=== PATIENT | female | born 1970 | race Caucasian/White ===

== ENCOUNTER 2016-09-07 17:16 | Inpatient (IN) | payer OTHER ==
[2016-09-07] VITALS (9 sets, daily range): BP systolic 85–106; BP diastolic 58–70; PULSE 76–108; RESP 16–28; TEMP 98.5–99.2; O2SAT 87–100
[~2016-09-07] VITALS: Ht 165.1 cm; Wt 62.6 kg
[~2016-09-07 17:16] MED LIST: ADVAI100I PO; ALBU8I INH; FLUO20 PO; OXYC5 PO; PHEN12.5 PO; PROT40TA PO; SYMB80AE INH
[2016-09-07] MEDS ORDERED: SODIUM CHLOR 0.9% 1000 ML INJ 800 ML IV ONE (17:38)
[2016-09-07] MEDS ORDERED: SODIUM CHLOR 0.9% 1000 ML INJ 1,000 ML IV ONE (17:38)
--- NOTE | 2016-09-07 17:44 | PD ---
HPI Chief Complaint: Respiratory Symptoms Time Seen by Provider: 17:38 Travel History International Travel<30 days: No Contact w/Intl Traveler<30days: No Traveled to known affect area: No History of Present Illness HPI 46-year-old female with history of emphysema, bipolar disorder, here for evaluation of shortness of breath, generalized weakness, bilateral lower back pain, and jaundice. Symptoms have been worsening over the last 2 days. Cough is productive of greenish sputum. She is not sure if she has been having fevers or chills. She is having some abdominal discomfort and chest tightness. She reports that she has been jaundiced in the past and this was attributed to the medications that she has been taking for her bipolar disorder. She has felt nauseous. No vomiting or diarrhea. No urinary symptoms. She denies IVDU. States that she used to use cocaine intranasally. No alcohol abuse. PFSH Past Medical History Arthritis: Yes (in back and hips) Asthma: Yes Autoimmune Disease: No Blood Disorders: No Bipolar Disorder: Yes Anxiety: Yes Depression: Yes Heart Rhythm Problems: No Cancer: No Cardiovascular Problems: No High Cholesterol: Yes Chest Pain: No Congestive Heart Failure: No COPD: No Cerebrovascular Accident: No Diminished Hearing: No Endocrine: No Gastrointestinal Disorders: Yes GERD: Yes Genitourinary: Yes (HYSTERECTOMY) Headaches: Yes Hepatitis: No Hiatal Hernia: No Immune Disorder: No Kidney Stones: No Musculoskeletal: Yes Neurologic: Yes Psychiatric: Yes Reproductive: Yes (ENDOMETRIOSIS) Respiratory: Yes (COPD) Immunizations Current: Yes Migraines: Yes Renal Failure: No Schizophrenia: Yes Seizures: Yes Sleep Apnea: No Ulcer: No PNEUMOCCOCAL Vaccine (Year): 1 Past Surgical History Abdominal Surgery: No AICD: No Appendectomy: Yes Arteriovenous Shunt: No Cardiac Surgery: No Ear Surgery: No Endocrine Surgery: No Eye Surgery: No Genitourinary Surgery: No Gynecologic Surgery: Yes (hysterectomy) Hysterectomy: Yes Insulin Pump: No Joint Replacement: No Oral Surgery: No Pacemaker: No Thoracic Surgery: No Other Surgery: Yes Social History Alcohol Use: No Tobacco Use: No Substance Use: No Allergies-Medications (Allergen,Severity, Reaction): Coded Allergies: No Known Allergies (Unverified , 09/07/16) Reported Meds & Prescriptions Reported Meds & Active Scripts Active Reported Advair Diskus Inh (Fluticasone-Salmeterol Inh) 100-50 Mcg/Blist Aer 1 Puff INH BID Rinse mouth after use. Symbicort Inh (Budesonide/Formoterol Fumarate) 80-4.5 Mcg/Act Aero 1 Puff INH BID Ventolin Hfa 18 GM Inh (Albuterol Sulfate) 90 Mcg/Act Aer 2 Puff INH Q4-6H PRN Klonopin (Clonazepam) 1 Mg Tab 1 Mg PO HS Trazodone (Trazodone HCl) 100 Mg Tab 200 Mg PO HS Abilify (Aripiprazole) 10 Mg Tab 10 Mg PO DAILY Prozac (Fluoxetine HCl) 40 Mg Cap 40 Mg PO DAILY Review of Systems Except as stated in HPI: all other systems reviewed are Neg Physical Exam Narrative GENERAL: Well-developed, well-nourished, awake, alert, no acute distress. SKIN: Warm and dry. Diffuse jaundice. HEAD: Atraumatic. Normocephalic. EYES: Pupils equal and round. Scleral icterus. No injection or drainage. ENT: Mucous membranes pink and dry. NECK: Trachea midline. No JVD. CARDIOVASCULAR: Regular rate and rhythm. RESPIRATORY: No accessory muscle use. Inspiratory and expiratory wheezes bilaterally. No rales or rhonchi. Breath sounds equal bilaterally. Speaking full sentences. GASTROINTESTINAL: Abdomen soft, nondistended. Mild diffuse tenderness without peritoneal signs. MUSCULOSKELETAL: No obvious deformities. No clubbing. No cyanosis. No edema. NEUROLOGICAL: Awake and alert. No obvious cranial nerve deficits. Motor grossly within normal limits. Normal speech. PSYCHIATRIC: Appropriate mood and affect; insight and judgment normal. Data Data Last Documented VS Vital Signs Date Time Temp Pulse Resp B/P Pulse Ox O2 Delivery O2 Flow Rate FiO2 09/07/16 19:00 93 22 98/61 100 Nasal Cannula 2 09/07/16 18:42 98.9 Orders Lactic Acid Sepsis Protocol (09/07/16 17:34) Complete Blood Count With Diff (09/07/16 17:35) Comprehensive Metabolic Panel (09/07/16 17:35) Electrocardiogram (09/07/16 17:38) Prothrombin Time / Inr (Pt) (09/07/16 17:38) Act Partial Throm Time (Ptt) (09/07/16 17:38) Urinalysis - C+S If Indicated (09/07/16 17:38) Influenzae A/B Antigen (09/07/16 17:38) Blood Culture (09/07/16 17:38) Chest, Single Ap (09/07/16 17:38) Blood Glucose (09/07/16 17:38) Ecg Monitoring (09/07/16 17:38) Iv Access Insert/Monitor (09/07/16 17:38) Oximetry (09/07/16 17:38) Oxygen Administration (09/07/16 17:38) Sodium Chlor 0.9% 1000 Ml Inj (Ns 1000 M (09/07/16 17:38) Sodium Chlor 0.9% 1000 Ml Inj (Ns 1000 M (09/07/16 17:38) Ct Abd/Pel W Iv Contrast(Rout) (09/07/16 17:38) Ct Pulmonary Angiogram (09/07/16 17:38) Tylenol (Acetaminophen) (09/07/16 17:38) Albuterol-Ipratropium Neb (Duoneb Neb) (09/07/16 17:45) Bhcg Screen Qualitative (09/07/16 17:30) Ckmb (Isoenzyme) Profile (09/07/16 17:30) Direct Bilirubin (09/07/16 17:30) Troponin I (09/07/16 17:30) Diphenhydramine Inj (Benadryl Inj) (09/07/16 18:30) Lipase (09/07/16 18:16) B-Type Natriuretic Peptide (09/07/16 18:50) Iohexol 350 Inj (Omnipaque 350 Inj) (09/07/16 18:50) Ceftriaxone Inj (Rocephin Inj) (09/07/16 19:15) Azithromycin Inj (Zithromax Inj) (09/07/16 19:15) Labs Laboratory Tests Test 09/07/16 17:30 White Blood Count 7.5 TH/MM3 Red Blood Count 5.05 MIL/MM3 Hemoglobin 15.0 GM/DL Hematocrit 44.8 % Mean Corpuscular Volume 88.8 FL Mean Corpuscular Hemoglobin 29.8 PG Mean Corpuscular Hemoglobin 33.6 % Concent Red Cell Distribution Width 17.5 % Platelet Count 220 TH/MM3 Mean Platelet Volume 9.8 FL Neutrophils (%) (Auto) 72.2 % Lymphocytes (%) (Auto) 18.7 % Monocytes (%) (Auto) 8.1 % Eosinophils (%) (Auto) 0.2 % Basophils (%) (Auto) 0.8 % Neutrophils # (Auto) 5.4 TH/MM3 Lymphocytes # (Auto) 1.4 TH/MM3 Monocytes # (Auto) 0.6 TH/MM3 Eosinophils # (Auto) 0.0 TH/MM3 Basophils # (Auto) 0.1 TH/MM3 CBC Comment AUTO DIFF Differential Comment AUTO DIFF CONFIRMED Platelet Morphology Comment ENLARGED Prothrombin Time 12.2 SEC Prothromb Time International 1.1 RATIO Ratio Activated Partial 31.0 SEC Thromboplast Time Sodium Level 135 MEQ/L Potassium Level 3.9 MEQ/L Chloride Level 102 MEQ/L Carbon Dioxide Level 22.2 MEQ/L Anion Gap 11 MEQ/L Blood Urea Nitrogen 15 MG/DL Creatinine 0.88 MG/DL Estimat Glomerular Filtration 70 ML/MIN Rate Random Glucose 112 MG/DL Lactic Acid Level 1.0 mmol/L Calcium Level 9.0 MG/DL Total Bilirubin 9.1 MG/DL Direct Bilirubin 7.3 MG/DL Aspartate Amino Transf 1677 U/L (AST/SGOT) Alanine Aminotransferase 2361 U/L (ALT/SGPT) Alkaline Phosphatase 303 U/L Total Creatine Kinase 37 U/L Troponin I 0.04 NG/ML B-Type Natriuretic Peptide 14 PG/ML Total Protein 8.7 GM/DL Albumin 3.1 GM/DL Lipase 299 U/L Beta HCG, Qualitative 3 MIU/ML Acetaminophen Level LESS THAN 2.0 MCG/ML MDM Medical Decision Making Medical Screen Exam Complete: Yes Emergency Medical Condition: Yes Medical Record Reviewed: Yes Interpretation(s) EKG: Sinus, rate 88, short CA interval, possible left atrial abnormality, nonspecific septal T wave changes, no acute ischemic abnormality. Differential Diagnosis Sepsis, pneumonia, PE, cholangitis, biliary obstruction, liver failure, hyperbilirubinemia, Narrative Course Initial vital signs show heart rate 108, blood pressure 85/58, pulse ox 87% on room air. Blood pressure improved to 106/68 after 2 L of normal saline IV. CBC is unremarkable. CMP is remarkable for total bilirubin 9.1, direct bilirubin 7.3, AST 1677, ALT 2361, alkaline phosphatase 303. Lipase is 299. BNP is 14. Troponin is 0.04. Lactic acid is 1.0. Chest x-ray: Cardiomegaly with diffuse interstitial opacities, similar to previous study. CT pulmonary angiogram: CONCLUSION: 1. There is pulmonary fibrosis and scattered groundglass densities throughout the lungs greatest in the upper lobes. Acute on chronic condition is suspected. 2. Minimal coronary artery calcification. 3. Right hilar and mediastinal adenopathy is likely reactive. 4. Left adrenal nodule likely adenoma. 5. No PE CT abdomen pelvis: CONCLUSION: 1. Left adrenal nodule probable adenoma. 2. No acute inflammatory process. 3. Interstitial and alveolar opacities with pulmonary fibrosis. The patient was started on azithromycin and Rocephin for pneumonia. She reports history of medication-induced liver injury/hyperbilirubinemia. She was given 2 L of IV fluids with improvement in heart rate and blood pressure. Her abdominal exam shows mild tenderness, no peritoneal signs. She will be admitted for further treatment and evaluation of acute hepatitis, hyperbilirubinemia, pneumonia, hypoxia. Case discussed with hospitalist Dr. Olsen who will admit the patient to her service. Diagnosis Primary Impression: Pneumonia Qualified Code: J18.9 - Pneumonia of both lungs due to infectious organism, unspecified part of lung Additional Impressions: Hypoxia Hyperbilirubinemia Transaminitis Admitting Information Admitting Physician Requests: Admit Duane Santos MD Sep 07, 2016 17:44
[2016-09-07] MEDS: RESP: ALBUTEROL 2.5 MG/IPRATROPIUM 0.5 MG NEB (SCH) INH ×2 (17:55→17:56)
[2016-09-07 17:56] LABS: CHLORIDE 102 MEQ/L (98-107); POTASSIUM 3.9 MEQ/L (3.5-5.1); SODIUM (NA) 135 MEQ/L (136-145)
[2016-09-07 17:58] LABS: AUTOMATED NEUTROPHIL # 5.4 TH/MM3 (1.8-7.7); BASOPHIL # 0.1 TH/MM3 (0-0.2); BASOPHIL % 0.8 % (0.0-2.0); EOSINOPHIL % 0.2 % (0.0-4.0); HEMATOCRIT 44.8 % (35.0-46.0); LYMPH % 18.7 % (9.0-44.0); LYMPHOCYTE # 1.4 TH/MM3 (1.0-4.8); MEAN CELL VOLUME 88.8 FL (80.0-100.0); MEAN CORPUSCULAR HEMOGLOBIN 29.8 PG (27.0-34.0); MEAN CORPUSCULAR HGB CONC 33.6 % (32.0-36.0); MONO % 8.1 % (0.0-8.0); NEUT % 72.2 % (16.0-70.0); PLATELET COUNT 220 TH/MM3 (150-450); RED BLOOD COUNT 5.05 MIL/MM3 (4.00-5.30); RED CELL DISTRIBUTION WIDTH 17.5 % (11.6-17.2); WHITE BLOOD COUNT 7.5 TH/MM3 (4.0-11.0)
[2016-09-07 18:00] LABS: ANION GAP 11 MEQ/L (5-15); BICARBONATE 22.2 MEQ/L (21.0-32.0); BLOOD UREA NITROGEN 15 MG/DL (7-18)
[2016-09-07 18:02] LABS: INTERNATIONAL NORMALIZED RATIO 1.1 RATIO; PROTHROMBIN TIME - PATIENT 12.2 SEC (9.8-11.6)
[2016-09-07 18:03] LABS: GLOMERULAR FILTRATION RATE 70 ML/MIN (>89)
[2016-09-07 18:04] LABS: TOTAL BILIRUBIN ADULT 9.1 MG/DL (0.2-1.0)
[2016-09-07 18:05] LABS: ALKALINE PHOSPHATASE 303 U/L (45-117)
[2016-09-07 18:09] LABS: HEMO FLAGS AUTO DIFF
[2016-09-07 18:10] LABS: ALT (GPT) 2361 U/L (10-53); AST (GOT) 1677 U/L (15-37)
[2016-09-07 18:11] LABS: BHCG SCREEN QUALITATIVE 3 MIU/ML (0-5); CREATINE KINASE 37 U/L (26-192)
--- NOTE | 2016-09-07 18:15 | RADHPO ---
EXAM DATE/TIME: 09/07/2016 18:04 [facility] COMPARISON: CHEST PA & LAT, November 27, 2015, 9:53. CHEST SINGLE AP, November 16, 2015, 9:32. INDICATIONS : Worsening shortness of breath for 10 days MEDICAL HISTORY : None. SURGICAL HISTORY : None. ENCOUNTER: Initial ACUITY: 1 week PAIN SCORE: 0/10 LOCATION: Bilateral chest FINDINGS: A single view of the chest demonstrates cardiomegaly with interstitial opacities. The cardiomediasti nal contours are unremarkable. Osseous structures are intact. CONCLUSION: Cardiomegaly with diffuse interstitial opacities, similar to previous study. Torey Burden MD on September 07, 2016 at 18:13 Board Certified Radiologist. This report was verified electronically.
[2016-09-07] MEDS ORDERED: TRAZ100T4 PO (18:18)
[2016-09-07] MEDS ORDERED: ARIP1TAB5 PO (18:18)
[2016-09-07] MEDS ORDERED: SYMB80AE INH (18:18)
[2016-09-07] MEDS ORDERED: PROZ40CA PO (18:18)
[2016-09-07] MEDS ORDERED: VENTAER INH (18:18)
[2016-09-07] MEDS ORDERED: CLON1 PO (18:18)
[2016-09-07] MEDS ORDERED: ADVA100A INH (18:18)
[2016-09-07] MEDS ORDERED: diphenhydrAMINE HCL 50 MG/ML VIAL IV PUSH ONE (18:30)
[2016-09-07 18:35] LABS: PLATELET MORPHOLOGY ENLARGED (NORMAL)
[2016-09-07 18:36] LABS: SCAN/DIFF AUTO DIFF CONFIRMED
[2016-09-07] MEDS ORDERED: IOHEXOL 350 MG/ML 10 ML VIAL (for RAD DIAG) IV ONE (18:50)
--- NOTE | 2016-09-07 19:02 | RADHPO ---
EXAM DATE/TIME: 09/07/2016 18:24 [facility] COMPARISON: CT ABDOMEN & PELVIS W/O CONTRAST, November 19, 2013, 13:54. INDICATIONS : Shortness of breath and hypoxia. IV CONTRAST: 75 cc Omnipaque 350 (iohexol) IV RADIATION DOSE: 16.15 CTDIvol (mGy) MEDICAL HISTORY : Chronic obstructive pulmonary disease. Gastroesophageal reflux disease. Jaundice. SURGICAL HISTORY : Hysterectomy. ENCOUNTER: Initial ACUITY: 1 day PAIN SCALE: 4/10 LOCATION: Bilateral chest TECHNIQUE: Volumetric scanning of the chest was performed using a pulmonary embolism protocol MIP images were re constructed. Using automated exposure control and adjustment of the mA and/or kV according to patien t size, radiation dose was kept as low as reasonably achievable to obtain optimal diagnostic quality images. FINDINGS: PULMONARY ARTERIES: No filling defects are seen in the pulmonary arteries through the segmental level. LUNGS: There is pulmonary fibrosis and diffuse interstitial densities in the upper lobes and superior segmen ts of the lower lobes. Scattered ground glass densities are also seen. PLEURAE: There is no pleural thickening or pleural effusion. MEDIASTINUM: There is good visualization of the great vessels of the middle mediastinum. Right hilar and scattered mediastinal adenopathy. MUSCULOSKELETAL: Within normal limits for patient age. MISCELLANEOUS: The visualized upper abdominal organs demonstrate no acute abnormality. 1.6 cm left adrenal nodule. CONCLUSION: 1. There is pulmonary fibrosis and scattered groundglass densities throughout the lungs greatest in t he upper lobes. Acute on chronic condition is suspected. 2. Minimal coronary artery calcification. 3. Right hilar and mediastinal adenopathy is likely reactive. 4. Left adrenal nodule likely adenoma. Torey Burden MD on September 07, 2016 at 18:55 Board Certified Radiologist. This report was verified electronically.
--- NOTE | 2016-09-07 19:08 | RADHPO ---
EXAM DATE/TIME: 09/07/2016 18:24 [facility] COMPARISON: CT ABDOMEN & PELVIS W/O CONTRAST, November 19, 2013, 13:54. CT ABDOMEN & PELVIS W CONTRAST, September 29, 18:08. INDICATIONS : Abdominal pain and jaundice. IV CONTRAST: 75 cc Omnipaque 350 (iohexol) IV ; Cumulative dose for multiple exams. ORAL CONTRAST: No oral contrast ingested. RADIATION DOSE: 14.62 CTDIvol (mGy) MEDICAL HISTORY : Gastroesophageal reflux disease. Jaundice. SURGICAL HISTORY : Hysterectomy. ENCOUNTER: Initial ACUITY: 1 day PAIN SCALE: 4/10 LOCATION: Bilateral upper quadrant TECHNIQUE: Volumetric scanning of the abdomen and pelvis was performed. Using automated exposure control and ad justment of the mA and/or kV according to patient size, radiation dose was kept as low as reasonably achievable to obtain optimal diagnostic quality images. FINDINGS: LOWER LUNGS: Bibasilar fibrosis and scattered interstitial and alveolar opacities.. LIVER: Homogeneous density without lesion. There is no dilation of the biliary tree. No calcified gallston es. SPLEEN: Normal size without lesion. PANCREAS: Within normal limits. KIDNEYS: Normal in size and shape. There is no mass, stone or hydronephrosis. ADRENAL GLANDS: 1.6 cm left adrenal nodule.. VASCULAR: There is no aortic aneurysm. BOWEL/MESENTERY: The stomach, small bowel, and colon demonstrate no acute abnormality. There is no free intraperitone al air or fluid. ABDOMINAL WALL: Within normal limits. RETROPERITONEUM: There is no lymphadenopathy. BLADDER: No wall thickening or mass. REPRODUCTIVE: Within normal limits. INGUINAL: There is no lymphadenopathy or hernia. MUSCULOSKELETAL: Within normal limits for patient age. CONCLUSION: 1. Left adrenal nodule probable adenoma. 2. No acute inflammatory process. 3. Interstitial and alveolar opacities with pulmonary fibrosis. Torey Burden MD on September 07, 2016 at 19:04 Board Certified Radiologist. This report was verified electronically.
[2016-09-07] MEDS ORDERED: AZITHROMYCIN INJ 500 MG in SODIUM CHLOR 0.9% 250 ML INJ 250 ML IV ONE (19:15)
[2016-09-07] MEDS ORDERED: cefTRIAXone INJ 1,000 MG in SODIUM CHLORIDE 0.9% INJ 100 ML IV ONE (19:15)
[2016-09-07] MEDS ORDERED: ACETYLCYSTEINE IV ONE ×6 (21:15→23:00)
[2016-09-07] MEDS ORDERED: DEXTROSE 5% IV ONE ×6 (21:15→23:00)
[2016-09-07] MEDS ORDERED: WATER IV ONE ×4 (21:15→22:00)
[2016-09-07] MEDS ORDERED: SODIUM CHLORIDE 0.9% FLUSH 5 ML FLUSH FLUSH PRN (21:15)
[2016-09-07] MEDS ORDERED: NALOXONE HCL 0.4 MG/ML AMP IV PRN (21:15)
[2016-09-07] MEDS: SODIUM CHLOR 0.9% 1000 ML INJ 1,000 ML IV SCH (22:15)
[2016-09-07] MEDS ORDERED: WATE IV ONE ×2 (23:00)
[2016-09-08] VITALS (12 sets, daily range): BP systolic 84–112; BP diastolic 56–81; PULSE 71–100; RESP 16–24; TEMP 97.5–98.8; O2SAT 91–100
[2016-09-08 02:57] LABS: BLOOD, URINE TRACE (NEG); GLUCOSE,URINE 100 mg/dL (NEG); KETONE, URINE NEG (NEG); NITRITE,URINE NEG (NEG)
[2016-09-08] MEDS ORDERED: ACETYLCYSTEINE IV ONE ×2 (03:00)
[2016-09-08] MEDS ORDERED: DEXTROSE 5% IV ONE ×2 (03:00)
[2016-09-08] MEDS ORDERED: WATE IV ONE ×2 (03:00)
[2016-09-08 03:03] LABS: URINE COLOR AMBER (YELLW/STRAW)
[2016-09-08 03:04] LABS: BACTERIA, URINE OCC /hpf; MUCUS URINE FEW /lpf (OCC); RBC, URINE 0-3 /hpf (0-3); SQUAMOUS EPITHELIAL CELL URINE 0-5 /hpf (0-5)
[2016-09-08 03:05] LABS: COMMENT (UR) CULTURE INDICATED; CULTURE IF INDICATED CULTURE INDICATED
[2016-09-08] MEDS ORDERED: KETOROLAC TROMETHAMINE 30 MG/ML (IVP) VIAL IV PUSH ONE (05:30)
[2016-09-08 06:36] LABS: CREATINE KINASE 39 U/L (26-192)
[2016-09-08 07:07] LABS: AUTOMATED NEUTROPHIL # 2.3 TH/MM3 (1.8-7.7); BASOPHIL % 0.3 % (0.0-2.0); EOSINOPHIL % 0.3 % (0.0-4.0); HEMATOCRIT 36.2 % (35.0-46.0); LYMPH % 30.3 % (9.0-44.0); LYMPHOCYTE # 1.1 TH/MM3 (1.0-4.8); MEAN CELL VOLUME 88.5 FL (80.0-100.0); MEAN CORPUSCULAR HEMOGLOBIN 29.5 PG (27.0-34.0); MEAN CORPUSCULAR HGB CONC 33.3 % (32.0-36.0); MONO % 11.7 % (0.0-8.0); NEUT % 57.4 % (16.0-70.0); PLATELET COUNT 126 TH/MM3 (150-450); RED BLOOD COUNT 4.09 MIL/MM3 (4.00-5.30); WHITE BLOOD COUNT 3.8 TH/MM3 (4.0-11.0)
[2016-09-08 07:17] LABS: HEMO FLAGS AUTO DIFF
[2016-09-08 07:26] LABS: GAMMA GT 143 U/L (5-55)
[2016-09-08 07:50] LABS: SCAN/DIFF AUTO DIFF CONFIRMED
[2016-09-08 08:34] LABS: BLOOD UREA NITROGEN 10 MG/DL (7-18)
[2016-09-08 08:35] LABS: GLOMERULAR FILTRATION RATE 99 ML/MIN (>89)
[2016-09-08 08:36] LABS: ALKALINE PHOSPHATASE 223 U/L (45-117); ALT (GPT) 1867 U/L (10-53); AST (GOT) 1379 U/L (15-37)
[2016-09-08 08:37] LABS: ANION GAP 10 MEQ/L (5-15); BICARBONATE 22.8 MEQ/L (21.0-32.0); CHLORIDE 108 MEQ/L (98-107); POTASSIUM 3.4 MEQ/L (3.5-5.1); SODIUM (NA) 141 MEQ/L (136-145); TOTAL BILIRUBIN ADULT 7.8 MG/DL (0.2-1.0)
[2016-09-08] MEDS: URSODIOL 300 MG CAP PO SCH ×2 (09:00→21:15)
[2016-09-08] MEDS: ACETYLCYSTEINE 20% 6,000 MG/30 ML ORAL SOLN VIAL PO SCH ×2 (09:00→21:16)
[2016-09-08] MEDS: SODIUM CHLORIDE 0.9% FLUSH 5 ML FLUSH FLUSH SCH ×2 (09:00→21:14)
[2016-09-08 09:33] LABS: FERRITIN 278 NG/ML (8-252); TRANSFERRIN IRON PROFILE 242 MG/DL (200-360)
[2016-09-08 09:38] LABS: ACETAMINOPHEN LESS THAN 2.0 MCG/ML (10.0-30.0)
[2016-09-08] MEDS: SODIUM CHLOR 0.9% 1000 ML INJ 1,000 ML IV SCH ×3 (10:58→21:16)
--- NOTE | 2016-09-08 12:17 | EC ---
Study Study Date:09/08/2016 STUDY CONCLUSIONS SUMMARY - Left ventricle: The cavity size was normal. Wall thickness was normal. Systolic function was normal. The estimated ejection fraction was in the range of 55% to 60%. Wall motion was normal; there were no regional wall motion abnormalities. - Pulmonary arteries: Systolic pressure was mildly increased. PA peak pressure: 43mm Hg (S). If LV function is below 40, please consider prescribing an ACEI or ARB or document rationale for non-use. PROCEDURE DATA STUDY STATUS: Elective. Procedure: Transthoracic echocardiography. Image quality was good. Scanning was performed from the parasternal, apical, and subcostal acoustic windows. Study completion: The patient tolerated the procedure well. Transthoracic echocardiography. M-mode, complete 2D, complete spectral Doppler, and color Doppler. Patient status: Inpatient. CARDIAC ANATOMY LEFT VENTRICLE: The cavity size was normal. Wall thickness was normal. Systolic function was normal. The estimated ejection fraction was in the range of 55% to 60%. Wall motion was normal; there were no regional wall motion abnormalities. AORTIC VALVE: Trileaflet; normal thickness leaflets. Doppler: Transvalvular velocity was within the normal range. There was no stenosis. No regurgitation. AORTA: Aortic root: The aortic root was normal in size. MITRAL VALVE: Structurally normal valve. Doppler: Transvalvular velocity was within the normal range. There was no evidence for stenosis. Trace to mild regurgitation. LEFT ATRIUM: The atrium was normal in size. RIGHT VENTRICLE: The cavity size was normal. Wall thickness was normal. PULMONIC VALVE: Doppler: Transvalvular velocity was within the normal range. There was no evidence for stenosis. No regurgitation. TRICUSPID VALVE: Structurally normal valve. Doppler: Transvalvular velocity was within the normal range. Trace to mild regurgitation. PULMONARY ARTERY: The main pulmonary artery was normal-sized. Systolic pressure was mildly increased. RIGHT ATRIUM: The atrium was normal in size. PERICARDIUM: There was no pericardial effusion. SYSTEMIC VEINS: Inferior vena cava: The vessel was normal in size. BASIC MEASUREMENTS ADULT Normal Left ventricle LV internal dimension, ED, chordal level, *30.9 mm 43-52 PLAX LV internal dimension, ES, chordal level, 23.3 mm 23-38 PLAX Fractional shortening, chordal level, PLAX *25 % >29 LV posterior wall thickness, ED 9.19 mm IVS/LVPW ratio, ED *1.32 <1.3 Ventricular septum Septal thickness, ED 12.1 mm Aortic valve Leaflet separation 19 mm 15-26 Right ventricle RV internal dimension, ED, PLAX 21 mm 19-38 BASIC MEASUREMENTS ADULT Normal Aortic valve Leaflet separation 19 mm 15-26 Aorta Root diameter, ED 27 mm 20-37 Left atrium Anterior-posterior dimension, ES 31 mm 19-40 LA/aortic root ratio 1.15 DOPPLER MEASUREMENTS ADULT Normal Main pulmonary artery Pressure, S *43 mm Hg =30 Tricuspid valve Regurgitant peak velocity 287 cm/s Peak RV-RA gradient, S 33 mm Hg Maximal regurgitant velocity 287 cm/s Systemic veins Estimated CVP 10 mm Hg Right ventricle RV pressure, S *43 mm Hg <30 LEGEND: Mean values are shown as u=mean value. Asterisk (*) john values outside specified normal range. Prepared and signed by Frank Monroy [id number]
--- NOTE | 2016-09-08 13:34 | EKG ---
Date Performed: 09/07/2016 Time Performed: 17:45:18 PTAGE: 46 years EKG: Sinus rhythm Short FL interval Possible left atrial abnormality Septal T wave changes are nonspecific Borderline ECG Compared to PREVIOUS TRACING , right axis deviation is no longer present. PREVIOUS TRACIN03.10 DOCTOR: Agus Demarco Interpretating Date/Time 09/08/2016 13:33:11
--- NOTE | 2016-09-08 15:37 | MB ---
cc: OLI ZHU M.D. DATE OF CONSULTATION: 09/08/[address] Gamino. REASON FOR CONSULTATION Elevation of the liver enzymes, generalized weakness, nausea. 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 The patient comes in today with increased weakness, worsening jaundice, bilateral lower back pain, shortness of breath, diagnosed with pneumonia. The patient denies any recent travel, use of new medications or supplements. She denies any use of alcohol or snorting cocaine recently. She had a history of that but she stated that the last time she had to use that was a few months ago. After discharge from the hospital last admission she stated she followed up with her primary care doctor and her liver enzymes actually normalized. PAST MEDICAL HISTORY 1. Osteoarthritis. 2. Asthma. 3. Bipolar disorder. 4. Anxiety. 5. Depression. 6. High cholesterol. 7. Reflux. 8. Endometriosis. 9. History of schizophrenia. 10. Seizure disorder. PAST SURGICAL HISTORY Hysterectomy and appendectomy. SOCIAL HISTORY Denies smoking, drinking or drug use. ALLERGIES No known allergies. MEDICATIONS 1. Advair. 2. Symbicort. 3. Ventolin. 4. Klonipin. 5. Trazodone. 6. Abilify. 7. Prozac. REVIEW OF SYSTEMS On review of systems she did have fever and chills. ENT: No alteration in baseline hearing or visual acuity. PULMONARY: Denies any chest pain, shortness of breath. GASTROINTESTINAL: As above. GENITOURINARY: Denies dysuria, hematuria. HEMATOLOGIC: Denies any history of anemia or bleeding disorder. SKIN: No alteration in baseline skin lesion. NEUROLOGIC: No history of TIA or CVA kind of symptoms. PHYSICAL EXAMINATION GENERAL: On clinical exam, the patient is sitting comfortably in bed, in no acute distress, jaundiced. VITAL SIGNS: Temperature 97.5, pulse 79, respirations 16, blood pressure is 101/75, pulse oximetry 93. HEENT: PERRLA. NECK: No JVD. No lymphadenopathy. CHEST: Clear to auscultation and palpation. CARDIOVASCULAR: S1, S2. No murmur. ABDOMEN: Abdomen is soft, nontender. Bowel sounds are present. STITCH RUBBER: Awake, alert, oriented x3. No flapping tremor. LABORATORY DATA Her white count is 3.8 with a hemoglobin of 12.1, platelets 126. AST 1379, ALT 1867, alkaline phosphatase 223. Total bilirubin is 7.8, was 16 on previous admission. As I mentioned, she did have extensive workup last time and her hepatitis profile was negative. 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 She did have a liver biopsy at that time which was consistent with drug-induced hepatitis, that was in 2016 and that was suggestive of severe acute and chronic hepatitis exhibiting features most suggestive of drug induced hepatitis. Previous liver biopsy was done back in 2012 for similar reasons and the same diagnosis was entertained. IMPRESSION Elevation of the liver enzymes most likely drug induced but acute hepatitis needs to be ruled out, less likely obstructive pattern. RECOMMENDATION We are going to send hepatitis profile, anti-smooth muscle antibody, antimitochondrial antibody, celiac panel, ceruloplasmin, alpha-1 antitrypsin, iron, ferritin, Tylenol, salicylate level, MRCP, echocardiogram. We are going to start her on Ursodiol and Mucomyst. Also recommend consultation with psychiatry for adjustment of her medication as I feel that most of her elevation is related to her medication. I would like to thank Dr. Gamino for referring her to our office for consultation. Further recommendation will depend on the patient's clinical status and the above results. MD DANY ReedB/TLL /1:17 PM /2:56 PM
--- NOTE | 2016-09-08 15:55 | HHI.HP ---
[facility] Service [facility] Primary Care Physician Sebastián Herman Admission Diagnosis pneumonia, hypoxia, transaminitis, hyperbilirubinemia Diagnoses: Travel History International Travel<30 Days: No Contact w/Intl Traveler <30 Da: No Traveled to Known Affected Are: No History of Present Illness This is a pleasant 46-year-old female with past medical history of drug-induced liver disease and hepatitis, hepatitis C virus status post liver biopsy in 2012 2015, bipolar disorder on Abilify trazodone and Prozac who presented to the ER today complaining of a two-week history of shortness of cough and several day history of generalized jaundice and pruritus as well as right sided abdominal and thoracic pain. The patient states that her shortness of breath and cough started 2 weeks ago and progressively got worse. She is coughing up scant amounts of sputum. 3 days ago she started to develop yellowing of the eyes and noticed that her right side was hurting under her right breast which was a sharp pain and worse with inspiration and coughing. She also had generalized pruritus and nausea with several episodes of vomiting. She's had low-grade fevers and 99-100 range. She denies any diarrhea. No blood in the stool. The patient does have pulmonary fibrosis based on CT scans however she was unaware of this diagnosis. She does continue to smoke about 1 pack of cigarettes every several weeks. The patient denies taking any Tylenol. She is not taking any supplements or [id number] medications. She does take ibuprofen as needed for pain. She denies any recent use of cocaine or illicit drugs. Review of Systems Constitutional: COMPLAINS OF: Fever, Chills Ears, nose, mouth, throat: DENIES: Throat pain, Odynophagia Respiratory: COMPLAINS OF: Cough, Sputum production, Shortness of breath Cardiovascular: DENIES: Chest pain, Palpitations Gastrointestinal: COMPLAINS OF: Abdominal pain, Nausea, Vomiting Genitourinary: DENIES: Urgency, Dysuria Musculoskeletal: DENIES: Muscle aches, Stiffness Integumentary: COMPLAINS OF: Pruritus, DENIES: Rash Hematologic/lymphatic: DENIES: Lymphadenopathy Neurologic: DENIES: Abnormal gait, Headache Psychiatric: COMPLAINS OF: Depression, DENIES: Anxiety, Confusion Past Family Social History Past Medical History Hepatitis C virus History of drug-induced liver damage status post liver biopsy 2012 and 2015 with pathology consistent with this Bipolar disorder COPD and asthma Pulmonary fibrosis History of seizure disorder Hyperlipidemia History of cocaine use and polysubstance use Endometriosis Past Surgical History Liver biopsy 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 Symbicort Inh (Budesonide/Formoterol Fumarate) 80-4.5 Mcg/Act Aero 1 Puff INH BID 09/07/16 Reported Ventolin Hfa 18 GM Inh (Albuterol Sulfate) 90 Mcg/Act Aer 2 Puff INH Q4-6H PRN 09/07/16 Reported Klonopin (Clonazepam) 1 Mg Tab 1 Mg PO HS 09/07/16 Reported Trazodone (Trazodone HCl) 100 Mg Tab 200 Mg PO HS 09/07/16 Reported Abilify (Aripiprazole) 10 Mg Tab 10 Mg PO DAILY 09/07/16 Reported Prozac (Fluoxetine HCl) 40 Mg Cap 40 Mg PO DAILY 09/07/16 Reported Allergies: Coded Allergies: No Known Allergies (Unverified , 09/07/16) Family History Reviewed and noncontributory Social History As per history of present illness Physical Exam Vital Signs Vital Signs Date Time Temp Pulse Resp B/P Pulse Ox O2 Delivery O2 Flow Rate FiO2 09/08/16 14:41 96 3.00 09/08/16 12:00 97.5 79 16 101/75 96 09/08/16 09:56 98.0 71 16 97/68 98 09/08/16 09:51 Nasal Cannula 3 09/08/16 09:51 88 16 92/58 100 Nasal Cannula 3 09/08/16 07:42 80 16 91/56 100 Nasal Cannula 3 09/08/16 07:42 80 16 100 Nasal Cannula 3 09/08/16 06:17 77 22 103/70 93 Nasal Cannula 3 09/08/16 05:58 20 09/08/16 03:53 98.4 76 18 84/62 96 Nasal Cannula 3 09/08/16 02:52 Nasal Cannula 2 09/08/16 02:41 94 24 90/61 95 Nasal Cannula 2 09/08/16 00:07 100 18 87/61 96 Nasal Cannula 2 09/08/16 00:00 75 18 96 Nasal Cannula 2 09/07/16 22:16 98.5 76 16 86/60 99 Nasal Cannula 2 09/07/16 22:15 95 Nasal Cannula 2.00 09/07/16 21:30 86 16 96 Nasal Cannula 2 09/07/16 21:12 78 16 87/61 99 Nasal Cannula 2 09/07/16 20:12 86 16 100/70 99 Nasal Cannula 2 09/07/16 19:00 22 100 Nasal Cannula 2 09/07/16 19:00 93 22 98/61 100 Nasal Cannula 2 09/07/16 18:42 98.9 98 24 106/68 97 Room Air 09/07/16 18:10 92 24 95/67 96 Nasal Cannula 2 09/07/16 17:30 98 28 97 Nasal Cannula 2 09/07/16 17:21 96 Nasal Cannula 2 09/07/16 17:21 28 96 2 09/07/16 17:20 99.2 108 28 85/58 87 Physical Exam GENERAL: Well-nourished, well-developed pleasant female patient. SKIN: Warm and dry. Generalized jaundice. No rashes. HEAD: Normocephalic. EYES: Noted scleral icterus. No injection or drainage. NECK: Supple, trachea midline. No JVD or lymphadenopathy. CARDIOVASCULAR: Regular rate and rhythm without murmurs, gallops, or rubs. RESPIRATORY: Diffuse crackles bilaterally. Nonlabored breathing. Breath sounds equal bilaterally. GASTROINTESTINAL: Bowel sounds are normal. Patient is tender in the lower quadrant bilaterally right upper quadrant but negative Najera sign, she is more tender to palpation in the left upper quadrant. Abdomen is soft and nondistended. EXTREMITIES: No pedal edema. NEUROLOGICAL: Awake, alert, and oriented x 3. Non-focal. Laboratory Laboratory Tests Test 09/07/16 09/08/16 09/08/16 09/08/16 17:30 02:45 06:00 06:25 White Blood Count 7.5 3.8 Red Blood Count 5.05 4.09 Hemoglobin 15.0 12.1 Hematocrit 44.8 36.2 Mean Corpuscular Volume 88.8 88.5 Mean Corpuscular Hemoglobin 29.8 29.5 Mean Corpuscular Hemoglobin 33.6 33.3 Concent Red Cell Distribution Width 17.5 17.0 Platelet Count 220 126 Mean Platelet Volume 9.8 10.6 Neutrophils (%) (Auto) 72.2 57.4 Lymphocytes (%) (Auto) 18.7 30.3 Monocytes (%) (Auto) 8.1 11.7 Eosinophils (%) (Auto) 0.2 0.3 Basophils (%) (Auto) 0.8 0.3 Neutrophils # (Auto) 5.4 2.3 Lymphocytes # (Auto) 1.4 1.1 Monocytes # (Auto) 0.6 0.4 Eosinophils # (Auto) 0.0 0.0 Basophils # (Auto) 0.1 0.0 CBC Comment AUTO DIFF AUTO DIFF Differential Comment AUTO DIFF AUTO DIFF CONFIRMED CONFIRMED Platelet Morphology Comment ENLARGED Prothrombin Time 12.2 Prothromb Time International 1.1 Ratio Activated Partial 31.0 Thromboplast Time Sodium Level 135 Potassium Level 3.9 Chloride Level 102 Carbon Dioxide Level 22.2 Anion Gap 11 Blood Urea Nitrogen 15 Creatinine 0.88 Estimat Glomerular Filtration 70 Rate Random Glucose 112 Lactic Acid Level 1.0 Calcium Level 9.0 Total Bilirubin 9.1 Direct Bilirubin 7.3 Aspartate Amino Transf 1677 (AST/SGOT) Alanine Aminotransferase 2361 (ALT/SGPT) Alkaline Phosphatase 303 Total Creatine Kinase 37 39 Troponin I 0.04 B-Type Natriuretic Peptide 14 Total Protein 8.7 Albumin 3.1 Lipase 299 Beta HCG, Qualitative 3 Acetaminophen Level LESS THAN 2.0 Urine Color SEVERINO Urine Turbidity SLIGHT Urine pH 6.0 Urine Specific [place] GREATER THAN 1.035 Urine Protein TRACE Urine Glucose (UA) 100 Urine Ketones NEG Urine Occult Blood TRACE Urine Nitrite NEG Urine Bilirubin MOD Urine Leukocyte Esterase MOD Urine RBC 0-3 Urine WBC 25-49 Urine WBC Clumps OCC Urine Squamous Epithelial 0-5 Cells Urine Amorphous Sediment SMALL Urine Bacteria OCC Urine Mucus FEW Microscopic Urinalysis Comment CULTURE INDICATED Gamma Glutamyl Transpeptidase 143 Test 09/08/16 07:00 Sodium Level 141 Potassium Level 3.4 Chloride Level 108 Carbon Dioxide Level 22.8 Anion Gap 10 Blood Urea Nitrogen 10 Creatinine 0.65 Estimat Glomerular Filtration 99 Rate Random Glucose 100 Calcium Level 7.9 Iron Level 171 Total Iron Binding Capacity 339 Percent Iron Saturation 50.5 Ferritin 278 Total Bilirubin 7.8 Aspartate Amino Transf 1379 (AST/SGOT) Alanine Aminotransferase 1867 (ALT/SGPT) Alkaline Phosphatase 223 Total Protein 6.8 Albumin 2.3 Lipase 450 Salicylates Level LESS THAN 1.7 Acetaminophen Level LESS THAN 2.0 Hepatitis A IgM Antibody NEGATIVE Hepatitis B Surface Antigen NEGATIVE Hepatitis B Core IgM Antibody NEGATIVE Hepatitis C Antibody REACTIVE Date/Time Procedure Status Source Growth 09/08/16 02:45 Urine Culture Received Urine Clean Catch Pending 09/07/16 18:40 Influenza Types A,B Antigen (JEN) - Final Complete Nasal Washing NEGATIVE FOR FLU A AND B ANTIGEN.... 09/07/16 17:40 Aerobic Blood Culture - Preliminary Resulted Blood Peripheral NO GROWTH IN 1 DAY 09/07/16 17:40 Anaerobic Blood Culture - Preliminary Resulted Blood Peripheral NO GROWTH IN 1 DAY Result Diagram: 09/08/16 0625 09/08/16 0700 Imaging Last Impressions Chest X-Ray [id number] Signed Impressions: Service Date/Time: Wednesday, September 07, 2016 18:04 - CONCLUSION: Cardiomegaly with diffuse interstitial opacities, similar to previous study. Torey Burden MD CT Angiography [id number] Signed Impressions: Service Date/Time: Wednesday, September 07, 2016 18:24 - CONCLUSION: 1. There is pulmonary fibrosis and scattered groundglass densities throughout the lungs greatest in the upper lobes. Acute on chronic condition is suspected. 2. Minimal coronary artery calcification. 3. Right hilar and mediastinal adenopathy is likely reactive. 4. Left adrenal nodule likely adenoma. Torey Burden MD Abdomen/Pelvis CT [id number] Signed Impressions: Service Date/Time: Wednesday, September 07, 2016 18:24 - CONCLUSION: 1. Left adrenal nodule probable adenoma. 2. No acute inflammatory process. 3. Interstitial and alveolar opacities with pulmonary fibrosis. Torey Burden MD Assessment and Plan Problem List: (1) Hepatitis, acute ICD Code: B17.9 Status: Acute (2) Pneumonia ICD Code: J18.9 Status: Acute (3) Bipolar disease, chronic ICD Code: F31.9 Status: Chronic (4) Hx of substance abuse ICD Code: Z87.898 Status: Chronic (5) Hepatitis C ICD Code: B19.20 Status: Chronic (6) Pulmonary fibrosis determined by high resolution computed tomography ICD Code: J84.10 Status: Chronic Assessment and Plan -Community-acquired pneumonia - will treat with Rocephin and Zithromax, DuoNeb' s oxygen via nasal cannula. Check sputum culture. -Acute hepatitis, suspected drug-induced liver damage - patient is status post liver biopsies 2 in 2012 and 2015 with pathology with pathology consistent for cholestatic drug-induced liver injury. We'll obtain urine drug screen. Patient denies taking any over the counters other than ibuprofen. She is on Prozac, trazodone and Abilify and I will hold those and consult psychiatry for their opinion. Follow-up MRCP. GI is following the patient. She also has a history of hepatitis C virus. Her liver functions tests are trending down today. Tylenol level was not elevated on admission. She's been treated with ursodiol and acetylcysteine by gastroenterology. -Pulmonary fibrosis - patient states that she was unaware of this diagnosis. I urged her to stop smoking and that she will need her primary care physician to refer her to a embroiderer hand. -Bipolar disorder - the patient states this has been controlled on Prozac and Abilify however now with the elevated liver enzymes will consult psychiatry for recommendations. -COPD and asthma - use DuoNeb nebs as needed. Continue Pulmicort. --History of seizure disorder - not on medications for this Hyperlipidemia - she is not on a statin -History of cocaine use and polysubstance use - will check urine drug screen -DVT prophylaxis with SCDs Problem Qualifiers (1) Pneumonia: Qualified Code: J18.9 - Pneumonia of both lungs due to infectious organism, unspecified part of lung Selena Gamino MD Sep 08, 2016 15:55
--- NOTE | 2016-09-08 17:20 | RADHPO ---
EXAM DATE/TIME: 09/08/2016 12:37 [facility] COMPARISON: CT ABDOMEN & PELVIS W/O CONTRAST, November 19, 2013, 13:54. CT ABDOMEN & PELVIS W CONTRAST, September 07 7, 18:24. MRCP W/O CONTRAST, November 18, 2015, 8:37. INDICATIONS : Jaundice. Elevated liver function tests. MEDICAL HISTORY : Chronic obstructive pulmonary disease. SURGICAL HISTORY : Hysterectomy. ENCOUNTER: Initial ACUITY: 1 day PAIN SCORE: 0/10 LOCATION: Abdomen. TECHNIQUE: Multiplanar, multisequence magnetic resonance imaging of the abdomen was performed. High-resolution 3D dataset was utilized to reconstruct maximum-intensity projection (MIP) images. FINDINGS: INTRAHEPATIC BILE DUCTS: Within normal limits. No significant anatomical variant is present. EXTRAHEPATIC BILE DUCTS: The common duct measures between 2 and 3 mm throughout. No stone or filling defect is identified. GALLBLADDER: No stones or pericholecystic fluid. Gallbladder is decompressed but there is gallbladder wall edema a ppears relatively diffuse. LIVER: The liver measures 17.5 cm in length. No fat or iron deposition is appreciated. No concerning liver l esion is identified on this non-contrast exam. PANCREAS: The main pancreatic duct is normal in size. There is no significant anatomical variant. Signal inte nsity is within normal limits. No mass is visualized on this non-contrast exam. OTHER: The spleen is mildly enlarged measuring 13.1 cm in length. A stable 12 mm left adrenal gland nodule i s present. It is too small to accurately characterize on this examination but this lesion was present on the 11/19/2013 examination and measured 11 mm on that study and had density measurements character istic of an adenoma. Otherwise, the remaining visualized structures demonstrate no acute abnormality on this non-contrast exam. CONCLUSION: 1. Gallbladder wall edema. No intrahepatic or extrahepatic bile duct dilatation is present. There are no gallstones visualized. 2. Mild splenomegaly. 3. Stable 12 mm left adrenal gland nodule likely representing a benign adenoma given the stability in size since October 2013. You Bae MD on September 08, 2016 at 17:11 Board Certified Radiologist. This report was verified electronically.
[2016-09-08] MEDS: MORPHINE SULFATE 4 MG/ML INJ IV PRN (18:43)
[2016-09-08] MEDS: RESP: ALBUTEROL 2.5 MG/IPRATROPIUM 0.5 MG NEB (SCH) NEB (19:37)
[2016-09-08 20:04] LABS: AMPHETAMINE, URINE NEG (NEG); BARBITURATES, URINE NEG (NEG)
[2016-09-08 20:09] LABS: COCAINE, URINE NEG (NEG)
[2016-09-08] MEDS: BUDESONIDE-FORMOTEROL 80/4.5 MCG INHALER INH SCH (21:14)
[2016-09-08] MEDS: cefTRIAXone INJ 1,000 MG in SODIUM CHLORIDE 0.9% INJ 100 ML IV SCH (21:15)
[2016-09-09] VITALS (8 sets, daily range): BP systolic 98–114; BP diastolic 70–81; PULSE 80–96; RESP 16–20; TEMP 98.2–99.8; O2SAT 91–95
[2016-09-09] MEDS: SODIUM CHLOR 0.9% 1000 ML INJ 1,000 ML IV SCH ×3 (06:33→20:21)
[2016-09-09] MEDS: MORPHINE SULFATE 4 MG/ML INJ IV PRN ×2 (06:37→20:28)
--- NOTE | 2016-09-09 07:19 | HHI.GIFU ---
GI Follow-up Note Consult Follow-up Subjective: Patient laying in bed comfortably,feeling better.No nausea, vomiting, abdominal pain,diarrhea.Awaiting psych consult for medication adjustment.lfts today pending, no signs of liver failure, hepatic encephalopathy Objective: PHYSICAL EXAMINATION: Vitals signs stable No fever Vital Signs Date Time Temp Pulse Resp B/P Pulse Ox O2 Delivery O2 Flow Rate FiO2 09/09/16 04:00 98.5 80 20 108/77 95 09/09/16 00:00 98.3 84 20 98/72 92 HEENT: Pupils round and reactive to light; normocephalic; atraumatic; jaundice. Throat is clear. NECK: Neck is supple, no JVD, no lymphadenopathy. CHEST: Chest is clear to auscultation and percussion. CARDIAC: Regular rate and rhythm with no murmur gallop or rubs. ABDOMEN: Soft, nondistended, nontender; no hepatosplenomegaly; bowel sounds are present in all four quadrants. EXTREMITIES: No clubbing, cyanosis, or edema. SKIN: Normal; no rash; jaundice. 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 Available Data (labs, X- Rays, Procedues) : Laboratory Tests Test 09/07/16 09/08/16 09/08/16 09/08/16 17:30 02:45 06:00 06:25 White Blood Count 7.5 TH/MM3 3.8 TH/MM3 Red Blood Count 5.05 MIL/MM3 4.09 MIL/MM3 Hemoglobin 15.0 GM/DL 12.1 GM/DL Hematocrit 44.8 % 36.2 % Mean Corpuscular Volume 88.8 FL 88.5 FL Mean Corpuscular Hemoglobin 29.8 PG 29.5 PG Mean Corpuscular Hemoglobin 33.6 % 33.3 % Concent Red Cell Distribution Width 17.5 % 17.0 % Platelet Count 220 TH/MM3 126 TH/MM3 Mean Platelet Volume 9.8 FL 10.6 FL Neutrophils (%) (Auto) 72.2 % 57.4 % Lymphocytes (%) (Auto) 18.7 % 30.3 % Monocytes (%) (Auto) 8.1 % 11.7 % Eosinophils (%) (Auto) 0.2 % 0.3 % Basophils (%) (Auto) 0.8 % 0.3 % Neutrophils # (Auto) 5.4 TH/MM3 2.3 TH/MM3 Lymphocytes # (Auto) 1.4 TH/MM3 1.1 TH/MM3 Monocytes # (Auto) 0.6 TH/MM3 0.4 TH/MM3 Eosinophils # (Auto) 0.0 TH/MM3 0.0 TH/MM3 Basophils # (Auto) 0.1 TH/MM3 0.0 TH/MM3 CBC Comment AUTO DIFF AUTO DIFF Differential Comment AUTO DIFF AUTO DIFF CONFIRMED CONFIRMED Platelet Morphology Comment ENLARGED Prothrombin Time 12.2 SEC Prothromb Time International 1.1 RATIO Ratio Activated Partial 31.0 SEC Thromboplast Time Sodium Level 135 MEQ/L Potassium Level 3.9 MEQ/L Chloride Level 102 MEQ/L Carbon Dioxide Level 22.2 MEQ/L Anion Gap 11 MEQ/L Blood Urea Nitrogen 15 MG/DL Creatinine 0.88 MG/DL Estimat Glomerular Filtration 70 ML/MIN Rate Random Glucose 112 MG/DL Lactic Acid Level 1.0 mmol/L Calcium Level 9.0 MG/DL Total Bilirubin 9.1 MG/DL Direct Bilirubin 7.3 MG/DL Aspartate Amino Transf 1677 U/L (AST/SGOT) Alanine Aminotransferase 2361 U/L (ALT/SGPT) Alkaline Phosphatase 303 U/L Total Creatine Kinase 37 U/L 39 U/L Troponin I 0.04 NG/ML B-Type Natriuretic Peptide 14 PG/ML Total Protein 8.7 GM/DL Albumin 3.1 GM/DL Lipase 299 U/L Beta HCG, Qualitative 3 MIU/ML Acetaminophen Level LESS THAN 2.0 MCG/ML Urine Color SEVERINO Urine Turbidity SLIGHT Urine pH 6.0 Urine Specific [place] GREATER THAN 1.035 Urine Protein TRACE mg/dL Urine Glucose (UA) 100 mg/dL Urine Ketones NEG mg/dL Urine Occult Blood TRACE Urine Nitrite NEG Urine Bilirubin MOD Urine Leukocyte Esterase MOD Urine RBC 0-3 /hpf Urine WBC 25-49 /hpf Urine WBC Clumps OCC Urine Squamous Epithelial 0-5 /hpf Cells Urine Amorphous Sediment SMALL Urine Bacteria OCC /hpf Urine Mucus FEW /lpf Microscopic Urinalysis Comment CULTURE INDICATED Gamma Glutamyl Transpeptidase 143 U/L Test 09/08/16 09/08/16 07:00 19:38 Sodium Level 141 MEQ/L Potassium Level 3.4 MEQ/L Chloride Level 108 MEQ/L Carbon Dioxide Level 22.8 MEQ/L Anion Gap 10 MEQ/L Blood Urea Nitrogen 10 MG/DL Creatinine 0.65 MG/DL Estimat Glomerular Filtration 99 ML/MIN Rate Random Glucose 100 MG/DL Calcium Level 7.9 MG/DL Iron Level 171 MCG/DL Total Iron Binding Capacity 339 MCG/DL Percent Iron Saturation 50.5 % Ferritin 278 NG/ML Total Bilirubin 7.8 MG/DL Aspartate Amino Transf 1379 U/L (AST/SGOT) Alanine Aminotransferase 1867 U/L (ALT/SGPT) Alkaline Phosphatase 223 U/L Total Protein 6.8 GM/DL Albumin 2.3 GM/DL Lipase 450 U/L Salicylates Level LESS THAN 1.7 MG/DL Acetaminophen Level LESS THAN 2.0 MCG/ML Hepatitis A IgM Antibody NEGATIVE Hepatitis B Surface Antigen NEGATIVE Hepatitis B Core IgM Antibody NEGATIVE Hepatitis C Antibody REACTIVE Urine Opiates Screen NEG Urine Barbiturates Screen NEG Urine Amphetamines Screen NEG Urine Benzodiazepines Screen NEG Urine Cocaine Screen NEG Urine Cannabinoids Screen NEG ASSESSMENT/PLAN: acute hepatitis-most likely drug induced- has a history of drug induced hepatitis in the past s/p 2 liver biopsies hep c ab positive-new -needs further testing pneumonia Recommendations psychiatry consult for medication adjustment-due to acute hepatitis hepatitis c pcr, genotype lfts, pt/inr daily continue ursodiol/Mucomyst fu echocardiogram and rect of labs It was a pleasure seeing Lisa Roy. Thank you for this consult. Entered by: Mahsa Vences MD Sep 09, 2016 07:19
[2016-09-09] MEDS: RESP: ALBUTEROL 2.5 MG/IPRATROPIUM 0.5 MG NEB (SCH) NEB ×4 (07:40→20:16)
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
[2016-09-09] MEDS: ARIPiprazole 10 MG TAB PO SCH (09:29)
[2016-09-09] MEDS: FLUoxetine HCL 20 MG CAP PO SCH (09:29)
[2016-09-09] MEDS: BUDESONIDE-FORMOTEROL 80/4.5 MCG INHALER INH SCH ×2 (09:30→20:20)
[2016-09-09] MEDS: URSODIOL 300 MG CAP PO SCH ×2 (09:30→20:21)
[2016-09-09] MEDS: ACETYLCYSTEINE 20% 6,000 MG/30 ML ORAL SOLN VIAL PO SCH ×2 (09:33→21:56)
[2016-09-09] MEDS: SODIUM CHLORIDE 0.9% FLUSH 5 ML FLUSH FLUSH SCH ×2 (09:33→20:20)
[2016-09-09 09:55] LABS: INTERNATIONAL NORMALIZED RATIO 1.2 RATIO; PROTHROMBIN TIME - PATIENT 13.2 SEC (9.8-11.6)
[2016-09-09 14:25] LABS: ANA SCREEN NEG (NEG)
--- NOTE | 2016-09-09 16:06 | HHI.PR ---
Subjective Remarks Patient seen and evaluated today in follow-up for elevated LFTs likely related to medications. Complaining of some nausea preventing her from eating today. She is also complaining of fatigue. Care plan discussed with patient who is in agreement Objective Vitals Vital Signs Date Time Temp Pulse Resp B/P Pulse Ox O2 Delivery O2 Flow Rate FiO2 09/09/16 12:00 98.5 89 20 100/70 91 09/09/16 08:00 98.2 84 20 114/81 91 09/09/16 07:40 94 Nasal Cannula 2.00 09/09/16 04:00 98.5 80 20 108/77 95 09/09/16 00:00 98.3 84 20 98/72 92 09/08/16 20:35 20 09/08/16 20:00 98.8 90 20 112/77 91 09/08/16 19:38 92 Nasal Cannula 2.00 I/O 09/08/16 09/08/16 09/08/16 09/09/16 09/09/16 09/09/16 07:00 15:00 23:00 07:00 15:00 23:00 Intake Total 1050 ml 0 ml 240 ml 710 ml Balance 1050 ml 0 ml 240 ml 710 ml Intake Oral 0 ml 240 ml 60 ml IV Total 1050 ml 650 ml # Voids 1 3 1 1 # Bowel Movements 0 0 0 Result Diagram: 09/08/16 0625 09/08/16 0700 Imaging Last Impressions Cholangiopancreatography MRI 09/08/16 0000 Signed Impressions: Service Date/Time: August 12:37 - CONCLUSION: 1. Gallbladder wall edema. No intrahepatic or extrahepatic bile duct dilatation is present. There are no gallstones visualized. 2. Mild splenomegaly. 3. Stable 12 mm left adrenal gland nodule likely representing a benign adenoma given the stability in size since October 2013. You Bae MD Chest X-Ray 09/07/[id number] Signed Impressions: Service Date/Time: Wednesday, September 07, 2016 18:04 - CONCLUSION: Cardiomegaly with diffuse interstitial opacities, similar to previous study. Torey Burden MD CT Angiography [id number]/07/[id number] Signed Impressions: Service Date/Time: Wednesday, September 07, 2016 18:24 - CONCLUSION: 1. There is pulmonary fibrosis and scattered groundglass densities throughout the lungs greatest in the upper lobes. Acute on chronic condition is suspected. 2. Minimal coronary artery calcification. 3. Right hilar and mediastinal adenopathy is likely reactive. 4. Left adrenal nodule likely adenoma. Torey Burden MD Abdomen/Pelvis CT 09/07/16 [id number] Signed Impressions: Service Date/Time: Wednesday, September 07, 2016 18:24 - CONCLUSION: 1. Left adrenal nodule probable adenoma. 2. No acute inflammatory process. 3. Interstitial and alveolar opacities with pulmonary fibrosis. Torey Burden MD Objective Remarks GENERAL: This is a jaundiced but well-nourished, well-developed patient, in no apparent distress. CARDIOVASCULAR: Regular rate and rhythm without murmurs, gallops, or rubs. RESPIRATORY: Clear to auscultation. Breath sounds equal bilaterally. No wheezes , rales, or rhonchi. GASTROINTESTINAL: Abdomen soft, non-tender, nondistended. Normal active bowel sounds MUSCULOSKELETAL: Extremities without clubbing, cyanosis, or edema. NEURO: Alert & Oriented x4 to person, place, time, situation. Moves all ext x4 A/P Problem List: (1) Hepatitis, acute ICD Code: B17.9 Status: Acute Plan: Continue with medication adjustment. GI and psychiatry consultations are appreciated. We'll follow trends. Continue hydration and symptomatic relief Patient also with hepatitis C further workup pending We'll add Phenergan for nausea (2) Pneumonia ICD Code: J18.9 Status: Acute Plan: Continue empiric antibiotics (3) Bipolar disease, chronic ICD Code: F31.9 Status: Chronic Plan: Continue home medicines as adjusted by psychiatry Problem Qualifiers (1) Pneumonia: Qualified Code: J18.9 - Pneumonia of both lungs due to infectious organism, unspecified part of lung Regina Abraham MD Sep 09, 2016 16:06
[2016-09-09] MEDS: cefTRIAXone INJ 1,000 MG in SODIUM CHLORIDE 0.9% INJ 100 ML IV SCH (20:19)
[2016-09-09] MEDS: clonazePAM 0.5 MG TAB PO SCH (20:21)
[2016-09-09] MEDS: traZODone HCL 100 MG TAB PO SCH (20:21)
[2016-09-10] VITALS (7 sets, daily range): BP systolic 97–121; BP diastolic 63–81; PULSE 83–99; RESP 14–20; TEMP 97.5–99; O2SAT 90–97
[2016-09-10] MEDS: SODIUM CHLOR 0.9% 1000 ML INJ 1,000 ML IV SCH ×2 (05:15→12:37)
[2016-09-10 07:31] LABS: CHLORIDE 108 MEQ/L (98-107); POTASSIUM 3.3 MEQ/L (3.5-5.1); SODIUM (NA) 141 MEQ/L (136-145)
[2016-09-10 07:45] LABS: ALKALINE PHOSPHATASE 213 U/L (45-117); ANION GAP 8 MEQ/L (5-15); BICARBONATE 24.6 MEQ/L (21.0-32.0); BLOOD UREA NITROGEN 7 MG/DL (7-18); GLOMERULAR FILTRATION RATE 84 ML/MIN (>89); TOTAL BILIRUBIN ADULT 14.3 MG/DL (0.2-1.0)
[2016-09-10] MEDS: RESP: ALBUTEROL 2.5 MG/IPRATROPIUM 0.5 MG NEB (SCH) NEB ×4 (07:52→19:37)
[2016-09-10 08:47] LABS: ALT (GPT) 1881 U/L (10-53); AST (GOT) 1275 U/L (15-37)
[2016-09-10] MEDS: SODIUM CHLORIDE 0.9% FLUSH 5 ML FLUSH FLUSH SCH ×2 (09:00→20:28)
[2016-09-10] MEDS: FLUoxetine HCL 20 MG CAP PO SCH (09:13)
[2016-09-10] MEDS: BUDESONIDE-FORMOTEROL 80/4.5 MCG INHALER INH SCH ×2 (09:13→20:28)
[2016-09-10] MEDS: ARIPiprazole 10 MG TAB PO SCH (09:13)
[2016-09-10] MEDS: URSODIOL 300 MG CAP PO SCH ×2 (09:13→20:29)
[2016-09-10] MEDS: ACETYLCYSTEINE 20% 6,000 MG/30 ML ORAL SOLN VIAL PO SCH ×2 (09:14→20:29)
[2016-09-10] MEDS: MORPHINE SULFATE 4 MG/ML INJ IV PRN ×2 (09:26→20:31)
--- NOTE | 2016-09-10 10:30 | HHI.PR ---
Subjective Remarks Patient seen and evaluated and treatment for acute hepatitis. Likely multifactorial due to new diagnosis of hepatitis C and medications. Bilirubin continues to rise. Patient more jaundiced but appetite is better on Phenergan. Results discussed with patient this morning Objective Vitals Vital Signs Date Time Temp Pulse Resp B/P Pulse Ox O2 Delivery O2 Flow Rate FiO2 09/10/16 08:00 97.7 91 20 113/79 95 09/10/16 07:54 91 Nasal Cannula 2.00 09/10/16 00:52 98.7 83 14 97/63 97 09/09/16 20:15 93 Nasal Cannula 2.00 09/09/16 20:08 99.1 95 16 114/79 95 09/09/16 16:00 99.8 96 20 109/78 91 09/09/16 12:00 98.5 89 20 100/70 91 I/O 09/09/16 09/09/16 09/09/16 09/10/16 09/10/16 09/10/16 07:00 15:00 23:00 07:00 15:00 23:00 Intake Total 710 ml 480 ml Balance 710 ml 480 ml Intake Oral 60 ml 480 ml IV Total 650 ml # Voids 1 6 3 # Bowel Movements 0 Result Diagram: 09/08/16 0625 09/10/16 0635 Imaging Last Impressions Cholangiopancreatography MRI 09/08/16 0000 Signed Impressions: Service Date/Time: August 12:37 - CONCLUSION: 1. Gallbladder wall edema. No intrahepatic or extrahepatic bile duct dilatation is present. There are no gallstones visualized. 2. Mild splenomegaly. 3. Stable 12 mm left adrenal gland nodule likely representing a benign adenoma given the stability in size since October 2013. You Bae MD Chest X-Ray 09/07/161737 Signed Impressions: Service Date/Time: Wednesday, September 07, 2016 18:04 - CONCLUSION: Cardiomegaly with diffuse interstitial opacities, similar to previous study. Torey Burden MD CT Angiography 09/07/161737 Signed Impressions: Service Date/Time: Wednesday, September 07, 2016 18:24 - CONCLUSION: 1. There is pulmonary fibrosis and scattered groundglass densities throughout the lungs greatest in the upper lobes. Acute on chronic condition is suspected. 2. Minimal coronary artery calcification. 3. Right hilar and mediastinal adenopathy is likely reactive. 4. Left adrenal nodule likely adenoma. Torey Burden MD Abdomen/Pelvis CT 09/07/16 [id number] Signed Impressions: Service Date/Time: Wednesday, September 07, 2016 18:24 - CONCLUSION: 1. Left adrenal nodule probable adenoma. 2. No acute inflammatory process. 3. Interstitial and alveolar opacities with pulmonary fibrosis. Torey Burden MD Objective Remarks GENERAL: This is a jaundiced but well-nourished, well-developed patient, in no apparent distress. CARDIOVASCULAR: Regular rate and rhythm without murmurs, gallops, or rubs. RESPIRATORY: Clear to auscultation. Breath sounds equal bilaterally. No wheezes , rales, or rhonchi. GASTROINTESTINAL: Abdomen soft, non-tender, nondistended. Normal active bowel sounds MUSCULOSKELETAL: Extremities without clubbing, cyanosis, or edema. NEURO: Alert & Oriented x4 to person, place, time, situation. Moves all ext x4 A/P Problem List: (1) Hepatitis, acute ICD Code: B17.9 Status: Acute Plan: Continue with medication adjustment. GI and psychiatry consultations are appreciated. We'll follow trends. Continue hydration and Actigall, acetylcysteine Patient also with hepatitis C further workup pending nausea better with Phenergan (2) Pneumonia ICD Code: J18.9 Status: Acute Plan: Likely chronic fibrotic fibrotic lung changes without acute pneumonia Continue to monitor off of antibiotics (3) Bipolar disease, chronic ICD Code: F31.9 Status: Chronic Plan: Continue home medicines (trazodone, Prozac and Abilify) as adjusted by psychiatry (4) Hypokalemia ICD Code: E87.6 Status: Acute Plan: We'll replace and check magnesium Problem Qualifiers (1) Pneumonia: Regina Abraham MD Sep 10, 2016 10:30
[2016-09-10] MEDS: POTASSIUM CHLORIDE 20 MEQ PWD PACKET TUBE SCH ×2 (12:34→20:32)
[2016-09-10 17:54] LABS: IGA SERUM 58 mg/dL (81-463)
[2016-09-10] MEDS: clonazePAM 0.5 MG TAB PO SCH (20:29)
[2016-09-10] MEDS: traZODone HCL 100 MG TAB PO SCH (20:29)
[2016-09-11] VITALS (10 sets, daily range): BP systolic 92–116; BP diastolic 61–81; PULSE 88–97; RESP 18–20; TEMP 97.1–99.4; O2SAT 75–96
[2016-09-11] MEDS: SODIUM CHLOR 0.9% 1000 ML INJ 1,000 ML IV SCH (03:26)
[2016-09-11 07:53] LABS: AUTOMATED NEUTROPHIL # 4.3 TH/MM3 (1.8-7.7); BASOPHIL % 0.4 % (0.0-2.0); EOSINOPHIL % 0.4 % (0.0-4.0); HEMATOCRIT 34.3 % (35.0-46.0); HEMO FLAGS DIFF FINAL; LYMPH % 20.3 % (9.0-44.0); LYMPHOCYTE # 1.3 TH/MM3 (1.0-4.8); MEAN CELL VOLUME 88.2 FL (80.0-100.0); MEAN CORPUSCULAR HEMOGLOBIN 30.4 PG (27.0-34.0); MEAN CORPUSCULAR HGB CONC 34.4 % (32.0-36.0); MONO % 10.3 % (0.0-8.0); NEUT % 68.6 % (16.0-70.0); PLATELET COUNT 189 TH/MM3 (150-450); RED BLOOD COUNT 3.89 MIL/MM3 (4.00-5.30); RED CELL DISTRIBUTION WIDTH 18.1 % (11.6-17.2); WHITE BLOOD COUNT 6.2 TH/MM3 (4.0-11.0)
[2016-09-11 08:01] LABS: CHLORIDE 107 MEQ/L (98-107); POTASSIUM 3.4 MEQ/L (3.5-5.1); SODIUM (NA) 141 MEQ/L (136-145)
[2016-09-11 08:07] LABS: ANION GAP 9 MEQ/L (5-15); BICARBONATE 25.5 MEQ/L (21.0-32.0); BLOOD UREA NITROGEN 6 MG/DL (7-18)
[2016-09-11 08:11] LABS: GLOMERULAR FILTRATION RATE 103 ML/MIN (>89)
[2016-09-11 08:13] LABS: ALKALINE PHOSPHATASE 182 U/L (45-117)
[2016-09-11 08:18] LABS: ALT (GPT) 1535 U/L (10-53); AST (GOT) 1024 U/L (15-37)
[2016-09-11] MEDS: RESP: ALBUTEROL 2.5 MG/IPRATROPIUM 0.5 MG NEB (SCH) NEB ×4 (08:25→20:20)
[2016-09-11] MEDS: SODIUM CHLORIDE 0.9% FLUSH 5 ML FLUSH FLUSH SCH ×2 (09:00→20:37)
[2016-09-11] MEDS: ARIPiprazole 10 MG TAB PO SCH (09:37)
[2016-09-11] MEDS: FLUoxetine HCL 20 MG CAP PO SCH (09:37)
[2016-09-11] MEDS: POTASSIUM CHLORIDE 20 MEQ PWD PACKET TUBE SCH (09:37)
[2016-09-11] MEDS: MORPHINE SULFATE 4 MG/ML INJ IV PRN ×2 (09:37→17:17)
[2016-09-11] MEDS: URSODIOL 300 MG CAP PO SCH ×2 (09:37→20:56)
[2016-09-11] MEDS: BUDESONIDE-FORMOTEROL 80/4.5 MCG INHALER INH SCH ×2 (09:38→21:05)
[2016-09-11] MEDS: ACETYLCYSTEINE 20% 6,000 MG/30 ML ORAL SOLN VIAL PO SCH ×2 (09:38→20:56)
--- NOTE | 2016-09-11 12:34 | HHI.PR ---
Subjective Remarks Follow-up for hepatitis. Patient admits to having subjective fevers overnight, but she has been afebrile. She denies any wheezing or shortness of breath. Denies any abdominal pain, vomiting, or diarrhea. Objective Vitals Vital Signs Date Time Temp Pulse Resp B/P Pulse Ox O2 Delivery O2 Flow Rate FiO2 09/11/16 08:26 92 Nasal Cannula 3.00 09/11/16 08:00 97.1 88 20 113/77 92 09/11/16 00:00 99.3 90 18 112/71 96 09/10/16 20:37 22 09/10/16 20:00 98.6 99 19 121/81 96 09/10/16 19:37 93 Nasal Cannula 2.00 09/10/16 16:00 99.0 92 20 119/78 90 I/O 09/10/16 09/10/16 09/10/16 09/11/16 09/11/16 09/11/16 07:00 15:00 23:00 07:00 15:00 23:00 Intake Total 1140 ml 800 ml 120 ml Balance 1140 ml 800 ml 120 ml Intake Oral 1140 ml 120 ml IV Total 800 ml # Voids 3 5 2 2 # Bowel Movements 0 0 0 Result Diagram: 09/11/1670409/11/16704 Imaging Last Impressions Cholangiopancreatography MRI 09/08/16 0000 Signed Impressions: Service Date/Time: August 12:37 - CONCLUSION: 1. Gallbladder wall edema. No intrahepatic or extrahepatic bile duct dilatation is present. There are no gallstones visualized. 2. Mild splenomegaly. 3. Stable 12 mm left adrenal gland nodule likely representing a benign adenoma given the stability in size since October 2013. You Bae MD Chest X-Ray 09/07/161737 Signed Impressions: Service Date/Time: Wednesday, September 07, 2016 18:04 - CONCLUSION: Cardiomegaly with diffuse interstitial opacities, similar to previous study. Torey Burden MD CT Angiography 09/07/161737 Signed Impressions: Service Date/Time: Wednesday, September 07, 2016 18:24 - CONCLUSION: 1. There is pulmonary fibrosis and scattered groundglass densities throughout the lungs greatest in the upper lobes. Acute on chronic condition is suspected. 2. Minimal coronary artery calcification. 3. Right hilar and mediastinal adenopathy is likely reactive. 4. Left adrenal nodule likely adenoma. Torey Burden MD Abdomen/Pelvis CT 09/07/16 [id number] Signed Impressions: Service Date/Time: Wednesday, September 07, 2016 18:24 - CONCLUSION: 1. Left adrenal nodule probable adenoma. 2. No acute inflammatory process. 3. Interstitial and alveolar opacities with pulmonary fibrosis. Torey Burden MD Objective Remarks GENERAL: Well-developed patient in no apparent distress. SKIN: Warm and dry. HEAD: Atraumatic. Normocephalic. EYES: Scleral icterus bilaterally. CARDIOVASCULAR: Regular rate and rhythm. Loud murmur over the pulmonic region. RESPIRATORY: No accessory muscle use. Minimal scattered wheeze. No crackles. GASTROINTESTINAL: Abdomen soft, non-tender, nondistended. MUSCULOSKELETAL: No lower extremity edema bilaterally. NEUROLOGICAL: Awake and alert. Motor grossly within normal limits. Normal speech. PSYCHIATRIC: Appropriate mood and affect; insight and judgment normal. Urinary Catheter: No Vascular Central Line Catheter: No A/P Problem List: (1) Hepatitis, acute ICD Code: B17.9 Status: Acute (2) Pneumonia ICD Code: J18.9 Status: Acute (3) Bipolar disease, chronic ICD Code: F31.9 Status: Chronic (4) Hypokalemia ICD Code: E87.6 Status: Acute Assessment and Plan Hepatitis, acute -Continue with medication adjustment. GI and psychiatry consultations are appreciated. Bilirubin 14-->16. Remaining LFTs trending downward. Continue Actigall, acetylcysteine. -Patient also with hepatitis C; further workup pending -Phenergan prn nausea -Repeat am CMP. -GI following Pneumonia: -Scattered ground-glass densities throughout the lungs -Likely chronic fibrotic lung changes without acute pneumonia -Antibiotics were discontinued -I spoke with RT later in the day who indicates the patient's oxygen saturation dropped down to 75% without oxygen and has increased respiratory rate and crackles, feels she is getting worse. IS and EZPAP ordered. D/c IV fluids. Give 40 mg IV Lasix. New chest x-ray personally reviewed similar to prior. Radiologist states there are bilateral perihilar infiltrates left slightly worse than right indicating pneumonia. Restart Ceftriaxone and azithromycin IV ( patient received 3 doses of ceftriaxone and 1 dose of azithromycin prior). Bipolar disease, chronic -Continue home medicines (trazodone, Prozac and Abilify) as adjusted by psychiatry Hypokalemia -Continue potassium repletion 20 mEq po bid last dose tonight -Recheck K+ in the am. Replete as needed. -Mg 1.7 yesterday but was not repleted. Mg rechecked today and 1.8. Order 2 g IV Magnesium sulfate. Recheck Mg in the am. Echo with EF of 55-60%. Systolic pressure mildly increased. Problem Qualifiers (1) Pneumonia: Gena Edwards Sep 11, 2016 12:34
[2016-09-11] MEDS ORDERED: FUROSEMIDE 40 MG/4 ML VIAL IV PUSH ONE (16:30)
--- NOTE | 2016-09-11 17:04 | HHI.GIFU ---
GI Follow-up Note Consult Follow-up Subjective: Patient laying in bed comfortably, no new complaints except icterus , no pain Objective: PHYSICAL EXAMINATION: Vitals signs stable No fever HEENT: Pupils round and reactive to light; normocephalic; atraumatic; no jaundice. Throat is clear. NECK: Neck is supple, no JVD, no lymphadenopathy. CHEST: Chest is clear to auscultation and percussion. CARDIAC: Regular rate and rhythm with no murmur gallop or rubs. ABDOMEN: Soft, nondistended, nontender; no hepatosplenomegaly; bowel sounds are present in all four quadrants. EXTREMITIES: No clubbing, cyanosis, or edema. SKIN: Normal; no rash; no jaundice. 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 Available Data (labs, X- Rays, Procedues) : Last Impressions Cholangiopancreatography MRI 09/08/16 0000 Signed Impressions: Service Date/Time: August 12:37 - CONCLUSION: 1. Gallbladder wall edema. No intrahepatic or extrahepatic bile duct dilatation is present. There are no gallstones visualized. 2. Mild splenomegaly. 3. Stable 12 mm left adrenal gland nodule likely representing a benign adenoma given the stability in size since October 2013. You Bae MD Chest X-Ray [id number]/07/[id number] Signed Impressions: Service Date/Time: Wednesday, September 07, 2016 18:04 - CONCLUSION: Cardiomegaly with diffuse interstitial opacities, similar to previous study. Torey Burden MD CT Angiography [id number]/07/[id number] Signed Impressions: Service Date/Time: Wednesday, September 07, 2016 18:24 - CONCLUSION: 1. There is pulmonary fibrosis and scattered groundglass densities throughout the lungs greatest in the upper lobes. Acute on chronic condition is suspected. 2. Minimal coronary artery calcification. 3. Right hilar and mediastinal adenopathy is likely reactive. 4. Left adrenal nodule likely adenoma. Torey Burden MD Abdomen/Pelvis CT [id number]/07/[id number] Signed Impressions: Service Date/Time: Wednesday, September 07, 2016 18:24 - CONCLUSION: 1. Left adrenal nodule probable adenoma. 2. No acute inflammatory process. 3. Interstitial and alveolar opacities with pulmonary fibrosis. Torey Burden MD Laboratory Tests Test 09/10/16 09/11/16 06:35 07:05 Sodium Level 141 MEQ/L 141 MEQ/L Potassium Level 3.3 MEQ/L 3.4 MEQ/L Chloride Level 108 MEQ/L 107 MEQ/L Carbon Dioxide Level 24.6 MEQ/L 25.5 MEQ/L Anion Gap 8 MEQ/L 9 MEQ/L Blood Urea Nitrogen 7 MG/DL 6 MG/DL Creatinine 0.75 MG/DL 0.63 MG/DL Estimat Glomerular Filtration 84 ML/MIN 103 ML/MIN Rate Random Glucose 92 MG/DL 86 MG/DL Calcium Level 8.3 MG/DL 8.2 MG/DL Magnesium Level 1.7 MG/DL 1.8 MG/DL Total Bilirubin 14.3 MG/DL 16.0 MG/DL Aspartate Amino Transf 1275 U/L 1024 U/L (AST/SGOT) Alanine Aminotransferase 1881 U/L 1535 U/L (ALT/SGPT) Alkaline Phosphatase 213 U/L 182 U/L Total Protein 7.2 GM/DL 6.6 GM/DL Albumin 2.4 GM/DL 2.2 GM/DL White Blood Count 6.2 TH/MM3 Red Blood Count 3.89 MIL/MM3 Hemoglobin 11.8 GM/DL Hematocrit 34.3 % Mean Corpuscular Volume 88.2 FL Mean Corpuscular Hemoglobin 30.4 PG Mean Corpuscular Hemoglobin 34.4 % Concent Red Cell Distribution Width 18.1 % Platelet Count 189 TH/MM3 Mean Platelet Volume 10.6 FL Neutrophils (%) (Auto) 68.6 % Lymphocytes (%) (Auto) 20.3 % Monocytes (%) (Auto) 10.3 % Eosinophils (%) (Auto) 0.4 % Basophils (%) (Auto) 0.4 % Neutrophils # (Auto) 4.3 TH/MM3 Lymphocytes # (Auto) 1.3 TH/MM3 Monocytes # (Auto) 0.6 TH/MM3 Eosinophils # (Auto) 0.0 TH/MM3 Basophils # (Auto) 0.0 TH/MM3 CBC Comment DIFF FINAL Differential Comment Allergies Coded Allergies Type Severity Reaction Last Updated Verified No Known Allergies 09/07/16 No Active Scripts Medications Dose Route/Sig Days Date Category Dose Instructions Advair Diskus Inh (Fluticasone-Salmeterol Inh) 100-50 Mcg/Blist Aer 1 Puff INH BID 09/07/16 Reported Rinse mouth after use. Symbicort Inh (Budesonide/Formoterol Fumarate) 80-4.5 Mcg/Act Aero 1 Puff INH BID 09/07/16 Reported Ventolin Hfa 18 GM Inh (Albuterol Sulfate) 90 Mcg/Act Aer 2 Puff INH Q4-6H PRN 09/07/16 Reported Klonopin (Clonazepam) 1 Mg Tab 1 Mg PO HS 09/07/16 Reported Trazodone (Trazodone HCl) 100 Mg Tab 200 Mg PO HS 09/07/16 Reported Abilify (Aripiprazole) 10 Mg Tab 10 Mg PO DAILY 09/07/16 Reported Prozac (Fluoxetine HCl) 40 Mg Cap 40 Mg PO DAILY 09/07/16 Reported ASSESSMENT/PLAN: Seen and examined, doing better. LFTs still markedly elevated, ? etiology. HEP C +ve, hayes ordered. LFT elevation not due to hepc. May need liver biopsy if no improvement over the next 48 hours. It was a pleasure seeing Lisa Roy. Thank you for this consult. Entered by: Dunia Burks MD Sep 11, 2016 17:03
--- NOTE | 2016-09-11 17:15 | RADHPO ---
EXAM DATE/TIME: 09/11/2016 16:58 [facility] COMPARISON: CHEST SINGLE AP, September 07, 2016, 18:04. INDICATIONS : Short of breath, fever, chest pains MEDICAL HISTORY : Chronic obstructive pulmonary disease. SURGICAL HISTORY : None. ENCOUNTER: Subsequent ACUITY: 2 weeks PAIN SCORE: 7/10 LOCATION: Bilateral chest FINDINGS: Bilateral perihilar infiltrates have developed, left slightly worse than right. No large effusion see n. No pneumothorax. Heart size stable, within normal limits. CONCLUSION: Bilateral perihilar pneumonia. You Augustine MD on September 11, 2016 at 17:13 Board Certified Radiologist. This report was verified electronically.
[2016-09-11] MEDS: MAGNESIUM SULFATE 1 GM PREMIX 100 ML IV SCH ×2 (18:02→20:05)
[2016-09-11] MEDS ORDERED: AZITHROMYCIN INJ 500 MG in SODIUM CHLOR 0.9% 250 ML INJ 250 ML IV SCH (20:00)
[2016-09-11] MEDS: clonazePAM 0.5 MG TAB PO SCH (20:56)
[2016-09-11] MEDS: traZODone HCL 100 MG TAB PO SCH (20:56)
[2016-09-11] MEDS ORDERED: POTASSIUM CHLORIDE 20 MEQ PWD PACKET PO SCH (21:00)
[2016-09-11] MEDS: cefTRIAXone INJ 1,000 MG in SODIUM CHLORIDE 0.9% INJ 100 ML IV SCH (22:30)
[2016-09-11 22:31] LABS: BLOOD GAS BASE EXCESS 2.8 mmol/L (-2-2); BLOOD GAS CARBOXYHEMOGLOBIN 2.1 % (0-4); BLOOD GAS HCO3 27 mmol/L (22-26); BLOOD GAS METHEMOGLOBIN 0.4 % (0-2); BLOOD GAS O2 HGB SATURATION 92 % (90-100); BLOOD GAS OXYGEN CONTENT 15.8 Vol % (12.0-20.0); BLOOD GAS PCO2 41 mmHg (38-42); BLOOD GAS PO2 73 mmHg (61-120); BLOOD GAS TOTAL HGB 12.2 G/DL (12.0-16.0); CRITICAL VALUE NO; LITER FLOW 6 L/M; OXYGEN DEVICE Venti Mask
[2016-09-11 22:32] LABS: DRAW SITE RT RADIAL; FIO2 50 %; NUMBER OF ARTERIAL PUNCTURES 1; STAT YES
[2016-09-12] VITALS (10 sets, daily range): BP systolic 87–111; BP diastolic 54–77; PULSE 80–92; RESP 18–30; TEMP 96–101.8; O2SAT 90–97
[2016-09-12 06:46] LABS: INTERNATIONAL NORMALIZED RATIO 1.2 RATIO; PROTHROMBIN TIME - PATIENT 13.4 SEC (9.8-11.6)
[2016-09-12 06:54] LABS: AUTOMATED NEUTROPHIL # 5.4 TH/MM3 (1.8-7.7); BASOPHIL # 0.1 TH/MM3 (0-0.2); BASOPHIL % 1.4 % (0.0-2.0); EOSINOPHIL % 0.6 % (0.0-4.0); HEMATOCRIT 37.1 % (35.0-46.0); LYMPH % 17.3 % (9.0-44.0); LYMPHOCYTE # 1.3 TH/MM3 (1.0-4.8); MEAN CORPUSCULAR HEMOGLOBIN 29.8 PG (27.0-34.0); MEAN CORPUSCULAR HGB CONC 34.2 % (32.0-36.0); MONO % 9.3 % (0.0-8.0); NEUT % 71.4 % (16.0-70.0); PLATELET COUNT 225 TH/MM3 (150-450); RED BLOOD COUNT 4.26 MIL/MM3 (4.00-5.30); RED CELL DISTRIBUTION WIDTH 18.8 % (11.6-17.2); WHITE BLOOD COUNT 7.5 TH/MM3 (4.0-11.0)
[2016-09-12 07:02] LABS: HEMO FLAGS AUTO DIFF
[2016-09-12 07:08] LABS: ALKALINE PHOSPHATASE 186 U/L (45-117); ALT (GPT) 1463 U/L (10-53); ANION GAP 8 MEQ/L (5-15); AST (GOT) 901 U/L (15-37); BICARBONATE 29.7 MEQ/L (21.0-32.0); BLOOD UREA NITROGEN 8 MG/DL (7-18); CHLORIDE 102 MEQ/L (98-107); GLOMERULAR FILTRATION RATE 77 ML/MIN (>89); MAGNESIUM 2.5 MG/DL (1.5-2.5); SODIUM (NA) 140 MEQ/L (136-145); TOTAL BILIRUBIN ADULT 19.5 MG/DL (0.2-1.0)
[2016-09-12 07:12] LABS: POTASSIUM 2.9 MEQ/L (3.5-5.1)
[2016-09-12] MEDS ORDERED: POTASSIUM CHLORIDE 20 MEQ CONTROLLED RELEASE TAB PO ONE ×2 (07:30→11:00)
--- NOTE | 2016-09-12 07:48 | HHI.GIFU ---
GI Follow-up Note Consult Follow-up Subjective: Patient laying in bed on Ventimask, states she is feeling better.No nausea, vomiting, diarrhea, some abdominal pain.He ASMA positive, hep c ab positive, lfts better except bilirubin-going up- Objective: PHYSICAL EXAMINATION: Vitals signs stable Vital Signs Date Time Temp Pulse Resp B/P Pulse Ox O2 Delivery O2 Flow Rate FiO2 09/12/16 00:00 96.0 80 18 96/54 96 HEENT: Pupils round and reactive to light; normocephalic; atraumatic; jaundice. Throat is clear. NECK: Neck is supple, no JVD, no lymphadenopathy. CHEST: Chest . bilateral crepitation CARDIAC: Regular rate and rhythm with no murmur gallop or rubs. ABDOMEN: Soft, nondistended, nontender; no hepatosplenomegaly; bowel sounds are present in all four quadrants. EXTREMITIES: No clubbing, cyanosis, or edema. SKIN: Normal; no rash; jaundice. 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 Available Data (labs, X- Rays, Procedues) : Laboratory Tests Test 09/11/16 09/11/16 09/12/16 09/12/16 07:05 22:20 05:19 06:27 White Blood Count 6.2 TH/MM3 7.5 TH/MM3 Red Blood Count 3.89 MIL/MM3 4.26 MIL/MM3 Hemoglobin 11.8 GM/DL 12.7 GM/DL Hematocrit 34.3 % 37.1 % Mean Corpuscular Volume 88.2 FL 87.0 FL Mean Corpuscular Hemoglobin 30.4 PG 29.8 PG Mean Corpuscular Hemoglobin 34.4 % 34.2 % Concent Red Cell Distribution Width 18.1 % 18.8 % Platelet Count 189 TH/MM3 225 TH/MM3 Mean Platelet Volume 10.6 FL 10.3 FL Neutrophils (%) (Auto) 68.6 % 71.4 % Lymphocytes (%) (Auto) 20.3 % 17.3 % Monocytes (%) (Auto) 10.3 % 9.3 % Eosinophils (%) (Auto) 0.4 % 0.6 % Basophils (%) (Auto) 0.4 % 1.4 % Neutrophils # (Auto) 4.3 TH/MM3 5.4 TH/MM3 Lymphocytes # (Auto) 1.3 TH/MM3 1.3 TH/MM3 Monocytes # (Auto) 0.6 TH/MM3 0.7 TH/MM3 Eosinophils # (Auto) 0.0 TH/MM3 0.0 TH/MM3 Basophils # (Auto) 0.0 TH/MM3 0.1 TH/MM3 CBC Comment DIFF FINAL AUTO DIFF Differential Comment Sodium Level 141 MEQ/L 140 MEQ/L Potassium Level 3.4 MEQ/L 2.9 MEQ/L Chloride Level 107 MEQ/L 102 MEQ/L Carbon Dioxide Level 25.5 MEQ/L 29.7 MEQ/L Anion Gap 9 MEQ/L 8 MEQ/L Blood Urea Nitrogen 6 MG/DL 8 MG/DL Creatinine 0.63 MG/DL 0.81 MG/DL Estimat Glomerular Filtration 103 ML/MIN 77 ML/MIN Rate Random Glucose 86 MG/DL 92 MG/DL Calcium Level 8.2 MG/DL 8.4 MG/DL Magnesium Level 1.8 MG/DL 2.5 MG/DL Total Bilirubin 16.0 MG/DL 19.5 MG/DL Aspartate Amino Transf 1024 U/L 901 U/L (AST/SGOT) Alanine Aminotransferase 1535 U/L 1463 U/L (ALT/SGPT) Alkaline Phosphatase 182 U/L 186 U/L Total Protein 6.6 GM/DL 6.9 GM/DL Albumin 2.2 GM/DL 2.4 GM/DL Blood Gas Puncture Site RT RADIAL Blood Gas Patient Temperature 37.0 Blood Gas HCO3 27 mmol/L Blood Gas Base Excess 2.8 mmol/L Blood Gas Oxygen Saturation 92 % Arterial Blood pH 7.43 Arterial Blood Partial 41 mmHg Pressure CO2 Arterial Blood Partial 73 mmHg Pressure O2 Arterial Blood Oxygen Content 15.8 Vol % Arterial Blood 2.1 % Carboxyhemoglobin Arterial Blood Methemoglobin 0.4 % Blood Gas Hemoglobin 12.2 G/DL Oxygen Delivery Device Venti Mask Blood Gas Liter Flow 6 L/M Blood Gas Inspired Oxygen 50 % Prothrombin Time 13.4 SEC Prothromb Time International 1.2 RATIO Ratio ASSESSMENT/PLAN: elevated lfts-improving, except bilirubin going up-multifactorial drug induced, positive hep c ab and Asma, rest pending pneumonia on antibiotics Recommendations monitor lfts, pt/inr closely ideally she should come off her antipsychotics and antidepressives-management as per psychiatrist ct guided liver biopsy fu labs monitor lfts, pt /inr, ammonia daily It was a pleasure seeing Lisa Roy. Thank you for this consult. Entered by: Mahsa Vences MD Sep 12, 2016 07:48
[2016-09-12 07:58] LABS: PLATELET ESTIMATE SMEAR NORMAL (NORMAL); PLATELET MORPHOLOGY NORMAL (NORMAL); ROULEAUX PRESENT (NORMAL); SCAN/DIFF AUTO DIFF CONFIRMED; TARGET CELLS 1+ (NORMAL)
[2016-09-12] MEDS: RESP: ALBUTEROL 2.5 MG/IPRATROPIUM 0.5 MG NEB (SCH) NEB ×4 (08:09→19:43)
[2016-09-12] MEDS: POTASSIUM CHLOR 20 MEQ PREMIX 100 ML IV SCH ×2 (08:50→13:48)
[2016-09-12] MEDS: BUDESONIDE-FORMOTEROL 80/4.5 MCG INHALER INH SCH ×2 (08:53→22:02)
[2016-09-12] MEDS: ARIPiprazole 10 MG TAB PO SCH (08:53)
[2016-09-12] MEDS: FLUoxetine HCL 20 MG CAP PO SCH (08:53)
[2016-09-12] MEDS: ACETYLCYSTEINE 20% 6,000 MG/30 ML ORAL SOLN VIAL PO SCH ×2 (08:54→22:03)
[2016-09-12] MEDS: SODIUM CHLORIDE 0.9% FLUSH 5 ML FLUSH FLUSH SCH ×2 (08:56→22:04)
[2016-09-12] MEDS: URSODIOL 300 MG CAP PO SCH ×2 (09:00→22:03)
[2016-09-12] MEDS: MORPHINE SULFATE 4 MG/ML INJ IV PRN ×4 (09:04→23:16)
[2016-09-12 09:53] LABS: HCV RNA PCR IU/ML LESS THAN 15 IU/mL (()); HCV RNA PCR LOGIU/ML LESS THAN 1.18 (())
--- NOTE | 2016-09-12 11:11 | HHI.PR ---
Subjective Remarks Follow-up hepatitis/pneumonia/UTI and now respiratory failure 09/12/16-patient seen and examined, currently on Ventimask and reports some shortness of breath. Afebrile. Objective Vitals Vital Signs Date Time Temp Pulse Resp B/P Pulse Ox O2 Delivery O2 Flow Rate FiO2 09/12/16 08:28 91 Nasal Cannula 6.00 09/12/16 08:14 93 Venturi Mask 6.00 50 09/12/16 08:00 99.5 91 30 95/67 93 09/12/16 00:00 96.0 80 18 96/54 96 09/11/16 21:43 93 Venturi Mask 50 09/11/16 20:20 89 Nasal Cannula 4.00 09/11/16 20:00 98.1 97 18 92/61 95 09/11/16 16:35 92 Nasal Cannula 4.00 09/11/16 16:00 98.7 89 20 116/76 92 09/11/16 15:45 75 21 09/11/16 12:00 99.4 97 20 116/81 93 I/O 09/11/16 09/11/16 09/11/16 09/12/16 09/12/16 09/12/16 07:00 15:00 23:00 07:00 15:00 23:00 Intake Total 120 ml 900 ml 240 ml Balance 120 ml 900 ml 240 ml Intake Oral 120 ml 900 ml 240 ml # Voids 2 5 2 # Bowel Movements 0 0 0 Result Diagram: 09/12/16 0627 09/12/16 0519 Imaging Last Impressions Cholangiopancreatography MRI 09/08/16 0000 Signed Impressions: Service Date/Time: August 12:37 - CONCLUSION: 1. Gallbladder wall edema. No intrahepatic or extrahepatic bile duct dilatation is present. There are no gallstones visualized. 2. Mild splenomegaly. 3. Stable 12 mm left adrenal gland nodule likely representing a benign adenoma given the stability in size since October 2013. You Bae MD Chest X-Ray 09/07/161737 Signed Impressions: Service Date/Time: Wednesday, September 07, 2016 18:04 - CONCLUSION: Cardiomegaly with diffuse interstitial opacities, similar to previous study. Torey Burden MD CT Angiography 3/8/17 1738 Signed Impressions: Service Date/Time: Wednesday, September 07, 2016 18:24 - CONCLUSION: 1. There is pulmonary fibrosis and scattered groundglass densities throughout the lungs greatest in the upper lobes. Acute on chronic condition is suspected. 2. Minimal coronary artery calcification. 3. Right hilar and mediastinal adenopathy is likely reactive. 4. Left adrenal nodule likely adenoma. Torey Burden MD Abdomen/Pelvis CT 09/07/16 [id number] Signed Impressions: Service Date/Time: Wednesday, September 07, 2016 18:24 - CONCLUSION: 1. Left adrenal nodule probable adenoma. 2. No acute inflammatory process. 3. Interstitial and alveolar opacities with pulmonary fibrosis. Torey Burden MD Objective Remarks GENERAL: NAD with Ventimask in place SKIN: Warm and dry. HEAD: Normocephalic. EYES: No scleral icterus. No injection or drainage. NECK: Supple, trachea midline. No JVD or lymphadenopathy. CARDIOVASCULAR: Regular rate and rhythm without murmurs, gallops, or rubs. RESPIRATORY: Breath sounds decrease bilaterally. No accessory muscle use. GASTROINTESTINAL: Abdomen soft, non-tender, nondistended. MUSCULOSKELETAL: No cyanosis, or edema. BACK: Nontender without obvious deformity. No CVA tenderness. A/P Problem List: (1) Hepatitis, acute ICD Code: B17.9 Status: Acute (2) Pneumonia ICD Code: J18.9 Status: Acute (3) Bipolar disease, chronic ICD Code: F31.9 Status: Chronic (4) Hypokalemia ICD Code: E87.6 Status: Acute (5) Urinary tract infection ICD Code: N39.0 Status: Acute (6) Hyperammonemia ICD Code: E72.20 Status: Acute (7) Acute respiratory failure with hypoxemia ICD Code: J96.01 Status: Acute Assessment and Plan 46-year-old female with 1-Jekvbfjyk-eypqjgzgi C antibody positive as well as ASNA pending HCV RNA genotype. Appreciate input from GI. Consider CT-guided liver biopsy secondary to elevated LFTs 2-Hyperammonemia: Likely secondary to above processes, starts lactulose 30 mg daily today 09/12/16 and monitor NH 3 3-Transaminitis: Likely secondary to above infectious process, will hold Klonopin me continue to monitor LFTs total and direct bili. Consider CT-guided liver biopsy. Continue with treatment with Actigal 4-Acute Respiratory failure with hypoxemia: Secondary to patient with pneumonia , currently on vent Tmax. Low threshold for ICU admission and intubation with consultation to critical care medicine. Duo Neb scheduled and when necessary and maintain oxygen saturation above 92%. Treatment treatment for pneumonia. 5-Rvhguzfyg-lvzocfor bacterial pneumonia: Currently on azithromycin and Rocephin 6-UTI: Continue Rocephin IV 7-Hypokalemia: Give potassium 60 mEq 1 now 8-Bipolar disorder: Will hold Klonopin secondary to elevated LFTs and continue her other anti psychotropic medications. Appreciate input from psychiatry. DVT prophylaxis: Bilateral SCDs Problem Qualifiers (1) Pneumonia: Torey Jurado MD Sep 12, 2016 11:11
[2016-09-12] MEDS: LACTULOSE SYRUP 20 GM/30 ML CUP PO SCH (13:48)
[2016-09-12 17:54] LABS: HEPATITIS C RNA GENOTYPE NOT DETECTED (())
[2016-09-12 19:54] LABS: ENDOMYSIAL AB TITER ND (<1:5); TISSUE TRANSGLUTAMINASE AB LESS THAN 1 U/mL (()); TISSUE TRANSGLUTAMINASE AB IGG 3 U/mL (())
[2016-09-12] MEDS: AZITHROMYCIN 250 MG TAB PO SCH (20:07)
[2016-09-12] MEDS: PROMETHAZINE HCL 25 MG TAB PO PRN (20:10)
[2016-09-12] MEDS: cefTRIAXone INJ 1,000 MG in SODIUM CHLORIDE 0.9% INJ 100 ML IV SCH (20:12)
[2016-09-12] MEDS: traZODone HCL 100 MG TAB PO SCH (22:03)
[2016-09-12] MEDS ORDERED: IBUPROFEN 400 MG TAB PO ONE (22:45)
[2016-09-13] VITALS (17 sets, daily range): BP systolic 74–111; BP diastolic 53–77; PULSE 67–96; RESP 14–22; TEMP 95.9–101.8; O2SAT 92–97
[2016-09-13 03:49] LABS: MITOCHONDRIAL ABS LESS THAN 20.0 U (())
[2016-09-13 03:49] LABS: HERPES 6 IGM <1:20 (()); HERPES INTERPRETATION PAST INFECTION (())
[2016-09-13 06:38] LABS: ALKALINE PHOSPHATASE 168 U/L (45-117); ALT (GPT) 1273 U/L (10-53); ANION GAP 7 MEQ/L (5-15); AST (GOT) 876 U/L (15-37); BICARBONATE 25.7 MEQ/L (21.0-32.0); BLOOD UREA NITROGEN 9 MG/DL (7-18); CHLORIDE 109 MEQ/L (98-107); GLOMERULAR FILTRATION RATE 76 ML/MIN (>89); POTASSIUM 4.3 MEQ/L (3.5-5.1); SODIUM (NA) 142 MEQ/L (136-145); TOTAL BILIRUBIN ADULT 20.6 MG/DL (0.2-1.0)
[2016-09-13] MEDS: RESP: ALBUTEROL 2.5 MG/IPRATROPIUM 0.5 MG NEB (SCH) NEB ×4 (07:31→19:28)
--- NOTE | 2016-09-13 09:20 | HHI.PR ---
Subjective Remarks Follow-up hepatitis/pneumonia/UTI and now respiratory failure 09/12/16-patient seen and examined, currently on Ventimask and reports some shortness of breath. Afebrile. 09/13/16-patient seen and examined, currently on nasal cannula 6 L and denies any significant shortness of breath. Nothing by mouth and plan for CT-guided liver biopsy today. MAXIMUM TEMPERATURE 101.8 at midnight Objective Vitals Vital Signs Date Time Temp Pulse Resp B/P Pulse Ox O2 Delivery O2 Flow Rate FiO2 09/13/16 08:00 95.9 71 16 88/54 97 09/13/16 07:37 95 Nasal Cannula 6.00 09/13/16 06:06 95 Venturi Mask 6.00 50 09/13/16 04:00 97.8 83 22 86/58 95 09/13/16 00:15 Venturi Mask 6.00 50 09/13/16 00:01 101.8 09/13/16 00:00 101.8 92 20 111/77 93 09/12/16 22:01 18 09/12/16 20:30 Venturi Mask 6.00 50 09/12/16 20:00 101.8 92 20 111/77 93 09/12/16 19:43 90 Nasal Cannula 6.00 09/12/16 16:00 98.2 87 28 87/59 94 09/12/16 12:51 96 Nasal Cannula 6.00 09/12/16 12:00 98.9 81 30 91/72 95 09/12/16 11:32 97 Venturi Mask 6.00 50 I/O 09/12/16 09/12/16 09/12/16 09/13/16 09/13/16 09/13/16 07:00 15:00 23:00 07:00 15:00 23:00 Intake Total 240 ml 1505 ml 28 ml 300 ml Output Total 500 ml Balance 240 ml 1505 ml 28 ml -200 ml Intake Oral 240 ml 580 ml 28 ml IV Total 925 ml 300 ml Output Urine Total 500 ml # Voids 2 5 0 # Bowel Movements 0 0 Result Diagram: 09/12/16 0627 09/13/16 0550 Imaging Last Impressions Chest X-Ray 09/11/16 0000 Signed Impressions: Service Date/Time: Sunday, September 11, 2016 16:58 - CONCLUSION: Bilateral perihilar pneumonia. You Augustine MD [id number] Cholangiopancreatography MRI 09/08/16 0000 Signed Impressions: Service Date/Time: August 12:37 - CONCLUSION: 1. Gallbladder wall edema. No intrahepatic or extrahepatic bile duct dilatation is present. There are no gallstones visualized. 2. Mild splenomegaly. 3. Stable 12 mm left adrenal gland nodule likely representing a benign adenoma given the stability in size since October 2013. You Bae MD CT Angiography 09/07/16 1738 Signed Impressions: Service Date/Time: Wednesday, September 07, 2016 18:24 - CONCLUSION: 1. There is pulmonary fibrosis and scattered groundglass densities throughout the lungs greatest in the upper lobes. Acute on chronic condition is suspected. 2. Minimal coronary artery calcification. 3. Right hilar and mediastinal adenopathy is likely reactive. 4. Left adrenal nodule likely adenoma. Torey Burden MD Abdomen/Pelvis CT 09/07/168 Signed Impressions: Service Date/Time: Wednesday, September 07, 2016 18:24 - CONCLUSION: 1. Left adrenal nodule probable adenoma. 2. No acute inflammatory process. 3. Interstitial and alveolar opacities with pulmonary fibrosis. Torey Burden MD Objective Remarks GENERAL: NAD with Ventimask in place SKIN: Warm and dry. HEAD: Normocephalic. EYES: No scleral icterus. No injection or drainage. NECK: Supple, trachea midline. No JVD or lymphadenopathy. CARDIOVASCULAR: Regular rate and rhythm without murmurs, gallops, or rubs. RESPIRATORY: Breath sounds decrease bilaterally. No accessory muscle use. GASTROINTESTINAL: Abdomen soft, non-tender, nondistended. MUSCULOSKELETAL: No cyanosis, or edema. BACK: Nontender without obvious deformity. No CVA tenderness. A/P Problem List: (1) Hepatitis, acute ICD Code: B17.9 Status: Acute (2) Pneumonia ICD Code: J18.9 Status: Acute (3) Bipolar disease, chronic ICD Code: F31.9 Status: Chronic (4) Hypokalemia ICD Code: E87.6 Status: Acute (5) Urinary tract infection ICD Code: N39.0 Status: Acute (6) Hyperammonemia ICD Code: E72.20 Status: Acute (7) Acute respiratory failure with hypoxemia ICD Code: J96.01 Status: Acute Assessment and Plan 46-year-old female with 0-Vfkwvyzue-uulpvktvh C antibody positive as well as ASNA pending HCV RNA genotype. Appreciate input from GI. Plan for CT-guided liver biopsy 09/13/16 2-Hyperammonemia: Likely secondary to above processes, continue lactulose 30 mg daily and monitor NH 3 3-Transaminitis: Likely secondary to above infectious process, continue to hold Klonopin and monitor LFTs total and direct bili. Plan for CT-guided liver biopsy today. Continue with treatment with Actigal 4-Acute Respiratory failure with hypoxemia: Improving and currently on nasal cannula 6L. continue Duo Neb scheduled and when necessary and maintain oxygen saturation above 92%. Treatment treatment for pneumonia. 9-Ryifnviya-gfadrlwd bacterial pneumonia: Currently on azithromycin and Rocephin 6-UTI: Continue Rocephin IV 7-Hypokalemia: Resolved status post treatment 8-Bipolar disorder: She needed to hold Klonopin secondary to elevated LFTs and continue her other anti psychotropic medications. Appreciate input from psychiatry. DVT prophylaxis: Bilateral SCDs Problem Qualifiers (1) Pneumonia: Torey Jurado MD Sep 13, 2016 09:20
[2016-09-13] MEDS ORDERED: fentaNYL CITRATE 250 MCG/5 ML AMP IV ONE (09:30)
[2016-09-13] MEDS ORDERED: MIDAZOLAM HCL 5 MG/5 ML VIAL IV ONE (09:30)
--- NOTE | 2016-09-13 09:57 | PD.RAD ---
Post CT Procedure Prog Note Pre Procedure Diagnosis: (1) Jaundice (2) Hx of hepatitis C (3) Hyperbilirubinemia Post Procedure Diagnosis: (1) Jaundice (2) Hx of hepatitis C (3) Hyperbilirubinemia Procedure Date: Sep 13, 2016 Supervising Radiologist: Param Miramontes Proceduralist/Assist: Sylvie Jackson RT(R)(CT) Anesthesia: Local, Conscious Sedation Plan of Activity Patient to Unit: Nursing Unit Patient Condition: Fair See PACS Report for procedural detail/treatment Biopsy Imaging Guidance: CT Side: Right Biopsy Procedure: Liver Site: Right hepatic lobe Specimen: Core Biopsy Param Mirmaontes MD Sep 13, 2016 09:57
[2016-09-13] MEDS ORDERED: LIDOCAINE 1%/EPINEPHrine 1:100,000 SOLN 30 ML VIAL OTHER ONE (10:04)
--- NOTE | 2016-09-13 10:34 | RADHPO ---
EXAM DATE/TIME: 09/13/2016 09:28 [facility] COMPARISON: CT NEEDLE BIOPSY LIVER, November 19, 2015, 15:41. INDICATIONS : Liver biopsy for function. SEDATION TIME: 30 minutes BIOPSY SITE: Right Liver MEDICATION(S): 1.) 1.5 mg midazolam (Versed) IV 2.) 75 mcg fentanyl (Sublimaze) IV DEVICE(S): 1.) 18 gauge BioPince needle MEDICAL HISTORY : Gastroesophageal reflux disease. Chronic obstructive pulmonary disease. Renal calculi. SURGICAL HISTORY : Hysterectomy. ENCOUNTER: Initial ACUITY: 1 day PAIN SCORE: 0/10 LOCATION: Right abdomen A total of two core specimen(s) were obtained and sent to the laboratory for pathologic evaluation. PROCEDURE: 1. CT guided liver biopsy. 2. Conscious sedation with continuous EKG and oximetry monitoring. 3. EKG and oximetry remained stable throughout the procedure. Prior to the procedure informed consent was obtained. Any appropriate prior imaging studies were rev iewed. Using automated exposure control and adjustment of the mA and/or kV according to patient size, radiat ion dose was kept as low as reasonably achievable to obtain optimal diagnostic quality images. The site was prepped in a sterile fashion. Full sterile technique was used, including cap, mask, jourdan rile gloves and gown and a large sterile sheet. Hand hygiene and 2% chlorhexidine and/or betadine/al cohol prep was utilized per protocol for cutaneous antisepsis. The skin and subcutaneous tissues wer e infiltrated with local anesthetic solution. With CT guidance the previously identified target was localized. Biopsy was performed using the presc ribed needle as above. Adequate hemostasis was obtained with compression at the puncture site. Follow-up CT scan reveals no hemorrhage. The patient tolerated the procedure well and there were no complications. The patient was returned to the Radiology Outpatient Unit in stable condition. CONCLUSION: Uncomplicated CT guided biopsy. Param Miramontes MD on September 13, 2016 at 10:30 Board Certified Radiologist. This report was verified electronically.
[2016-09-13] MEDS: ARIPiprazole 10 MG TAB PO SCH (12:09)
[2016-09-13] MEDS: FLUoxetine HCL 20 MG CAP PO SCH (12:09)
[2016-09-13] MEDS: LACTULOSE SYRUP 20 GM/30 ML CUP PO SCH (12:09)
[2016-09-13] MEDS: URSODIOL 300 MG CAP PO SCH ×2 (12:09→20:45)
[2016-09-13] MEDS: BUDESONIDE-FORMOTEROL 80/4.5 MCG INHALER INH SCH ×2 (12:10→20:46)
[2016-09-13] MEDS: ACETYLCYSTEINE 20% 6,000 MG/30 ML ORAL SOLN VIAL PO SCH ×2 (12:10→20:46)
[2016-09-13] MEDS: SODIUM CHLORIDE 0.9% FLUSH 5 ML FLUSH FLUSH SCH ×2 (12:16→20:46)
[2016-09-13] MEDS: MORPHINE SULFATE 4 MG/ML INJ IV PRN ×2 (12:24→20:47)
[2016-09-13] MEDS ORDERED: SODIUM CHLOR 0.9% 1000 ML INJ 1,000 ML IV ONE (15:30)
--- NOTE | 2016-09-13 18:04 | HHI.GIFU ---
Subjective Remarks Patient comfortable in bed no new complaints Objective Vitals I&O Vital Signs Date Time Temp Pulse Resp B/P Pulse Ox O2 Delivery O2 Flow Rate FiO2 09/13/16 16:34 96.7 78 18 103/67 97 09/13/16 15:28 93 Nasal Cannula 3.50 09/13/16 13:30 96.9 67 18 74/53 96 09/13/16 12:30 96.0 76 18 79/61 96 09/13/16 12:00 96.7 78 18 86/70 94 09/13/16 12:00 96.7 78 18 86/70 94 09/13/16 11:30 69 22 81/58 96 09/13/16 11:00 70 18 83/61 96 09/13/16 10:30 70 16 79/56 96 09/13/16 10:30 70 16 79/56 96 09/13/16 10:15 97.9 76 14 81/55 96 09/13/16 10:15 97.9 76 14 81/55 96 09/13/16 08:00 95.9 71 16 88/54 97 09/13/16 08:00 Nasal Cannula 4.00 09/13/16 07:37 95 Nasal Cannula 6.00 09/13/16 07:00 Nasal Cannula 4.00 09/13/16 06:06 95 Venturi Mask 6.00 50 09/13/16 04:00 97.8 83 22 86/58 95 09/13/16 00:15 Venturi Mask 6.00 50 09/13/16 00:01 101.8 09/13/16 00:00 101.8 92 20 111/77 93 09/12/16 22:01 18 09/12/16 20:30 Venturi Mask 6.00 50 09/12/16 20:00 101.8 92 20 111/77 93 09/12/16 19:43 90 Nasal Cannula 6.00 I/O 09/12/16 09/12/16 09/12/16 09/13/16 09/13/16 09/13/16 07:00 15:00 23:00 07:00 15:00 23:00 Intake Total 240 ml 1505 ml 28 ml 300 ml Output Total 500 ml Balance 240 ml 1505 ml 28 ml -200 ml Intake Oral 240 ml 580 ml 28 ml IV Total 925 ml 300 ml Output Urine Total 500 ml # Voids 2 5 0 # Bowel Movements 0 0 Laboratory Laboratory Tests Test 09/13/16 05:50 Sodium Level 142 Potassium Level 4.3 Chloride Level 109 Carbon Dioxide Level 25.7 Anion Gap 7 Blood Urea Nitrogen 9 Creatinine 0.82 Estimat Glomerular Filtration 76 Rate Random Glucose 101 Calcium Level 8.5 Total Bilirubin 20.6 Direct Bilirubin 17.5 Aspartate Amino Transf 876 (AST/SGOT) Alanine Aminotransferase 1273 (ALT/SGPT) Alkaline Phosphatase 168 Ammonia 37 Total Protein 6.7 Albumin 2.2 Date/Time Procedure Status Source Growth 09/12/16 20:20 Legionella Antigen - Final Complete Urine Random Urine PRESUMPTIVE NEGATIVE FOR LEGIONELLA P... 09/10/16 08:05 Gram Stain - Final Resulted Sputum Expectorated Sputum 09/10/16 08:05 Sputum Culture - Preliminary Resulted Sputum Expectorated Sputum HEAVY GROWTH NORMAL RESPIRATORY [facility] Imaging Last Impressions Liver Biopsy CT 09/13/16 0708 Signed Impressions: Service Date/Time: Tuesday, September 13, 2016 09:28 - CONCLUSION: Uncomplicated CT guided biopsy. Param Miramontes MD Chest X-Ray 09/11/16 0000 Signed Impressions: Service Date/Time: Sunday, September 11, 2016 16:58 - CONCLUSION: Bilateral perihilar pneumonia. You Augustine MD [id number] Cholangiopancreatography MRI 09/08/16 0000 Signed Impressions: Service Date/Time: August 12:37 - CONCLUSION: 1. Gallbladder wall edema. No intrahepatic or extrahepatic bile duct dilatation is present. There are no gallstones visualized. 2. Mild splenomegaly. 3. Stable 12 mm left adrenal gland nodule likely representing a benign adenoma given the stability in size since October 2013. You Bae MD CT Angiography 09/07/16 173 Signed Impressions: Service Date/Time: Wednesday, September 07, 2016 18:24 - CONCLUSION: 1. There is pulmonary fibrosis and scattered groundglass densities throughout the lungs greatest in the upper lobes. Acute on chronic condition is suspected. 2. Minimal coronary artery calcification. 3. Right hilar and mediastinal adenopathy is likely reactive. 4. Left adrenal nodule likely adenoma. Torey Burden MD Abdomen/Pelvis CT [id number]/07/[id number] Signed Impressions: Service Date/Time: Wednesday, September 07, 2016 18:24 - CONCLUSION: 1. Left adrenal nodule probable adenoma. 2. No acute inflammatory process. 3. Interstitial and alveolar opacities with pulmonary fibrosis. Torey Burden MD Physical Exam HEENT: normocephalic; jaundiced NECK: Neck is supple CHEST: Chest is clear to auscultation and percussion. CARDIAC: Regular rate and rhythm with no murmur gallop or rubs. ABDOMEN: Soft, nondistended, nontender; no hepatosplenomegaly; bowel sounds are present in all four quadrants. EXTREMITIES: No clubbing, cyanosis, or edema. SKIN: Normal; no skin rash jaundice. HEAVY LINE TECHNICIAN: No focal deficits; alert and oriented times three. Assessment and Plan Plan Elevated liver function tests and acute hepatitis etiology unclear Jaundice Hepatitis C ASMA positive Workup so far unremarkable except for the ASMA and hep C Continue with current supportive care Liver biopsy done today will await pathology Monitor labs Lloyd Hernadez MD Sep 13, 2016 18:04
[2016-09-13 20:35] LABS: INTERNATIONAL NORMALIZED RATIO 1.3 RATIO
[2016-09-13] MEDS: traZODone HCL 100 MG TAB PO SCH (20:45)
[2016-09-13] MEDS: AZITHROMYCIN 250 MG TAB PO SCH (20:46)
[2016-09-13] MEDS: cefTRIAXone INJ 1,000 MG in SODIUM CHLORIDE 0.9% INJ 100 ML IV SCH (20:46)
[2016-09-14] VITALS (9 sets, daily range): BP systolic 88–107; BP diastolic 61–73; PULSE 80–89; RESP 15–18; TEMP 98.1–99.4; O2SAT 91–97
[2016-09-14 06:38] LABS: HEMATOCRIT 33.9 % (35.0-46.0); MEAN CELL VOLUME 89.3 FL (80.0-100.0); MEAN CORPUSCULAR HEMOGLOBIN 29.9 PG (27.0-34.0); MEAN CORPUSCULAR HGB CONC 33.5 % (32.0-36.0); PLATELET COUNT 224 TH/MM3 (150-450); RED BLOOD COUNT 3.79 MIL/MM3 (4.00-5.30); RED CELL DISTRIBUTION WIDTH 19.5 % (11.6-17.2); WHITE BLOOD COUNT 5.8 TH/MM3 (4.0-11.0)
[2016-09-14 06:39] LABS: CHLORIDE 110 MEQ/L (98-107); POTASSIUM 3.9 MEQ/L (3.5-5.1); SODIUM (NA) 144 MEQ/L (136-145)
[2016-09-14 06:45] LABS: ANION GAP 8 MEQ/L (5-15); BICARBONATE 25.7 MEQ/L (21.0-32.0); BLOOD UREA NITROGEN 7 MG/DL (7-18)
[2016-09-14 06:47] LABS: AST (GOT) 786 U/L (15-37)
[2016-09-14 06:48] LABS: REVIEW FLAG FINAL
[2016-09-14 06:49] LABS: GLOMERULAR FILTRATION RATE 88 ML/MIN (>89); TOTAL BILIRUBIN ADULT 19.3 MG/DL (0.2-1.0)
[2016-09-14 06:50] LABS: ALKALINE PHOSPHATASE 140 U/L (45-117)
[2016-09-14 06:56] LABS: ALT (GPT) 1107 U/L (10-53)
[2016-09-14] MEDS: RESP: ALBUTEROL 2.5 MG/IPRATROPIUM 0.5 MG NEB (SCH) NEB ×4 (07:33→19:19)
[2016-09-14] MEDS: ARIPiprazole 10 MG TAB PO SCH (10:22)
[2016-09-14] MEDS: FLUoxetine HCL 20 MG CAP PO SCH (10:22)
[2016-09-14] MEDS: URSODIOL 300 MG CAP PO SCH ×2 (10:22→21:16)
[2016-09-14] MEDS: BUDESONIDE-FORMOTEROL 80/4.5 MCG INHALER INH SCH ×2 (10:22→21:19)
[2016-09-14] MEDS: LACTULOSE SYRUP 20 GM/30 ML CUP PO SCH (10:23)
[2016-09-14] MEDS: ACETYLCYSTEINE 20% 6,000 MG/30 ML ORAL SOLN VIAL PO SCH ×2 (10:23→21:16)
[2016-09-14] MEDS: SODIUM CHLORIDE 0.9% FLUSH 5 ML FLUSH FLUSH SCH ×2 (10:29→21:20)
[2016-09-14] MEDS: MORPHINE SULFATE 4 MG/ML INJ IV PRN ×3 (10:29→22:38)
--- NOTE | 2016-09-14 10:59 | HHI.PR ---
Subjective Remarks Follow-up hepatitis/pneumonia/UTI and now respiratory failure 09/12/16-patient seen and examined, currently on Ventimask and reports some shortness of breath. Afebrile. 09/13/16-patient seen and examined, currently on nasal cannula 6 L and denies any significant shortness of breath. Nothing by mouth and plan for CT-guided liver biopsy today. MAXIMUM TEMPERATURE 101.8 at midnight 09/14/16-patient seen and examined, liver biopsy done yesterday. Currently on 4 L nasal cannula. Afebrile and no acute event overnight. Objective Vitals Vital Signs Date Time Temp Pulse Resp B/P Pulse Ox O2 Delivery O2 Flow Rate FiO2 09/14/16 09:18 98.9 85 15 88/66 94 09/14/16 07:39 93 Nasal Cannula 4.00 09/14/16 00:00 98.1 80 18 88/61 97 09/13/16 20:10 96 Nasal Cannula 6.00 Humidified 09/13/16 20:00 99.0 96 18 101/67 96 09/13/16 19:30 92 Nasal Cannula 5.00 09/13/16 16:34 96.7 78 18 103/67 97 09/13/16 15:28 93 Nasal Cannula 3.50 09/13/16 13:30 96.9 67 18 74/53 96 09/13/16 12:30 96.0 76 18 79/61 96 09/13/16 12:00 96.7 78 18 86/70 94 09/13/16 12:00 96.7 78 18 86/70 94 09/13/16 11:30 69 22 81/58 96 09/13/16 11:00 70 18 83/61 96 I/O 09/13/16 09/13/16 09/13/16 09/14/16 09/14/16 09/14/16 07:00 15:00 23:00 07:00 15:00 23:00 Intake Total 300 ml 240 ml Output Total 500 ml Balance -200 ml 240 ml Intake Oral 120 ml IV Total 300 ml 120 ml Output Urine Total 500 ml # Voids 2 3 # Bowel Movements 0 0 Result Diagram: 09/14/16 0614 09/14/1614 Imaging Last Impressions Liver Biopsy CT 09/13/16 0708 Signed Impressions: Service Date/Time: Tuesday, September 13, 2016 09:28 - CONCLUSION: Uncomplicated CT guided biopsy. Param Miramontes MD Chest X-Ray 09/11/16 0000 Signed Impressions: Service Date/Time: Sunday, September 11, 2016 16:58 - CONCLUSION: Bilateral perihilar pneumonia. You Augustine MD [id number] Cholangiopancreatography MRI 09/08/16 0000 Signed Impressions: Service Date/Time: August 12:37 - CONCLUSION: 1. Gallbladder wall edema. No intrahepatic or extrahepatic bile duct dilatation is present. There are no gallstones visualized. 2. Mild splenomegaly. 3. Stable 12 mm left adrenal gland nodule likely representing a benign adenoma given the stability in size since October 2013. You Bae MD CT Angiography 09/07/16 1738 Signed Impressions: Service Date/Time: Wednesday, September 07, 2016 18:24 - CONCLUSION: 1. There is pulmonary fibrosis and scattered groundglass densities throughout the lungs greatest in the upper lobes. Acute on chronic condition is suspected. 2. Minimal coronary artery calcification. 3. Right hilar and mediastinal adenopathy is likely reactive. 4. Left adrenal nodule likely adenoma. Torey Burden MD Abdomen/Pelvis CT [id number]/07/[id number] Signed Impressions: Service Date/Time: Wednesday, September 07, 2016 18:24 - CONCLUSION: 1. Left adrenal nodule probable adenoma. 2. No acute inflammatory process. 3. Interstitial and alveolar opacities with pulmonary fibrosis. Torey Burden MD Objective Remarks GENERAL: NAD with Ventimask in place SKIN: Warm and dry. HEAD: Normocephalic. EYES: No scleral icterus. No injection or drainage. NECK: Supple, trachea midline. No JVD or lymphadenopathy. CARDIOVASCULAR: Regular rate and rhythm without murmurs, gallops, or rubs. RESPIRATORY: Breath sounds decrease bilaterally. No accessory muscle use. GASTROINTESTINAL: Abdomen soft, non-tender, nondistended. MUSCULOSKELETAL: No cyanosis, or edema. BACK: Nontender without obvious deformity. No CVA tenderness. A/P Problem List: (1) Hepatitis, acute ICD Code: B17.9 Status: Acute (2) Pneumonia ICD Code: J18.9 Status: Acute (3) Bipolar disease, chronic ICD Code: F31.9 Status: Chronic (4) Hypokalemia ICD Code: E87.6 Status: Acute (5) Urinary tract infection ICD Code: N39.0 Status: Acute (6) Hyperammonemia ICD Code: E72.20 Status: Acute (7) Acute respiratory failure with hypoxemia ICD Code: J96.01 Status: Acute Assessment and Plan 46-year-old female with 2-Oclfhpjlq-jbebpfyxq C antibody positive as well as ASMA pending HCV RNA genotype. Appreciate input from GI. s/p CT-guided liver biopsy 09/13/16 pending report 2-Hyperammonemia: Likely secondary to above processes, continue lactulose 30 mg daily and monitor NH 3 3-Transaminitis: Likely secondary to above infectious process, continue to hold Klonopin and monitor LFTs total and direct bili. s/p CT-guided liver biopsy pending report. Continue with treatment with Actigal 4-Acute Respiratory failure with hypoxemia: Improving and currently on nasal cannula 4L. continue Duo Neb scheduled and when necessary and maintain oxygen saturation above 92%. Treatment treatment for pneumonia. 5-Qpylyootv-odtqavun bacterial pneumonia: Currently on azithromycin and Rocephin 6-UTI: Continue Rocephin IV 7-Hypokalemia: Resolved status post treatment 8-Bipolar disorder: Continue to hold Klonopin secondary to elevated LFTs and continue her other anti psychotropic medications. Appreciate input from psychiatry. DVT prophylaxis: Bilateral SCDs Problem Qualifiers (1) Pneumonia: Torey Jurado MD Sep 14, 2016 10:59
--- NOTE | 2016-09-14 20:58 | HHI.GIFU ---
Subjective Remarks Patient comfortable in bed no complaints feeling much better Objective Vitals I&O Vital Signs Date Time Temp Pulse Resp B/P Pulse Ox O2 Delivery O2 Flow Rate FiO2 09/14/16 20:00 99.1 82 18 99/71 92 09/14/16 19:20 92 Nasal Cannula 3.00 09/14/16 18:12 99.4 88 15 102/67 91 09/14/16 15:06 92 Nasal Cannula 3.00 09/14/16 13:20 99.4 89 15 107/73 91 09/14/16 11:39 93 Nasal Cannula 4.00 09/14/16 09:18 98.9 85 15 88/66 94 09/14/16 08:00 Nasal Cannula 6.00 09/14/16 07:39 93 Nasal Cannula 4.00 09/14/16 00:00 98.1 80 18 88/61 97 I/O 09/13/16 09/13/16 09/13/16 09/14/16 09/14/16 09/14/16 07:00 15:00 23:00 07:00 15:00 23:00 Intake Total 300 ml 240 ml 1000 ml Output Total 500 ml Balance -200 ml 240 ml 1000 ml Intake Oral 120 ml 1000 ml IV Total 300 ml 120 ml Output Urine Total 500 ml # Voids 2 3 5 # Bowel Movements 0 0 1 Laboratory Laboratory Tests Test 09/14/16 06:14 White Blood Count 5.8 Red Blood Count 3.79 Hemoglobin 11.3 Hematocrit 33.9 Mean Corpuscular Volume 89.3 Mean Corpuscular Hemoglobin 29.9 Mean Corpuscular Hemoglobin 33.5 Concent Red Cell Distribution Width 19.5 Platelet Count 224 Mean Platelet Volume 10.2 Sodium Level 144 Potassium Level 3.9 Chloride Level 110 Carbon Dioxide Level 25.7 Anion Gap 8 Blood Urea Nitrogen 7 Creatinine 0.72 Estimat Glomerular Filtration 88 Rate Random Glucose 82 Calcium Level 8.4 Total Bilirubin 19.3 Aspartate Amino Transf 786 (AST/SGOT) Alanine Aminotransferase 1107 (ALT/SGPT) Alkaline Phosphatase 140 Ammonia 55 Total Protein 6.1 Albumin 1.9 Date/Time Procedure Status Source Growth 09/12/16 20:20 Legionella Antigen - Final Complete Urine Random Urine PRESUMPTIVE NEGATIVE FOR LEGIONELLA P... 09/10/16 08:05 Gram Stain - Final Resulted Sputum Expectorated Sputum 09/10/16 08:05 Sputum Culture - Preliminary Resulted Sputum Expectorated Sputum HEAVY GROWTH NORMAL RESPIRATORY [facility] Imaging Last Impressions Liver Biopsy CT 09/13/16 0708 Signed Impressions: Service Date/Time: Tuesday, September 13, 2016 09:28 - CONCLUSION: Uncomplicated CT guided biopsy. Param Miramontes MD Chest X-Ray 09/11/16 0000 Signed Impressions: Service Date/Time: Sunday, September 11, 2016 16:58 - CONCLUSION: Bilateral perihilar pneumonia. You Augustine MD [id number] Cholangiopancreatography MRI 09/08/16 0000 Signed Impressions: Service Date/Time: August 12:37 - CONCLUSION: 1. Gallbladder wall edema. No intrahepatic or extrahepatic bile duct dilatation is present. There are no gallstones visualized. 2. Mild splenomegaly. 3. Stable 12 mm left adrenal gland nodule likely representing a benign adenoma given the stability in size since October 2013. You Bae MD CT Angiography 09/07/16 1738 Signed Impressions: Service Date/Time: Wednesday, September 07, 2016 18:24 - CONCLUSION: 1. There is pulmonary fibrosis and scattered groundglass densities throughout the lungs greatest in the upper lobes. Acute on chronic condition is suspected. 2. Minimal coronary artery calcification. 3. Right hilar and mediastinal adenopathy is likely reactive. 4. Left adrenal nodule likely adenoma. Torey Burden MD Abdomen/Pelvis CT 09/07/16 1738 Signed Impressions: Service Date/Time: Wednesday, September 07, 2016 18:24 - CONCLUSION: 1. Left adrenal nodule probable adenoma. 2. No acute inflammatory process. 3. Interstitial and alveolar opacities with pulmonary fibrosis. Torey Burden MD Physical Exam HEENT: normocephalic; jaundiced NECK: Neck is supple CHEST: Chest is clear to auscultation and percussion. CARDIAC: Regular rate and rhythm with no murmur gallop or rubs. ABDOMEN: Soft, nondistended, nontender; no hepatosplenomegaly; bowel sounds are present in all four quadrants. EXTREMITIES: No clubbing, cyanosis, or edema. SKIN: Normal; no skin rash jaundice. GLASS MOULD CLEANER: No focal deficits; alert and oriented times three. Assessment and Plan Plan Elevated liver function tests and acute hepatitis etiology unclear Jaundice Hepatitis C antibody positive but RNA negative and this translates to no hepatitis C infection at this point in time and from reviewing her chart it is apparent that she's had hepatitis C antibody positive in the past but it's also been negative and as such this may be a false-positive or a prior exposure ASMA positive this is of unclear significance and this should be evaluated possibly by rheumatology I will defer to attending physician but it is unlikely that this relates to her liver Liver biopsy is similar to 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 the patient admits to taking supplements but she doesn't know what they are Continue with current supportive care Continue with hydration and advance diet as tolerated Monitor labs Patient may be discharged from a GI standpoint tomorrow if her labs continue to show improvement she will need follow-up with GI in 2 weeks with blood work to include CBC CMP and a PT/INR prior office visit Patient advised to stay away from anything that potentially can cause insult to the liver and must refrain from taking any supplements prior to having them evaluated by her physician Lloyd Hernadez MD Sep 14, 2016 20:58
[2016-09-14] MEDS: traZODone HCL 100 MG TAB PO SCH (21:16)
[2016-09-14] MEDS: AZITHROMYCIN 250 MG TAB PO SCH (21:16)
[2016-09-14] MEDS: cefTRIAXone INJ 1,000 MG in SODIUM CHLORIDE 0.9% INJ 100 ML IV SCH (21:19)
[2016-09-15] VITALS (8 sets, daily range): BP systolic 95–114; BP diastolic 60–72; PULSE 80–84; RESP 16–23; TEMP 97.8–99.9; O2SAT 90–95
[2016-09-15 06:16] LABS: CHLORIDE 107 MEQ/L (98-107); POTASSIUM 3.8 MEQ/L (3.5-5.1); SODIUM (NA) 142 MEQ/L (136-145)
[2016-09-15 06:21] LABS: ANION GAP 7 MEQ/L (5-15); BICARBONATE 27.7 MEQ/L (21.0-32.0); BLOOD UREA NITROGEN 7 MG/DL (7-18)
[2016-09-15 06:24] LABS: AST (GOT) 807 U/L (15-37); GLOMERULAR FILTRATION RATE 78 ML/MIN (>89)
[2016-09-15 06:26] LABS: TOTAL BILIRUBIN ADULT 20.1 MG/DL (0.2-1.0)
[2016-09-15 06:27] LABS: ALKALINE PHOSPHATASE 143 U/L (45-117)
[2016-09-15 06:32] LABS: ALT (GPT) 1042 U/L (10-53)
[2016-09-15] MEDS: RESP: ALBUTEROL 2.5 MG/IPRATROPIUM 0.5 MG NEB (SCH) NEB ×4 (07:21→19:52)
[2016-09-15] MEDS: ACETYLCYSTEINE 20% 6,000 MG/30 ML ORAL SOLN VIAL PO SCH ×2 (09:00→22:21)
[2016-09-15] MEDS: BUDESONIDE-FORMOTEROL 80/4.5 MCG INHALER INH SCH ×2 (09:02→22:20)
[2016-09-15] MEDS: URSODIOL 300 MG CAP PO SCH ×2 (09:02→22:19)
[2016-09-15] MEDS: FLUoxetine HCL 20 MG CAP PO SCH (09:02)
[2016-09-15] MEDS: LACTULOSE SYRUP 20 GM/30 ML CUP PO SCH (09:02)
[2016-09-15] MEDS: SODIUM CHLORIDE 0.9% FLUSH 5 ML FLUSH FLUSH SCH ×2 (09:02→22:20)
[2016-09-15] MEDS: ARIPiprazole 10 MG TAB PO SCH (09:02)
--- NOTE | 2016-09-15 20:04 | HHI.PR ---
Subjective Remarks Patient laying comfortably in bed denied nausea or vomiting today she still showing jaundice, I discussed with GI Connie FORREST FT still about the same like yesterday continue monitoring till tomorrow patient is afebrile Objective Vitals Vital Signs Date Time Temp Pulse Resp B/P Pulse Ox O2 Delivery O2 Flow Rate FiO2 09/15/16 16:00 98.1 80 17 102/67 95 09/15/16 12:00 98.5 80 16 97/64 94 09/15/16 09:42 Nasal Cannula 5.00 09/15/16 08:00 97.8 82 17 95/60 95 09/15/16 07:25 94 Nasal Cannula 4.00 09/15/16 01:17 92 Nasal Cannula 5.00 09/15/16 01:13 Nasal Cannula 5.00 Humidified 09/15/16 00:00 98.3 80 23 96/63 91 09/14/16 23:00 18 09/14/16 20:00 99.1 82 18 99/71 92 09/14/16 20:00 Nasal Cannula 3.00 Humidified I/O 09/14/16 09/14/16 09/14/16 09/15/16 09/15/16 09/15/16 07:00 15:00 23:00 07:00 15:00 23:00 Intake Total 1240 ml 240 ml 640 ml Balance 1240 ml 240 ml 640 ml Intake Oral 1240 ml 240 ml 640 ml # Voids 3 6 2 5 # Bowel Movements 0 1 0 Result Diagram: 09/14/16 0614 09/15/16 0552 Objective Remarks GENERAL: This is a well-nourished, well-developed patient, in no apparent distress. SKIN: No rashes, warm and dry HEAD: Atraumatic. Normocephalic. EYES: Pupils equal round and reactive. Extraocular motions intact. Positive scleral icterus. ENT: Nose without bleeding, or drainage, Airway patent. NECK: Trachea midline. Supple CARDIOVASCULAR: Regular rate and rhythm without murmurs, gallops, or rubs. RESPIRATORY: Fair air entry bilaterally. No wheezes, rales, or rhonchi. GASTROINTESTINAL: Abdomen soft, non-tender, nondistended. Positive bowel sounds MUSCULOSKELETAL: Extremities without clubbing, cyanosis, or edema. Pedal pulses appreciated NEUROLOGICAL: Awake and alert. Moves all extremity. Normal speech.no focal neurological deficit A/P Problem List: (1) Hepatitis, acute ICD Code: B17.9 Status: Acute (2) Pneumonia ICD Code: J18.9 Status: Acute (3) Bipolar disease, chronic ICD Code: F31.9 Status: Chronic (4) Hypokalemia ICD Code: E87.6 Status: Acute (5) Urinary tract infection ICD Code: N39.0 Status: Acute (6) Hyperammonemia ICD Code: E72.20 Status: Acute (7) Acute respiratory failure with hypoxemia ICD Code: J96.01 Status: Acute Assessment and Plan 09/15/16: AST ALT alkaline phosphatase is about the same like yesterday I discussed with GI MANAGER IMMUNOLOGY the recommended continuing monitoring for another day most like the be able to discharge tomorrow 46-year-old female with 4-Szvshmnli-tnjbyssnc C antibody positive as well as ASMA pending HCV RNA genotype. Appreciate input from GI. s/p CT-guided liver biopsy 09/13/16 pending report 2-Hyperammonemia: Likely secondary to above processes, continue lactulose 30 mg daily and monitor NH 3 3-Transaminitis: Likely secondary to above infectious process, continue to hold Klonopin and monitor LFTs total and direct bili. s/p CT-guided liver biopsy pending report. Continue with treatment with Actigal 4-Acute Respiratory failure with hypoxemia: Improving and currently on nasal cannula 4L. continue Duo Neb scheduled and when necessary and maintain oxygen saturation above 92%. Treatment treatment for pneumonia. 8-Vrozopwyw-lthlulto bacterial pneumonia: Currently on azithromycin and Rocephin 6-UTI: Continue Rocephin IV 7-Hypokalemia: Resolved status post treatment 8-Bipolar disorder: Continue to hold Klonopin secondary to elevated LFTs and continue her other anti psychotropic medications. Appreciate input from psychiatry. DVT prophylaxis: Bilateral SCDs Problem Qualifiers (1) Pneumonia: Elvira Patino MD Sep 15, 2016 20:04
--- NOTE | 2016-09-15 20:42 | HHI.GIFU ---
Subjective Remarks Patient comfortable in bed No complaints Objective Vitals I&O Vital Signs Date Time Temp Pulse Resp B/P Pulse Ox O2 Delivery O2 Flow Rate FiO2 09/15/16 19:54 90 Nasal Cannula 4.00 09/15/16 16:00 98.1 80 17 102/67 95 09/15/16 12:00 98.5 80 16 97/64 94 09/15/16 09:42 Nasal Cannula 5.00 09/15/16 08:00 97.8 82 17 95/60 95 09/15/16 07:25 94 Nasal Cannula 4.00 09/15/16 01:17 92 Nasal Cannula 5.00 09/15/16 01:13 Nasal Cannula 5.00 Humidified 09/15/16 00:00 98.3 80 23 96/63 91 09/14/16 23:00 18 I/O 09/14/16 09/14/16 09/14/16 09/15/16 09/15/16 09/15/16 07:00 15:00 23:00 07:00 15:00 23:00 Intake Total 1240 ml 240 ml 640 ml Balance 1240 ml 240 ml 640 ml Intake Oral 1240 ml 240 ml 640 ml # Voids 3 6 2 5 # Bowel Movements 0 1 0 Laboratory Laboratory Tests Test 09/15/16 05:52 Sodium Level 142 Potassium Level 3.8 Chloride Level 107 Carbon Dioxide Level 27.7 Anion Gap 7 Blood Urea Nitrogen 7 Creatinine 0.80 Estimat Glomerular Filtration 78 Rate Random Glucose 87 Calcium Level 8.5 Total Bilirubin 20.1 Aspartate Amino Transf 807 (AST/SGOT) Alanine Aminotransferase 1042 (ALT/SGPT) Alkaline Phosphatase 143 Ammonia 55 Total Protein 6.4 Albumin 2.0 Date/Time Procedure Status Source Growth 09/12/16 20:20 Legionella Antigen - Final Complete Urine Random Urine PRESUMPTIVE NEGATIVE FOR LEGIONELLA P... Physical Exam HEENT: normocephalic; jaundiced NECK: Neck is supple CHEST: Chest is clear to auscultation and percussion. CARDIAC: Regular rate and rhythm with no murmur gallop or rubs. ABDOMEN: Soft, nondistended, nontender; no hepatosplenomegaly; bowel sounds are present in all four quadrants. EXTREMITIES: No clubbing, cyanosis, or edema. SKIN: Normal; no skin rash jaundice. RADON INSPECTOR: No focal deficits; alert and oriented times three. Assessment and Plan Plan Elevated liver function tests and acute hepatitis etiology unclear but as per the liver biopsy its most compatible with drug-induced hepatitis Jaundice secondary to above Hepatitis C antibody positive but RNA negative and this translates to no hepatitis C infection at this point in time and from reviewing her chart it is apparent that she's had hepatitis C antibody positive in the past but it's also been negative and as such this may be a false-positive or a prior exposure ASMA positive this is of unclear significance and this should be evaluated possibly by rheumatology I will defer to attending physician but it is unlikely that this relates to her liver Liver biopsy is similar to 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 the patient admits to taking supplements but she doesn't know what they are Continue with current supportive care Continue with hydration and advance diet as tolerated Monitor labs her labs and thus far have been stable with a slight trend to improvement Patient may be discharged from a GI standpoint tomorrow if she is comfortable with this and if her labs continue to show stability or improvement she will need follow-up with GI in 2 weeks with blood work to include CBC CMP and a PT/ INR prior office visit Patient advised to stay away from anything that potentially can cause insult to the liver and must refrain from taking any supplements prior to having them evaluated by her physician Lloyd Hernadez MD Sep 15, 2016 20:42
[2016-09-15] MEDS: AZITHROMYCIN 250 MG TAB PO SCH (22:19)
[2016-09-15] MEDS: traZODone HCL 100 MG TAB PO SCH (22:20)
[2016-09-15] MEDS: cefTRIAXone INJ 1,000 MG in SODIUM CHLORIDE 0.9% INJ 100 ML IV SCH (22:20)
[2016-09-15] MEDS: MORPHINE SULFATE 4 MG/ML INJ IV PRN (22:21)
[2016-09-16] VITALS (7 sets, daily range): BP systolic 89–100; BP diastolic 51–66; PULSE 76–90; RESP 16–20; TEMP 96.2–99.3; O2SAT 93–96
[2016-09-16] MEDS: RESP: ALBUTEROL 2.5 MG/IPRATROPIUM 0.5 MG NEB (SCH) NEB ×2 (07:38→10:52)
[2016-09-16] MEDS: ACETYLCYSTEINE 20% 6,000 MG/30 ML ORAL SOLN VIAL PO SCH ×2 (09:00→21:47)
[2016-09-16] MEDS: FLUoxetine HCL 20 MG CAP PO SCH (09:23)
[2016-09-16] MEDS: URSODIOL 300 MG CAP PO SCH ×2 (09:23→21:47)
[2016-09-16] MEDS: ARIPiprazole 10 MG TAB PO SCH (09:23)
[2016-09-16] MEDS: LACTULOSE SYRUP 20 GM/30 ML CUP PO SCH (09:23)
[2016-09-16] MEDS: BUDESONIDE-FORMOTEROL 80/4.5 MCG INHALER INH SCH ×2 (09:24→21:19)
[2016-09-16] MEDS: SODIUM CHLORIDE 0.9% FLUSH 5 ML FLUSH FLUSH SCH ×2 (09:24→21:19)
--- NOTE | 2016-09-16 11:51 | RADHPO ---
EXAM DATE/TIME: 09/16/2016 11:15 [facility] COMPARISON: CHEST SINGLE AP, September 11, 2016, 16:58. CHEST PA & LAT, November 27, 2015, 9:53. INDICATIONS : Pneumonia. Cough and congestion. MEDICAL HISTORY : None. SURGICAL HISTORY : None. ENCOUNTER: Subsequent ACUITY: 2 weeks PAIN SCORE: 0/10 LOCATION: Bilateral chest FINDINGS: PA and lateral views of the chest demonstrate continues to demonstrate diffuse interstitial lung dise ase with hyperaeration lungs. A low improvement is noted compared to the prior study. Heart and mediastinal structures are stable. Osseous structures are intact. CONCLUSION: Diffuse interstitial pneumonitis without significant improvement. Param Miramontes MD on September 16, 2016 at 11:48 Board Certified Radiologist. This report was verified electronically.
[2016-09-16] MEDS ORDERED: LACT10SO PO (11:55)
[2016-09-16] MEDS ORDERED: Ursodiol PO (11:55)
[2016-09-16] MEDS ORDERED: CEFT500T3 PO (11:56)
--- NOTE | 2016-09-16 12:04 | HHI.DS ---
Discharge Summary Admission Date Sep 07, 2016 at 19:42 Discharge Date: Sep 16, 2016 Admitting Diagnosis pneumonia, hypoxia, transaminitis, hyperbilirubinemia (1) Hepatitis, acute ICD Code: B17.9 (2) Pneumonia ICD Code: J18.9 (3) Bipolar disease, chronic ICD Code: F31.9 (4) Hypokalemia ICD Code: E87.6 (5) Urinary tract infection ICD Code: N39.0 (6) Hyperammonemia ICD Code: E72.20 (7) Acute respiratory failure with hypoxemia ICD Code: J96.01 Procedures See below Brief History - From Admission This is a pleasant 46-year-old female with past medical history of drug-induced liver disease and hepatitis, hepatitis C virus status post liver biopsy in 2012 2015, bipolar disorder on Abilify trazodone and Prozac who presented to the ER today complaining of a two-week history of shortness of cough and several day history of generalized jaundice and pruritus as well as right sided abdominal and thoracic pain. The patient states that her shortness of breath and cough started 2 weeks ago and progressively got worse. She is coughing up scant amounts of sputum. 3 days ago she started to develop yellowing of the eyes and noticed that her right side was hurting under her right breast which was a sharp pain and worse with inspiration and coughing. She also had generalized pruritus and nausea with several episodes of vomiting. She's had low-grade fevers and 99-100 range. She denies any diarrhea. No blood in the stool. The patient does have pulmonary fibrosis based on CT scans however she was unaware of this diagnosis. She does continue to smoke about 1 pack of cigarettes every several weeks. The patient denies taking any Tylenol. She is not taking any supplements or tknf-pji-vgguons medications. She does take ibuprofen as needed for pain. She denies any recent use of cocaine or illicit drugs. CBC/BMP: 09/14/16 0614 09/15/16 0552 Significant Findings Laboratory Tests Test 09/13/16 09/14/16 09/15/16 20:10 06:14 05:52 Prothrombin Time 14.0 SEC (9.8-11.6) Red Blood Count 3.79 MIL/MM3 (4.00-5.30) Hemoglobin 11.3 GM/DL (11.6-15.3) Hematocrit 33.9 % (35.0-46.0) Red Cell Distribution Width 19.5 % (11.6-17.2) Chloride Level 110 MEQ/L (98-107) Estimat Glomerular Filtration 88 ML/MIN (>89) 78 ML/MIN (>89) Rate Calcium Level 8.4 MG/DL (8.5-10.1) Total Bilirubin 19.3 MG/DL 20.1 MG/DL (0.2-1.0) (0.2-1.0) Aspartate Amino Transf 786 U/L (15-37) 807 U/L (15-37) (AST/SGOT) Alanine Aminotransferase 1107 U/L 1042 U/L (ALT/SGPT) (10-53) (10-53) Alkaline Phosphatase 140 U/L 143 U/L (45-117) (45-117) Ammonia 55 MCMOL/L 55 MCMOL/L (11-32) (11-32) Total Protein 6.1 GM/DL (6.4-8.2) Albumin 1.9 GM/DL 2.0 GM/DL (3.4-5.0) (3.4-5.0) PE at Discharge GENERAL: This is a well-nourished, well-developed patient, in no apparent distress. SKIN: No rashes, warm and dry HEAD: Atraumatic. Normocephalic. EYES: Pupils equal round and reactive. Extraocular motions intact. Positive scleral icterus. ENT: Nose without bleeding, or drainage, Airway patent. NECK: Trachea midline. Supple CARDIOVASCULAR: Regular rate and rhythm without murmurs, gallops, or rubs. RESPIRATORY: Fair air entry bilaterally. No wheezes, rales, or rhonchi. GASTROINTESTINAL: Abdomen soft, non-tender, nondistended. Positive bowel sounds MUSCULOSKELETAL: Extremities without clubbing, cyanosis, or edema. Pedal pulses appreciated NEUROLOGICAL: Awake and alert. Moves all extremity. Normal speech.no focal neurological deficit Hospital Course 46yearold female with Hepatitis hepatitis C antibody positive as well as ASMA, HCV POSITIVE BUT RNA negative. GI consult. s/p CTguided liver biopsy 09/13/16 showed acute on chronic liver hepatitis mostly consistent with medication- induced hepatitis, GI monitor LFT, then patient cleared by them to be discharged to follow up as an outpatient, ASMA was positive but with no significant related to her hepatitis at this point as per GI, they recommend rheumatology consultation which I scheduled the patient to see Dr. Joy on an outpatient basis Hyperammonemia continue lactulose 30 mg daily and monitor NH 3 Transaminitis: Likely secondary to above infectious process, Klonopin held monitor LFTs total and direct bili. Continue with reatment with Actigal Acute Respiratory failure with hypoxemia: Improving and currently on nasal cannula 4L. continue Duo Neb scheduled and when necessary and maintain oxygen saturation above 92%. Treatment treatment for pneumonia. Community acquired bacterial pneumonia patient was on azithromycin and Rocephin , switch to use Ceftin at discharge 4 UTI patient was on Rocephin Hypokalemia: Resolved status post treatment Bipolar disorder: Continue to hold Klonopin secondary to elevated LFTs and continue her other anti psychotropic medications. Psychiatry consulted On 09/16/16 Patient cleared by GI for discharge and following up as an outpatient however patient continue to be hypoxic, walking test today failed she was in the 80% SaO2, she still on antibiotic and DuoNeb, her CT chest previously showed diffuse fibrotic changes mostly on the upper lobes, we consulted a doctor mabry for recommended PFT at the bedside,and home O2. I discussed with Dr. Akhtar he recommended open lung biopsy to be arranged as an outpatient, he recommended discharging in a.m. with home O2 On 09/18/16: Stable, home O2 ordered, patient advised and I explained to her in details she needs to follow up with a pie maker machine to finish up the workup for her liver fibrosis, and lung Patient advised to see Dr. Joy the semiconductor wafers marker and her psychiatrist, and follow up with the GI in 2 weeks, Poft-dd-lhuy encounter performed with the patient on discharge day, as well as physical exam, summary of hospitalization course and postdischarge plan has been D/W the patient. D/W nurse D/W piano case maker. Discharge medications reviewed and printed and signed, post discharge follow up visit with PCP and other specialist as well as Brief hospital course and discharge summary has been placed. Pt Condition on Discharge: Stable Discharge Disposition: Discharge Home Discharge Time: > 30 minutes Discharge Instructions DIET: Follow Instructions for: Heart Healthy Diet Additional Diet Instructions: Avoid any herbal or ryeh-blu-imnykfp medication or any supplements that may affect the liver, avoid Tylenol Activities you can perform: Weight Bearing as Adele Follow up Referrals: Gastroenterology - 2 Weeks with Lloyd Hernadez MD Pulmonology - 2 Weeks with Robinson Akhtar MD Rheumatology - 1 Week with Tim Joy MD New Medications: Cefuroxime (Ceftin) 500 Mg Tab 500 MG PO BID Infection #10 Ref 0 TAB Lactulose Liq (Lactulose Liq) 10 Gm/15 Ml Soln 30 ML PO DAILY hyperammonemia #15 ML ([Ursodiol]) 300 MG CAP 300 MG PO Q12HR cholestasis #40 CAP Continued Medications: Albuterol 18 GM Inh (Ventolin Hfa 18 GM Inh) 90 Mcg/Act Aer 2 PUFF INH Q4-6H PRN SHORTNESS OF BREATH #1 Ref 0 INHALER Budesonide-Formoterol Inh (Symbicort Inh) 80-4.5 Mcg/Act Aero 1 PUFF INH BID Asthma Management #1 Ref 0 INHALER Fluoxetine (Prozac) 40 Mg Cap 40 MG PO DAILY #30 Ref 0 CAP Trazodone (Trazodone) 100 Mg Tab 200 MG PO HS Control Depression #30 Ref 0 TAB Elvira Patino MD Sep 16, 2016 12:04
[2016-09-16] MEDS ORDERED: LEVA750T PO (12:12)
--- NOTE | 2016-09-16 12:58 | HHI.PR ---
Subjective Remarks pATIENT laying in bed stated she is doing fairly well however she still on oxygen, I discussed with the nurse and ordered walk-in O2 test which patient failed badly with SaO2 in the 80% Patient now on 4 L O2, I will consult pulmonology Objective Vitals Vital Signs Date Time Temp Pulse Resp B/P Pulse Ox O2 Delivery O2 Flow Rate FiO2 09/16/16 10:31 Nasal Cannula 5.00 09/16/16 08:00 77 19 95/65 95 09/16/16 04:00 97.7 76 20 89/51 93 09/16/16 00:00 99.3 88 20 99/66 95 09/15/16 23:30 94 Nasal Cannula 5.00 09/15/16 20:00 99.9 84 20 114/72 92 09/15/16 19:54 90 Nasal Cannula 4.00 09/15/16 16:00 98.1 80 17 102/67 95 I/O 09/15/16 09/15/16 09/15/16 09/16/16 09/16/16 09/16/16 07:00 15:00 23:00 07:00 15:00 23:00 Intake Total 240 ml 880 ml 0 ml Output Total 0 ml Balance 240 ml 880 ml 0 ml Intake Oral 240 ml 880 ml 0 ml Output Urine Total 0 ml # Voids 2 6 0 # Bowel Movements 0 0 0 Result Diagram: 09/14/16 0614 09/15/16 0552 Objective Remarks --GENERAL: This is a well-nourished, well-developed patient, in no apparent distress. SKIN: No rashes, warm and dry HEAD: Atraumatic. Normocephalic. EYES: Pupils equal round and reactive. Extraocular motions intact. Positive scleral icterus. ENT: Nose without bleeding, or drainage, Airway patent. NECK: Trachea midline. Supple CARDIOVASCULAR: Regular rate and rhythm without murmurs, gallops, or rubs. RESPIRATORY: Diminished breath sounds on the left base GASTROINTESTINAL: Abdomen soft, non-tender, nondistended. Positive bowel sounds MUSCULOSKELETAL: Extremities without clubbing, cyanosis, or edema. Pedal pulses appreciated NEUROLOGICAL: Awake and alert. Moves all extremity. Normal speech.no focal neurological deficit Procedures See below A/P Problem List: (1) Hepatitis, acute ICD Code: B17.9 Status: Acute (2) Pneumonia ICD Code: J18.9 Status: Acute (3) Bipolar disease, chronic ICD Code: F31.9 Status: Chronic (4) Hypokalemia ICD Code: E87.6 Status: Acute (5) Urinary tract infection ICD Code: N39.0 Status: Acute (6) Hyperammonemia ICD Code: E72.20 Status: Acute (7) Acute respiratory failure with hypoxemia ICD Code: J96.01 Status: Acute Assessment and Plan 09/15/16: AST ALT alkaline phosphatase is about the same like yesterday I discussed with GI AUTO SALVAGE WORKER the recommended continuing monitoring for another day most like the be able to discharge tomorrow 09/16/16: Patient cleared by GI for discharge and following up as an outpatient however she still hypoxic walking test today failed she was in the 80% SaO2, she still on antibiotic and DuoNeb, her CT chest previously showed diffuse fibrotic changes mostly on the upper lobes, will consult leather toggler 46-year-old female with 0-Rtzozhsmi-qhdgewuhl C antibody positive as well as ASMA pending HCV RNA genotype. Appreciate input from GI. s/p CT-guided liver biopsy 09/13/16 pending report 2-Hyperammonemia: Likely secondary to above processes, continue lactulose 30 mg daily and monitor NH 3 3-Transaminitis: Likely secondary to above infectious process, continue to hold Klonopin and monitor LFTs total and direct bili. s/p CT-guided liver biopsy pending report. Continue with treatment with Actigal 4-Acute Respiratory failure with hypoxemia: on nasal cannula 4L. Rocephin and Zithromax, DuoNeb and O2 still not improving, pulmonology consulted 5-suspect Community-acquired bacterial pneumonia: Currently on azithromycin and Rocephin 6-UTI: Continue Rocephin IV 7-Hypokalemia: Resolved status post treatment 8-Bipolar disorder: Continue to hold Klonopin secondary to elevated LFTs and continue her other anti psychotropic medications. Appreciate input from psychiatry. DVT prophylaxis: Bilateral SCDs Problem Qualifiers (1) Pneumonia: Elvira Patino MD Sep 16, 2016 12:58
--- NOTE | 2016-09-16 19:21 | MB ---
cc: KAYLIESORIN DATE OF CONSULTATION 09/16/[address] Duane Santos REASON FOR CONSULTATION Lung infiltrate history of present Mr. Roy is a 46-year-old female with history of lung infiltrate, bipolar disorder, hepatitis and jaundice. The patient was admitted into the hospital before. Now he comes with two week history of cough and congestion. She had fever at one time. No nausea or vomiting. The patient was evaluated in the hospital. She had a CT scan of the chest done which shows she has pulmonary fibrosis, scattered ground-glass density throughout the lung, greatest in the upper lobe, right hilar and mediastinal adenopathy and left adrenal nodule. She underwent CT-guided liver biopsy which is consistent with severe acute and chronic hepatitis exhibiting more suggestive features of drug-induced liver disease. Her CBC showed WBC count 5.8, hemoglobin 11,3, hematocrit 33.9 MCV 89, platelet count 224. Sodium 142, potassium 3.8, chloride 107, CO2 27, BUN seven, creatinine 0.80. PAST MEDICAL HISTORY 1. History of hepatitis drug use 2. Jaundice. 3. COPD and asthma 4. Endometriosis 5. Hepatitis C 6. Seizure disorder, 7. Hysterectomy 8. Appendectomy. MEDICATIONS Currently taking 1. Morphine for pain. 2. Zithromax 500 mg a day. 3. Rocephin 1 gram a day, 4. Lactulose 30 mL daily. 5. Trazodone 100 mg at nighttime. 6. Phenergan 25 mg p.r.n. 7. Abilify 10 mg a day. 8. Prozac 40 mg a day. 9. Symbicort 80/4.5 two puffs twice a day 10. Albuterol/Atrovent nebulizer treatment 11. Mucomyst nebulizer treatment. ALLERGIES NO KNOWN DRUG ALLERGIES. SOCIAL HISTORY She has history of drug abuse in the past. She claims that she did not use any drugs for the last one year or so she. She has history of smoking. No alcohol use. She lives with her parents. 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 REVIEW OF SYSTEMS She denies any weight loss. No nausea or vomiting. Has jaundice. She has history of seizure, last one was last year. PHYSICAL EXAMINATION GENERAL: Well built, well-nourished female not in acute distress. VITAL SIGNS: Blood pressure 92/65, heart rate 86, respirations 16, temperature 96.2 HEENT: Pupils are equal and reactive to light. She has icterus. NECK: Supple. JVP not raised. CHEST: Equal bilaterally. She has inspiratory rales. CARDIOVASCULAR: S1, S2 normal. ABDOMEN: Benign. EXTREMITIES: No edema. IMPRESSION 1. Bilateral interstitial infiltrate, likely patient has fibrosis. Etiology of fibrosis is not clear, could be related to the hepatitis or drug use or idiopathic pulmonary fibrosis. 2. Drug induced hepatitis. 3. Jaundice. 4. History of drug use 5. COPD. 6. History of seizure disorder. PLAN Check her pulmonary function study. Continue antibiotic and aerosol treatment. Supplement her oxygen. Probably she will need home oxygen therapy. I will also discuss with her for possibility of lung biopsy. Further treatment will depend on the course in the hospital. Thank you, Dr. Santos, for this consultation. MD NALLELY Chan/ /6:49 PM /7:07 PM
[2016-09-16] MEDS: RESP: ALBUTEROL 2.5 MG/IPRATROPIUM 0.5 MG NEB (PRN) NEB (19:31)
[2016-09-16] MEDS: AZITHROMYCIN 250 MG TAB PO SCH (21:20)
[2016-09-16] MEDS: MORPHINE SULFATE 4 MG/ML INJ IV PRN (21:20)
[2016-09-16] MEDS: cefTRIAXone INJ 1,000 MG in SODIUM CHLORIDE 0.9% INJ 100 ML IV SCH (21:20)
[2016-09-16] MEDS: traZODone HCL 100 MG TAB PO SCH (21:20)
[2016-09-16] MEDS: PROMETHAZINE HCL 25 MG TAB PO PRN (21:47)
--- NOTE | 2016-09-16 22:08 | HHI.GIFU ---
Subjective Remarks Comfortable in bed had shortness of breath and was needing oxygen and as such has remained in the hospital Objective Vitals I&O Vital Signs Date Time Temp Pulse Resp B/P Pulse Ox O2 Delivery O2 Flow Rate FiO2 09/16/16 20:00 98.3 90 18 100/66 96 09/16/16 16:00 96.2 86 16 92/65 96 09/16/16 15:27 96 Nasal Cannula 4.00 09/16/16 10:31 Nasal Cannula 5.00 09/16/16 08:00 77 19 95/65 95 09/16/16 04:00 97.7 76 20 89/51 93 09/16/16 00:00 99.3 88 20 99/66 95 09/15/16 23:30 94 Nasal Cannula 5.00 I/O 09/15/16 09/15/16 09/15/16 09/16/16 09/16/16 09/16/16 07:00 15:00 23:00 07:00 15:00 23:00 Intake Total 240 ml 880 ml 0 ml 840 ml Output Total 0 ml Balance 240 ml 880 ml 0 ml 840 ml Intake Oral 240 ml 880 ml 0 ml 840 ml Output Urine Total 0 ml # Voids 2 6 0 5 # Bowel Movements 0 0 0 Laboratory Date/Time Procedure Status Source Growth 09/12/16 20:20 Legionella Antigen - Final Complete Urine Random Urine PRESUMPTIVE NEGATIVE FOR LEGIONELLA P... Physical Exam HEENT: normocephalic; jaundiced NECK: Neck is supple CHEST: Chest is clear to auscultation and percussion. CARDIAC: Regular rate and rhythm with no murmur gallop or rubs. ABDOMEN: Soft, nondistended, nontender; no hepatosplenomegaly; bowel sounds are present in all four quadrants. EXTREMITIES: No clubbing, cyanosis, or edema. SKIN: Normal; no skin rash jaundice. DISPENSING OPTICIAN: No focal deficits; alert and oriented times three. Assessment and Plan Plan Elevated liver function tests and acute hepatitis etiology unclear but as per the liver biopsy its most compatible with drug-induced hepatitis Jaundice secondary to above Hepatitis C antibody positive but RNA negative and this translates to no hepatitis C infection at this point in time and from reviewing her chart it is apparent that she's had hepatitis C antibody positive in the past but it's also been negative and as such this may be a false-positive or a prior exposure ASMA positive this is of unclear significance and this should be evaluated possibly by rheumatology I will defer to attending physician but it is unlikely that this relates to her liver Liver biopsy is similar to 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 the patient admits to taking supplements but she doesn't know what they are Continue with current supportive care Continue with hydration and advance diet as tolerated Monitor labs her labs and thus far have been stable with a slight trend to improvement Patient may be discharged from a GI standpoint tomorrow if she is comfortable with this and if her labs continue to show stability or improvement she will need follow-up with GI in 2 weeks with blood work to include CBC CMP and a PT/ INR prior office visit Patient advised to stay away from anything that potentially can cause insult to the liver and must refrain from taking any supplements prior to having them evaluated by her physician Not much to add from a GI standpoint we will sign off patient to follow-up as an outpatient Lloyd Hernadez MD Sep 16, 2016 22:08
[2016-09-17] VITALS (7 sets, daily range): BP systolic 93–107; BP diastolic 63–69; PULSE 71–83; RESP 16–21; TEMP 96.5–98.7; O2SAT 93–96
[2016-09-17] MEDS: BUDESONIDE-FORMOTEROL 80/4.5 MCG INHALER INH SCH ×2 (09:31→21:28)
[2016-09-17] MEDS: FLUoxetine HCL 20 MG CAP PO SCH (09:31)
[2016-09-17] MEDS: LACTULOSE SYRUP 20 GM/30 ML CUP PO SCH (09:31)
[2016-09-17] MEDS: ARIPiprazole 10 MG TAB PO SCH (09:32)
[2016-09-17] MEDS: URSODIOL 300 MG CAP PO SCH ×2 (09:32→21:27)
[2016-09-17] MEDS: SODIUM CHLORIDE 0.9% FLUSH 5 ML FLUSH FLUSH SCH ×2 (09:36→21:27)
[2016-09-17] MEDS: MORPHINE SULFATE 4 MG/ML INJ IV PRN ×2 (09:42→20:38)
--- NOTE | 2016-09-17 12:10 | HHI.PR ---
Subjective Remarks Laying in bed still on O2 4 L, seen by inspector plug seam, will need EXT and possible lung biopsy to assess the reason underlying fibrosis and hypoxia Objective Vitals Vital Signs Date Time Temp Pulse Resp B/P Pulse Ox O2 Delivery O2 Flow Rate FiO2 09/17/16 08:00 98.7 75 16 107/69 93 09/17/16 07:53 93 Nasal Cannula 3.00 09/17/16 00:00 97.9 83 18 93/66 96 09/17/16 00:00 18 09/16/16 20:00 98.3 90 18 100/66 96 09/16/16 20:00 96 Nasal Cannula 4.00 09/16/16 19:31 94 Nasal Cannula 3.00 09/16/16 16:00 96.2 86 16 92/65 96 09/16/16 15:27 96 Nasal Cannula 4.00 I/O 09/16/16 09/16/16 09/16/16 09/17/16 09/17/16 09/17/16 07:00 15:00 23:00 07:00 15:00 23:00 Intake Total 0 ml 1080 ml Output Total 0 ml Balance 0 ml 1080 ml Intake Oral 0 ml 1080 ml Output Urine Total 0 ml # Voids 0 7 3 # Bowel Movements 0 0 1 Result Diagram: 09/14/16 0614 09/15/16 0552 Objective Remarks --GENERAL: This is a well-nourished, well-developed patient, in no apparent distress. SKIN: No rashes, warm and dry HEAD: Atraumatic. Normocephalic. EYES: Pupils equal round and reactive. Extraocular motions intact. Positive scleral icterus. ENT: Nose without bleeding, or drainage, Airway patent. NECK: Trachea midline. Supple CARDIOVASCULAR: Regular rate and rhythm without murmurs, gallops, or rubs. RESPIRATORY: Diminished breath sounds on the left base GASTROINTESTINAL: Abdomen soft, non-tender, nondistended. Positive bowel sounds MUSCULOSKELETAL: Extremities without clubbing, cyanosis, or edema. Pedal pulses appreciated NEUROLOGICAL: Awake and alert. Moves all extremity. Normal speech.no focal neurological deficit Procedures See below A/P Problem List: (1) Hepatitis, acute ICD Code: B17.9 Status: Acute (2) Pneumonia ICD Code: J18.9 Status: Acute (3) Bipolar disease, chronic ICD Code: F31.9 Status: Chronic (4) Hypokalemia ICD Code: E87.6 Status: Acute (5) Urinary tract infection ICD Code: N39.0 Status: Acute (6) Hyperammonemia ICD Code: E72.20 Status: Acute (7) Acute respiratory failure with hypoxemia ICD Code: J96.01 Status: Acute Assessment and Plan 09/15/16: AST ALT alkaline phosphatase is about the same like yesterday I discussed with REVA DRAINLAYER the recommended continuing monitoring for another day most like the be able to discharge tomorrow 09/16/16: Patient cleared by GI for discharge and following up as an outpatient however she still hypoxic walking test today failed she was in the 80% SaO2, she still on antibiotic and DuoNeb, her CT chest previously showed diffuse fibrotic changes mostly on the upper lobes, will consult inspector plug seam 09/17/16: Appreciate pulmonology consultation, pulmonary fibrosis, PFT at the bedside, May need lung biopsy, further recommendation regarding lung biopsy per pulmonology, patient may need home O2 Addendum: Discussed with Dr. Akhtar he recommended open lung biopsy to be arranged as an outpatient, he recommended discharging in a.m. with home O2 46-year-old female with 9-Nbkxbgnoe-zshktjquh C antibody positive as well as ASMA pending HCV RNA genotype. Appreciate input from GI. s/p CT-guided liver biopsy 09/13/16 pending report 2-Hyperammonemia: Likely secondary to above processes, continue lactulose 30 mg daily and monitor NH 3 3-Transaminitis: Likely secondary to above infectious process, continue to hold Klonopin and monitor LFTs total and direct bili. s/p CT-guided liver biopsy pending report. Continue with treatment with Actigal 4-Acute Respiratory failure with hypoxemia pulmonary fibrosis: on nasal cannula 4L. Rocephin and Zithromax, DuoNeb and O2 still not improving, pulmonology consulted, PFT of the bedside, May need lung biopsy 5-suspect Community-acquired bacterial pneumonia: Currently on azithromycin and Rocephin 6-UTI: Continue Rocephin IV 7-Hypokalemia: Resolved status post treatment 8-Bipolar disorder: Continue to hold Klonopin secondary to elevated LFTs and continue her other anti psychotropic medications. Appreciate input from psychiatry. DVT prophylaxis: Bilateral SCDs Discharge Planning When cleared by inspector plug seam patient may need home O2 Problem Qualifiers (1) Pneumonia: Elvira Patino MD Sep 17, 2016 12:10
[2016-09-17] MEDS: ACETYLCYSTEINE 20% 6,000 MG/30 ML ORAL SOLN VIAL PO SCH ×2 (16:26→21:28)
--- NOTE | 2016-09-17 18:54 | HHI.PR ---
Subjective Remarks 46 YOWF with Drug induced hepatitis,ILD,Jaundice Feels better Anxious to go home Objective Vital Signs Vital Signs Date Time Temp Pulse Resp B/P Pulse Ox O2 Delivery O2 Flow Rate FiO2 09/17/16 16:00 98.3 75 16 100/63 95 09/17/16 12:00 96.9 71 16 101/65 93 09/17/16 08:00 98.7 75 16 107/69 93 09/17/16 07:53 93 Nasal Cannula 3.00 09/17/16 00:00 97.9 83 18 93/66 96 09/17/16 00:00 18 09/16/16 20:00 98.3 90 18 100/66 96 09/16/16 20:00 96 Nasal Cannula 4.00 09/16/16 19:31 94 Nasal Cannula 3.00 I/O 09/16/16 09/16/16 09/16/16 09/17/16 09/17/16 09/17/16 07:00 15:00 23:00 07:00 15:00 23:00 Intake Total 0 ml 1080 ml 725 ml Output Total 0 ml Balance 0 ml 1080 ml 725 ml Intake Oral 0 ml 1080 ml 725 ml Output Urine Total 0 ml # Voids 0 7 3 4 # Bowel Movements 0 0 1 2 Result Diagram: 09/14/16 0614 09/15/16 0552 Objective Remarks GENERAL: MBMN WF NAD SKIN: Warm and dry. HEAD: Normocephalic. EYES Scleral icterus. No injection or drainage. NECK: Supple, trachea midline. No JVD or lymphadenopathy. CARDIOVASCULAR: Regular rate and rhythm without murmurs, gallops, or rubs. RESPIRATORY: Breath sounds equal bilaterally. No accessory muscle use. Insp rales GASTROINTESTINAL: Abdomen soft, non-tender, nondistended. MUSCULOSKELETAL: No cyanosis, or edema. BACK: Nontender without obvious deformity. No CVA tenderness. A/P Assessment and Plan Bilat Interstitial lung disease, ? IPF, ?Drug induced Drug induced Hepatitis COPD Jaundice PLAN: Aerosol nebs Cont Abx PFT Check for home 02 need Will need Lung bx when stable Robinson Akhtar MD Sep 17, 2016 18:54
[2016-09-17] MEDS: AZITHROMYCIN 250 MG TAB PO SCH (20:37)
[2016-09-17] MEDS: traZODone HCL 100 MG TAB PO SCH (21:27)
[2016-09-17] MEDS: cefTRIAXone INJ 1,000 MG in SODIUM CHLORIDE 0.9% INJ 100 ML IV SCH (21:28)
[2016-09-18 00:35] VITALS: BP 92/55; PULSE 85; RESP 20; TEMP 98.6; O2SAT 93
[2016-09-18 04:00] VITALS: BP 95/70; PULSE 77; RESP 24; TEMP 98.3; O2SAT 95
[2016-09-18] MEDS ORDERED: OXYGENTANK NAS.CANULA (07:33)
[2016-09-18 07:45] VITALS: O2SAT 92
[2016-09-18 08:00] VITALS: BP 97/60; PULSE 76; RESP 18; TEMP 98.6; O2SAT 94
[2016-09-18] MEDS: SODIUM CHLORIDE 0.9% FLUSH 5 ML FLUSH FLUSH SCH (08:53)
[2016-09-18] MEDS: LACTULOSE SYRUP 20 GM/30 ML CUP PO SCH (08:54)
[2016-09-18] MEDS: URSODIOL 300 MG CAP PO SCH (08:55)
[2016-09-18] MEDS: ARIPiprazole 10 MG TAB PO SCH (08:55)
[2016-09-18] MEDS: FLUoxetine HCL 20 MG CAP PO SCH (08:56)
[2016-09-18] MEDS: MORPHINE SULFATE 4 MG/ML INJ IV PRN (08:59)
[2016-09-18] MEDS: BUDESONIDE-FORMOTEROL 80/4.5 MCG INHALER INH SCH (09:02)
[2016-09-18] MEDS: ACETYLCYSTEINE 20% 6,000 MG/30 ML ORAL SOLN VIAL PO SCH (09:03)
[2016-09-18 12:00] VITALS: BP 99/62; PULSE 68; RESP 16; TEMP 97.8; O2SAT 98
--- NOTE | 2016-09-18 12:58 | HHI.PR ---
Subjective Remarks Patient stable in bed on O2 nasal cannula 3 L explained to her that she will have to follow up as an outpatient with the banquet captain to finish the workup for the lung fibrosis O2 at home ordered patient will be able to be discharged once this is arranged Objective Vitals Vital Signs Date Time Temp Pulse Resp B/P Pulse Ox O2 Delivery O2 Flow Rate FiO2 09/18/16 12:00 97.8 68 16 99/62 98 09/18/16 08:45 94 Nasal Cannula 3.00 09/18/16 08:00 98.6 76 18 97/60 94 09/18/16 07:45 92 Nasal Cannula 3.00 09/18/16 04:00 98.3 77 24 95/70 95 09/18/16 00:35 98.6 85 20 92/55 93 09/18/16 00:30 93 Nasal Cannula 3.00 09/17/16 21:06 96.5 80 21 99/64 96 09/17/16 21:00 93 Simple Mask 3.00 09/17/16 20:24 93 Nasal Cannula 3.00 09/17/16 16:00 98.3 75 16 100/63 95 I/O 09/17/16 09/17/16 09/17/16 09/18/16 09/18/16 09/18/16 07:00 15:00 23:00 07:00 15:00 23:00 Intake Total 725 ml Balance 725 ml Intake Oral 725 ml # Voids 3 4 5 # Bowel Movements 1 2 2 Result Diagram: 09/14/16 0614 09/15/16 0552 Objective Remarks --GENERAL: This is a well-nourished, well-developed patient, in no apparent distress. SKIN: No rashes, warm and dry HEAD: Atraumatic. Normocephalic. EYES: Pupils equal round and reactive. Extraocular motions intact. Positive scleral icterus. ENT: Nose without bleeding, or drainage, Airway patent. NECK: Trachea midline. Supple CARDIOVASCULAR: Regular rate and rhythm without murmurs, gallops, or rubs. RESPIRATORY: Diminished breath sounds on the left base GASTROINTESTINAL: Abdomen soft, non-tender, nondistended. Positive bowel sounds MUSCULOSKELETAL: Extremities without clubbing, cyanosis, or edema. Pedal pulses appreciated NEUROLOGICAL: Awake and alert. Moves all extremity. Normal speech.no focal neurological deficit Procedures See below A/P Problem List: (1) Hepatitis, acute ICD Code: B17.9 Status: Acute (2) Pneumonia ICD Code: J18.9 Status: Acute (3) Bipolar disease, chronic ICD Code: F31.9 Status: Chronic (4) Hypokalemia ICD Code: E87.6 Status: Acute (5) Urinary tract infection ICD Code: N39.0 Status: Acute (6) Hyperammonemia ICD Code: E72.20 Status: Acute (7) Acute respiratory failure with hypoxemia ICD Code: J96.01 Status: Acute Assessment and Plan 09/15/16: AST ALT alkaline phosphatase is about the same like yesterday I discussed with GI LEARNING STRATEGIST the recommended continuing monitoring for another day most like the be able to discharge tomorrow 09/16/16: Patient cleared by GI for discharge and following up as an outpatient however she still hypoxic walking test today failed she was in the 80% SaO2, she still on antibiotic and DuoNeb, her CT chest previously showed diffuse fibrotic changes mostly on the upper lobes, will consult banquet captain 09/17/16: Appreciate pulmonology consultation, pulmonary fibrosis, PFT at the bedside, May need lung biopsy, further recommendation regarding lung biopsy per pulmonology, patient may need home O2 Addendum: Discussed with Dr. Akhtar he recommended open lung biopsy to be arranged as an outpatient, he recommended discharging in a.m. with home O2 09/18/16: Stable, home O2 ordered, patient advised and I explained to her in details she needs to follow up with a banquet captain to finish up the workup for her liver fibrosis, and lung biopsy 46-year-old female with 2-[id number] C antibody positive as well as ASMA pending HCV RNA genotype. Appreciate input from GI. s/p CT-guided liver biopsy 09/13/16 pending report 2-Hyperammonemia: Likely secondary to above processes, continue lactulose 30 mg daily and monitor NH 3 3-Transaminitis: Likely secondary to above infectious process, continue to hold Klonopin and monitor LFTs total and direct bili. s/p CT-guided liver biopsy pending report. Continue with treatment with Actigal 4-Acute Respiratory failure with hypoxemia pulmonary fibrosis: on nasal cannula 4L. Rocephin and Zithromax, DuoNeb and O2 still not improving, pulmonology consulted, PFT of the bedside, May need lung biopsy 5-suspect Community-acquired bacterial pneumonia: Currently on azithromycin and Rocephin 6-UTI: Continue Rocephin IV 7-Hypokalemia: Resolved status post treatment 8-Bipolar disorder: Continue to hold Klonopin secondary to elevated LFTs and continue her other anti psychotropic medications. Appreciate input from psychiatry. DVT prophylaxis: Bilateral SCDs Discharge Planning When cleared by banquet captain patient may need home O2 Problem Qualifiers (1) Pneumonia: Elvira Patino MD Sep 18, 2016 12:58
[2016-09-18] MEDS: RESP: ALBUTEROL 2.5 MG/IPRATROPIUM 0.5 MG NEB (PRN) NEB (13:30)
--- NOTE | 2016-09-18 16:48 | HHI.PR ---
Subjective Remarks 46 YOWF with Drug induced hepatitis,ILD,Jaundice Feels better Anxious to go home Desaturates on Ambulation Objective Vital Signs Vital Signs Date Time Temp Pulse Resp B/P Pulse Ox O2 Delivery O2 Flow Rate FiO2 09/18/16 12:00 97.8 68 16 99/62 98 09/18/16 08:45 94 Nasal Cannula 3.00 09/18/16 08:00 98.6 76 18 97/60 94 09/18/16 07:45 92 Nasal Cannula 3.00 09/18/16 04:00 98.3 77 24 95/70 95 09/18/16 00:35 98.6 85 20 92/55 93 09/18/16 00:30 93 Nasal Cannula 3.00 09/17/16 21:06 96.5 80 21 99/64 96 09/17/16 21:00 93 Simple Mask 3.00 09/17/16 20:24 93 Nasal Cannula 3.00 I/O 09/17/16 09/17/16 09/17/16 09/18/16 09/18/16 09/18/16 07:00 15:00 23:00 07:00 15:00 23:00 Intake Total 725 ml 750 ml Balance 725 ml 750 ml Intake Oral 725 ml 750 ml # Voids 3 4 5 3 # Bowel Movements 1 2 2 1 Result Diagram: 09/14/16 0614 09/15/16 0552 Objective Remarks GENERAL: MBMN WF NAD SKIN: Warm and dry. HEAD: Normocephalic. EYES Scleral icterus. No injection or drainage. NECK: Supple, trachea midline. No JVD or lymphadenopathy. CARDIOVASCULAR: Regular rate and rhythm without murmurs, gallops, or rubs. RESPIRATORY: Breath sounds equal bilaterally. No accessory muscle use. Insp rales GASTROINTESTINAL: Abdomen soft, non-tender, nondistended. MUSCULOSKELETAL: No cyanosis, or edema. BACK: Nontender without obvious deformity. No CVA tenderness. A/P Assessment and Plan Bilat Interstitial lung disease, ? IPF, ?Drug induced Drug induced Hepatitis COPD Jaundice PLAN: Aerosol nebs Cont Abx PFT Will need Open Lung bx when stable Home 02 2 LNC DW Pt her diagnosis and need to see CTS for Bx. Robinson Akhtar MD Sep 18, 2016 16:48
--- NOTE | 2016-09-23 12:09 | RSPPFT ---
DATE OF PROCEDURE: 09/18/16 COMMENTS: Spirometry with FVC of 0.7 at 21% of predicted, FEV1 of 0.7 at 25%, FEv1/FVC ratio is normal. Flow is decreased at FEF 25, FEF 50, FEF 75 and FEF 25-75. There is a good response after bronchodilator treatment. Flow volume loop indicates a restrictive pattern. IMPRESSION: 1. Study is suggestive of severe restrictive lung disease. 2. Good response after bronchodilator treatment. 3. Patient will need a full pulmonary function study with diffusion and lung volumes for further evaluation.
== END 2016-09-18 14:39 | disposition home or self-care (01) | DRG 193 ==
LOC: PHED 17:16 → PHEDA 19:42 → PHEDH 23:42 → PH3B 09-08 09:50
PROVIDERS: ADMIT Hospitalist; ATTEND Hospitalist
PROC: 0FB13ZX Excision of Right Lobe Liver, Percutaneous Approach, Diagnostic (ICD-10-PCS; principal; 2016-09-13)
DX: J18.9 Pneumonia, unspecified organism (principal); J96.01 Acute respiratory failure with hypoxia; K71.10 Toxic liver disease with hepatic necrosis, without coma; J84.10 Pulmonary fibrosis, unspecified; K71.6 Toxic liver disease with hepatitis, not elsewhere classified; J44.0 Chronic obstructive pulmonary disease with (acute) lower respiratory infection; N39.0 Urinary tract infection, site not specified; E87.6 Hypokalemia; J45.909 Unspecified asthma, uncomplicated; F31.9 Bipolar disorder, unspecified; T50.905A Adverse effect of unspecified drugs, medicaments and biological substances, initial encounter; G40.909 Epilepsy, unspecified, not intractable, without status epilepticus; E78.5 Hyperlipidemia, unspecified
CPT/HCPCS: 36600; 47000; 71010; 71020; 71275; 74177; 74181; 76377; 77012; 80053; 80074; 80307; 81001; 82103; 82140; 82248; 82390; 82550; 82728; 82784; 82805; 82977; 83516; 83520; 83540; 83550; 83605; 83690; 83735; 83880; 84484; 84703; 85025; 85027; 85610; 85730; 86038; 86256; 86308; 86790; 87040; 87070; 87086; 87205; 87449; 87497; 87522; 87804; 87902; 88307; 88313; 93005; 93306; 94060; 94150; 94640; 94664; 96361; 96365; 96375; J0132; J0456; J0696; J1200; J1885; J1940; J2250; J2270; J3010; J3475; J3480; J7030; J7050; J7060; J7070; Q0169; Q9967

== ENCOUNTER 2017-07-12 16:13 | Inpatient (IN) | payer OTHER ==
[~2017-07-12] VITALS: Ht 165.1 cm; Wt 59.0 kg
[2017-07-12] VITALS (8 sets, daily range): BP systolic 86–99; BP diastolic 51–59; PULSE 82–110; RESP 16–20; TEMP 96.9–100.1; O2SAT 88–98
[~2017-07-12 16:13] MED LIST changes: +ABIL10TA8 PO; +ADVA100A INH; -ADVAI100I PO; -ALBU8I INH; +CLON1 PO; -FLUO20 PO; +LACT10SO PO; +LEVA750T PO; -OXYC5 PO; +OXYGENTANK NAS.CANULA; -PHEN12.5 PO; -PROT40TA PO; +PROZ40CA PO; +TRAZ100T4 PO; +Ursodiol PO; +VENTAER INH
[2017-07-12] MEDS ORDERED: methylPREDNISolone SOD SUCC 125 MG/2 ML VIAL IV PUSH ONE (16:45)
[2017-07-12] MEDS ORDERED: SODIUM CHLORIDE 0.9% FLUSH 10 ML FLUSH IVF PRN (16:45)
[2017-07-12] MEDS: RESP: ALBUTEROL 2.5 MG/IPRATROPIUM 0.5 MG NEB (SCH) INH ×2 (16:59→17:00)
[2017-07-12 17:08] LABS: AUTOMATED NEUTROPHIL # 5.2 TH/MM3 (1.8-7.7); BASOPHIL % 0.4 % (0.0-2.0); EOSINOPHIL # 0.1 TH/MM3 (0-0.4); EOSINOPHIL % 1.3 % (0.0-4.0); HEMATOCRIT 38.7 % (35.0-46.0); HEMOGLOBIN 12.7 GM/DL (11.6-15.3); LYMPH % 11.6 % (9.0-44.0); LYMPHOCYTE # 0.8 TH/MM3 (1.0-4.8); MEAN CELL VOLUME 87.6 FL (80.0-100.0); MEAN CORPUSCULAR HEMOGLOBIN 28.7 PG (27.0-34.0); MEAN CORPUSCULAR HGB CONC 32.8 % (32.0-36.0); MEAN PLATELET VOLUME 9.2 FL (7.0-11.0); MONO % 6.6 % (0.0-8.0); MONOCYTE # 0.4 TH/MM3 (0-0.9); NEUT % 80.1 % (16.0-70.0); PLATELET COUNT 134 TH/MM3 (150-450); RED BLOOD COUNT 4.42 MIL/MM3 (4.00-5.30); RED CELL DISTRIBUTION WIDTH 14.4 % (11.6-17.2); WHITE BLOOD COUNT 6.5 TH/MM3 (4.0-11.0)
[2017-07-12 17:11] LABS: CHLORIDE 102 MEQ/L (98-107); SODIUM (NA) 136 MEQ/L (136-145)
[2017-07-12] MEDS ORDERED: TRAZ100T10 PO (17:13)
[2017-07-12 17:14] LABS: ALBUMIN 2.4 GM/DL (3.4-5.0); BICARBONATE 27.8 MEQ/L (21.0-32.0); BLOOD UREA NITROGEN 10 MG/DL (7-18); CALCIUM 8.4 MG/DL (8.5-10.1); GLUCOSE,RANDOM 156 MG/DL (74-106)
[2017-07-12 17:17] LABS: AST (GOT) 814 U/L (15-37); CREATININE 0.84 MG/DL (0.50-1.00); GLOMERULAR FILTRATION RATE 73 ML/MIN (>89)
[2017-07-12 17:19] LABS: TOTAL BILIRUBIN ADULT 2.2 MG/DL (0.2-1.0); TOTAL PROTEIN 7.3 GM/DL (6.4-8.2)
[2017-07-12 17:20] LABS: ALKALINE PHOSPHATASE 219 U/L (45-117)
[2017-07-12 17:25] LABS: ALT (GPT) 1452 U/L (10-53)
--- NOTE | 2017-07-12 17:31 | PD ---
HPI Chief Complaint: Respiratory Symptoms Time Seen by Provider: 16:36 Travel History International Travel<30 days: No Contact w/Intl Traveler<30days: No Traveled to known affect area: No History of Present Illness HPI So 47 year-old woman presents to the emergency department complaining of cough cold symptoms. She is a history of pulmonary fibrosis. She's on 3 L oxygen normally. She had a recent flare respiratory difficulties when she was the hospital the end of June 03 she was doing her. She was in her usual state health about 34 days ago started having worsening of her chronic cough, increased production, fevers up to 103, and increased shortness of breath. Symptoms worse and so she came to the emergency department. History Past Medical History Narrative Medical Pulmonary fibrosis Bipolar disorder Drug-induced liver disease/hepatitis/hepatitis C, liver biopsy 2013 in 2016 History of seizure disorder Hyperlipidemia History of cocaine/polysubstance abuse PNEUMOCCOCAL Vaccine (Year): 1 Social History Alcohol Use: No Tobacco Use: Yes (1/2 PACK WEEK) Allergies-Medications (Allergen,Severity, Reaction): Coded Allergies: No Known Allergies (Unverified Adverse Reaction, Unknown, 07/12/17) Reported Meds & Prescriptions Reported Meds & Active Scripts Active Oxygen tank (Oxygen) 1 Ea Tank 2 Liter [email or web address] CONTINUOUS Oxygen Concentrator Portable Gaseous 3 L/min via Nasal Cannula Continuous For 99 months Reported Trazodone (Trazodone HCl) 100 Mg Tablet 200 Mg PO HS Advair Diskus Inh (Fluticasone-Salmeterol Inh) 100-50 Mcg/Blist Aer 1 Puff INH BID Rinse mouth after use. Symbicort Inh (Budesonide/Formoterol Fumarate) 80-4.5 Mcg/Act Aero 1 Puff INH BID Ventolin Hfa 18 GM Inh (Albuterol Sulfate) 90 Mcg/Act Aer 2 Puff INH Q4-6H PRN Abilify (Aripiprazole) 10 Mg Tab 10 Mg PO DAILY Prozac (Fluoxetine HCl) 40 Mg Cap 40 Mg PO DAILY Review of Systems Except as stated in HPI: all other systems reviewed are Neg Physical Exam Narrative GENERAL: 47 year-old woman, mild respiratory distress. Looks a little bit unwell. SKIN: Focused skin assessment warm/dry. HEAD: Atraumatic. Normocephalic. EYES: Pupils equal and round. No scleral icterus. No injection or drainage. ENT: No nasal bleeding or discharge. Mucous membranes pink and moist. NECK: Trachea midline. No JVD. CARDIOVASCULAR: Regular rate and rhythm. No murmur appreciated. RESPIRATORY: Coarse breath sounds bilaterally. Rales throughout the posterior lung keller. Squeaky wheezing wheezing throughout the posterior lung keller. GASTROINTESTINAL: Abdomen soft, non-tender, nondistended. Hepatic and splenic margins not palpable. MUSCULOSKELETAL: No obvious deformities. No edema. NEUROLOGICAL: Awake and alert. No obvious cranial nerve deficits. Motor grossly within normal limits. Normal speech. PSYCHIATRIC: Appropriate mood and affect; insight and judgment normal. Data Data Last Documented VS Vital Signs Date Time Temp Pulse Resp B/P (MAP) Pulse Ox O2 Delivery O2 Flow Rate FiO2 07/12/17 18:46 110 88/54 (65) 96 Nasal Cannula 4.00 07/12/17 16:35 100.1 18 Orders Orders Complete Blood Count With Diff (07/12/17 16:44) Comprehensive Metabolic Panel (07/12/17 16:44) Influenzae A/B Antigen (07/12/17 16:44) Iv Access Insert/Monitor (07/12/17 16:44) Oximetry (07/12/17 16:44) Oxygen Administration (07/12/17 16:44) Chest, Single Ap (07/12/17 16:44) Sodium Chloride 0.9% Flush (Ns Flush) (07/12/17 16:45) Methylprednisolone So Succ Inj (Solumedr (07/12/17 16:45) Albuterol-Ipratropium Neb (Duoneb Neb) (07/12/17 16:45) Ceftriaxone Inj (Rocephin Inj) (07/12/17 18:30) Azithromycin Inj (Zithromax Inj) (07/12/17 18:30) Admit Order (Ed Use Only) (07/12/17 ) Labs Laboratory Tests Test 07/12/17 16:55 White Blood Count 6.5 TH/MM3 Red Blood Count 4.42 MIL/MM3 Hemoglobin 12.7 GM/DL Hematocrit 38.7 % Mean Corpuscular Volume 87.6 FL Mean Corpuscular Hemoglobin 28.7 PG Mean Corpuscular Hemoglobin Concent 32.8 % Red Cell Distribution Width 14.4 % Platelet Count 134 TH/MM3 Mean Platelet Volume 9.2 FL Neutrophils (%) (Auto) 80.1 % Lymphocytes (%) (Auto) 11.6 % Monocytes (%) (Auto) 6.6 % Eosinophils (%) (Auto) 1.3 % Basophils (%) (Auto) 0.4 % Neutrophils # (Auto) 5.2 TH/MM3 Lymphocytes # (Auto) 0.8 TH/MM3 Monocytes # (Auto) 0.4 TH/MM3 Eosinophils # (Auto) 0.1 TH/MM3 Basophils # (Auto) 0.0 TH/MM3 CBC Comment DIFF FINAL Differential Comment Blood Urea Nitrogen 10 MG/DL Creatinine 0.84 MG/DL Random Glucose 156 MG/DL Total Protein 7.3 GM/DL Albumin 2.4 GM/DL Calcium Level 8.4 MG/DL Alkaline Phosphatase 219 U/L Aspartate Amino Transf (AST/SGOT) 814 U/L Alanine Aminotransferase (ALT/SGPT) 1452 U/L Total Bilirubin 2.2 MG/DL Sodium Level 136 MEQ/L Potassium Level 3.6 MEQ/L Chloride Level 102 MEQ/L Carbon Dioxide Level 27.8 MEQ/L Anion Gap 6 MEQ/L Estimat Glomerular Filtration Rate 73 ML/MIN [facility] Medical Decision Making Medical Screen Exam Complete: Yes Emergency Medical Condition: Yes Interpretation(s) LABS: CBC generally unremarkable. Platelets 134. CMP remarkable for elevated AST ALT, total bili 2.2 Chest x-ray: Stable comminution of airspace disease and definite lobular thickening on the left. Similar to August 2016. No new infiltrate. Influenza negative: Differential Diagnosis Pneumonia, pulmonary fibrosis, reactive airway disease, PE, other Narrative Course Medical decision making INITIAL cause a 47-year-old presents to the emergency department complaining of worsening shortness breath in setting of fever, cough cold symptoms, concern for flu. Oxygen slow, but normal in the high 80s at baseline. Patient looks somewhat unwell. We'll check labs EKG x-ray, reassess. FINAL: Patient with cough cold fever worsening shortness of breath. EKG is abnormal but unchanged. Concern for likely pneumonia. Flu was negative. We' ll give IV antibiotics. Plan on admission. Continue bronchodilators and steroids. Spoke with Dr. Ramirez, will admit patient. Diagnosis Primary Impression: Pneumonia Additional Impression: Pulmonary fibrosis determined by high resolution computed tomography Admitting Information Admitting Physician Requests: Admit Frank Saldana MD Jul 12, 2017 17:31
--- NOTE | 2017-07-12 18:14 | RADRPT ---
EXAM DATE/TIME: 07/12/2017 17:15 [place] COMPARISON: CHEST SINGLE AP, September 11, 2016, 16:58. INDICATIONS : Short of breath and cough. MEDICAL HISTORY : Pulmonary fibrosis. SURGICAL HISTORY : None. ENCOUNTER: Initial ACUITY: 2 days PAIN SCORE: 3/10 LOCATION: Bilateral chest FINDINGS: A single view of the chest demonstrates patchy airspace disease bilaterally. There some underlying in terstitial lung disease. There are some thickened intralobular septa on the left suspicious for eithe r fluid overload or chronic interstitial lung disease. The pattern is actually similar to August 2016. . The cardiomediastinal contours are unremarkable. Osseous structures are intact. CONCLUSION: Stable combination of airspace disease and definite intralobular thickening on the left. Similar to arch 2016. No new infiltrate is seen.. Frank Malone MD on July 12, 2017 at 18:11 Board Certified Radiologist. This report was verified electronically.
[2017-07-12] MEDS ORDERED: AZITHROMYCIN INJ 500 MG in SODIUM CHLOR 0.9% 250 ML INJ 250 ML IV ONE (18:30)
[2017-07-12] MEDS ORDERED: cefTRIAXone INJ 1,000 MG in SODIUM CHLORIDE 0.9% INJ 100 ML IV ONE (18:30)
[2017-07-12] MEDS ORDERED: SODIUM CHLOR 0.9% 1000 ML INJ 1,000 ML IV ONE ×2 (19:00)
[2017-07-12] MEDS: SODIUM CHLOR 0.9% 1000 ML INJ 1,000 ML IV SCH (21:12)
[2017-07-13] VITALS (9 sets, daily range): BP systolic 98–104; BP diastolic 65–70; PULSE 91–112; RESP 18–20; TEMP 97.7–98.2; O2SAT 79–97
[2017-07-13] MEDS: RESP: ALBUTEROL 2.5 MG/IPRATROPIUM 0.5 MG NEB (SCH) NEB ×4 (00:18→19:57)
[2017-07-13] MEDS: methylPREDNISolone SOD SUCC 125 MG/2 ML VIAL IV PUSH SCH ×3 (02:10→22:23)
--- NOTE | 2017-07-13 08:45 | HHI.HP ---
HPI Service [facility] Primary Care Physician Sebastián Herman D.O. Admission Diagnosis Pneumonia, Hypoxia Diagnoses: Chief Complaint: Shortness of breath Travel History International Travel<30 Days: No Contact w/Intl Traveler <30 Da: No Traveled to Known Affected Are: No History of Present Illness 47-year-old white female being a minute for acute on chronic respiratory failure. Patient was in her usual state of health until about a few days ago when she began experiencing a gradual onset of worsening shortness of breath and pleuritic chest pain. This is associated with a fever of 102.3 and mild productive nonbloody cough. She states that she took some aspirin and cough suppressant to no avail. She decided come to the emergency department. She claims she has been wearing her 3 L of oxygen at home. She states she has some sort of autoimmune lung disease but does not have a specific name and cannot remember the name of her most recent lung doctor in [place]. She says now she lives in this area and is seeking a lung doctor. Patient states that she was supposed to be taking 30 mg of prednisone on a daily basis for some time but she herself discontinued it about 2 months ago at her own discretion because she felt that they were disrupting her sleep significantly. She also says she takes an inhaler 4 times of the day but denies apparently taking any controller medications. Patient does have a history of bipolar disorder and says she is compliant with those medications. In the emergency department she was placed on 4 L, given steroids, Rocephin and azithromycin and DuoNeb treatments and then sent to the floor. Chart review shows the patient actually did have normal saturations on 2 L overnight but then eventually did dip down to 77%. Discussed case with respiratory therapist today titrated her up to 6 L. Review of Systems Except as stated in HPI: all other systems reviewed are Neg Past Family Social History Past Medical History Unspecified autoimmune chronic lung disease Bipolar disorder Drug-induced liver disease/hepatitis/hepatitis C, liver biopsy 2013 in 2016 History of seizure disorder Hyperlipidemia History of cocaine/polysubstance abuse Allergies: Coded Allergies: No Known Allergies (Unverified Allergy, Unknown, 07/12/17) Family History Patient denies any significant family history Social History Patient says she stopped smoking one year ago, had been smoking for decades prior to that Physical Exam Vital Signs Vital Signs Date Time Temp Pulse Resp B/P (MAP) Pulse Ox O2 Delivery O2 Flow Rate FiO2 07/13/17 08:29 93 Nasal Cannula 4.00 07/13/17 08:15 97 Nasal Cannula 6.00 07/13/17 08:07 79 Nasal Cannula 2.00 07/13/17 00:19 97 Nasal Cannula 3.00 07/12/17 23:30 96.9 82 20 89/54 (66) 97 07/12/17 23:26 97 Nasal Cannula 3.00 07/12/17 22:50 96 20 97 4.00 07/12/17 21:20 98.5 96 16 86/52 (63) 98 Nasal Cannula 4.00 07/12/17 21:03 98.5 07/12/17 20:27 102 20 90/51 (64) 97 Nasal Cannula 4.00 07/12/17 19:18 109 18 87/58 (68) 97 Nasal Cannula 3.00 07/12/17 18:46 110 88/54 (65) 96 Nasal Cannula 4.00 07/12/17 17:16 94 Nasal Cannula 4.00 07/12/17 17:15 94 Nasal Cannula 4.00 07/12/17 17:15 94 Nasal Cannula 4.00 07/12/17 16:35 100.1 103 18 99/59 (72) 88 Physical Exam VS: afebrile GENERAL: Well-nourished middle-aged white female, in mild distress. Weight distress SKIN: Warm and dry. EYES: No scleral icterus. No injection or drainage. ENT: No nasal bleeding or discharge. Mucous membranes pink and moist. CARDIOVASCULAR: Regular rate and rhythm. no murmurs RESPIRATORY: No accessory muscle use. Mild to moderately labored breathing, no cyanosis, nasal cannula and nose GASTROINTESTINAL: Abdomen soft, non-tender, nondistended. Extremities: No clubbing, cyanosis, or edema. No obvious deformities. MUSCULOSKELETAL: adequate muscle bulk and tone for age and habitus. Patient has diffuse chest wall tenderness to palpation and she affirms that this is indeed her chest pain. NEUROLOGICAL: Awake and alert. No obvious cranial nerve deficits. No facial droop nor slurred speech noted. PSYCHIATRIC: Appropriate mood and affect; insight and judgment normal. Laboratory Laboratory Tests Test 07/12/17 16:55 White Blood Count 6.5 Red Blood Count 4.42 Hemoglobin 12.7 Hematocrit 38.7 Mean Corpuscular Volume 87.6 Mean Corpuscular Hemoglobin 28.7 Mean Corpuscular Hemoglobin Concent 32.8 Red Cell Distribution Width 14.4 Platelet Count 134 Mean Platelet Volume 9.2 Neutrophils (%) (Auto) 80.1 Lymphocytes (%) (Auto) 11.6 Monocytes (%) (Auto) 6.6 Eosinophils (%) (Auto) 1.3 Basophils (%) (Auto) 0.4 Neutrophils # (Auto) 5.2 Lymphocytes # (Auto) 0.8 Monocytes # (Auto) 0.4 Eosinophils # (Auto) 0.1 Basophils # (Auto) 0.0 CBC Comment DIFF FINAL Differential Comment Blood Urea Nitrogen 10 Creatinine 0.84 Random Glucose 156 Total Protein 7.3 Albumin 2.4 Calcium Level 8.4 Alkaline Phosphatase 219 Aspartate Amino Transf (AST/SGOT) 814 Alanine Aminotransferase (ALT/SGPT) 1452 Total Bilirubin 2.2 Sodium Level 136 Potassium Level 3.6 Chloride Level 102 Carbon Dioxide Level 27.8 Anion Gap 6 Estimat Glomerular Filtration Rate 73 Date/Time Source Procedure Growth Status 07/12/17 16:58 Nasal Washing Influenza Types A,B Antigen (JEN) - Final NEGATIVE FOR FLU A AND B ANTIGEN.... Complete Result Diagram: 07/12/17165407/12/171654 Caprini VTE Risk Assessment Caprini VTE Risk Assessment: Mod/High Risk (score >= 2) Caprini Risk Assessment Model Point Value = 1 Point Value = 2 Point Value = 3 Point Value = 5 Age 41-60 Minor surgery BMI > 25 kg/m2 Swollen legs Varicose veins or History of unexplained or recurrent spontaneous Oral contraceptives or hormone replacement Sepsis (< 1 month) Serious lung disease, including pneumonia (< 1 month) Abnormal pulmonary function Acute myocardial infarction Congestive heart failure (< 1 month) History of inflammatory bowel disease Medical patient at bed rest Age 61-74 Arthroscopic surgery Major open surgery (> 45 min) Laparoscopic surgery (> 45 min) Malignancy Confined to bed (> 72 hours) Immobilizing plaster cast Central venous access Age >= 75 History of VTE Family history of VTE Factor V Leiden Prothrombin [id number] Lupus anticoagulant Anticardiolipin antibodies Elevated serum homocysteine Heparin-induced thrombocytopenia Other congenital or acquired thrombophilia Stroke (< 1 month) Elective arthroplasty Hip, pelvis, or leg fracture Acute spinal cord injury (< 1 month) Prophylaxis Regimen Total Risk Factor Score Risk Level Prophylaxis Regimen 0-1 Low Early ambulation 2 Moderate Order ONE of the following: *Sequential Compression Device (SCD) *Heparin 5000 units SQ BID 3-4 Higher Order ONE of the following medications: *Heparin 5000 units SQ TID *Enoxaparin/Lovenox 40 mg SQ daily (WT < 150 kg, CrCl > 30 mL/min) *Enoxaparin/Lovenox 30 mg SQ daily (WT < 150 kg, CrCl > 10-29 mL/min) *Enoxaparin/Lovenox 30 mg SQ BID (WT < 150 kg, CrCl > 30 mL/min) AND/OR *Sequential Compression Device (SCD) 5 or more Highest Order ONE of the following medications: *Heparin 5000 units SQ TID (Preferred with Epidurals) *Enoxaparin/Lovenox 40 mg SQ daily (WT < 150 kg, CrCl > 30 mL/min) *Enoxaparin/Lovenox 30 mg SQ daily (WT < 150 kg, CrCl > 10-29 mL/min) *Enoxaparin/Lovenox 30 mg SQ BID (WT < 150 kg, CrCl > 30 mL/min) AND *Sequential Compression Device (SCD) Assessment and Plan Assessment and Plan Acute on chronic hypoxic respiratory failure - Possible pneumonia. - Continue high-dose Solu-Medrol, Rocephin, azithromycin - Obtaining outside records - Duo nebs with Mucomyst CP - is MSK in nature - We will start NSAIDs And a lidocaine patch chronic hepatitis, has Hep C - no further workup - will obtain INR bipolar - continue home psych meds Addendum: Outside records reviewed, last oxygen tank filler for [facility] wanted the patient to be on a prolonged prednisone taper (downgrading via 10 mg dose 1 month at a time) but this was dated back in October 2016. I'm not sure when the last time the patient went back to see him since then. I will cover her with high-dose Solu-Medrol while she is here inpatient and consult pulmonology. [facility]ification 2 Midnight Certification Type: Admission for Inpatient Services Order for Inpatient Services The services are ordered in accordance with Medicare regulations or non- Medicare payer requirements, as applicable. In the case of services not specified as inpatient-only, they are appropriately provided as inpatient services in accordance with the 2-midnight benchmark. Estimated LOS (days): 3 3 days is the estimated time the patient will need to remain in the hospital, assuming treatment plan goals are met and no additional complications. Post-Hospital Plan: Home Health Reinier Ramirez MD Jul 13, 2017 08:45
[2017-07-13] MEDS: ARIPiprazole 10 MG TAB PO SCH (09:00)
[2017-07-13] MEDS ORDERED: NON-FORMULARY DRUG (Fluticasone-Salmeterol Inh (Advair Diskus Inh) 1 PUFF) INH SCH (09:00)
[2017-07-13 09:54] LABS: CREATININE 0.5 MG/DL (0.50-1.00)
[2017-07-13] MEDS ORDERED: PNEUMOCOCCAL POLYVALENT INJ 25 MCG/0.5 ML SYR IM ONE (10:00)
[2017-07-13 12:11] LABS: BICARBONATE 22.4 MEQ/L (21.0-32.0); CALCIUM 8.3 MG/DL (8.5-10.1)
[2017-07-13] MEDS: NAPROXEN 500 MG TAB PO SCH ×2 (13:59→22:22)
[2017-07-13] MEDS: BUDESONIDE-FORMOTEROL 80/4.5 MCG INHALER INH SCH ×2 (13:59→22:21)
[2017-07-13] MEDS ORDERED: cefTRIAXone INJ 1,000 MG in SODIUM CHLORIDE 0.9% INJ 100 ML IV SCH ×2 (16:00→22:00)
[2017-07-13] MEDS ORDERED: AZITHROMYCIN INJ 500 MG in SODIUM CHLOR 0.9% 250 ML INJ 250 ML IV SCH ×2 (18:00→23:00)
[2017-07-13] MEDS ORDERED: traZODone HCL 100 MG TAB PO SCH (21:00)
[2017-07-13] MEDS: RESP: ALBUTEROL 1.25 MG/3 ML NEB (PRN) NEB (21:38)
[2017-07-13] MEDS: RESP: ACETYLCYSTEINE 10% 30 ML NEB NEB SCH (21:38)
[2017-07-13] MEDS ORDERED: DIATRIZOATE MEGLUM/DIATRIZOATE SOD 9 ML CUP PO ONE (21:45)
[2017-07-13] MEDS: SODIUM CHLOR 0.9% 1000 ML INJ 1,000 ML IV SCH (22:21)
[2017-07-14] VITALS (11 sets, daily range): BP systolic 94–122; BP diastolic 54–86; PULSE 101–122; RESP 16–31; TEMP 97.5–98.8; O2SAT 88–100
[2017-07-14] MEDS: methylPREDNISolone SOD SUCC 125 MG/2 ML VIAL IV PUSH SCH ×3 (06:14→21:28)
[2017-07-14] MEDS: SODIUM CHLOR 0.9% 1000 ML INJ 1,000 ML IV SCH ×2 (06:55→19:43)
[2017-07-14] MEDS: RESP: ACETYLCYSTEINE 10% 30 ML NEB NEB SCH ×3 (08:19→20:00)
[2017-07-14] MEDS: RESP: ALBUTEROL 2.5 MG/IPRATROPIUM 0.5 MG NEB (SCH) NEB ×3 (08:19→20:16)
[2017-07-14] MEDS: ARIPiprazole 10 MG TAB PO SCH (09:00)
[2017-07-14] MEDS: BUDESONIDE-FORMOTEROL 80/4.5 MCG INHALER INH SCH ×2 (09:05→21:28)
[2017-07-14] MEDS: NAPROXEN 500 MG TAB PO SCH ×2 (09:07→21:29)
[2017-07-14] MEDS: FLUoxetine HCL 20 MG CAP PO SCH (09:07)
[2017-07-14] MEDS ORDERED: IOHEXOL 350 MG/ML 10 ML VIAL (for RAD DIAG) IVCONTRAST ONE (10:15)
--- NOTE | 2017-07-14 10:22 | RADRPT ---
EXAM DATE/TIME: 07/14/2017 10:01 [facility] COMPARISON: CT PULMONARY ANGIOGRAM, September 07, 2016, 18:24. INDICATIONS : Short of breath. Pleuritic chest pain. Cough. Fever. IV CONTRAST: 75 cc Omnipaque 350 (iohexol) IV RADIATION DOSE: 9.70 CTDIvol (mGy) MEDICAL HISTORY : Gastroesophageal reflux disease. Chronic obstructive pulmonary disease. Renal calculi.Seizures. Asth ma. SURGICAL HISTORY : Appendectomy. Hysterectomy. ENCOUNTER: Initial ACUITY: 4 - 6 days PAIN SCALE: 7/10 LOCATION: chest TECHNIQUE: Volumetric scanning of the chest was performed using a pulmonary embolism protocol MIP images were re constructed. Using automated exposure control and adjustment of the mA and/or kV according to patien t size, radiation dose was kept as low as reasonably achievable to obtain optimal diagnostic quality images. DICOM format image data is available electronically for review and comparison. Follow-up recommendations for detected pulmonary nodules are based at a minimum on nodule size and pa tient risk factors according to Fleischner Society Guidelines. FINDINGS: PULMONARY ARTERIES: No filling defects are seen in the pulmonary arteries through the segmental level. LUNGS: There is extensive bilateral honeycomb interstitial disease. There is minimal fissural fluid and depe ndent pleural fluid. Patchy ground glass alveolar opacities are identified. PLEURAE: See above MEDIASTINUM: Moderate marcella enlargement in multiple mediastinal compartments and in the yen bilaterally, nonspeci fic in light of the advanced lung disease. MUSCULOSKELETAL: Within normal limits for patient age. MISCELLANEOUS: The visualized upper abdominal organs demonstrate no acute abnormality. CONCLUSION: Extensive parenchymal lung disease which appears largely chronic with superimposed acute exacerbation . No evidence of pulmonary embolism.. You Mccallum MD on July 14, 2017 at 10:13 Board Certified Radiologist. This report was verified electronically.
[2017-07-14] MEDS ORDERED: Vancomycin Consult Pharmacy 1 EA OTHER SCH (12:30)
--- NOTE | 2017-07-14 13:12 | HHI.PR ---
Subjective Remarks Nursing reports that the patient did desaturate down to 77% on 5 L which is much worse than yesterday where the patient was apparently saturating on 3-4 L around 90%. Patient herself says she feels that her shortness of breath is worse today. She does affirm that she wants to be a full code. Objective Vital Signs Date Time Temp Pulse Resp B/P (MAP) Pulse Ox O2 Delivery O2 Flow Rate FiO2 07/14/17 10:25 Nasal Cannula 07/14/17 08:23 88 Nasal Cannula 5.00 07/14/17 08:00 98.0 113 16 102/69 (80) 97 07/14/17 04:00 97.5 101 24 104/66 (79) 91 07/14/17 00:00 98.1 112 24 99/54 (69) 91 07/13/17 22:50 Nasal Cannula 5.00 07/13/17 20:00 97.7 112 20 104/67 (79) 95 07/13/17 19:58 92 Nasal Cannula 5.00 07/13/17 16:00 97.7 91 18 100/70 (80) 93 I/O 07/13/17 07/13/17 07/13/17 07/14/17 07/14/17 07/14/17 07:00 15:00 23:00 07:00 15:00 23:00 Intake Total 240 ml 1080 ml 818 ml Balance 240 ml 1080 ml 818 ml Intake Oral 240 ml 1080 ml 240 ml IV Total 578 ml # Voids 1 4 2 # Bowel Movements 0 0 0 Result Diagram: 07/12/17 8985 07/13/17 0930 Objective Remarks Coarse breath sounds bilaterally, I do not hear obvious crackles today. Appears to be very mildly labored respiratory effort. On Ventimask 100% while undergoing blood gas. A/P Assessment and Plan Acute on chronic hypoxic respiratory failure - Continues to worsen, obtain CT angiogram which shows diffuse acute infiltrates over chronic lung disease findings. - Switching on antibiotics from Rocephin and azithromycin to cefepime and vancomycin - Continue with Solu-Medrol IV high-dose, obtaining pneumococcal and Legionella urinary antigens as well as chlamydia pneumonia serum antibodies - Oxygen supplementation as needed now on Ventimask. PA/FiO2 ratio is now 132 classic finding as possible moderate ARDS. Case discussed with vegetable scullion who will accept. Transfer order placed to ICU. Chronic lung disease - possibly seen by subspecialist from [facility]. consulting pulmonology. CP - is MSK in nature - NSAIDs And a lidocaine patch chronic hepatitis from past;drug injury has Hep C - no further workup bipolar - continue home psych meds LoveReinier Cavanaugh MD Jul 14, 2017 13:12
[2017-07-14] MEDS: CEFEPIME INJ 2,000 MG in SODIUM CHLORIDE 0.9% INJ 100 ML IV SCH ×2 (14:38→21:35)
[2017-07-14 17:52] LABS: ALBUMIN 2.3 GM/DL (3.4-5.0)
[2017-07-14 17:55] LABS: AST (GOT) 439 U/L (15-37)
[2017-07-14 17:57] LABS: TOTAL BILIRUBIN ADULT 1.3 MG/DL (0.2-1.0); TOTAL PROTEIN 6.4 GM/DL (6.4-8.2)
[2017-07-14 17:58] LABS: ALKALINE PHOSPHATASE 204 U/L (45-117)
--- NOTE | 2017-07-14 18:09 | HHI.CCPN ---
Subjective Remarks/Hospital Course This is a 47-year-old white female that was admitted 2 days ago on 07/12/2017 to [facility].Patient was in her usual state of health until about a few days ago when she began experiencing a gradual onset of worsening shortness of breath and pleuritic chest pain. This is associated with a fever of 102.3 and mild productive nonbloody cough. Patient has 3 L/m home O2 dependency . Per report , the patient had been wearing her 3 L of oxygen at home. 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 Patient states that she was supposed to be taking 30 mg of prednisone on a daily basis for some time but she herself discontinued it about 2 months ago at her own discretion because she felt that they were disrupting her sleep significantly. She also says she takes an inhaler 4 times of the day but denies apparently taking any controller medications. Patient does have a history of bipolar disorder and says she is compliant with those medications. In the emergency department she was placed on 4 L, given steroids, Rocephin and azithromycin and DuoNeb treatments and [facility]. Today 07/14/17, patient was noted to have significant decompensation and respiratory status requiring a nonrebreather mask, and at risk for possible intubation. Pulmonology was consulted .Critical care medicine was consulted, patient was transferred to the ICU. Records obtained from [facility] revealed the patient has autoimmune hepatitis, and pulmonary fibrosis. Upon my evaluation the patient was noted to be 99% on nonrebreather the patient was then placed on partial nonrebreather O2 saturation 94%, respiratory rate 28. ROS - General Review of Systems Except as stated in HPI: all other systems reviewed are Neg PFSH Past Family Social History Past Medical History Unspecified autoimmune chronic lung disease Bipolar disorder Drug-induced liver disease/hepatitis/hepatitis C, liver biopsy 2013 in 2016 History of seizure disorder Hyperlipidemia History of cocaine/polysubstance abuse Allergies: Coded Allergies: No Known Allergies (Unverified Allergy, Unknown, 07/12/17) Family History Patient denies any significant family history Social History Patient says she stopped smoking one year ago, had been smoking for decades prior to that Objective Vital Signs Date Time Temp Pulse Resp B/P (MAP) Pulse Ox O2 Delivery O2 Flow Rate FiO2 07/14/17 12:00 97.6 122 18 122/86 (98) 100 07/14/17 10:25 Nasal Cannula 07/14/17 08:23 5.00 Intake and Output 07/14/17 07/14/17 07/14/17 07:59 15:59 23:59 Intake Total 718 ml 340 ml Balance 718 ml 340 ml Result Diagram: 07/12/17 1655 07/13/17 0930 Other Results Microbiology Date/Time Source Procedure Growth Status 07/12/17 16:58 Nasal Washing Influenza Types A,B Antigen (JEN) - Final NEGATIVE FOR FLU A AND B ANTIGEN.... Complete Laboratory Tests Test 07/14/17 12:38 Blood Gas Puncture Site RT RADIAL Blood Gas Patient Temperature 37.0 Blood Gas HCO3 27 mmol/L (22-26) Blood Gas Base Excess 2.4 mmol/L (-2-2) Blood Gas Oxygen Saturation 96 % (90-100) Arterial Blood pH 7.42 (7.380-7.420) Arterial Blood Partial Pressure CO2 42 mmHg (38-42) Arterial Blood Partial Pressure O2 132 mmHg (61-120) Arterial Blood Oxygen Content 15.6 Vol % (12.0-20.0) Arterial Blood Carboxyhemoglobin 1.6 % (0-4) Arterial Blood Methemoglobin 1.2 % (0-2) Blood Gas Hemoglobin 11.3 G/DL (12.0-16.0) Oxygen Delivery Device NRB Blood Gas Inspired Oxygen 100 % Imaging Last Impressions CT Angiography 07/14/17 0000 Signed Impressions: Service Date/Time: Friday, July 14, 2017 10:01 - CONCLUSION: Extensive parenchymal lung disease which appears largely chronic with superimposed acute exacerbation. No evidence of pulmonary embolism.. You Mccallum MD Chest X-Ray 07/12/17 1644 Signed Impressions: Service Date/Time: Wednesday, July 12, 2017 17:15 - CONCLUSION: Stable combination of airspace disease and definite intralobular thickening on the left. Similar to August 2016. No new infiltrate is seen.. Frank Malone MD Objective Remarks GENERAL: This is a well-developed well-nourished female, currently on nonrebreather in no respiratory distress SKIN: Warm and dry. HEAD: Atraumatic. Normocephalic. EYES: Pupils equal and round. No scleral icterus. No injection or drainage. ENT: No nasal bleeding or discharge. Mucous membranes pink and moist. NECK: Trachea midline. No JVD. CARDIOVASCULAR: Normal rate, regular rhythm. RESPIRATORY: No accessory muscle use. Clear to auscultation. Breath sounds equal bilaterally. GASTROINTESTINAL: Abdomen soft, non-tender, nondistended. No guarding. MUSCULOSKELETAL: Extremities without clubbing, cyanosis, or edema. No obvious deformities. NEUROLOGICAL: GCS 15 .Awake and alert. RASS 0. No gross focal/sensory deficits. Follows commands in all 4 extremities. A/P Assessment and Plan This is a 47-year-old female with acute on chronic hypoxemic respiratory failure and increasing O2 requirements. The patient's imaging studies and report of significant concern for interstitial lung disease. The patient is at risk for possible intubation. Admit to ICU. Plan by systems: Neurologic: Bipolar disorder Depression History of (smoking) cocaine abuse 10/2016 Neurochecks per ICU protocol Continue home meds- Pro Jamiezac Hold trazodone @ Respiratory: Acute on chronic hypoxemic respiratory failure Possible community-acquired pneumonia History of Tobacco use disorder Chronic interstitial lung disease-steroid dependent Pulmonary fibrosis Home O2 dependency COPD History of asthma Maintain O2 sat greater than 90% Duo nebs every 6 hours scheduled and every 2 hours when necessary Continue home med Symbicort Methylprednisolone 125 mg every 8 hours Pulmonology consulted PFTs 09/18 2016([facility]) FEV1 700 25% of predicted FVC 21% no lung volumes are diffusions were performed 09/07/16 CT thorax ([facility]) pulmonary fibrosis with left adrenal adenoma , however 1 antitrypsin level was within normal limits, positive anti-smooth muscle antibodies 1:640, ceruloplasmin normal Cardiovascular: Maintain MAP greater than 65 mmHg Telemetry sinus rhythm Normotensive 09/08/16 echo ([facility]) EF 5560 percent , Mildly elevated pulmonary pressure no major valvular abnormalities Renal: No Xavier required -- Strict I/Os FEN/GI: Autoimmune hepatitis? (reported) Hepatitis C Transaminitis Hyperlipidemia GERD Mild protein calorie malnutrition Monitor LFTs Obtain complete ultrasound of abdomen Obtain lipid panel Famotidine GI prophylaxis Zofran for nausea 09/13/16 Liver biopsy ([facility]) Heme/ID: Monitor CBC Obtain blood cultures Obtain Legionella and pneumococcal urine antigens Endocrine: Glucose monitoring per ICU protocol. Low dose regimen -- SSI Prophylaxis: GI Prophylaxis Famotidine DVT Prophylaxis -- SCDs Heparin subcutaneous Lines: Peripheral IVs 2. Central line if indicated Dispo: my billing statement This patient remains critically ill with one or more organ systems which are or may become a threat to life. I have spent in excess of 60 minutes discontinuously in the care and management of this patient. This time is exclusive of procedures, and includes, but is not limited to, evaluation of the patient, review of the medical record, discussions with family, consultants, nursing staff, or respiratory therapy, and documentation in the medical record. Physician Edith Nuno MD Jul 14, 2017 18:09
[2017-07-14] MEDS ORDERED: DEXTROSE 50% IN WATER 50 ML VIAL(D50) IV PUSH PRN (18:15)
[2017-07-14] MEDS ORDERED: GLUCAGON 1 MG/ML VIAL OTHER PRN (18:15)
[2017-07-14 18:16] LABS: DIRECT BILIRUBIN ADULT 0.5 MG/DL (0.0-0.2); INDIRECT BILIRUBIN 0.8 MG/DL (0.0-0.8)
[2017-07-14 18:21] LABS: ALT (GPT) GREATER THAN 1000 U/L (10-53)
--- NOTE | 2017-07-14 18:42 | RADRPT ---
EXAM DATE/TIME: 07/14/2017 17:58 [facility] COMPARISON: CHEST SINGLE AP, July 12, 2017, 17:15. INDICATIONS : Shortness of breath. MEDICAL HISTORY : Gastroesophageal reflux disease. Chronic obstructive pulmonary disease. Renal calculi. Seizures. Asthma SURGICAL HISTORY : Appendectomy. Hysterectomy ENCOUNTER: Subsequent ACUITY: 4 - 6 days PAIN SCORE: 0/10 LOCATION: Bilateral chest FINDINGS: Single AP view of the chest. Diffuse interstitial lung opacity is again identified. No significant in terval change. Cardio mediastinal silhouette unchanged. No evidence of pleural effusion or pneumothor ax. CONCLUSION: No significant interval change in diffuse interstitial pulmonary opacity bilaterally. Raffi Briggs MD on July 14, 2017 at 18:38 Board Certified Radiologist. This report was verified electronically.
[2017-07-14] MEDS: VANCOMYCIN INJ 1,250 MG in SODIUM CHLOR 0.9% 250 ML INJ 250 ML IV SCH (19:43)
[2017-07-14] MEDS: INSULIN ASPART SUPPLEMENTAL SCALE SQ SCH (21:00)
--- NOTE | 2017-07-14 21:08 | RADRPT ---
EXAM DATE/TIME: 07/14/2017 19:45 [facility] COMPARISON: No previous studies available for comparison. INDICATIONS : Transaminitis. MEDICAL HISTORY : Seizures. Hypotension. COPD. Liver failulre. GERD. Kidney stones. Hepatitis C. Pulmonary fibros is. Bipolar. SURGICAL HISTORY : Appendectomy. Hysterectomy. ENCOUNTER: Subsequent ACUITY: 1 day PAIN SCORE: 1/10 LOCATION: Bilateral upper quadrant MEASUREMENTS: LIVER: 14.0 cm length COMMON DUCT: 4 mm RIGHT KIDNEY: 10.3 x 4.6 x 4.3 cm LEFT KIDNEY: 10.7 x 4.3 x 4.4 cm SPLEEN: 12.9 cm length AORTA: 2.5cm maximal FINDINGS: LIVER: Normal echotexture without focal lesion or ductal dilatation. COMMON DUCT: No intraluminal mass or stone visualized. GALLBLADDER: 5 millimeter calculus in the dependent portion of the gallbladder. Mild diffuse gallbladder wall thic kening measuring 3 mm in diameter. PANCREAS: The visualized portions are within normal limits. RIGHT KIDNEY: No hydronephrosis, stone or mass. LEFT KIDNEY: No hydronephrosis, stone or mass. SPLEEN: Spleen is mildly prominent but homogeneous. AORTA: Non aneurysmal. IVC: Within normal limits. CONCLUSION: Liver within normal limits. Small gallstone in the gallbladder. Nonspecific mild diffuse gallbladder wall thickening. Borderline splenomegaly. Trace right pleural effusion. Raffi Briggs MD on July 14, 2017 at 21:04 Board Certified Radiologist. This report was verified electronically.
[2017-07-14 22:10] LABS: CHOLESTEROL/ HDL RATIO 2.92 RATIO; HDL CHOLESTEROL 56.5 MG/DL (40.0-60.0)
[2017-07-15] VITALS (27 sets, daily range): BP systolic 88–117; BP diastolic 61–82; PULSE 66–112; RESP 11–45; TEMP 97–98.6; O2SAT 88–100
[2017-07-15] MEDS: AZITHROMYCIN INJ 500 MG in SODIUM CHLOR 0.9% 250 ML INJ 250 ML IV SCH (01:00)
[2017-07-15] MEDS: CEFEPIME INJ 2,000 MG in SODIUM CHLORIDE 0.9% INJ 100 ML IV SCH ×3 (05:11→23:25)
[2017-07-15] MEDS: SODIUM CHLOR 0.9% 1000 ML INJ 1,000 ML IV SCH ×2 (06:35→12:35)
[2017-07-15] MEDS: methylPREDNISolone SOD SUCC 125 MG/2 ML VIAL IV PUSH SCH ×3 (06:37→20:45)
[2017-07-15] MEDS: VANCOMYCIN INJ 1,250 MG in SODIUM CHLOR 0.9% 250 ML INJ 250 ML IV SCH ×2 (06:37→16:55)
[2017-07-15] MEDS: RESP: ACETYLCYSTEINE 10% 30 ML NEB NEB SCH ×3 (08:00→20:47)
[2017-07-15] MEDS: INSULIN ASPART SUPPLEMENTAL SCALE SQ SCH ×4 (08:00→20:43)
[2017-07-15] MEDS: RESP: ALBUTEROL 2.5 MG/IPRATROPIUM 0.5 MG NEB (SCH) NEB ×3 (08:02→20:47)
--- NOTE | 2017-07-15 08:13 | HHI.CCPN ---
Subjective Remarks/Hospital Course This is a 47-year-old white female that was admitted 2 days ago on 07/12/2017 to [facility].Patient was in her usual state of health until about a few days ago when she began experiencing a gradual onset of worsening shortness of breath and pleuritic chest pain. This is associated with a fever of 102.3 and mild productive nonbloody cough. Patient has 3 L/m home O2 dependency . Per report , the patient had been wearing her 3 L of oxygen at home. 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 Patient states that she was supposed to be taking 30 mg of prednisone on a daily basis for some time but she herself discontinued it about 2 months ago at her own discretion because she felt that they were disrupting her sleep significantly. She also says she takes an inhaler 4 times of the day but denies apparently taking any controller medications. Patient does have a history of bipolar disorder and says she is compliant with those medications. In the emergency department she was placed on 4 L, given steroids, Rocephin and azithromycin and DuoNeb treatments and then sent to the [facility] floor. Today 07/14/17, patient was noted to have significant decompensation and respiratory status requiring a nonrebreather mask, and at risk for possible intubation. Pulmonology was consulted .Critical care medicine was consulted, patient was transferred to the ICU. Records obtained from [facility] revealed the patient has autoimmune hepatitis, and pulmonary fibrosis. Upon my evaluation the patient was noted to be 99% on nonrebreather the patient was then placed on partial nonrebreather O2 saturation 94%, respiratory rate 28. Subjective: 07/15: FiO2 continues to be 60% on a partial non-rebreather mask. Plan to transition to high flow nasal cannula this a.m.. Pulmonology consult pending. Patient continues on steroids and antibiotics, noted acute desaturation with minimal activity. Strict bed rest implemented. Attempts being made to obtain records from [facility] her last admission for pulmonary compromise. Objective Vital Signs Date Time Temp Pulse Resp B/P (MAP) Pulse Ox O2 Delivery O2 Flow Rate FiO2 07/15/17 06:00 82 23 98/68 (78) 98 07/15/17 04:00 98.6 07/15/17 04:00 Partial Non-Rebreather 12.00 60 Intake and Output 07/15/17 07/15/17 07/16/17 08:00 16:00 00:00 Output Total 650 ml Balance -650 ml Result Diagram: 07/12/17 3512 07/13/17 0930 Other Results Microbiology Date/Time Source Procedure Growth Status 07/12/17 16:58 Nasal Washing Influenza Types A,B Antigen (JEN) - Final NEGATIVE FOR FLU A AND B ANTIGEN.... Complete Laboratory Tests Test 07/14/17 12:38 07/15/17 06:36 Blood Gas Puncture Site RT RADIAL LT RADIAL Blood Gas Patient Temperature 37.0 37.0 Blood Gas HCO3 27 mmol/L (22-26) 28 mmol/L (22-26) Blood Gas Base Excess 2.4 mmol/L (-2-2) 3.1 mmol/L (-2-2) Blood Gas Oxygen Saturation 96 % (90-100) 97 % (90-100) Arterial Blood pH 7.42 (7.380-7.420) 7.38 (7.380-7.420) Arterial Blood Partial Pressure CO2 42 mmHg (38-42) 48 mmHg (38-42) Arterial Blood Partial Pressure O2 132 mmHg (61-120) 134 mmHg (61-120) Arterial Blood Oxygen Content 15.6 Vol % (12.0-20.0) 14.1 Vol % (12.0-20.0) Arterial Blood Carboxyhemoglobin 1.6 % (0-4) 1.3 % (0-4) Arterial Blood Methemoglobin 1.2 % (0-2) 0.9 % (0-2) Blood Gas Hemoglobin 11.3 G/DL (12.0-16.0) 10.2 G/DL (12.0-16.0) Oxygen Delivery Device NRB Partial Rebreather Blood Gas Inspired Oxygen 100 % Blood Gas Liter Flow 15 L/M Imaging Last Impressions CT Angiography 07/14/17 0000 Signed Impressions: Service Date/Time: Friday, July 14, 2017 10:01 - CONCLUSION: Extensive parenchymal lung disease which appears largely chronic with superimposed acute exacerbation. No evidence of pulmonary embolism.. You Mccallum MD Chest X-Ray 07/12/17 1382 Signed Impressions: Service Date/Time: Wednesday, July 12, 2017 17:15 - CONCLUSION: Stable combination of airspace disease and definite intralobular thickening on the left. Similar to August 2016. No new infiltrate is seen.. Frank Malone MD Objective Remarks GENERAL: This is a well-developed well-nourished female, currently on partial nonrebreather in no respiratory distress, RR 24 SKIN: Warm and dry. HEAD: Atraumatic. Normocephalic. EYES: Pupils equal and round. No scleral icterus. No injection or drainage. ENT: No nasal bleeding or discharge. Mucous membranes pink and moist. NECK: Trachea midline. No JVD. CARDIOVASCULAR: Normal rate, regular rhythm. RESPIRATORY: No accessory muscle use. Coarse breath sounds throughout lung keller. Breath sounds equal bilaterally. GASTROINTESTINAL: Abdomen soft, non-tender, nondistended. No guarding. MUSCULOSKELETAL: Extremities without clubbing, cyanosis, or edema. No obvious deformities. NEUROLOGICAL: GCS 15 .Awake and alert. RASS 0. No gross focal/sensory deficits. Follows commands in all 4 extremities. Urinary Catheter: No Vascular Central Line Catheter: No A/P Assessment and Plan This is a 47-year-old female with acute on chronic hypoxemic respiratory failure and increasing O2 requirements. The patient's imaging studies and report of significant concern for chronic interstitial lung disease. Medical records from outside hospital reveal patient has a diagnosis of pulmonary fibrosis for approximately 1 year, manageed in [place], [place]. The patient is at risk for possible intubation with continued respiratory compromise. Admit to ICU. Plan by systems: Neurologic: Bipolar disorder Depression History of (smoking) cocaine abuse 10/2016 Neurochecks per ICU protocol Continue home meds- Juan Pablo Ayala Will resume trazodone @ Obtain UDS Respiratory: Acute on chronic hypoxemic respiratory failure Possible community-acquired pneumonia History of Tobacco use disorder Chronic interstitial lung disease-steroid dependent Pulmonary fibrosis Home O2 dependency COPD History of asthma Maintain O2 sat greater than 90% Duo nebs every 6 hours scheduled and every 2 hours when necessary Continue home med Symbicort Methylprednisolone 125 mg every 8 hours Pulmonology consulted PFTs 09/18 2016([facility]) FEV1 700 -25% of predicted, FVC 21% no lung volumes are diffusions were performed 09/07/16 CT thorax ([facility]) pulmonary fibrosis with left adrenal adenoma , however alpha 1 antitrypsin level was WNL , but positive (ASMA)anti-smooth muscle antibodies 1:640, ceruloplasmin normal 07/15- Begin High flow O2 NC Cardiovascular: Maintain MAP greater than 65 mmHg Telemetry sinus rhythm Normotensive 09/08/16 echo ([facility]) EF 55-60 %, Mildly elevated pulmonary pressure no major valvular abnormalities Renal: No Xavier required -- Strict I/Os FEN/GI: Autoimmune hepatitis? (reported) Hepatitis C Transaminitis Hyperlipidemia GERD Mild protein calorie malnutrition Monitor LFTs 07/15 ultrasound of abdomen- bladder wall thickening, borderline splenomegaly, trace right pleural effusion lipid panel Famotidine GI prophylaxis Zofran for nausea 09/13/16 Liver biopsy ([facility]) see medical chart for review- Patient referred to [facility] for eval for liver transplant Heme/ID: Monitor CBC blood cultures- NGTD Legionella and pneumococcal urine antigens- Pending Influenza- negative Endocrine: Glucose monitoring per ICU protocol. Low dose regimen -- SSI Prophylaxis: GI Prophylaxis Famotidine DVT Prophylaxis -- SCDs Heparin SQ every 12 hrs Lines: Peripheral IVs 2. Central line if indicated Dispo: my billing statement This patient remains critically ill with one or more organ systems which are or may become a threat to life. I have spent in excess of 30 minutes discontinuously in the care and management of this patient. This time is exclusive of procedures, and includes, but is not limited to, evaluation of the patient, review of the medical record, discussions with family, consultants, nursing staff, or respiratory therapy, and documentation in the medical record. Physician Edith Nuno MD Jul 15, 2017 08:12
[2017-07-15] MEDS: BUDESONIDE-FORMOTEROL 80/4.5 MCG INHALER INH SCH ×2 (09:24→20:37)
[2017-07-15] MEDS: NAPROXEN 500 MG TAB PO SCH ×2 (09:25→20:40)
[2017-07-15] MEDS: FLUoxetine HCL 20 MG CAP PO SCH (09:26)
[2017-07-15 10:22] LABS: BILIRUBIN, URINE NEG (NEG); BLOOD, URINE NEG (NEG); GLUCOSE,URINE NEG (NEG); KETONE, URINE NEG (NEG); NITRITE,URINE NEG (NEG); PH, URINE 6.5 (5.0-8.5); URINE LEUKOCYTE ESTERASE MOD (NEG)
[2017-07-15 10:29] LABS: AUTOMATED NEUTROPHIL # 11.7 TH/MM3 (1.8-7.7); BASOPHIL # 0.1 TH/MM3 (0-0.2); BASOPHIL % 1.1 % (0.0-2.0); EOSINOPHIL % 0.1 % (0.0-4.0); HEMATOCRIT 32.6 % (35.0-46.0); HEMOGLOBIN 10.8 GM/DL (11.6-15.3); LYMPH % 5.7 % (9.0-44.0); LYMPHOCYTE # 0.7 TH/MM3 (1.0-4.8); MEAN CORPUSCULAR HEMOGLOBIN 29.4 PG (27.0-34.0); MONO % 2.5 % (0.0-8.0); MONOCYTE # 0.3 TH/MM3 (0-0.9); NEUT % 90.6 % (16.0-70.0); PLATELET COUNT 160 TH/MM3 (150-450); RED BLOOD COUNT 3.66 MIL/MM3 (4.00-5.30); RED CELL DISTRIBUTION WIDTH 15.9 % (11.6-17.2); WHITE BLOOD COUNT 12.8 TH/MM3 (4.0-11.0)
[2017-07-15 10:36] LABS: URINE COLOR YELLOW (YELLW/STRAW)
[2017-07-15 10:44] LABS: BACTERIA, URINE FEW /hpf; SQUAMOUS EPITHELIAL CELL URINE 0-5 /hpf (0-5)
[2017-07-15] MEDS: ARIPiprazole 10 MG TAB PO SCH (12:29)
[2017-07-15] MEDS ORDERED: CHLORHEXIDINE GLUCONATE 2 % 1 PACK (2 CLOTHS)(extra cloths) TOPICAL PRN (13:45)
--- NOTE | 2017-07-15 20:29 | MB ---
cc: LINCOLN,LINCOLN DATE OF CONSULTATION 07/15/17 REASON FOR CONSULTATION Respiratory failure, chronic interstitial lung disease with pulmonary fibrosis and honeycombing, question cystic fibrosis. HISTORY OF PRESENT ILLNESS The patient is a 47-year-old old female who has history of chronic lung disease. 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 She as well has underlying chronic liver disease for which she had a liver biopsy in the past. She is not sure what the diagnosis was, but that consideration of a liver transplant was discussed with her. The patient does have history of IV drug use as well as use of cocaine. The patient has been complaining of increasing shortness of breath, cough, fever up to 102 degrees Fahrenheit prior to hospitalization. PAST MEDICAL HISTORY 1. Chronic lung and liver disease as mentioned above 2. History of IV drug use 3. History of cocaine abuse 4. History of hepatitis 5. Hyperlipidemia. 6. Bipolar disorder. ALLERGIES None known to medication FAMILY HISTORY Noncontributory. REVIEW OF SYSTEMS 12-point review of systems as per HPI and past history otherwise negative. PHYSICAL EXAMINATION VITAL SIGNS: Temperature 98.4, pulse 90, respirations 22, blood pressure 100/70, oxygen saturation 97% high-flow oxygen nasal cannula. HEENT: Exam unremarkable. Eyes without icterus. NECK: Without adenopathy or thyroid enlargement. Central trachea. CHEST: Scattered rhonchi bilaterally. CARDIAC: PMI distant. S1, S2 audible. No murmur or rub. ABDOMEN: Lax, bowel sounds audible. EXTREMITIES: No clubbing, cyanosis or edema. LABORATORY DATA White count 12,000, hemoglobin 10, hematocrit 32, platelets 160,000. ABG - pH 7.38, pCO2 48, pO2 134. Sodium 143, potassium 3.3, BUN seven, creatinine 0.5, bilirubin 1.3, AST at 439, ALT over 1000, serum albumin 2.3 IMPRESSION 1. Pulmonary fibrosis and honeycombing, etiology not clear. Question cystic fibrosis, question autoimmune disease. Old records pending. 2. Advanced liver disease, had biopsy in the past. Records are pending as well. 3. Respiratory failure due to the above, on oxygen therapy. 4. Acute infectious process suspect with underlying significant lung disease and worsening hypoxia. The patient is on home oxygen therapy. PLAN We will continue the patient's oxygen therapy, pulmonary toilet antibiotic therapy will be instituted. Old records obtained. Depending on findings and the patient's progress, proceed accordingly. Her prognosis is obviously poor. I do thank you for asking to partake in Ms. Roy's care. Lincoln Stark MD WWW/ /7:07 PM /7:55 PM
[2017-07-15] MEDS ORDERED: PERMETHRIN 1% LOTION 60 ML BTL TOPICAL ONE (22:00)
[2017-07-16] VITALS (27 sets, daily range): BP systolic 81–111; BP diastolic 57–77; PULSE 66–108; RESP 22–38; TEMP 97.1–98.5; O2SAT 89–100
[2017-07-16] MEDS: CHLORHEXIDINE GLUCONATE 2 % 1 PACK (2 CLOTHS)(taper/protocol) TOPICAL SCH (00:57)
[2017-07-16] MEDS: AZITHROMYCIN INJ 500 MG in SODIUM CHLOR 0.9% 250 ML INJ 250 ML IV SCH (00:57)
[2017-07-16] MEDS ORDERED: PHARMACY ORDERED LAB ONE (05:45)
[2017-07-16] MEDS: CEFEPIME INJ 2,000 MG in SODIUM CHLORIDE 0.9% INJ 100 ML IV SCH ×3 (05:51→21:30)
[2017-07-16] MEDS: methylPREDNISolone SOD SUCC 125 MG/2 ML VIAL IV PUSH SCH ×3 (05:55→21:30)
[2017-07-16 06:39] LABS: AUTOMATED NEUTROPHIL # 9.7 TH/MM3 (1.8-7.7); BASOPHIL % 0.1 % (0.0-2.0); EOSINOPHIL % 0.1 % (0.0-4.0); HEMATOCRIT 31.2 % (35.0-46.0); HEMOGLOBIN 10.4 GM/DL (11.6-15.3); LYMPH % 5.7 % (9.0-44.0); LYMPHOCYTE # 0.6 TH/MM3 (1.0-4.8); MEAN CELL VOLUME 90.5 FL (80.0-100.0); MEAN CORPUSCULAR HEMOGLOBIN 30.1 PG (27.0-34.0); MEAN CORPUSCULAR HGB CONC 33.3 % (32.0-36.0); MEAN PLATELET VOLUME 9.7 FL (7.0-11.0); MONO % 2.4 % (0.0-8.0); MONOCYTE # 0.3 TH/MM3 (0-0.9); NEUT % 91.7 % (16.0-70.0); PLATELET COUNT 152 TH/MM3 (150-450); RED BLOOD COUNT 3.45 MIL/MM3 (4.00-5.30); RED CELL DISTRIBUTION WIDTH 15.9 % (11.6-17.2); WHITE BLOOD COUNT 10.6 TH/MM3 (4.0-11.0)
[2017-07-16] MEDS: VANCOMYCIN INJ 1,250 MG in SODIUM CHLOR 0.9% 250 ML INJ 250 ML IV SCH (06:48)
--- NOTE | 2017-07-16 07:00 | HHI.CCPN ---
Subjective Remarks/Hospital Course This is a 47-year-old white female that was admitted 2 days ago on 07/12/2017 to [facility].Patient was in her usual state of health until about a few days ago when she began experiencing a gradual onset of worsening shortness of breath and pleuritic chest pain. This is associated with a fever of 102.3 and mild productive nonbloody cough. Patient has 3 L/m home O2 dependency . Per report , the patient had been wearing her 3 L of oxygen at home. 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 Patient states that she was supposed to be taking 30 mg of prednisone on a daily basis for some time but she herself discontinued it about 2 months ago at her own discretion because she felt that they were disrupting her sleep significantly. She also says she takes an inhaler 4 times of the day but denies apparently taking any controller medications. Patient does have a history of bipolar disorder and says she is compliant with those medications. In the emergency department she was placed on 4 L, given steroids, Rocephin and azithromycin and DuoNeb treatments and then sent to the [facility] floor. Today 07/14/17, patient was noted to have significant decompensation and respiratory status requiring a nonrebreather mask, and at risk for possible intubation. Pulmonology was consulted .Critical care medicine was consulted, patient was transferred to the ICU. Records obtained from [facility] revealed the patient has autoimmune hepatitis, and pulmonary fibrosis. Upon my evaluation the patient was noted to be 99% on nonrebreather the patient was then placed on partial nonrebreather O2 saturation 94%, respiratory rate 28. Subjective: 07/15: FiO2 continues to be 60% on a partial non-rebreather mask. Plan to transition to high flow nasal cannula this a.m.. Pulmonology consult pending. Patient continues on steroids and antibiotics, noted acute desaturation with minimal activity. Strict bed rest implemented. Attempts being made to obtain records from [facility] her last admission for pulmonary compromise. 07/16: fio2 improves. abg slightly improving 7.39/51/138. LFTs coming down slightly. patient wants to get OOB. denies other complaints. ROS negative. Objective Vital Signs Date Time Temp Pulse Resp B/P (MAP) Pulse Ox O2 Delivery O2 Flow Rate FiO2 07/16/17 06:01 68 27 103/68 (80) 97 07/16/17 04:03 Partial Non-Rebreather 12.00 60 07/16/17 04:01 98.5 Intake and Output 07/16/17 07/16/17 07/17/17 08:00 16:00 00:00 Intake Total 300 ml Output Total 800 ml Balance -500 ml Result Diagram: 07/16/17 0550 07/13/17 0930 Other Results Microbiology Date/Time Source Procedure Growth Status 07/14/17 10:15 Urine Random Urine Legionella Antigen - Final PRESUMPTIVE NEGATIVE FOR LEGIONELLA P... Complete 07/14/17 10:15 Urine Random Urine Streptococcus pneumoniae Antigen (M - Final PRESUMPTIVE NEGATIVE FOR STREPTOCOCCU... Complete Laboratory Tests Test 07/16/17 05:45 Blood Gas Puncture Site RT RADIAL Blood Gas Patient Temperature 37.0 Blood Gas HCO3 30 mmol/L (22-26) Blood Gas Base Excess 5.6 mmol/L (-2-2) Blood Gas Oxygen Saturation 96 % (90-100) Arterial Blood pH 7.39 (7.380-7.420) Arterial Blood Partial Pressure CO2 51 mmHg (38-42) Arterial Blood Partial Pressure O2 138 mmHg (61-120) Arterial Blood Oxygen Content 14.1 Vol % (12.0-20.0) Arterial Blood Carboxyhemoglobin 1.2 % (0-4) Arterial Blood Methemoglobin 1.1 % (0-2) Blood Gas Hemoglobin 10.2 G/DL (12.0-16.0) Oxygen Delivery Device PARTIAL REBREATHER Blood Gas Liter Flow 11 L/M Imaging Last Impressions CT Angiography 07/14/17 0000 Signed Impressions: Service Date/Time: Friday, July 14, 2017 10:01 - CONCLUSION: Extensive parenchymal lung disease which appears largely chronic with superimposed acute exacerbation. No evidence of pulmonary embolism.. You Mccallum MD Chest X-Ray 07/12/17 1644 Signed Impressions: Service Date/Time: Wednesday, July 12, 2017 17:15 - CONCLUSION: Stable combination of airspace disease and definite intralobular thickening on the left. Similar to August 2016. No new infiltrate is seen.. Frank Malone MD Objective Remarks GENERAL: This is a middle-aged female, currently on partial nonrebreather. SKIN: Warm and dry. HEAD: Atraumatic. Normocephalic. EYES: Pupils equal and round. No scleral icterus. No injection or drainage. ENT: No nasal bleeding or discharge. Mucous membranes pink and moist. NECK: Trachea midline. No JVD. CARDIOVASCULAR: Normal rate, regular rhythm. RESPIRATORY: No accessory muscle use. equal chest rise. partial NRB. spo2 99%. GASTROINTESTINAL: Abdomen soft, non-tender, nondistended. No guarding. MUSCULOSKELETAL: Extremities without clubbing, cyanosis, or edema. No obvious deformities. NEUROLOGICAL: GCS 15 .Awake and alert. RASS 0. No gross focal/sensory deficits. Follows commands in all 4 extremities. A/P Assessment and Plan This is a 47-year-old female with acute on chronic hypoxemic respiratory failure and increasing O2 requirements. The patient's imaging studies and report of significant concern for chronic interstitial lung disease. Medical records from outside hospital reveal patient has a diagnosis of pulmonary fibrosis for approximately 1 year, manageed in [place], [place]. The patient is at risk for possible intubation with continued respiratory compromise. remain in ICU. Plan by systems: Neurologic: Bipolar disorder Depression History of (smoking) cocaine abuse 10/2016 Neurochecks per ICU protocol Continue home meds- Gabby Ayalac Will resume trazodone @ hs, half-dose, 100mg. UDS negative. Respiratory: Acute on chronic hypoxemic respiratory failure - persistent. Possible community-acquired pneumonia History of Tobacco use disorder Chronic interstitial lung disease-steroid dependent Pulmonary fibrosis Home O2 dependency COPD History of asthma Maintain O2 sat greater than 90% Duo nebs every 6 hours scheduled and every 2 hours when necessary Continue home med Symbicort Methylprednisolone 125 mg every 8 hours Pulmonology consulted PFTs 09/18 2016([facility]) FEV1 700 -25% of predicted, FVC 21% no lung volumes are diffusions were performed 09/07/16 CT thorax ([facility]) pulmonary fibrosis with left adrenal adenoma , however alpha 1 antitrypsin level was WNL , but positive (ASMA)anti-smooth muscle antibodies 1:640, ceruloplasmin normal did not tolerated HFNC 07/15, patient too uncomfortable. still remains on pNRB. continue and wean o2 as tolerated. Cardiovascular: Maintain MAP greater than 65 mmHg Telemetry sinus rhythm Normotensive 09/08/16 echo ([facility]) EF 55-60 %, Mildly elevated pulmonary pressure no major valvular abnormalities Renal: No Xavier required -- Strict I/Os FEN/GI: Autoimmune hepatitis? (reported) Hepatitis C Transaminitis Hyperlipidemia GERD Mild protein calorie malnutrition Monitor LFTs: currently downtrending. 07/15 ultrasound of abdomen- galbladder wall thickening, borderline splenomegaly , trace right pleural effusion lipid panel Famotidine GI prophylaxis Zofran for nausea 09/13/16 Liver biopsy ([facility]) see medical chart for review- Patient referred to [facility] for eval for liver transplant Heme/ID: Monitor CBC blood cultures- NGTD Legionella and pneumococcal urine antigens- Pending Influenza- negative Endocrine: Glucose monitoring per ICU protocol. Low dose regimen -- SSI Prophylaxis: GI Prophylaxis Famotidine DVT Prophylaxis -- SCDs Heparin SQ every 12 hrs Lines: Peripheral IVs 2. Dispo: remain in ICU. Kee Worrell MD Jul 16, 2017 07:00
[2017-07-16 07:12] LABS: CALCIUM 7.9 MG/DL (8.5-10.1)
[2017-07-16 07:13] LABS: BICARBONATE 31.3 MEQ/L (21.0-32.0)
[2017-07-16 07:16] LABS: CREATININE 0.52 MG/DL (0.50-1.00)
[2017-07-16] MEDS: RESP: ALBUTEROL 2.5 MG/IPRATROPIUM 0.5 MG NEB (SCH) NEB ×3 (07:56→21:52)
[2017-07-16] MEDS: RESP: ACETYLCYSTEINE 10% 30 ML NEB NEB SCH ×3 (07:57→21:52)
[2017-07-16] MEDS: INSULIN ASPART SUPPLEMENTAL SCALE SQ SCH ×4 (08:00→21:00)
[2017-07-16] MEDS: ARIPiprazole 10 MG TAB PO SCH (09:00)
[2017-07-16] MEDS: NAPROXEN 500 MG TAB PO SCH ×2 (09:16→21:16)
[2017-07-16] MEDS: FLUoxetine HCL 20 MG CAP PO SCH (09:18)
[2017-07-16] MEDS: BUDESONIDE-FORMOTEROL 80/4.5 MCG INHALER INH SCH ×2 (09:26→21:15)
[2017-07-16] MEDS: VANCOMYCIN 1,000 MG/NS 250 ML IV SCH ×2 (16:45)
--- NOTE | 2017-07-16 17:34 | HHI.PR ---
Subjective Remarks alert less sob on o2 via mask Objective Vital Signs Date Time Temp Pulse Resp B/P (MAP) Pulse Ox O2 Delivery O2 Flow Rate FiO2 07/16/17 11:00 98 31 99/69 (79) 98 07/16/17 10:59 96 31 96/64 (75) 99 07/16/17 10:00 108 38 89 07/16/17 09:00 68 22 99 07/16/17 08:01 100 Partial Rebreather 07/16/17 08:00 96 Partial Non-Rebreather 12.00 60 07/16/17 08:00 68 25 99 07/16/17 08:00 97.2 67 24 87/58 (68) 100 07/16/17 06:01 68 27 103/68 (80) 97 07/16/17 05:01 76 22 103/66 (78) 98 07/16/17 04:03 96 Partial Non-Rebreather 12.00 60 07/16/17 04:01 98.5 70 25 97/66 (76) 98 07/16/17 03:01 72 23 99/68 (78) 97 07/16/17 02:01 88 25 106/77 (87) 97 07/16/17 01:01 90 24 111/72 (85) 97 07/16/17 00:01 82 28 101/72 (82) 98 07/16/17 00:00 96 Partial Non-Rebreather 12.00 60 07/15/17 23:10 98.2 102 32 117/82 (94) 93 07/15/17 22:01 104 30 114/79 (91) 95 07/15/17 21:01 106 27 112/78 (89) 96 07/15/17 20:47 96 Partial Rebreather 14.00 07/15/17 20:23 96 Partial Non-Rebreather 13.00 60 07/15/17 20:01 97.0 102 31 102/63 (76) 96 07/15/17 19:30 96 Partial Non-Rebreather 14.00 60 07/15/17 19:15 90 Nasal Cannula 30.00 60 07/15/17 19:01 112 37 109/69 (82) 88 07/15/17 18:00 98 23 104/75 (85) 92 07/15/17 17:35 97 High Flow Nasal Cannula 30.00 70 I/O 1/13/18 1/13/18 1/13/18 1/14/18 1/14/18 1/14/18 07:00 15:00 23:00 07:00 15:00 23:00 Intake Total 1100 ml 607 ml 300 ml 360 ml Output Total 650 ml 1400 ml Balance -650 ml 1100 ml 607 ml -1100 ml 360 ml Intake Oral 300 ml 360 ml IV Total 1100 ml 607 ml Output Urine Total 650 ml 1400 ml # Voids 1 2 # Bowel Movements 0 0 0 Result Diagram: 07/16/17 0550 07/16/17 0550 Objective Remarks GENERAL: SKIN: Warm and dry. HEAD: Atraumatic. Normocephalic. EYES: Pupils equal and round. No scleral icterus. No injection or drainage. ENT: No nasal bleeding or discharge. Mucous membranes pink and moist. NECK: Trachea midline. No JVD. CARDIOVASCULAR: Regular rate and rhythm. RESPIRATORY: No accessory muscle use. Clear to auscultation. Breath sounds equal bilaterally. GASTROINTESTINAL: Abdomen soft, non-tender, nondistended. Hepatic and splenic margins not palpable. MUSCULOSKELETAL: Extremities without clubbing, cyanosis, or edema. No obvious deformities. NEUROLOGICAL: Awake and alert. No obvious cranial nerve deficits. Motor grossly within normal limits. Five out of 5 muscle strength in the arms and legs. Normal speech. PSYCHIATRIC: Appropriate mood and affect; insight and judgment normal. Assessment and Plan Assessment and Plan pulm fibrosis respiratory failure liver failure plan o2 antibx bronchodilators old records Lincoln Stark MD Jul 16, 2017 17:34
[2017-07-16] MEDS: traZODone HCL 100 MG TAB PO SCH (21:16)
[2017-07-17] VITALS (35 sets, daily range): BP systolic 73–103; BP diastolic 44–67; PULSE 54–100; RESP 19–34; TEMP 97.5–98.7; O2SAT 88–100
[2017-07-17] MEDS: VANCOMYCIN 1,000 MG/NS 250 ML IV SCH ×2 (02:07)
[2017-07-17] MEDS: CHLORHEXIDINE GLUCONATE 2 % 1 PACK (2 CLOTHS)(taper/protocol) TOPICAL SCH (04:00)
[2017-07-17] MEDS: AZITHROMYCIN 250 MG TAB PO SCH (05:06)
[2017-07-17] MEDS: methylPREDNISolone SOD SUCC 125 MG/2 ML VIAL IV PUSH SCH ×3 (05:06→19:54)
[2017-07-17] MEDS: CEFEPIME INJ 2,000 MG in SODIUM CHLORIDE 0.9% INJ 100 ML IV SCH ×3 (05:06→19:54)
[2017-07-17 05:11] LABS: CHLORIDE 108 MEQ/L (98-107); SODIUM (NA) 145 MEQ/L (136-145)
[2017-07-17 05:18] LABS: HEMATOCRIT 31.7 % (35.0-46.0); HEMOGLOBIN 10.3 GM/DL (11.6-15.3); MEAN CELL VOLUME 89.3 FL (80.0-100.0); MEAN CORPUSCULAR HEMOGLOBIN 28.9 PG (27.0-34.0); MEAN CORPUSCULAR HGB CONC 32.4 % (32.0-36.0); MEAN PLATELET VOLUME 9.8 FL (7.0-11.0); PLATELET COUNT 141 TH/MM3 (150-450); RED BLOOD COUNT 3.55 MIL/MM3 (4.00-5.30); RED CELL DISTRIBUTION WIDTH 14.9 % (11.6-17.2)
[2017-07-17 05:19] LABS: ALBUMIN 2.1 GM/DL (3.4-5.0); ALT (GPT) 669 U/L (10-53); AST (GOT) 192 U/L (15-37); BICARBONATE 31.3 MEQ/L (21.0-32.0); BLOOD UREA NITROGEN 24 MG/DL (7-18); CREATININE 0.54 MG/DL (0.50-1.00); GLOMERULAR FILTRATION RATE 122 ML/MIN (>89); GLUCOSE,RANDOM 138 MG/DL (74-106)
[2017-07-17 05:20] LABS: TOTAL BILIRUBIN ADULT 1.1 MG/DL (0.2-1.0); TOTAL PROTEIN 5.6 GM/DL (6.4-8.2)
[2017-07-17 05:21] LABS: ALKALINE PHOSPHATASE 158 U/L (45-117)
--- NOTE | 2017-07-17 06:47 | HHI.CCPN ---
Subjective Remarks/Hospital Course This is a 47-year-old white female that was admitted 2 days ago on 07/12/2017 to [facility].Patient was in her usual state of health until about a few days ago when she began experiencing a gradual onset of worsening shortness of breath and pleuritic chest pain. This is associated with a fever of 102.3 and mild productive nonbloody cough. Patient has 3 L/m home O2 dependency . Per report , the patient had been wearing her 3 L of oxygen at home. 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 Patient states that she was supposed to be taking 30 mg of prednisone on a daily basis for some time but she herself discontinued it about 2 months ago at her own discretion because she felt that they were disrupting her sleep significantly. She also says she takes an inhaler 4 times of the day but denies apparently taking any controller medications. Patient does have a history of bipolar disorder and says she is compliant with those medications. In the emergency department she was placed on 4 L, given steroids, Rocephin and azithromycin and DuoNeb treatments and then sent to the [facility] floor. Today 07/14/17, patient was noted to have significant decompensation and respiratory status requiring a nonrebreather mask, and at risk for possible intubation. Pulmonology was consulted .Critical care medicine was consulted, patient was transferred to the ICU. Records obtained from [facility] revealed the patient has autoimmune hepatitis, and pulmonary fibrosis. Upon my evaluation the patient was noted to be 99% on nonrebreather the patient was then placed on partial nonrebreather O2 saturation 94%, respiratory rate 28. Subjective: 07/15: FiO2 continues to be 60% on a partial non-rebreather mask. Plan to transition to high flow nasal cannula this a.m.. Pulmonology consult pending. Patient continues on steroids and antibiotics, noted acute desaturation with minimal activity. Strict bed rest implemented. Attempts being made to obtain records from [facility] her last admission for pulmonary compromise. 07/16: fio2 improves. abg slightly improving 7.39/51/138. LFTs coming down slightly. patient wants to get OOB. denies other complaints. ROS negative. 07/17: remains hypoxic on NRB. did get OOB to chair yesterday. denies complaints. ROS negative. Objective Vital Signs Date Time Temp Pulse Resp B/P (MAP) Pulse Ox O2 Delivery O2 Flow Rate FiO2 07/17/17 06:02 56 20 80/55 (63) 98 07/17/17 04:00 Partial Non-Rebreather 12.00 60 07/17/17 04:00 97.5 Intake and Output 07/17/17 07/17/17 07/18/17 08:00 16:00 00:00 Intake Total 570 ml Output Total 200 ml Balance 370 ml Result Diagram: 07/17/17 0426 07/17/17 0426 Other Results Microbiology Date/Time Source Procedure Growth Status 07/14/17 10:15 Urine Random Urine Legionella Antigen - Final PRESUMPTIVE NEGATIVE FOR LEGIONELLA P... Complete 07/14/17 10:15 Urine Random Urine Streptococcus pneumoniae Antigen (M - Final PRESUMPTIVE NEGATIVE FOR STREPTOCOCCU... Complete Imaging Last Impressions CT Angiography 07/14/17 0000 Signed Impressions: Service Date/Time: Friday, July 14, 2017 10:01 - CONCLUSION: Extensive parenchymal lung disease which appears largely chronic with superimposed acute exacerbation. No evidence of pulmonary embolism.. You Mccallum MD Chest X-Ray 07/12/17 1644 Signed Impressions: Service Date/Time: Wednesday, July 12, 2017 17:15 - CONCLUSION: Stable combination of airspace disease and definite intralobular thickening on the left. Similar to August 2016. No new infiltrate is seen.. Frank Malone MD Objective Remarks GENERAL: This is a middle-aged female, currently on partial nonrebreather. SKIN: Warm and dry. HEAD: Atraumatic. Normocephalic. EYES: Pupils equal and round. No scleral icterus. No injection or drainage. ENT: No nasal bleeding or discharge. Mucous membranes pink and moist. NECK: Trachea midline. No JVD. CARDIOVASCULAR: Normal rate, regular rhythm. RESPIRATORY: No accessory muscle use. equal chest rise. partial NRB. spo2 99%. GASTROINTESTINAL: Abdomen soft, non-tender, nondistended. No guarding. MUSCULOSKELETAL: Extremities without clubbing, cyanosis, or edema. No obvious deformities. NEUROLOGICAL: GCS 15 .Awake and alert. RASS 0. No gross focal/sensory deficits. Follows commands in all 4 extremities. A/P Assessment and Plan This is a 47-year-old female with acute on chronic hypoxemic respiratory failure and increasing O2 requirements. The patient's imaging studies and report of significant concern for chronic interstitial lung disease. Medical records from outside hospital reveal patient has a diagnosis of pulmonary fibrosis for approximately 1 year, managed in [place], [place]. The patient is at risk for possible intubation with continued respiratory compromise. remain in ICU. Plan by systems: Neurologic: Bipolar disorder Depression History of (smoking) cocaine abuse 10/2016 Neurochecks per ICU protocol Continue home meds- Abilify, Prozac trazodone @ hs, half-dose, 100mg. UDS negative. Respiratory: Acute on chronic hypoxemic respiratory failure - persistent. Possible community-acquired pneumonia History of Tobacco use disorder Chronic interstitial lung disease-steroid dependent Pulmonary fibrosis Home O2 dependency COPD History of asthma Maintain O2 sat greater than 88% Duo nebs every 6 hours scheduled and every 2 hours when necessary Continue home med Symbicort Methylprednisolone 125 mg every 8 hours Pulmonology consulted PFTs 09/18 2016([facility]) FEV1 700 -25% of predicted, FVC 21% no lung volumes are diffusions were performed 09/07/16 CT thorax ([facility]) pulmonary fibrosis with left adrenal adenoma , however alpha 1 antitrypsin level was WNL , but positive (ASMA)anti-smooth muscle antibodies 1:640, ceruloplasmin normal did not tolerated HFNC 07/15, patient too uncomfortable. still remains on pNRB. continue and wean o2 as tolerated. Cardiovascular: Maintain MAP greater than 65 mmHg Telemetry sinus rhythm Normotensive 09/08/16 echo ([facility]) EF 55-60 %, Mildly elevated pulmonary pressure no major valvular abnormalities Renal: No Xavier required -- Strict I/Os FEN/GI: Autoimmune hepatitis? (reported) Hepatitis C Transaminitis Hyperlipidemia GERD Mild protein calorie malnutrition Monitor LFTs: currently downtrending. 07/15 ultrasound of abdomen- gallbladder wall thickening, borderline splenomegaly , trace right pleural effusion lipid panel Famotidine GI prophylaxis Zofran for nausea 09/13/16 Liver biopsy ([facility]) see medical chart for review- Patient referred to [facility] for eval for liver transplant Heme/ID: Monitor CBC blood cultures- NGTD Legionella and pneumococcal urine antigens- Pending Influenza- negative d/c vancomycin: cultures NGTD x 48h and no healthcare association given severe chronic lung disease, will keep azithromycin and cefepime for total of 7 days (anticipated stop date 07/20). Endocrine: Glucose monitoring per ICU protocol. Low dose regimen -- SSI Prophylaxis: GI Prophylaxis Famotidine DVT Prophylaxis -- SCDs Heparin SQ every 12 hrs Lines: Peripheral IVs 2. Dispo: remain in ICU. Kee Worrell MD Jul 17, 2017 06:47
[2017-07-17] MEDS: RESP: ALBUTEROL 2.5 MG/IPRATROPIUM 0.5 MG NEB (SCH) NEB ×3 (07:58→20:23)
[2017-07-17] MEDS: INSULIN ASPART SUPPLEMENTAL SCALE SQ SCH ×4 (08:00→20:02)
[2017-07-17] MEDS: RESP: ACETYLCYSTEINE 10% 30 ML NEB NEB SCH ×3 (08:00→20:23)
[2017-07-17] MEDS: NAPROXEN 500 MG TAB PO SCH ×2 (08:20→19:55)
[2017-07-17] MEDS: ARIPiprazole 10 MG TAB PO SCH (08:20)
[2017-07-17] MEDS: FLUoxetine HCL 20 MG CAP PO SCH (08:20)
[2017-07-17] MEDS: BUDESONIDE-FORMOTEROL 80/4.5 MCG INHALER INH SCH ×2 (09:00→19:56)
[2017-07-17 11:27] LABS: HEPATITIS A AB IGM NEGATIVE (NEGATIVE); HEPATITIS B CORE AB IGM NEGATIVE (NEGATIVE); HEPATITIS B SURFACE ANTIGEN POSITIVE (NEGATIVE); HEPATITIS C AB IgG NEGATIVE (NEGATIVE)
--- NOTE | 2017-07-17 15:13 | HHI.PR ---
Subjective Remarks alert less sob on o2, sat 96% Objective Vital Signs Date Time Temp Pulse Resp B/P (MAP) Pulse Ox O2 Delivery O2 Flow Rate FiO2 07/17/17 13:00 68 24 75/49 (58) 99 07/17/17 12:22 64 22 75/49 (58) 99 07/17/17 12:04 74 29 98 07/17/17 12:00 98.2 76 24 74/47 (56) 98 07/17/17 12:00 92 Nasal Cannula 30.00 07/17/17 11:00 86 23 82/50 (61) 99 07/17/17 10:00 80 21 82/50 (61) 98 07/17/17 10:00 80 21 82/50 (61) 98 07/17/17 09:20 22 07/17/17 09:03 92 High Flow Nasal Cannula 30.00 75 07/17/17 09:00 100 34 90/60 (70) 88 07/17/17 09:00 100 34 90/60 (70) 88 07/17/17 08:04 99 Partial Rebreather 14.00 07/17/17 08:00 98 Partial Non-Rebreather 12.00 60 07/17/17 08:00 70 27 86/61 (69) 100 07/17/17 08:00 70 27 86/61 (69) 100 07/17/17 07:00 62 20 83/51 (62) 99 07/17/17 07:00 97.8 62 20 83/51 (62) 99 07/17/17 06:02 56 20 80/55 (63) 98 07/17/17 06:02 56 20 80/55 (63) 98 07/17/17 06:00 54 20 73/46 (55) 98 07/17/17 06:00 54 20 73/46 (55) 98 07/17/17 05:15 70 28 83/53 (63) 96 07/17/17 05:15 70 28 83/53 (63) 96 07/17/17 05:06 58 19 81/51 (61) 99 07/17/17 05:06 58 19 81/51 (61) 99 07/17/17 05:02 58 20 78/50 (59) 99 07/17/17 05:02 58 20 78/50 (59) 99 07/17/17 05:00 62 22 78/44 (55) 98 07/17/17 05:00 62 22 78/44 (55) 98 07/17/17 04:00 97 Partial Non-Rebreather 12.00 60 07/17/17 04:00 58 20 91/55 (67) 99 07/17/17 04:00 97.5 58 20 91/55 (67) 99 07/17/17 03:06 60 21 83/60 (68) 99 07/17/17 03:06 60 21 83/60 (68) 99 07/17/17 03:00 64 21 83/58 (66) 99 07/17/17 03:00 64 21 83/58 (66) 99 07/17/17 02:00 68 21 91/57 (68) 99 07/17/17 02:00 68 21 91/57 (68) 99 07/17/17 01:00 68 20 96/59 (71) 100 07/17/17 01:00 68 20 96/59 (71) 100 07/17/17 00:00 78 24 95/64 (74) 99 07/17/17 00:00 97.8 78 24 95/64 (74) 99 07/17/17 00:00 96 Partial Non-Rebreather 12.00 60 07/16/17 23:00 78 26 93/59 (70) 97 07/16/17 22:00 74 25 92/57 (69) 99 07/16/17 21:52 99 Partial Rebreather 14.00 07/16/17 21:36 92 36 102/70 (81) 96 07/16/17 21:00 66 23 81/63 (69) 100 07/16/17 20:00 96 Partial Non-Rebreather 60 07/16/17 20:00 97.1 80 27 94/66 (75) 99 07/16/17 19:00 86 28 98/63 (75) 98 07/16/17 18:00 90 28 90/61 (71) 99 07/16/17 17:00 98 07/16/17 17:00 100 32 95/59 (71) 98 07/16/17 16:00 99 07/16/17 16:00 92 27 96/68 (77) 99 I/O 1/14/18 1/1407/16/17 07/17/17 07/17/17 07/17/17 07:00 15:00 23:00 07:00 15:00 23:00 Intake Total 300 ml 360 ml 270 ml 570 ml Output Total 1400 ml 200 ml Balance -1100 ml 360 ml 270 ml 370 ml Intake Oral 300 ml 360 ml 270 ml 120 ml IV Total 450 ml Output Urine Total 1400 ml 200 ml # Bowel Movements 0 0 Result Diagram: 07/17/1742507/17/17425 Objective Remarks GENERAL: SKIN: Warm and dry. HEAD: Atraumatic. Normocephalic. EYES: Pupils equal and round. No scleral icterus. No injection or drainage. ENT: No nasal bleeding or discharge. Mucous membranes pink and moist. NECK: Trachea midline. No JVD. CARDIOVASCULAR: Regular rate and rhythm. RESPIRATORY: No accessory muscle use. Clear to auscultation. Breath sounds equal bilaterally. GASTROINTESTINAL: Abdomen soft, non-tender, nondistended. Hepatic and splenic margins not palpable. MUSCULOSKELETAL: Extremities without clubbing, cyanosis, or edema. No obvious deformities. NEUROLOGICAL: Awake and alert. No obvious cranial nerve deficits. Motor grossly within normal limits. Five out of 5 muscle strength in the arms and legs. Normal speech. PSYCHIATRIC: Appropriate mood and affect; insight and judgment normal. Assessment and Plan Assessment and Plan pulm fibrosis respiratory failure liver failure plan o2 antibx bronchodilators old records pending Lincoln Stark MD Jul 17, 2017 15:13
[2017-07-17] MEDS ORDERED: PHARMACY ORDERED LAB ONE (17:45)
[2017-07-17] MEDS: traZODone HCL 100 MG TAB PO SCH (19:55)
[2017-07-18] VITALS (28 sets, daily range): BP systolic 86–127; BP diastolic 61–83; PULSE 56–92; RESP 21–36; TEMP 97.8–98.7; O2SAT 86–98
[2017-07-18] MEDS: CHLORHEXIDINE GLUCONATE 2 % 1 PACK (2 CLOTHS)(taper/protocol) TOPICAL SCH (03:28)
[2017-07-18 04:51] LABS: HEMOGLOBIN 10.2 GM/DL (11.6-15.3); MEAN CELL VOLUME 91.4 FL (80.0-100.0); MEAN CORPUSCULAR HEMOGLOBIN 29.2 PG (27.0-34.0); MEAN CORPUSCULAR HGB CONC 31.9 % (32.0-36.0); MEAN PLATELET VOLUME 8.8 FL (7.0-11.0); PLATELET COUNT 153 TH/MM3 (150-450); RED CELL DISTRIBUTION WIDTH 15.8 % (11.6-17.2); WHITE BLOOD COUNT 8.4 TH/MM3 (4.0-11.0)
[2017-07-18 05:06] LABS: CHLORIDE 108 MEQ/L (98-107); SODIUM (NA) 143 MEQ/L (136-145)
[2017-07-18 05:10] LABS: CALCIUM 7.8 MG/DL (8.5-10.1)
[2017-07-18 05:11] LABS: BICARBONATE 31.1 MEQ/L (21.0-32.0); BLOOD UREA NITROGEN 24 MG/DL (7-18); GLUCOSE,RANDOM 117 MG/DL (74-106)
[2017-07-18 05:14] LABS: ALT (GPT) 578 U/L (10-53); AST (GOT) 162 U/L (15-37); CREATININE 0.56 MG/DL (0.50-1.00); GLOMERULAR FILTRATION RATE 117 ML/MIN (>89)
[2017-07-18 05:15] LABS: TOTAL BILIRUBIN ADULT 0.9 MG/DL (0.2-1.0); TOTAL PROTEIN 5.6 GM/DL (6.4-8.2)
[2017-07-18 05:16] LABS: ALKALINE PHOSPHATASE 141 U/L (45-117)
[2017-07-18] MEDS: AZITHROMYCIN 250 MG TAB PO SCH (06:32)
[2017-07-18] MEDS: CEFEPIME INJ 2,000 MG in SODIUM CHLORIDE 0.9% INJ 100 ML IV SCH ×3 (06:33→19:56)
[2017-07-18] MEDS: methylPREDNISolone SOD SUCC 125 MG/2 ML VIAL IV PUSH SCH ×3 (06:33→19:55)
[2017-07-18] MEDS: RESP: ALBUTEROL 2.5 MG/IPRATROPIUM 0.5 MG NEB (SCH) NEB ×3 (07:43→20:27)
[2017-07-18] MEDS: RESP: ACETYLCYSTEINE 10% 30 ML NEB NEB SCH ×3 (07:43→20:28)
[2017-07-18] MEDS: ARIPiprazole 10 MG TAB PO SCH (08:08)
[2017-07-18] MEDS: FLUoxetine HCL 20 MG CAP PO SCH (08:08)
[2017-07-18] MEDS: NAPROXEN 500 MG TAB PO SCH ×2 (08:08→19:55)
[2017-07-18] MEDS: INSULIN ASPART SUPPLEMENTAL SCALE SQ SCH ×4 (08:09→19:56)
[2017-07-18] MEDS: BUDESONIDE-FORMOTEROL 80/4.5 MCG INHALER INH SCH ×2 (08:09→19:54)
--- NOTE | 2017-07-18 17:08 | HHI.CCPN ---
Subjective Remarks/Hospital Course This is a 47-year-old white female that was admitted 2 days ago on 07/12/2017 to [facility].Patient was in her usual state of health until about a few days ago when she began experiencing a gradual onset of worsening shortness of breath and pleuritic chest pain. This is associated with a fever of 102.3 and mild productive nonbloody cough. Patient has 3 L/m home O2 dependency . Per report , the patient had been wearing her 3 L of oxygen at home. 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 Patient states that she was supposed to be taking 30 mg of prednisone on a daily basis for some time but she herself discontinued it about 2 months ago at her own discretion because she felt that they were disrupting her sleep significantly. She also says she takes an inhaler 4 times of the day but denies apparently taking any controller medications. Patient does have a history of bipolar disorder and says she is compliant with those medications. In the emergency department she was placed on 4 L, given steroids, Rocephin and azithromycin and DuoNeb treatments and then sent to the [facility] floor. Today 07/14/17, patient was noted to have significant decompensation and respiratory status requiring a nonrebreather mask, and at risk for possible intubation. Pulmonology was consulted .Critical care medicine was consulted, patient was transferred to the ICU. Records obtained from [facility] revealed the patient has autoimmune hepatitis, and pulmonary fibrosis. Upon my evaluation the patient was noted to be 99% on nonrebreather the patient was then placed on partial nonrebreather O2 saturation 94%, respiratory rate 28. Subjective: 07/15: FiO2 continues to be 60% on a partial non-rebreather mask. Plan to transition to high flow nasal cannula this a.m.. Pulmonology consult pending. Patient continues on steroids and antibiotics, noted acute desaturation with minimal activity. Strict bed rest implemented. Attempts being made to obtain records from [facility] her last admission for pulmonary compromise. 07/16: fio2 improves. abg slightly improving 7.39/51/138. LFTs coming down slightly. patient wants to get OOB. denies other complaints. ROS negative. 07/17: remains hypoxic on NRB. did get OOB to chair yesterday. denies complaints. ROS negative. 07/18 No events overnight. Patient is on high flow oxygen 30L with 45% FIO2. Afebrile. Objective Vital Signs Date Time Temp Pulse Resp B/P (MAP) Pulse Ox O2 Delivery O2 Flow Rate FiO2 07/18/17 16:01 76 27 104/73 (83) 95 07/18/17 16:00 Nasal Cannula 45 07/18/17 12:01 98.3 07/18/17 12:00 30.00 Intake and Output 07/18/17 07/18/17 07/19/17 08:00 16:00 00:00 Output Total 350 ml Balance -350 ml Result Diagram: 07/18/17 0435 07/18/17 0435 Other Results Laboratory Tests Test 07/17/17 18:10 07/18/17 04:35 Vancomycin Level Trough 7.9 MCG/ML White Blood Count 8.4 TH/MM3 Red Blood Count 3.50 MIL/MM3 Hemoglobin 10.2 GM/DL Hematocrit 32.0 % Mean Corpuscular Volume 91.4 FL Mean Corpuscular Hemoglobin 29.2 PG Mean Corpuscular Hemoglobin Concent 31.9 % Red Cell Distribution Width 15.8 % Platelet Count 153 TH/MM3 Mean Platelet Volume 8.8 FL Blood Urea Nitrogen 24 MG/DL Creatinine 0.56 MG/DL Random Glucose 117 MG/DL Total Protein 5.6 GM/DL Albumin 2.0 GM/DL Calcium Level 7.8 MG/DL Alkaline Phosphatase 141 U/L Aspartate Amino Transf (AST/SGOT) 162 U/L Alanine Aminotransferase (ALT/SGPT) 578 U/L Total Bilirubin 0.9 MG/DL Sodium Level 143 MEQ/L Potassium Level 3.9 MEQ/L Chloride Level 108 MEQ/L Carbon Dioxide Level 31.1 MEQ/L Anion Gap 4 MEQ/L Estimat Glomerular Filtration Rate 117 ML/MIN Imaging Last Impressions Chest X-Ray 07/14/17 0000 Signed Impressions: Service Date/Time: Friday, July 14, 2017 17:58 - CONCLUSION: No significant interval change in diffuse interstitial pulmonary opacity bilaterally. Raffi Briggs MD CT Angiography 07/14/17 0000 Signed Impressions: Service Date/Time: Friday, July 14, 2017 10:01 - CONCLUSION: Extensive parenchymal lung disease which appears largely chronic with superimposed acute exacerbation. No evidence of pulmonary embolism.. You Mccallum MD Abdomen Ultrasound 07/14/17 0000 Signed Impressions: Service Date/Time: Friday, July 14, 2017 19:45 - CONCLUSION: Liver within normal limits. Small gallstone in the gallbladder. Nonspecific mild diffuse gallbladder wall thickening. Borderline splenomegaly. Trace right pleural effusion. Raffi Briggs MD Objective Remarks GENERAL: This is a middle-aged female, currently on high flow oxygen SKIN: Warm and dry. HEAD: Atraumatic. Normocephalic. EYES: Pupils equal and round. No scleral icterus. No injection or drainage. ENT: No nasal bleeding or discharge. Mucous membranes pink and moist. NECK: Trachea midline. No JVD. CARDIOVASCULAR: Normal rate, regular rhythm. RESPIRATORY: No accessory muscle use. equal chest rise. coarse BS GASTROINTESTINAL: Abdomen soft, non-tender, nondistended. No guarding. MUSCULOSKELETAL: Extremities without clubbing, cyanosis, or edema. No obvious deformities. NEUROLOGICAL: GCS 15 .Awake and alert. RASS 0. No gross focal/sensory deficits. Follows commands in all 4 extremities. A/P Assessment and Plan This is a 47-year-old female with acute on chronic hypoxemic respiratory failure and increasing O2 requirements. The patient's imaging studies and report of significant concern for chronic interstitial lung disease. Medical records from outside hospital reveal patient has a diagnosis of pulmonary fibrosis for approximately 1 year, managed in [place], [place]. The patient is at risk for possible intubation with continued respiratory compromise. remain in ICU. Plan by systems: Neurologic: Bipolar disorder Depression History of (smoking) cocaine abuse 10/2016 Neurochecks per ICU protocol Continue home meds- Abilify, Prozac Trazodone 100mg qhs UDS negative. Respiratory: Acute on chronic hypoxemic respiratory failure - persistent. Possible community-acquired pneumonia History of Tobacco use disorder Chronic interstitial lung disease-steroid dependent Pulmonary fibrosis Home O2 dependency COPD History of asthma Maintain O2 sat greater than 88% Duo nebs every 6 hours scheduled and every 2 hours when necessary Continue home med Symbicort Methylprednisolone 125 mg every 8 hours Pulmonology is following- Dr. Stark PFTs 09/18 2016([facility]) FEV1 700 -25% of predicted, FVC 21% no lung volumes are diffusions were performed 09/07/16 CT thorax ([facility]) pulmonary fibrosis with left adrenal adenoma , however alpha 1 antitrypsin level was WNL , but positive (ASMA)anti-smooth muscle antibodies 1:640, ceruloplasmin normal Cardiovascular: Monitor HR and BP keep MAP>65mmHg 09/08/16 echo ([facility]) EF 55-60 %, Mildly elevated pulmonary pressure no major valvular abnormalities Renal: Monitor renal function, I/Os, electrolytes replacement per protocol. FEN/GI: Autoimmune hepatitis? (reported) Hepatitis C Transaminitis Hyperlipidemia GERD Mild protein calorie malnutrition Monitor LFTs: currently downtrending. 07/15 ultrasound of abdomen- gallbladder wall thickening, borderline splenomegaly , trace right pleural effusion lipid panel Famotidine GI prophylaxis Zofran for nausea 09/13/16 Liver biopsy ([facility]) see medical chart for review- Patient referred to [facility] for eval for liver transplant GI eval Heme/ID: Monitor CBC blood cultures- NGTD Legionella and pneumococcal urine antigens- negative Influenza- negative Continue abx- azithromycin and cefepime for total of 7 days (anticipated stop date 07/20). Endocrine: Glucose monitoring per ICU protocol. Low dose regimen -- SSI Prophylaxis: GI Prophylaxis Famotidine DVT Prophylaxis -- SCDs Lines: Peripheral IVs 2. Dispo: remain in ICU. Mone Lora MD Jul 18, 2017 17:08
[2017-07-18] MEDS ORDERED: FUROSEMIDE 40 MG/4 ML VIAL IV PUSH ONE (17:15)
[2017-07-18] MEDS: FAMOTIDINE 20 MG/2 ML VIAL IV PUSH SCH (17:36)
--- NOTE | 2017-07-18 17:39 | HHI.PR ---
Subjective Remarks alert less sob on o2, sat 96% feels a little stronger Objective Vital Signs Date Time Temp Pulse Resp B/P (MAP) Pulse Ox O2 Delivery O2 Flow Rate FiO2 07/18/17 16:01 76 27 104/73 (83) 95 07/18/17 16:00 Nasal Cannula 45 07/18/17 15:01 80 29 113/73 (86) 93 07/18/17 15:01 80 29 113/73 (86) 93 07/18/17 15:00 82 32 93 07/18/17 14:01 84 31 114/83 (93) 91 07/18/17 13:01 74 31 102/67 (79) 94 07/18/17 13:01 74 31 102/67 (79) 94 07/18/17 13:00 78 31 94 07/18/17 12:01 98.3 78 28 104/62 (76) 93 07/18/17 12:01 78 28 104/62 (76) 93 07/18/17 12:00 Nasal Cannula 30.00 65 07/18/17 12:00 78 27 94 07/18/17 11:01 80 27 98/64 (75) 95 07/18/17 10:01 86 28 99/66 (77) 93 07/18/17 09:08 25 07/18/17 09:00 80 29 91/65 (74) 95 07/18/17 09:00 80 29 91/65 (74) 95 07/18/17 08:00 Nasal Cannula 30.00 65 07/18/17 08:00 97.8 70 25 101/65 (77) 95 07/18/17 08:00 70 25 101/65 (77) 95 07/18/17 07:48 93 High Flow Nasal Cannula 30.00 50 07/18/17 07:00 97.9 64 25 98/67 (77) 91 07/18/17 06:00 56 23 97/64 (75) 94 07/18/17 06:00 56 23 97/64 (75) 94 07/18/17 05:00 58 25 92/62 (72) 94 07/18/17 04:00 Nasal Cannula 30.00 65 07/18/17 04:00 98.5 60 21 97/64 (75) 94 07/18/17 03:00 56 22 93/66 (75) 97 07/18/17 02:00 62 21 86/61 (69) 97 07/18/17 01:00 66 23 93/61 (72) 97 07/18/17 00:00 98.5 68 24 97/64 (75) 98 07/18/17 00:00 Nasal Cannula 30.00 65 07/17/17 23:00 76 26 100/60 (73) 97 07/17/17 22:00 86 29 103/64 (77) 97 07/17/17 21:00 92 29 102/67 (79) 96 07/17/17 20:22 94 High Flow Nasal Cannula 30.00 65 07/17/17 20:00 Nasal Cannula 30.00 07/17/17 20:00 98.7 92 34 92/60 (71) 91 07/17/17 19:00 96 33 100/66 (77) 88 07/17/17 18:00 97.9 88 34 95/65 (75) 93 I/O 07/17/17 07/17/17 07/17/17 07/18/17 07/18/17 07/18/17 06:59 14:59 22:59 06:59 14:59 22:59 Intake Total 570 ml 720 ml 500 ml Output Total 200 ml 780 ml 350 ml Balance 370 ml -60 ml 500 ml -350 ml Intake Oral 120 ml 720 ml 400 ml IV Total 450 ml 100 ml Output Urine Total 200 ml 780 ml 350 ml # Bowel Movements 0 Result Diagram: 07/18/175 07/18/17 0435 Objective Remarks GENERAL: SKIN: Warm and dry. HEAD: Atraumatic. Normocephalic. EYES: Pupils equal and round. No scleral icterus. No injection or drainage. ENT: No nasal bleeding or discharge. Mucous membranes pink and moist. NECK: Trachea midline. No JVD. CARDIOVASCULAR: Regular rate and rhythm. RESPIRATORY: No accessory muscle use. Clear to auscultation. Breath sounds equal bilaterally. GASTROINTESTINAL: Abdomen soft, non-tender, nondistended. Hepatic and splenic margins not palpable. MUSCULOSKELETAL: Extremities without clubbing, cyanosis, or edema. No obvious deformities. NEUROLOGICAL: Awake and alert. No obvious cranial nerve deficits. Motor grossly within normal limits. Five out of 5 muscle strength in the arms and legs. Normal speech. PSYCHIATRIC: Appropriate mood and affect; insight and judgment normal. Assessment and Plan Assessment and Plan pulm fibrosis respiratory failure liver failure plan o2 antibx bronchodilators old records pending increase activity Lincoln Stark MD Jul 18, 2017 17:39
[2017-07-18] MEDS: traZODone HCL 100 MG TAB PO SCH (19:54)
[2017-07-19] VITALS (26 sets, daily range): BP systolic 92–118; BP diastolic 62–83; PULSE 52–100; RESP 20–46; TEMP 97.7–99; O2SAT 90–99
[2017-07-19] MEDS: CHLORHEXIDINE GLUCONATE 2 % 1 PACK (2 CLOTHS)(taper/protocol) TOPICAL SCH (03:47)
[2017-07-19 04:56] LABS: AUTOMATED NEUTROPHIL # 6.3 TH/MM3 (1.8-7.7); BASOPHIL # 0.2 TH/MM3 (0-0.2); EOSINOPHIL % 0.1 % (0.0-4.0); HEMATOCRIT 34.4 % (35.0-46.0); HEMOGLOBIN 11.3 GM/DL (11.6-15.3); LYMPHOCYTE # 0.6 TH/MM3 (1.0-4.8); MEAN CELL VOLUME 90.7 FL (80.0-100.0); MEAN CORPUSCULAR HEMOGLOBIN 29.7 PG (27.0-34.0); MEAN CORPUSCULAR HGB CONC 32.7 % (32.0-36.0); MEAN PLATELET VOLUME 9.4 FL (7.0-11.0); MONO % 5.9 % (0.0-8.0); MONOCYTE # 0.4 TH/MM3 (0-0.9); PLATELET COUNT 157 TH/MM3 (150-450); RED CELL DISTRIBUTION WIDTH 15.6 % (11.6-17.2); WHITE BLOOD COUNT 7.5 TH/MM3 (4.0-11.0)
[2017-07-19 05:16] LABS: CHLORIDE 104 MEQ/L (98-107); SODIUM (NA) 142 MEQ/L (136-145)
[2017-07-19 05:20] LABS: ALBUMIN 2.2 GM/DL (3.4-5.0); BICARBONATE 34.7 MEQ/L (21.0-32.0); CALCIUM 7.7 MG/DL (8.5-10.1); GLUCOSE,RANDOM 120 MG/DL (74-106)
[2017-07-19 05:21] LABS: BLOOD UREA NITROGEN 28 MG/DL (7-18)
[2017-07-19 05:23] LABS: ALT (GPT) 545 U/L (10-53); AST (GOT) 139 U/L (15-37); CREATININE 0.65 MG/DL (0.50-1.00); GLOMERULAR FILTRATION RATE 99 ML/MIN (>89)
[2017-07-19 05:24] LABS: PHOSPHORUS 2.7 MG/DL (2.5-4.9)
[2017-07-19 05:25] LABS: TOTAL BILIRUBIN ADULT 0.7 MG/DL (0.2-1.0); TOTAL PROTEIN 5.9 GM/DL (6.4-8.2)
[2017-07-19 05:26] LABS: ALKALINE PHOSPHATASE 146 U/L (45-117)
[2017-07-19] MEDS: FAMOTIDINE 20 MG/2 ML VIAL IV PUSH SCH ×2 (05:49→18:13)
[2017-07-19] MEDS: methylPREDNISolone SOD SUCC 125 MG/2 ML VIAL IV PUSH SCH ×3 (05:49→20:59)
[2017-07-19] MEDS: CEFEPIME INJ 2,000 MG in SODIUM CHLORIDE 0.9% INJ 100 ML IV SCH ×3 (05:50→20:59)
[2017-07-19] MEDS: AZITHROMYCIN 250 MG TAB PO SCH (05:50)
[2017-07-19 06:22] LABS: INTERNATIONAL NORMALIZED RATIO 1.1 RATIO; PROTHROMBIN TIME - PATIENT 11.1 SEC (9.8-11.6)
[2017-07-19] MEDS: BUDESONIDE-FORMOTEROL 80/4.5 MCG INHALER INH SCH ×2 (08:00→20:47)
[2017-07-19] MEDS: FLUoxetine HCL 20 MG CAP PO SCH (08:00)
[2017-07-19] MEDS: ARIPiprazole 10 MG TAB PO SCH (08:00)
[2017-07-19] MEDS: NAPROXEN 500 MG TAB PO SCH ×2 (08:00→20:48)
[2017-07-19] MEDS: INSULIN ASPART SUPPLEMENTAL SCALE SQ SCH ×4 (08:04→20:58)
[2017-07-19] MEDS: RESP: ACETYLCYSTEINE 10% 30 ML NEB NEB SCH ×3 (08:20→21:17)
[2017-07-19] MEDS: RESP: ALBUTEROL 2.5 MG/IPRATROPIUM 0.5 MG NEB (SCH) NEB ×3 (08:20→21:17)
--- NOTE | 2017-07-19 10:56 | HHI.CCPN ---
Subjective Remarks/Hospital Course This is a 47-year-old white female that was admitted 2 days ago on 07/12/2017 to [facility].Patient was in her usual state of health until about a few days ago when she began experiencing a gradual onset of worsening shortness of breath and pleuritic chest pain. This is associated with a fever of 102.3 and mild productive nonbloody cough. Patient has 3 L/m home O2 dependency . Per report , the patient had been wearing her 3 L of oxygen at home. 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 Patient states that she was supposed to be taking 30 mg of prednisone on a daily basis for some time but she herself discontinued it about 2 months ago at her own discretion because she felt that they were disrupting her sleep significantly. She also says she takes an inhaler 4 times of the day but denies apparently taking any controller medications. Patient does have a history of bipolar disorder and says she is compliant with those medications. In the emergency department she was placed on 4 L, given steroids, Rocephin and azithromycin and DuoNeb treatments and then sent to the [facility] floor. Today 07/14/17, patient was noted to have significant decompensation and respiratory status requiring a nonrebreather mask, and at risk for possible intubation. Pulmonology was consulted .Critical care medicine was consulted, patient was transferred to the ICU. Records obtained from [facility] revealed the patient has autoimmune hepatitis, and pulmonary fibrosis. Upon my evaluation the patient was noted to be 99% on nonrebreather the patient was then placed on partial nonrebreather O2 saturation 94%, respiratory rate 28. Subjective: 07/15: FiO2 continues to be 60% on a partial non-rebreather mask. Plan to transition to high flow nasal cannula this a.m.. Pulmonology consult pending. Patient continues on steroids and antibiotics, noted acute desaturation with minimal activity. Strict bed rest implemented. Attempts being made to obtain records from [facility] her last admission for pulmonary compromise. 07/16: fio2 improves. abg slightly improving 7.39/51/138. LFTs coming down slightly. patient wants to get OOB. denies other complaints. ROS negative. 07/17: remains hypoxic on NRB. did get OOB to chair yesterday. denies complaints. ROS negative. 07/18 No events overnight. Patient is on high flow oxygen 30L with 45% FIO2. Afebrile. 07/19: Remains on high flow O2 30 L/m with 35% FiO2. Objective Vital Signs Date Time Temp Pulse Resp B/P (MAP) Pulse Ox O2 Delivery O2 Flow Rate FiO2 07/19/17 08:23 96 High Flow Nasal Cannula 30.00 35 07/19/17 06:00 64 22 118/77 (91) 07/19/17 04:00 97.7 Intake and Output 07/19/17 07/19/17 07/20/17 08:00 16:00 00:00 Output Total 600 ml Balance -600 ml Result Diagram: 07/19/17 0440 07/19/17 0440 Imaging Last Impressions Chest X-Ray 07/14/17 0000 Signed Impressions: Service Date/Time: Friday, July 14, 2017 17:58 - CONCLUSION: No significant interval change in diffuse interstitial pulmonary opacity bilaterally. Raffi Briggs MD CT Angiography 07/14/17 0000 Signed Impressions: Service Date/Time: Friday, July 14, 2017 10:01 - CONCLUSION: Extensive parenchymal lung disease which appears largely chronic with superimposed acute exacerbation. No evidence of pulmonary embolism.. You Mccallum MD Abdomen Ultrasound 07/14/17 0000 Signed Impressions: Service Date/Time: Friday, July 14, 2017 19:45 - CONCLUSION: Liver within normal limits. Small gallstone in the gallbladder. Nonspecific mild diffuse gallbladder wall thickening. Borderline splenomegaly. Trace right pleural effusion. Raffi Briggs MD Objective Remarks GENERAL: This is a middle-aged female, currently on high flow oxygen SKIN: Warm and dry. HEAD: Atraumatic. Normocephalic. EYES: Pupils equal and round. No scleral icterus. No injection or drainage. ENT: No nasal bleeding or discharge. Mucous membranes pink and moist. NECK: Trachea midline. No JVD. CARDIOVASCULAR: Normal rate, regular rhythm. RESPIRATORY: No accessory muscle use. equal chest rise. coarse BS GASTROINTESTINAL: Abdomen soft, non-tender, nondistended. No guarding. MUSCULOSKELETAL: Extremities without clubbing, cyanosis, or edema. No obvious deformities. NEUROLOGICAL: GCS 15 .Awake and alert. RASS 0. No gross focal/sensory deficits. Follows commands in all 4 extremities. A/P Assessment and Plan This is a 47-year-old female with acute on chronic hypoxemic respiratory failure and increasing O2 requirements. The patient's imaging studies and report of significant concern for chronic interstitial lung disease. Medical records from outside hospital reveal patient has a diagnosis of pulmonary fibrosis for approximately 1 year, managed in [place], [place]. The patient is at risk for possible intubation with continued respiratory compromise. remain in ICU. Plan by systems: Neurologic: Bipolar disorder Depression History of (smoking) cocaine abuse 10/2016 Neurochecks per ICU protocol Continue home meds- Abilify, Prozac Trazodone 100mg qhs UDS negative. Respiratory: Acute on chronic hypoxemic respiratory failure - persistent. Possible community-acquired pneumonia History of Tobacco use disorder Chronic interstitial lung disease-steroid dependent Pulmonary fibrosis Home O2 dependency COPD History of asthma Maintain O2 sat greater than 88% Duo nebs every 6 hours scheduled and every 2 hours when necessary Continue home med Symbicort Methylprednisolone 125 mg every 8 hours Pulmonology is following- Dr. Stark PFTs 09/18 2016([facility]) FEV1 700 -25% of predicted, FVC 21% no lung volumes are diffusions were performed 09/07/16 CT thorax ([facility]) pulmonary fibrosis with left adrenal adenoma , however alpha 1 antitrypsin level was WNL , but positive (ASMA)anti-smooth muscle antibodies 1:640, ceruloplasmin normal Cardiovascular: Monitor HR and BP keep MAP>65mmHg 09/08/16 echo ([facility]) EF 55-60 %, Mildly elevated pulmonary pressure no major valvular abnormalities Renal: Monitor renal function, I/Os, electrolytes replacement per protocol. FEN/GI: Autoimmune hepatitis? (reported) Hepatitis C Transaminitis Hyperlipidemia GERD Mild protein calorie malnutrition Monitor LFTs: currently downtrending. 07/15 ultrasound of abdomen- gallbladder wall thickening, borderline splenomegaly , trace right pleural effusion lipid panel Famotidine GI prophylaxis Zofran for nausea 09/13/16 Liver biopsy ([facility]) see medical chart for review- Patient referred to [facility] for eval for liver transplant GI eval Heme/ID: Monitor CBC blood cultures- NGTD Legionella and pneumococcal urine antigens- negative Influenza- negative Continue abx- azithromycin and cefepime for total of 7 days (anticipated stop date 07/20). Endocrine: Glucose monitoring per ICU protocol. Low dose regimen -- SSI Prophylaxis: GI Prophylaxis Famotidine DVT Prophylaxis -- SCDs Lines: Peripheral IVs 2. Dispo: remain in ICU. Tra Palma MD Jul 19, 2017 10:56
[2017-07-19] MEDS ORDERED: MAGNESIUM OXIDE 400 MG TAB PO PRN (13:30)
[2017-07-19] MEDS ORDERED: POTASSIUM CHLOR 40 MEQ PREMIX 100 ML IV PRN ×2 (13:30)
[2017-07-19] MEDS ORDERED: POTASSIUM CHLORIDE 25 MEQ EFFERVESCENT TAB PO PRN (13:30)
[2017-07-19] MEDS ORDERED: MAGNESIUM SULFATE INJ 2 GM in SODIUM CHLORIDE 0.9% INJ 96 ML IV PRN (13:30)
[2017-07-19] MEDS ORDERED: POTASSIUM PHOSPHATE INJ 30 MMOL in SODIUM CHLOR 0.9% 250 ML INJ 250 ML IV PRN (13:30)
[2017-07-19] MEDS ORDERED: POTASSIUM PHOSPHATE MONOBASIC 500 MG TAB PO/TUBE PRN (13:30)
[2017-07-19] MEDS ORDERED: SODIUM PHOSPHATE INJ 30 MMOL in SODIUM CHLOR 0.9% 250 ML INJ 240 ML IV PRN (13:30)
[2017-07-19] MEDS ORDERED: POTASSIUM CHLOR 20 MEQ PREMIX 100 ML IV PRN ×2 (13:30)
[2017-07-19] MEDS ORDERED: MAGNESIUM SULFATE INJ 4 GM in SODIUM CHLORIDE 0.9% INJ 92 ML IV PRN (13:30)
[2017-07-19] MEDS ORDERED: POTASSIUM PHOSPHATE MONOBASIC 500 MG TAB PO PRN (13:30)
[2017-07-19] MEDS: traZODone HCL 100 MG TAB PO SCH (20:58)
[2017-07-20] VITALS (25 sets, daily range): BP systolic 82–123; BP diastolic 51–78; PULSE 52–88; RESP 19–43; TEMP 97.1–99; O2SAT 90–100
[2017-07-20] LABS: % SATURATION IRON PROFILE 34.6 % (20-50); IRON (FE) 105 MCG/DL (50-170); TOTAL IRON BINDING CAPACITY 304 MCG/DL (250-450)
[2017-07-20 00:03] LABS: FERRITIN 294 NG/ML (8-252)
[2017-07-20 03:50] LABS: C PNEUMO IGA <1:16 (<1:16); C PNEUMO IGM <1:10 (<1:10); C PNEUMO INTERPRETATION PAST INFECTION
[2017-07-20] MEDS: CHLORHEXIDINE GLUCONATE 2 % 1 PACK (2 CLOTHS)(taper/protocol) TOPICAL SCH (04:00)
[2017-07-20 04:39] LABS: HEMATOCRIT 32.8 % (35.0-46.0); HEMOGLOBIN 10.4 GM/DL (11.6-15.3); MEAN CELL VOLUME 90.6 FL (80.0-100.0); MEAN CORPUSCULAR HEMOGLOBIN 28.7 PG (27.0-34.0); MEAN CORPUSCULAR HGB CONC 31.6 % (32.0-36.0); MEAN PLATELET VOLUME 9.6 FL (7.0-11.0); PLATELET COUNT 159 TH/MM3 (150-450); RED BLOOD COUNT 3.62 MIL/MM3 (4.00-5.30); RED CELL DISTRIBUTION WIDTH 15.4 % (11.6-17.2); WHITE BLOOD COUNT 7.6 TH/MM3 (4.0-11.0)
[2017-07-20 04:47] LABS: CHLORIDE 106 MEQ/L (98-107); SODIUM (NA) 141 MEQ/L (136-145)
[2017-07-20 04:50] LABS: ALBUMIN 1.9 GM/DL (3.4-5.0); BICARBONATE 31.8 MEQ/L (21.0-32.0); BLOOD UREA NITROGEN 26 MG/DL (7-18); CALCIUM 7.8 MG/DL (8.5-10.1); GLUCOSE,RANDOM 127 MG/DL (74-106)
[2017-07-20 04:53] LABS: ALT (GPT) 433 U/L (10-53); AST (GOT) 107 U/L (15-37); CREATININE 0.53 MG/DL (0.50-1.00); GLOMERULAR FILTRATION RATE 125 ML/MIN (>89)
[2017-07-20 04:55] LABS: TOTAL BILIRUBIN ADULT 0.7 MG/DL (0.2-1.0); TOTAL PROTEIN 5.4 GM/DL (6.4-8.2)
[2017-07-20 04:56] LABS: ALKALINE PHOSPHATASE 120 U/L (45-117)
[2017-07-20] MEDS: CEFEPIME INJ 2,000 MG in SODIUM CHLORIDE 0.9% INJ 100 ML IV SCH ×2 (05:38→13:55)
[2017-07-20] MEDS: FAMOTIDINE 20 MG/2 ML VIAL IV PUSH SCH ×2 (05:38→17:19)
[2017-07-20] MEDS: methylPREDNISolone SOD SUCC 125 MG/2 ML VIAL IV PUSH SCH ×4 (05:38→22:13)
[2017-07-20] MEDS: AZITHROMYCIN 250 MG TAB PO SCH (05:38)
--- NOTE | 2017-07-20 06:09 | MB ---
cc: OLI ZHU M.D. DATE OF CONSULTATION 07/19/[address] Guillen REASON FOR CONSULTATION Elevated liver enzymes. HISTORY OF PRESENT ILLNESS Ms. Roy is a 47-year-old lady known to us from previous visits to the hospital, was admitted to the hospital with worsening shortness of breath and pleuritic chest pain. She also has fever and nonproductive cough. The patient has elevated liver enzymes for many years. She had an extensive workup in the past. She was noted to have elevation of the antismooth muscle antibody and also presence of hepatitis B surface antigen. The patient had multiple liver biopsies in the past. 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 She was followed as per her by her primary care doctor for elevation of the liver enzymes. At one point her liver enzymes normalized. She was referred to a tertiary center for possible liver transplant. She stated due to health issues and recurrent admissions to the hospital, she was unable to follow through. Also the patient was noted to have elevated ferritin felt to be secondary to infection. Her hemochromatosis genetic testing was negative. PAST MEDICAL HISTORY 1. Autoimmune chronic lung disease, unclear exactly what type. 2. Bipolar disorder. 3. Drug-induced liver disease. 4. History of seizure disorder. 5. Hyperlipidemia. 6. History of polysubstance abuse. ALLERGIES No known allergies. FAMILY HISTORY Denies any family history of colon cancer or any other GI pathology. SOCIAL HISTORY Denies smoking or drinking. MEDICATIONS Currently include - 1. Potassium chloride. 2. Magnesium sulfate. 3. Magnesium oxide. 4. Femotidine. 5. Mucomyst. 6. Azithromycin. 7. Trazodone. 8. Albuterol. 9. Insulin. 10. Cefepime. 11. Solu-Medrol. 12. Naproxen. 13. Symbicort. 14. Albuterol. 15. Abilify. REVIEW OF SYSTEMS CONSTITUTIONAL: On review of systems she denies any fever or chills, weight loss or weight gain. ENT: No alteration in baseline hearing or visual acuity. PULMONARY: Denies any chest pain, shortness of breath. GASTROINTESTINAL: As above. GENITOURINARY: Denies dysuria, hematuria. HEMATOLOGIC: No history of anemia or bleeding disorder. SKIN: No alteration in her baseline skin lesion. NEUROLOGICAL: No history of TIA or CVA kind of symptoms. PHYSICAL EXAMINATION GENERAL: On clinical exam she is sitting comfortably in bed in mild respiratory distress. VITAL SIGNS: Her pulse is 100, respirations 46, blood pressure 100/72, saturation 94. HEENT: VERNA. She has exophthalmia. NECK: No JVD. No lymphadenopathy. CHEST: Clear to auscultation and palpation. CARDIOVASCULAR: S1, S2. No murmur. ABDOMEN: Soft, nontender. Bowel sounds are present. PALM AND BACK FORGER: Awake, alert, oriented x3. No focal signs identified. LABORATORY DATA Her labs were suggestive of potassium of 3.3. Her glucose is 120, total bilirubin 0.7. Her AST is 179, ALT 545, alkaline phosphatase 146. Her previous liver workup was reviewed and the results already discussed earlier. Her CBC is suggestive of a white count of 7.5, hemoglobin 11.3, platelets 157. IMAGING STUDIES Abdominal ultrasound showed the liver within normal limits, small gallstones, nonspecific, mild diffuse gallbladder thickening. CT angiogram showed extensive parenchymal lung disease which appears largely chronic with superimposed acute exacerbation. No evidence of pulmonary emboli. IMPRESSION AND PLAN 1. Ms. Roy is a 47-year-old lady with chronic elevation of the liver enzymes, had extensive workup in the past including liver biopsy, pathology suggesting drug-induced liver disease. Elevation of the anti-smooth muscle antibody, possibly related to her autoimmune disease. As per liver biopsy, no indication of autoimmune hepatitis on the specimens. We will repeat. 2. Chloride elevated ferritin. Genetic testing for hemochromatosis was negative. We will repeat ferritin and iron level. 3. Hepatitis B surface antigen positive. We will send viral load for hepatitis B and C. Supportive care. Obtain records if possible from transit worker. Monitor LFTs closely. Thank you for referring her to our office for consultation. MD DANY ReedB/VICKY /5:47 PM /5:47 AM
--- NOTE | 2017-07-20 07:05 | HHI.CCPN ---
Subjective Remarks/Hospital Course This is a 47-year-old white female that was admitted 2 days ago on 07/12/2017 to [facility].Patient was in her usual state of health until about a few days ago when she began experiencing a gradual onset of worsening shortness of breath and pleuritic chest pain. This is associated with a fever of 102.3 and mild productive nonbloody cough. Patient has 3 L/m home O2 dependency . Per report , the patient had been wearing her 3 L of oxygen at home. 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 Patient states that she was supposed to be taking 30 mg of prednisone on a daily basis for some time but she herself discontinued it about 2 months ago at her own discretion because she felt that they were disrupting her sleep significantly. She also says she takes an inhaler 4 times of the day but denies apparently taking any controller medications. Patient does have a history of bipolar disorder and says she is compliant with those medications. In the emergency department she was placed on 4 L, given steroids, Rocephin and azithromycin and DuoNeb treatments and then sent to the [facility] floor. Today 07/14/17, patient was noted to have significant decompensation and respiratory status requiring a nonrebreather mask, and at risk for possible intubation. Pulmonology was consulted .Critical care medicine was consulted, patient was transferred to the ICU. Records obtained from [facility] revealed the patient has autoimmune hepatitis, and pulmonary fibrosis. Upon my evaluation the patient was noted to be 99% on nonrebreather the patient was then placed on partial nonrebreather O2 saturation 94%, respiratory rate 28. Subjective: 07/15: FiO2 continues to be 60% on a partial non-rebreather mask. Plan to transition to high flow nasal cannula this a.m.. Pulmonology consult pending. Patient continues on steroids and antibiotics, noted acute desaturation with minimal activity. Strict bed rest implemented. Attempts being made to obtain records from [facility] her last admission for pulmonary compromise. 07/16: fio2 improves. abg slightly improving 7.39/51/138. LFTs coming down slightly. patient wants to get OOB. denies other complaints. ROS negative. 07/17: remains hypoxic on NRB. did get OOB to chair yesterday. denies complaints. ROS negative. 07/18 No events overnight. Patient is on high flow oxygen 30L with 45% FIO2. Afebrile. 07/19: Remains on high flow O2 30 L/m with 35% FiO2. 07/20 Patient is lying in bed in NAD. Remains on high flow oxygen 30L with 35% FIO2. Afebrile. Objective Vital Signs Date Time Temp Pulse Resp B/P (MAP) Pulse Ox O2 Delivery O2 Flow Rate FiO2 07/20/17 06:00 54 22 84/60 (68) 98 07/20/17 05:00 99.0 07/20/17 04:00 Nasal Cannula 30.00 35 Intake and Output 07/20/17 07/20/17 07/21/17 08:00 16:00 00:00 Intake Total 260 ml Output Total 200 ml Balance 60 ml Result Diagram: 07/20/17 0417 07/20/17 0417 Other Results Laboratory Tests Test 07/19/17 19:15 07/19/17 19:18 07/19/17 20:30 07/20/17 04:17 Iron Level 105 MCG/DL Total Iron Binding Capacity 304 MCG/DL Percent Iron Saturation 34.6 % Ferritin 294 NG/ML Thyroid Stimulating Hormone 3rd Gen 0.023 uIU/ML Erythrocyte Sedimentation Rate 9 mm/hr White Blood Count 7.6 TH/MM3 Red Blood Count 3.62 MIL/MM3 Hemoglobin 10.4 GM/DL Hematocrit 32.8 % Mean Corpuscular Volume 90.6 FL Mean Corpuscular Hemoglobin 28.7 PG Mean Corpuscular Hemoglobin Concent 31.6 % Red Cell Distribution Width 15.4 % Platelet Count 159 TH/MM3 Mean Platelet Volume 9.6 FL Blood Urea Nitrogen 26 MG/DL Creatinine 0.53 MG/DL Random Glucose 127 MG/DL Total Protein 5.4 GM/DL Albumin 1.9 GM/DL Calcium Level 7.8 MG/DL Alkaline Phosphatase 120 U/L Aspartate Amino Transf (AST/SGOT) 107 U/L Alanine Aminotransferase (ALT/SGPT) 433 U/L Total Bilirubin 0.7 MG/DL Sodium Level 141 MEQ/L Potassium Level 3.9 MEQ/L Chloride Level 106 MEQ/L Carbon Dioxide Level 31.8 MEQ/L Anion Gap 3 MEQ/L Estimat Glomerular Filtration Rate 125 ML/MIN Imaging Last Impressions Chest X-Ray 07/14/17 0000 Signed Impressions: Service Date/Time: Friday, July 14, 2017 17:58 - CONCLUSION: No significant interval change in diffuse interstitial pulmonary opacity bilaterally. Raffi Briggs MD CT Angiography 07/14/17 0000 Signed Impressions: Service Date/Time: Friday, July 14, 2017 10:01 - CONCLUSION: Extensive parenchymal lung disease which appears largely chronic with superimposed acute exacerbation. No evidence of pulmonary embolism.. You Mccallum MD Abdomen Ultrasound 07/14/17 0000 Signed Impressions: Service Date/Time: Friday, July 14, 2017 19:45 - CONCLUSION: Liver within normal limits. Small gallstone in the gallbladder. Nonspecific mild diffuse gallbladder wall thickening. Borderline splenomegaly. Trace right pleural effusion. Raffi Briggs MD Objective Remarks GENERAL: This is a middle-aged female, currently on high flow oxygen SKIN: Warm and dry. HEAD: Atraumatic. Normocephalic. EYES: Pupils equal and round. No scleral icterus. No injection or drainage. ENT: No nasal bleeding or discharge. Mucous membranes pink and moist. NECK: Trachea midline. No JVD. CARDIOVASCULAR: Normal rate, regular rhythm. RESPIRATORY: No accessory muscle use. equal chest rise. coarse BS GASTROINTESTINAL: Abdomen soft, non-tender, nondistended. No guarding. MUSCULOSKELETAL: Extremities without clubbing, cyanosis, or edema. No obvious deformities. NEUROLOGICAL: GCS 15 .Awake and alert. RASS 0. No gross focal/sensory deficits. Follows commands in all 4 extremities. A/P Assessment and Plan This is a 47-year-old female with acute on chronic hypoxemic respiratory failure and increasing O2 requirements. The patient's imaging studies and report of significant concern for chronic interstitial lung disease. Medical records from outside hospital reveal patient has a diagnosis of pulmonary fibrosis for approximately 1 year, managed in [place], [place]. The patient is at risk for possible intubation with continued respiratory compromise. remain in ICU. Plan by systems: Neurologic: Bipolar disorder Depression History of (smoking) cocaine abuse 10/2016 Neurochecks per ICU protocol Continue home meds- Abilify, Prozac Trazodone 100mg qhs UDS negative. Respiratory: Acute on chronic hypoxemic respiratory failure - persistent. Possible community-acquired pneumonia History of Tobacco use disorder Chronic interstitial lung disease-steroid dependent Pulmonary fibrosis Home O2 dependency COPD History of asthma Maintain O2 sat greater than 88% Duo nebs every 4 hours scheduled and every 2 hours when necessary Continue home med Symbicort Decrease Solumederol 80mg Q8 Pulmonology is following- Dr. Stark PFTs 09/18 2016([facility]) FEV1 700 -25% of predicted, FVC 21% no lung volumes are diffusions were performed 09/07/16 CT thorax ([facility]) pulmonary fibrosis with left adrenal adenoma , however alpha 1 antitrypsin level was WNL , but positive (ASMA)anti-smooth muscle antibodies 1:640, ceruloplasmin normal Cardiovascular: Monitor HR and BP keep MAP>65mmHg 09/08/16 echo ([facility]) EF 55-60 %, Mildly elevated pulmonary pressure no major valvular abnormalities Renal: Monitor renal function, I/Os, electrolytes replacement per protocol. FEN/GI: Autoimmune hepatitis? (reported) Hepatitis C Transaminitis Hyperlipidemia GERD Mild protein calorie malnutrition Monitor LFTs: currently downtrending. 07/15 ultrasound of abdomen- gallbladder wall thickening, borderline splenomegaly , trace right pleural effusion lipid panel Famotidine GI prophylaxis Zofran for nausea 09/13/16 Liver biopsy ([facility]) see medical chart for review- Patient referred to [facility] for eval for liver transplant GI is following Heme/ID: Monitor CBC blood cultures- NGTD Legionella and pneumococcal urine antigens- negative Influenza- negative Continue abx- azithromycin and cefepime for total of 7 days (anticipated stop date today) Endocrine: Glucose monitoring per ICU protocol. Low dose regimen -- SSI Prophylaxis: GI Prophylaxis Famotidine DVT Prophylaxis -- SCDs Lines: Peripheral IVs 2. Dispo: remain in ICU. Mone Lora MD Jul 20, 2017 07:05
[2017-07-20] MEDS: RESP: ALBUTEROL 2.5 MG/IPRATROPIUM 0.5 MG NEB (SCH) NEB (07:41)
[2017-07-20] MEDS: RESP: ACETYLCYSTEINE 10% 30 ML NEB NEB SCH ×2 (07:41→13:45)
[2017-07-20 07:58] LABS: RHEUMATOID FACTOR SCREEN NEGATIVE (NEGATIVE)
[2017-07-20] MEDS: INSULIN ASPART SUPPLEMENTAL SCALE SQ SCH ×4 (08:00→20:36)
[2017-07-20] MEDS: BUDESONIDE-FORMOTEROL 80/4.5 MCG INHALER INH SCH ×2 (09:25→20:30)
[2017-07-20] MEDS: NAPROXEN 500 MG TAB PO SCH ×2 (09:32→20:30)
[2017-07-20] MEDS: FLUoxetine HCL 20 MG CAP PO SCH (09:32)
[2017-07-20] MEDS: ARIPiprazole 10 MG TAB PO SCH (09:32)
[2017-07-20] MEDS: RESP: ALBUTEROL 1.25 MG/3 ML NEB (PRN) NEB ×2 (13:45→19:56)
[2017-07-20] MEDS: [UNRECOGNIZED DRUG - REMARK] NEB SCH (20:00)
[2017-07-20] MEDS: URSODIOL 300 MG CAP PO SCH (20:30)
[2017-07-20] MEDS: traZODone HCL 100 MG TAB PO SCH (20:30)
[2017-07-21] VITALS (31 sets, daily range): BP systolic 87–117; BP diastolic 55–77; PULSE 52–88; RESP 23–35; TEMP 97.9–98.6; O2SAT 79–100
[2017-07-21 05:04] LABS: AUTOMATED NEUTROPHIL # 8.3 TH/MM3 (1.8-7.7); BASOPHIL # 0.2 TH/MM3 (0-0.2); BASOPHIL % 1.8 % (0.0-2.0); EOSINOPHIL % 0.1 % (0.0-4.0); HEMATOCRIT 32.7 % (35.0-46.0); HEMOGLOBIN 10.8 GM/DL (11.6-15.3); LYMPHOCYTE # 0.7 TH/MM3 (1.0-4.8); MEAN CELL VOLUME 91.6 FL (80.0-100.0); MEAN CORPUSCULAR HEMOGLOBIN 30.4 PG (27.0-34.0); MEAN CORPUSCULAR HGB CONC 33.2 % (32.0-36.0); MEAN PLATELET VOLUME 9.2 FL (7.0-11.0); MONOCYTE # 0.6 TH/MM3 (0-0.9); NEUT % 85.1 % (16.0-70.0); PLATELET COUNT 117 TH/MM3 (150-450); RED BLOOD COUNT 3.57 MIL/MM3 (4.00-5.30); RED CELL DISTRIBUTION WIDTH 16.3 % (11.6-17.2); WHITE BLOOD COUNT 9.8 TH/MM3 (4.0-11.0)
[2017-07-21 05:13] LABS: CHLORIDE 108 MEQ/L (98-107); SODIUM (NA) 141 MEQ/L (136-145)
[2017-07-21 05:18] LABS: ALBUMIN 1.9 GM/DL (3.4-5.0); CALCIUM 7.8 MG/DL (8.5-10.1)
[2017-07-21 05:19] LABS: BICARBONATE 29.9 MEQ/L (21.0-32.0); BLOOD UREA NITROGEN 28 MG/DL (7-18); GLUCOSE,RANDOM 119 MG/DL (74-106); MAGNESIUM 2.3 MG/DL (1.5-2.5)
[2017-07-21 05:21] LABS: ALT (GPT) 379 U/L (10-53); AST (GOT) 92 U/L (15-37); CREATININE 0.55 MG/DL (0.50-1.00); GLOMERULAR FILTRATION RATE 120 ML/MIN (>89)
[2017-07-21 05:22] LABS: PHOSPHORUS 3.4 MG/DL (2.5-4.9)
[2017-07-21 05:23] LABS: TOTAL BILIRUBIN ADULT 0.7 MG/DL (0.2-1.0); TOTAL PROTEIN 5.4 GM/DL (6.4-8.2)
[2017-07-21 05:24] LABS: ALKALINE PHOSPHATASE 115 U/L (45-117)
[2017-07-21] MEDS: methylPREDNISolone SOD SUCC 125 MG/2 ML VIAL IV PUSH SCH ×3 (05:42→21:13)
[2017-07-21] MEDS: FAMOTIDINE 20 MG/2 ML VIAL IV PUSH SCH ×2 (05:42→18:05)
[2017-07-21] MEDS: RESP: ALBUTEROL 1.25 MG/3 ML NEB (PRN) NEB ×3 (07:41→20:06)
[2017-07-21] MEDS: [UNRECOGNIZED DRUG - REMARK] NEB SCH ×2 (07:42→20:06)
[2017-07-21] MEDS: INSULIN ASPART SUPPLEMENTAL SCALE SQ SCH ×4 (08:00→21:38)
[2017-07-21] MEDS: NAPROXEN 500 MG TAB PO SCH ×2 (08:15→21:12)
[2017-07-21] MEDS: ARIPiprazole 10 MG TAB PO SCH (08:16)
[2017-07-21] MEDS: URSODIOL 300 MG CAP PO SCH ×2 (08:16→21:23)
[2017-07-21] MEDS: BUDESONIDE-FORMOTEROL 80/4.5 MCG INHALER INH SCH ×2 (08:16→21:12)
[2017-07-21] MEDS: FLUoxetine HCL 20 MG CAP PO SCH (08:16)
[2017-07-21 15:58] LABS: ANA SCREEN POS (NEG)
--- NOTE | 2017-07-21 17:00 | HHI.CCPN ---
Subjective Remarks/Hospital Course This is a 47-year-old white female that was admitted 2 days ago on 07/12/2017 to [facility] ED.Patient was in her usual state of health until about a few days ago when she began experiencing a gradual onset of worsening shortness of breath and pleuritic chest pain. This is associated with a fever of 102.3 and mild productive nonbloody cough. Patient has 3 L/m home O2 dependency . Per report , the patient had been wearing her 3 L of oxygen at home. 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 Patient states that she was supposed to be taking 30 mg of prednisone on a daily basis for some time but she herself discontinued it about 2 months ago at her own discretion because she felt that they were disrupting her sleep significantly. She also says she takes an inhaler 4 times of the day but denies apparently taking any controller medications. Patient does have a history of bipolar disorder and says she is compliant with those medications. In the emergency department she was placed on 4 L, given steroids, Rocephin and azithromycin and DuoNeb treatments and then sent to the [facility] floor. Today 07/14/17, patient was noted to have significant decompensation and respiratory status requiring a nonrebreather mask, and at risk for possible intubation. Pulmonology was consulted .Critical care medicine was consulted, patient was transferred to the ICU. Records obtained from [facility] revealed the patient has autoimmune hepatitis, and pulmonary fibrosis. Upon my evaluation the patient was noted to be 99% on nonrebreather the patient was then placed on partial nonrebreather O2 saturation 94%, respiratory rate 28. Subjective: 07/15: FiO2 continues to be 60% on a partial non-rebreather mask. Plan to transition to high flow nasal cannula this a.m.. Pulmonology consult pending. Patient continues on steroids and antibiotics, noted acute desaturation with minimal activity. Strict bed rest implemented. Attempts being made to obtain records from [facility] her last admission for pulmonary compromise. 07/16: fio2 improves. abg slightly improving 7.39/51/138. LFTs coming down slightly. patient wants to get OOB. denies other complaints. ROS negative. 07/17: remains hypoxic on NRB. did get OOB to chair yesterday. denies complaints. ROS negative. 07/18 No events overnight. Patient is on high flow oxygen 30L with 45% FIO2. Afebrile. 07/19: Remains on high flow O2 30 L/m with 35% FiO2. 07/20 Patient is lying in bed in NAD. Remains on high flow oxygen 30L with 35% FIO2. Afebrile. 07/21. Patient is lying in bed with partial nonrebreather at this time. She is no longer requiring high flow oxygen. She is holding O2 saturations. She denies any shortness of breath or dyspnea. Vital signs are with mildly low blood pressure, afebrile Objective Vital Signs Date Time Temp Pulse Resp B/P (MAP) Pulse Ox O2 Delivery O2 Flow Rate FiO2 07/21/17 14:00 66 34 91/63 (72) 98 07/21/17 13:00 98.0 07/21/17 12:00 Partial Non-Rebreather 50 07/21/17 07:47 13.00 Intake and Output 07/21/17 07/21/17 07/22/17 08:00 16:00 00:00 Intake Total 60 ml Output Total 200 ml Balance -140 ml Result Diagram: 07/21/17 0433 07/21/17 0433 Imaging Last Impressions Chest X-Ray 07/14/17 0000 Signed Impressions: Service Date/Time: Friday, July 14, 2017 17:58 - CONCLUSION: No significant interval change in diffuse interstitial pulmonary opacity bilaterally. Raffi Briggs MD CT Angiography 07/14/17 0000 Signed Impressions: Service Date/Time: Friday, July 14, 2017 10:01 - CONCLUSION: Extensive parenchymal lung disease which appears largely chronic with superimposed acute exacerbation. No evidence of pulmonary embolism.. You Mccallum MD Abdomen Ultrasound 07/14/17 0000 Signed Impressions: Service Date/Time: Friday, July 14, 2017 19:45 - CONCLUSION: Liver within normal limits. Small gallstone in the gallbladder. Nonspecific mild diffuse gallbladder wall thickening. Borderline splenomegaly. Trace right pleural effusion. Raffi Briggs MD Objective Remarks GENERAL: Well-developed, well-nourished, in no acute distress. alert and orientated HEENT: Head is normocephalic without any lesions or masses noted. Facial features are symmetric. Eyes: Extraocular muscles are intact. Conjunctivae were clear. Patient wearing partial nonrebreather NECK: Supple without any masses. Trachea midline no deviation. No JVD, CARDIAC: Regular rhythm, regular rate. S1/S2 are heard. No murmurs gallops or rubs. LUNGS: Clear to auscultation bilaterally. No wheeze, rhonchi or rales. No use of accessory muscles on inspiration or expiration. ABDOMEN: Soft, nontender. Nondistended. Bowel sounds heard in all 4 quadrants. No organomegaly or masses. Negative rebound, negative guarding EXTREMITIES: No edema, pulses are equal bilaterally. No cyanosis or clubbing NEUROLOGY: Mood and affect appear appropriate. Cranial nerves II through XII grossly intact. Moving all extremities, speech is clear Urinary Catheter: No Vascular Central Line Catheter: No A/P Assessment and Plan This is a 47-year-old female with acute on chronic hypoxemic respiratory failure and increasing O2 requirements. The patient's imaging studies and report of significant concern for chronic interstitial lung disease. Medical records from outside hospital reveal patient has a diagnosis of pulmonary fibrosis for approximately 1 year, managed in [place], [place]. The patient is at risk for possible intubation with continued respiratory compromise. remain in ICU. Plan by systems: Neurologic: Bipolar disorder Depression History of (smoking) cocaine abuse 10/2016 Neurochecks per ICU protocol Continue home meds- Abilify, Prozac Trazodone 100mg qhs UDS negative. Respiratory: Acute on chronic hypoxemic respiratory failure - persistent. Possible community-acquired pneumonia History of Tobacco use disorder Chronic interstitial lung disease-steroid dependent Pulmonary fibrosis Home O2 dependency COPD History of asthma Patient is off high flow oxygen at this time. Continue to wean oxygen to Maintain O2 sat greater than 88% Duo nebs every 4 hours scheduled and every 2 hours when necessary Continue home med Symbicort Decrease Solumederol 80mg Q8 Pulmonology is following- Dr. Stark PFTs 09/18 2016([facility]) FEV1 700 -25% of predicted, FVC 21% no lung volumes are diffusions were performed 09/07/16 CT thorax ([facility]) pulmonary fibrosis with left adrenal adenoma , however alpha 1 antitrypsin level was WNL , but positive (ASMA)anti-smooth muscle antibodies 1:640, ceruloplasmin normal Cardiovascular: Monitor HR and BP keep MAP>65mmHg 09/08/16 echo ([facility]) EF 55-60 %, Mildly elevated pulmonary pressure no major valvular abnormalities Renal: Monitor renal function, I/Os, electrolytes replacement per protocol. FEN/GI: Autoimmune hepatitis? (reported) Hepatitis B Transaminitis Hyperlipidemia GERD Mild protein calorie malnutrition Monitor LFTs: currently downtrending. 07/15 ultrasound of abdomen- gallbladder wall thickening, borderline splenomegaly , trace right pleural effusion lipid panel Famotidine GI prophylaxis Zofran for nausea 09/13/16 Liver biopsy ([facility]) see medical chart for review- Patient referred to [facility] for eval for liver transplant GI is following Continue monitor liver enzymes. Awaiting follow-up hepatitis B/C workup Heme/ID: Monitor CBC blood cultures- NGTD Legionella and pneumococcal urine antigens- negative Influenza- negative Continue abx- azithromycin and cefepime for total of 7 days (anticipated stop date today) Patient with head lice, continue permethrin as directed Endocrine: Glucose monitoring per ICU protocol. Low dose regimen -- SSI Prophylaxis: GI Prophylaxis Famotidine DVT Prophylaxis -- SCDs Lines: Peripheral IVs 2. Dispo: remain in ICU. Patient seen and examined agree with above assessment and plan. Josse Barker Jul 21, 2017 17:00 Mone Lora MD Jul 21, 2017 17:19
--- NOTE | 2017-07-21 17:45 | HHI.GIFU ---
GI Follow-up Note Consult Follow-up Subjective: Late entry -patient seen, earlier today Patient laying in bed comfortably, on partial nonrebreather . LFTS better.Awaiting rest of labs . No nausea, vomiting , constipation, tolerating diet well. Records for tertiary center reviewed Objective: PHYSICAL EXAMINATION: Vitals signs stable No fever Vital Signs Date Time Temp Pulse Resp B/P (MAP) Pulse Ox O2 Delivery O2 Flow Rate FiO2 07/21/17 14:00 66 34 91/63 (72) 98 07/21/17 13:00 98.0 66 26 91/61 (71) 99 07/21/17 12:00 98 Partial Non-Rebreather 50 07/21/17 12:00 68 25 92/56 (68) 98 07/21/17 11:00 64 25 89/56 (67) 99 07/21/17 10:00 68 26 90/55 (67) 99 HEENT: Pupils round and reactive to light; normocephalic; atraumatic; no jaundice. Throat is clear. NECK: Neck is supple, no JVD, no lymphadenopathy. CHEST: Chest is clear to auscultation and percussion. CARDIAC: Regular rate and rhythm with no murmur gallop or rubs. ABDOMEN: Soft, nondistended, nontender; no hepatosplenomegaly; bowel sounds are present in all four quadrants. EXTREMITIES: No clubbing, cyanosis, or edema. SKIN: Normal; no rash; no jaundice. 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 Available Data (labs, X- Rays, Procedues) : Vital Signs Date Time Temp Pulse Resp B/P (MAP) Pulse Ox O2 Delivery O2 Flow Rate FiO2 07/21/17 14:00 66 34 91/63 (72) 98 07/21/17 13:00 98.0 66 26 91/61 (71) 99 07/21/17 12:00 98 Partial Non-Rebreather 50 07/21/17 12:00 68 25 92/56 (68) 98 07/21/17 11:00 64 25 89/56 (67) 99 07/21/17 10:00 68 26 90/55 (67) 99 ASSESSMENT/PLAN: elevated LFTS -elevated smooth muscle antibody-s/p liver biopsies times 3-all drug induced hepatitis elevated ASMA -consideration for autoimmune hepatitis -on steroids-lfts improving hep b s ag positive-await viral load Recommendations continue current treatment Actigall 300 mg po tid monitor lfts await labs avoid hepatotoxics It was a pleasure seeing Lisa Roy. Thank you for this consult. Entered by: Mahsa Vences MD Jul 21, 2017 17:45
[2017-07-21] MEDS: traZODone HCL 100 MG TAB PO SCH (21:12)
[2017-07-22] VITALS (40 sets, daily range): BP systolic 90–113; BP diastolic 57–73; PULSE 56–94; RESP 21–40; TEMP 98.1–98.9; O2SAT 83–97
[2017-07-22] MEDS: FAMOTIDINE 20 MG/2 ML VIAL IV PUSH SCH ×2 (05:53→18:24)
[2017-07-22] MEDS: methylPREDNISolone SOD SUCC 125 MG/2 ML VIAL IV PUSH SCH ×3 (05:54→22:34)
[2017-07-22 06:15] LABS: AUTOMATED NEUTROPHIL # 10.2 TH/MM3 (1.8-7.7); BASOPHIL % 0.2 % (0.0-2.0); HEMATOCRIT 34.1 % (35.0-46.0); HEMOGLOBIN 10.7 GM/DL (11.6-15.3); LYMPH % 6.7 % (9.0-44.0); LYMPHOCYTE # 0.8 TH/MM3 (1.0-4.8); MEAN CELL VOLUME 90.3 FL (80.0-100.0); MEAN CORPUSCULAR HEMOGLOBIN 28.4 PG (27.0-34.0); MEAN CORPUSCULAR HGB CONC 31.4 % (32.0-36.0); MEAN PLATELET VOLUME 9.9 FL (7.0-11.0); MONOCYTE # 0.5 TH/MM3 (0-0.9); NEUT % 89.1 % (16.0-70.0); PLATELET COUNT 190 TH/MM3 (150-450); RED BLOOD COUNT 3.78 MIL/MM3 (4.00-5.30); RED CELL DISTRIBUTION WIDTH 15.8 % (11.6-17.2); WHITE BLOOD COUNT 11.5 TH/MM3 (4.0-11.0)
[2017-07-22 06:26] LABS: CHLORIDE 107 MEQ/L (98-107); SODIUM (NA) 142 MEQ/L (136-145)
[2017-07-22 06:31] LABS: CALCIUM 7.8 MG/DL (8.5-10.1)
[2017-07-22 06:32] LABS: BICARBONATE 31.4 MEQ/L (21.0-32.0); BLOOD UREA NITROGEN 28 MG/DL (7-18); GLUCOSE,RANDOM 105 MG/DL (74-106)
[2017-07-22 06:36] LABS: ALT (GPT) 348 U/L (10-53); AST (GOT) 78 U/L (15-37); CREATININE 0.51 MG/DL (0.50-1.00); GLOMERULAR FILTRATION RATE 130 ML/MIN (>89)
[2017-07-22 06:37] LABS: TOTAL BILIRUBIN ADULT 0.7 MG/DL (0.2-1.0); TOTAL PROTEIN 5.6 GM/DL (6.4-8.2)
[2017-07-22 06:38] LABS: ALKALINE PHOSPHATASE 119 U/L (45-117)
--- NOTE | 2017-07-22 06:45 | HHI.CCPN ---
Subjective Remarks/Hospital Course This is a 47-year-old white female that was admitted 2 days ago on 07/12/2017 to [facility].Patient was in her usual state of health until about a few days ago when she began experiencing a gradual onset of worsening shortness of breath and pleuritic chest pain. This is associated with a fever of 102.3 and mild productive nonbloody cough. Patient has 3 L/m home O2 dependency . Per report , the patient had been wearing her 3 L of oxygen at home. 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 Patient states that she was supposed to be taking 30 mg of prednisone on a daily basis for some time but she herself discontinued it about 2 months ago at her own discretion because she felt that they were disrupting her sleep significantly. She also says she takes an inhaler 4 times of the day but denies apparently taking any controller medications. Patient does have a history of bipolar disorder and says she is compliant with those medications. In the emergency department she was placed on 4 L, given steroids, Rocephin and azithromycin and DuoNeb treatments and then sent to the [facility] floor. Today 07/14/17, patient was noted to have significant decompensation and respiratory status requiring a nonrebreather mask, and at risk for possible intubation. Pulmonology was consulted .Critical care medicine was consulted, patient was transferred to the ICU. Records obtained from [facility] revealed the patient has autoimmune hepatitis, and pulmonary fibrosis. Upon my evaluation the patient was noted to be 99% on nonrebreather the patient was then placed on partial nonrebreather O2 saturation 94%, respiratory rate 28. Subjective: 07/15: FiO2 continues to be 60% on a partial non-rebreather mask. Plan to transition to high flow nasal cannula this a.m.. Pulmonology consult pending. Patient continues on steroids and antibiotics, noted acute desaturation with minimal activity. Strict bed rest implemented. Attempts being made to obtain records from [facility] her last admission for pulmonary compromise. 07/16: fio2 improves. abg slightly improving 7.39/51/138. LFTs coming down slightly. patient wants to get OOB. denies other complaints. ROS negative. 07/17: remains hypoxic on NRB. did get OOB to chair yesterday. denies complaints. ROS negative. 07/18 No events overnight. Patient is on high flow oxygen 30L with 45% FIO2. Afebrile. 07/19: Remains on high flow O2 30 L/m with 35% FiO2. 07/20 Patient is lying in bed in NAD. Remains on high flow oxygen 30L with 35% FIO2. Afebrile. 07/21. Patient is lying in bed with partial nonrebreather at this time. She is no longer requiring high flow oxygen. She is holding O2 saturations. She denies any shortness of breath or dyspnea. Vital signs are with mildly low blood pressure, afebrile 07/22 Patient is on VM with 50% FIO2. Afebrile. Denies any worsening of dyspnea from baseline. Afebrile. Objective Vital Signs Date Time Temp Pulse Resp B/P (MAP) Pulse Ox O2 Delivery O2 Flow Rate FiO2 07/22/17 06:01 60 27 95/64 (74) 94 07/22/17 04:22 Venturi Mask 6.00 50 07/21/17 21:01 97.9 Intake and Output 07/22/17 07/22/17 07/23/17 08:00 16:00 00:00 Output Total 450 ml Balance -450 ml Result Diagram: 07/22/17 0545 07/22/17 0545 Other Results Laboratory Tests Test 07/22/17 05:45 White Blood Count 11.5 TH/MM3 Red Blood Count 3.78 MIL/MM3 Hemoglobin 10.7 GM/DL Hematocrit 34.1 % Mean Corpuscular Volume 90.3 FL Mean Corpuscular Hemoglobin 28.4 PG Mean Corpuscular Hemoglobin Concent 31.4 % Red Cell Distribution Width 15.8 % Platelet Count 190 TH/MM3 Mean Platelet Volume 9.9 FL Neutrophils (%) (Auto) 89.1 % Lymphocytes (%) (Auto) 6.7 % Monocytes (%) (Auto) 4.0 % Eosinophils (%) (Auto) 0.0 % Basophils (%) (Auto) 0.2 % Neutrophils # (Auto) 10.2 TH/MM3 Lymphocytes # (Auto) 0.8 TH/MM3 Monocytes # (Auto) 0.5 TH/MM3 Eosinophils # (Auto) 0.0 TH/MM3 Basophils # (Auto) 0.0 TH/MM3 CBC Comment DIFF FINAL Differential Comment Blood Urea Nitrogen 28 MG/DL Creatinine 0.51 MG/DL Random Glucose 105 MG/DL Total Protein 5.6 GM/DL Albumin 2.0 GM/DL Calcium Level 7.8 MG/DL Alkaline Phosphatase 119 U/L Aspartate Amino Transf (AST/SGOT) 78 U/L Alanine Aminotransferase (ALT/SGPT) 348 U/L Total Bilirubin 0.7 MG/DL Sodium Level 142 MEQ/L Potassium Level 4.2 MEQ/L Chloride Level 107 MEQ/L Carbon Dioxide Level 31.4 MEQ/L Anion Gap 4 MEQ/L Estimat Glomerular Filtration Rate 130 ML/MIN Imaging Last Impressions Chest X-Ray 07/14/17 0000 Signed Impressions: Service Date/Time: Friday, July 14, 2017 17:58 - CONCLUSION: No significant interval change in diffuse interstitial pulmonary opacity bilaterally. Raffi Briggs MD CT Angiography 07/14/17 0000 Signed Impressions: Service Date/Time: Friday, July 14, 2017 10:01 - CONCLUSION: Extensive parenchymal lung disease which appears largely chronic with superimposed acute exacerbation. No evidence of pulmonary embolism.. You Mccallum MD Abdomen Ultrasound 07/14/17 0000 Signed Impressions: Service Date/Time: Friday, July 14, 2017 19:45 - CONCLUSION: Liver within normal limits. Small gallstone in the gallbladder. Nonspecific mild diffuse gallbladder wall thickening. Borderline splenomegaly. Trace right pleural effusion. Raffi Briggs MD Objective Remarks GENERAL: Well-developed, well-nourished, in no acute distress. alert and orientated HEENT: Head is normocephalic without any lesions or masses noted. Facial features are symmetric. Eyes: Extraocular muscles are intact. Conjunctivae were clear. Patient wearing partial nonrebreather NECK: Supple without any masses. Trachea midline no deviation. No JVD, CARDIAC: Regular rhythm, regular rate. S1/S2 are heard. No murmurs gallops or rubs. LUNGS: Clear to auscultation bilaterally. No wheeze, rhonchi or rales. No use of accessory muscles on inspiration or expiration. ABDOMEN: Soft, nontender. Nondistended. Bowel sounds heard in all 4 quadrants. No organomegaly or masses. Negative rebound, negative guarding EXTREMITIES: No edema, pulses are equal bilaterally. No cyanosis or clubbing NEUROLOGY: Mood and affect appear appropriate. Cranial nerves II through XII grossly intact. Moving all extremities, speech is clear A/P Assessment and Plan This is a 47-year-old female with acute on chronic hypoxemic respiratory failure and increasing O2 requirements. The patient's imaging studies and report of significant concern for chronic interstitial lung disease. Medical records from outside hospital reveal patient has a diagnosis of pulmonary fibrosis for approximately 1 year, managed in [place], [place]. The patient is at risk for possible intubation with continued respiratory compromise. remain in ICU. Plan by systems: Neurologic: Bipolar disorder Depression History of (smoking) cocaine abuse 10/2016 Neurochecks per ICU protocol Continue home meds- Abilify, Prozac Trazodone 100mg qhs UDS negative. Respiratory: Acute on chronic hypoxemic respiratory failure - persistent. Possible community-acquired pneumonia History of Tobacco use disorder Chronic interstitial lung disease-steroid dependent Pulmonary fibrosis Home O2 dependency COPD History of asthma Continue to wean oxygen to Maintain O2 sat greater than 88% Duo nebs every 4 hours scheduled and every 2 hours when necessary Continue home med Symbicort Solumederol 80mg Q8 Pulmonology is following- Dr. Stark PFTs 09/18 2016([facility]) FEV1 700 -25% of predicted, FVC 21% no lung volumes are diffusions were performed 09/07/16 CT thorax ([facility]) pulmonary fibrosis with left adrenal adenoma , however alpha 1 antitrypsin level was WNL , but positive (ASMA)anti-smooth muscle antibodies 1:640, ceruloplasmin normal Cardiovascular: Monitor HR and BP keep MAP>65mmHg 09/08/16 echo ([facility]) EF 55-60 %, Mildly elevated pulmonary pressure no major valvular abnormalities Renal: Monitor renal function, I/Os, electrolytes replacement per protocol. FEN/GI: Autoimmune hepatitis? (reported) Hepatitis B Transaminitis Hyperlipidemia GERD Mild protein calorie malnutrition Monitor LFTs: currently downtrending. 07/15 ultrasound of abdomen- gallbladder wall thickening, borderline splenomegaly , trace right pleural effusion Famotidine GI prophylaxis Zofran for nausea 09/13/16 Liver biopsy ([facility]) see medical chart for review- Patient referred to [facility] for eval for liver transplant GI is following. On Actigall. Continue monitor liver enzymes. Hep B sAg positive Heme/ID: Monitor CBC blood cultures- NGTD Legionella and pneumococcal urine antigens- negative Influenza- negative Continue abx- azithromycin and cefepime for total of 7 days (anticipated stop date today) Patient with head lice, continue permethrin as directed Endocrine: Glucose monitoring per ICU protocol. Low dose regimen -- SSI Prophylaxis: GI Prophylaxis Famotidine DVT Prophylaxis -- SCDs, add Heparin SQ Lines: Peripheral IVs 2. Dispo: remain in ICU. Level 2 Mone Lora MD Jul 22, 2017 06:45
[2017-07-22] MEDS: RESP: ALBUTEROL 1.25 MG/3 ML NEB (PRN) NEB ×3 (07:40→19:32)
[2017-07-22] MEDS: [UNRECOGNIZED DRUG - REMARK] NEB SCH ×3 (07:41→19:32)
[2017-07-22] MEDS: INSULIN ASPART SUPPLEMENTAL SCALE SQ SCH ×4 (08:00→22:08)
[2017-07-22] MEDS: BUDESONIDE-FORMOTEROL 80/4.5 MCG INHALER INH SCH ×2 (08:21→20:54)
[2017-07-22] MEDS: ARIPiprazole 10 MG TAB PO SCH (08:30)
[2017-07-22] MEDS: FLUoxetine HCL 20 MG CAP PO SCH (08:30)
[2017-07-22] MEDS: URSODIOL 300 MG CAP PO SCH ×2 (08:30→20:53)
[2017-07-22] MEDS: NAPROXEN 500 MG TAB PO SCH ×2 (08:30→20:54)
[2017-07-22] MEDS: HEPARIN SODIUM - SQ 10,000 UNITS/ML VIAL SQ SCH ×2 (08:32→20:54)
[2017-07-22 11:51] LABS: HCV RNA PCR IU/ML LESS THAN 15 IU/mL (0-14)
--- NOTE | 2017-07-22 13:52 | HHI.PR ---
Subjective Remarks 47 YOWF with RF,ILD,Endstage liver problem Weaned to VM Desaturates No fever Objective Vital Signs Vital Signs Date Time Temp Pulse Resp B/P (MAP) Pulse Ox O2 Delivery O2 Flow Rate FiO2 07/22/17 11:01 78 28 92/58 (69) 94 07/22/17 10:01 92 33 104/60 (75) 92 07/22/17 09:01 84 31 101/68 (79) 92 07/22/17 08:01 70 30 113/73 (86) 86 07/22/17 08:00 Venturi Mask 6.00 50 07/22/17 07:01 56 29 100/65 (77) 96 07/22/17 06:01 60 27 95/64 (74) 94 07/22/17 05:01 58 22 90/68 (75) 96 07/22/17 04:22 96 Venturi Mask 6.00 50 07/22/17 04:01 60 24 102/62 (75) 95 07/22/17 03:01 58 22 107/64 (78) 96 07/22/17 02:01 62 21 96/63 (74) 97 07/22/17 01:01 66 27 98/64 (75) 95 07/22/17 00:00 76 32 94/61 (72) 93 07/22/17 00:00 94 Venturi Mask 6.00 50 07/21/17 23:01 76 32 94/61 (72) 93 07/21/17 22:12 16 07/21/17 22:01 88 34 117/71 (86) 79 07/21/17 21:01 97.9 88 35 95/62 (73) 93 07/21/17 20:22 94 Venturi Mask 6.00 50 18 20:06 92 Venturi Mask 6.00 50 07/21/17 20:01 76 31 99/62 (74) 91 07/21/17 19:01 82 30 103/67 (79) 88 18 19:01 88 18 19:00 86 34 87 07/21/17 19:00 87 07/21/17 18:01 60 31 108/77 (87) 96 07/21/17 18:01 96 07/21/17 18:00 96 07/21/17 18:00 60 32 96 07/21/17 17:01 96 07/21/17 17:01 64 31 101/65 (77) 96 07/21/17 17:00 96 07/21/17 17:00 64 29 96 07/21/17 16:01 93 07/21/17 16:01 64 28 93/62 (72) 93 07/21/17 16:00 68 33 92 07/21/17 16:00 92 07/21/17 15:01 72 35 109/67 (81) 94 07/21/17 15:01 94 07/21/17 15:00 98 07/21/17 15:00 68 30 98 07/21/17 14:00 66 34 91/63 (72) 98 I/O 07/21/17 07/21/17 07/21/17 07/22/17 07/22/17 07/22/17 06:59 14:59 22:59 06:59 14:59 22:59 Intake Total 60 ml 60 ml Output Total 200 ml 450 ml 450 ml Balance -140 ml -390 ml -450 ml Intake Oral 60 ml 60 ml Output Urine Total 200 ml 450 ml 450 ml Stool Total 0 ml # Bowel Movements 0 Result Diagram: 07/22/17 0545 07/22/17 0545 Objective Remarks GENERAL: MBMN WF mild sob SKIN: Warm and dry. HEAD: Normocephalic. EYES: No scleral icterus. No injection or drainage. NECK: Supple, trachea midline. No JVD or lymphadenopathy. CARDIOVASCULAR: Regular rate and rhythm without murmurs, gallops, or rubs. RESPIRATORY: Breath sounds equal bilaterally. No accessory muscle use Insp rales. GASTROINTESTINAL: Abdomen soft, non-tender, nondistended. MUSCULOSKELETAL: No cyanosis, or edema. BACK: Nontender without obvious deformity. No CVA tenderness. A/P Assessment and Plan Hypoxic RF ILD Bronchial asthma End stage liver disease Bipolar disorder PLAN Aerosol nebs Cont Steroids Supplement 02 with VM If not able to maintain sat, will put back on high flow 02 Robinson Akhtar MD Jul 22, 2017 13:52
[2017-07-22] MEDS: ALPRAZolam 0.25 MG TAB PO PRN ×2 (14:29→22:36)
[2017-07-22 17:52] LABS: ENDOMYSIAL AB SCREEN ND (NEGATIVE); ENDOMYSIAL AB TITER ND (<1:5)
[2017-07-22] MEDS: traZODone HCL 100 MG TAB PO SCH (20:54)
[2017-07-22] MEDS ORDERED: PERMETHRIN 1% LOTION 60 ML BTL TOPICAL ONE (21:00)
[2017-07-23] VITALS (63 sets, daily range): BP systolic 94–149; BP diastolic 58–80; PULSE 60–102; RESP 24–57; TEMP 97.9–99.2; O2SAT 78–100
[2017-07-23 03:50] LABS: HEP B DNA R1 26200 IU/mL (0-19); HEP B DNA R2 4.42 (<1.30); MITOCHONDRIAL ABS LESS THAN 20.0 U (<=20.0)
[2017-07-23 06:22] LABS: AUTOMATED NEUTROPHIL # 11.2 TH/MM3 (1.8-7.7); BASOPHIL % 0.1 % (0.0-2.0); EOSINOPHIL % 0.1 % (0.0-4.0); HEMATOCRIT 33.4 % (35.0-46.0); HEMOGLOBIN 10.7 GM/DL (11.6-15.3); LYMPH % 5.6 % (9.0-44.0); LYMPHOCYTE # 0.7 TH/MM3 (1.0-4.8); MEAN CELL VOLUME 89.4 FL (80.0-100.0); MEAN CORPUSCULAR HEMOGLOBIN 28.5 PG (27.0-34.0); MEAN CORPUSCULAR HGB CONC 31.9 % (32.0-36.0); MEAN PLATELET VOLUME 9.2 FL (7.0-11.0); MONO % 3.3 % (0.0-8.0); MONOCYTE # 0.4 TH/MM3 (0-0.9); NEUT % 90.9 % (16.0-70.0); PLATELET COUNT 163 TH/MM3 (150-450); RED BLOOD COUNT 3.74 MIL/MM3 (4.00-5.30); WHITE BLOOD COUNT 12.3 TH/MM3 (4.0-11.0)
[2017-07-23 06:32] LABS: CHLORIDE 106 MEQ/L (98-107); SODIUM (NA) 141 MEQ/L (136-145)
[2017-07-23 06:37] LABS: BICARBONATE 29.1 MEQ/L (21.0-32.0); BLOOD UREA NITROGEN 26 MG/DL (7-18); GLUCOSE,RANDOM 131 MG/DL (74-106)
[2017-07-23 06:40] LABS: ALT (GPT) 274 U/L (10-53); AST (GOT) 64 U/L (15-37); CREATININE 0.43 MG/DL (0.50-1.00); GLOMERULAR FILTRATION RATE 159 ML/MIN (>89)
[2017-07-23 06:41] LABS: TOTAL BILIRUBIN ADULT 0.8 MG/DL (0.2-1.0)
[2017-07-23 06:42] LABS: TOTAL PROTEIN 5.4 GM/DL (6.4-8.2)
[2017-07-23 06:43] LABS: ALKALINE PHOSPHATASE 111 U/L (45-117)
[2017-07-23] MEDS: methylPREDNISolone SOD SUCC 125 MG/2 ML VIAL IV PUSH SCH ×2 (06:50→13:08)
[2017-07-23] MEDS: FAMOTIDINE 20 MG/2 ML VIAL IV PUSH SCH ×2 (06:50→17:39)
[2017-07-23] MEDS: INSULIN ASPART SUPPLEMENTAL SCALE SQ SCH ×4 (06:50→23:37)
[2017-07-23] MEDS: ALPRAZolam 0.25 MG TAB PO PRN ×2 (06:57→17:39)
[2017-07-23] MEDS: [UNRECOGNIZED DRUG - REMARK] NEB SCH ×3 (07:35→20:14)
[2017-07-23] MEDS: RESP: ALBUTEROL 1.25 MG/3 ML NEB (PRN) NEB ×3 (07:35→20:13)
[2017-07-23] MEDS: ARIPiprazole 10 MG TAB PO SCH (09:00)
[2017-07-23] MEDS: FLUoxetine HCL 20 MG CAP PO SCH (09:49)
[2017-07-23] MEDS: URSODIOL 300 MG CAP PO SCH ×2 (09:49→20:48)
[2017-07-23] MEDS: NAPROXEN 500 MG TAB PO SCH ×2 (09:49→20:48)
[2017-07-23] MEDS: BUDESONIDE-FORMOTEROL 80/4.5 MCG INHALER INH SCH ×2 (09:50→20:48)
[2017-07-23] MEDS: HEPARIN SODIUM - SQ 10,000 UNITS/ML VIAL SQ SCH ×2 (09:51→20:48)
--- NOTE | 2017-07-23 11:49 | HHI.PR ---
Subjective Remarks 47 YOWF with RF,ILD,Endstage liver problem Weaned to VM Desaturates No fever Requires PRB off and on Does't tolerate high flow due to nose irritation Objective Vital Signs Vital Signs Date Time Temp Pulse Resp B/P (MAP) Pulse Ox O2 Delivery O2 Flow Rate FiO2 07/23/17 08:00 99 Venturi Mask 6.00 50 07/23/17 07:35 95 Venturi Mask 40 07/23/17 06:00 64 07/23/17 04:15 62 28 94 07/23/17 04:01 74 33 109/67 (81) 93 07/23/17 04:00 97.9 07/23/17 04:00 68 07/23/17 04:00 Venturi Mask 6.00 50 07/23/17 04:00 68 25 95 07/23/17 03:45 70 29 93 07/23/17 03:30 76 30 93 07/23/17 03:15 74 30 93 07/23/17 03:01 72 28 94/58 (70) 93 07/23/17 03:00 74 28 93 07/23/17 02:45 72 29 95 07/23/17 02:30 66 29 94 07/23/17 02:15 68 28 91 07/23/17 02:01 92 35 122/72 (89) 83 07/23/17 02:00 84 07/23/17 02:00 84 37 86 07/23/17 01:45 76 31 95 07/23/17 01:30 70 29 96 07/23/17 01:15 76 28 95 07/23/17 01:01 74 31 106/65 (79) 93 07/23/17 01:00 74 30 93 07/23/17 00:45 102 57 78 07/23/17 00:30 68 30 94 07/23/17 00:15 68 32 92 07/23/17 00:01 70 32 103/65 (78) 92 07/23/17 00:00 72 07/23/17 00:00 99.2 07/23/17 00:00 Venturi Mask 6.00 50 07/23/17 00:00 72 32 92 07/22/17 23:45 68 28 95 07/22/17 22:30 76 30 93 07/22/17 22:15 72 34 92 1/20/18 22:01 72 32 103/64 (77) 92 2018 22:00 76 2018 22:00 76 33 91 2018 21:45 78 34 91 18 21:30 80 33 91 18 21:15 82 38 89 2018 21:01 88 39 105/65 (78) 85 18 21:00 92 34 83 07/22/17 20:45 88 36 87 07/22/17 20:30 92 40 86 07/22/17 20:15 94 37 86 07/22/17 20:01 90 37 105/62 (76) 88 07/22/17 20:00 Venturi Mask 6.00 50 07/22/17 20:00 88 35 88 07/22/17 20:00 88 07/22/17 20:00 98.9 07/22/17 19:45 74 33 95 07/22/17 19:36 94 Venturi Mask 6.00 50 07/22/17 19:30 82 37 90 07/22/17 19:15 76 33 92 07/22/17 19:01 74 30 101/64 (76) 94 18 19:00 74 31 94 18 18:01 72 30 106/58 (74) 93 18 17:01 80 29 103/62 (76) 94 07/22/17 16:01 86 37 101/72 (82) 91 07/22/17 16:00 Venturi Mask 6.00 50 07/22/17 15:01 86 32 100/65 (77) 93 07/22/17 14:01 76 31 96/61 (73) 94 18 13:01 72 27 92/57 (69) 95 07/22/17 12:01 98.1 76 27 92/62 (72) 94 07/22/17 12:00 Venturi Mask 6.00 50 I/O 07/22/17 07/22/17 07/22/17 07/23/17 07/23/17 07/23/17 07:00 15:00 23:00 07:00 15:00 23:00 Intake Total 200 ml Output Total 450 ml 650 ml 550 ml Balance -450 ml -650 ml -350 ml Intake Oral 200 ml Output Urine Total 450 ml 650 ml 550 ml Result Diagram: 1/21/18 0600 07/23/17 0600 Objective Remarks GENERAL: MBMN WF mild sob SKIN: Warm and dry. HEAD: Normocephalic. EYES: No scleral icterus. No injection or drainage. NECK: Supple, trachea midline. No JVD or lymphadenopathy. CARDIOVASCULAR: Regular rate and rhythm without murmurs, gallops, or rubs. RESPIRATORY: Breath sounds equal bilaterally. No accessory muscle use Insp rales. GASTROINTESTINAL: Abdomen soft, non-tender, nondistended. MUSCULOSKELETAL: No cyanosis, or edema. BACK: Nontender without obvious deformity. No CVA tenderness. A/P Assessment and Plan Hypoxic RF ILD Bronchial asthma End stage liver disease Bipolar disorder PLAN Aerosol nebs Cont Steroids Supplement 02 with VM If not able to maintain sat, will use PRB to keep sat 88-90% Robinson Akhtar MD Jul 23, 2017 11:49
--- NOTE | 2017-07-23 12:08 | HHI.GIFU ---
Subjective Remarks Patient comfortable in bed requiring O2 through a facemask Objective Vitals I&O Vital Signs Date Time Temp Pulse Resp B/P (MAP) Pulse Ox O2 Delivery O2 Flow Rate FiO2 07/23/17 08:00 99 Venturi Mask 6.00 50 07/23/17 07:35 95 Venturi Mask 40 07/23/17 06:00 64 07/23/17 04:15 62 28 94 07/23/17 04:01 74 33 109/67 (81) 93 07/23/17 04:00 97.9 07/23/17 04:00 68 07/23/17 04:00 Venturi Mask 6.00 50 07/23/17 04:00 68 25 95 07/23/17 03:45 70 29 93 07/23/17 03:30 76 30 93 07/23/17 03:15 74 30 93 07/23/17 03:01 72 28 94/58 (70) 93 07/23/17 03:00 74 28 93 07/23/17 02:45 72 29 95 07/23/17 02:30 66 29 94 07/23/17 02:15 68 28 91 07/23/17 02:01 92 35 122/72 (89) 83 07/23/17 02:00 84 07/23/17 02:00 84 37 86 07/23/17 01:45 76 31 95 07/23/17 01:30 70 29 96 07/23/17 01:15 76 28 95 07/23/17 01:01 74 31 106/65 (79) 93 07/23/17 01:00 74 30 93 07/23/17 00:45 102 57 78 07/23/17 00:30 68 30 94 07/23/17 00:15 68 32 92 07/23/17 00:01 70 32 103/65 (78) 92 07/23/17 00:00 72 07/23/17 00:00 99.2 07/23/17 00:00 Venturi Mask 6.00 50 07/23/17 00:00 72 32 92 07/22/17 23:45 68 28 95 07/22/17 22:30 76 30 93 07/22/17 22:15 72 34 92 07/22/17 22:01 72 32 103/64 (77) 92 07/22/17 22:00 76 1/20/18 22:00 76 33 91 07/22/17 21:45 78 34 91 07/22/17 21:30 80 33 91 07/22/17 21:15 82 38 89 07/22/17 21:01 88 39 105/65 (78) 85 07/22/17 21:00 92 34 83 07/22/17 20:45 88 36 87 07/22/17 20:30 92 40 86 07/22/17 20:15 94 37 86 07/22/17 20:01 90 37 105/62 (76) 88 07/22/17 20:00 Venturi Mask 6.00 50 07/22/17 20:00 88 35 88 07/22/17 20:00 88 07/22/17 20:00 98.9 07/22/17 19:45 74 33 95 07/22/17 19:36 94 Venturi Mask 6.00 50 07/22/17 19:30 82 37 90 07/22/17 19:15 76 33 92 07/22/17 19:01 74 30 101/64 (76) 94 07/22/17 19:00 74 31 94 07/22/17 18:01 72 30 106/58 (74) 93 07/22/17 17:01 80 29 103/62 (76) 94 07/22/17 16:01 86 37 101/72 (82) 91 07/22/17 16:00 Venturi Mask 6.00 50 07/22/17 15:01 86 32 100/65 (77) 93 07/22/17 14:01 76 31 96/61 (73) 94 07/22/17 13:01 72 27 92/57 (69) 95 I/O 07/22/17 07/22/17 07/22/17 07/23/17 07/23/17 07/23/17 07:00 15:00 23:00 07:00 15:00 23:00 Intake Total 200 ml Output Total 450 ml 650 ml 550 ml Balance -450 ml -650 ml -350 ml Intake Oral 200 ml Output Urine Total 450 ml 650 ml 550 ml Laboratory Laboratory Tests Test 07/23/17 06:00 White Blood Count 12.3 Red Blood Count 3.74 Hemoglobin 10.7 Hematocrit 33.4 Mean Corpuscular Volume 89.4 Mean Corpuscular Hemoglobin 28.5 Mean Corpuscular Hemoglobin Concent 31.9 Red Cell Distribution Width 16.0 Platelet Count 163 Mean Platelet Volume 9.2 Neutrophils (%) (Auto) 90.9 Lymphocytes (%) (Auto) 5.6 Monocytes (%) (Auto) 3.3 Eosinophils (%) (Auto) 0.1 Basophils (%) (Auto) 0.1 Neutrophils # (Auto) 11.2 Lymphocytes # (Auto) 0.7 Monocytes # (Auto) 0.4 Eosinophils # (Auto) 0.0 Basophils # (Auto) 0.0 CBC Comment AUTO DIFF Differential Comment AUTO DIFF CONFIRMED Blood Urea Nitrogen 26 Creatinine 0.43 Random Glucose 131 Total Protein 5.4 Albumin 2.0 Calcium Level 8.0 Alkaline Phosphatase 111 Aspartate Amino Transf (AST/SGOT) 64 Alanine Aminotransferase (ALT/SGPT) 274 Total Bilirubin 0.8 Sodium Level 141 Potassium Level 4.1 Chloride Level 106 Carbon Dioxide Level 29.1 Anion Gap 6 Estimat Glomerular Filtration Rate 159 Date/Time Source Procedure Growth Status 07/14/17 18:56 Blood Peripheral Aerobic Blood Culture - Final NO GROWTH IN 5 DAYS Complete 07/14/17 18:56 Blood Peripheral Anaerobic Blood Culture - Final NO GROWTH IN 5 DAYS Complete 07/12/17 16:58 Nasal Washing Influenza Types A,B Antigen (JEN) - Final NEGATIVE FOR FLU A AND B ANTIGEN.... Complete 07/14/17 10:15 Urine Clean Catch Urine Culture - Final NO GROWTH IN 48 HOURS. Complete Imaging Last Impressions Chest X-Ray 07/14/17 0000 Signed Impressions: Service Date/Time: Friday, July 14, 2017 17:58 - CONCLUSION: No significant interval change in diffuse interstitial pulmonary opacity bilaterally. Raffi Briggs MD CT Angiography 07/14/17 0000 Signed Impressions: Service Date/Time: Friday, July 14, 2017 10:01 - CONCLUSION: Extensive parenchymal lung disease which appears largely chronic with superimposed acute exacerbation. No evidence of pulmonary embolism.. You Mccallum MD Abdomen Ultrasound 07/14/17 0000 Signed Impressions: Service Date/Time: Friday, July 14, 2017 19:45 - CONCLUSION: Liver within normal limits. Small gallstone in the gallbladder. Nonspecific mild diffuse gallbladder wall thickening. Borderline splenomegaly. Trace right pleural effusion. Raffi Briggs MD Physical Exam HEENT: normocephalic; atraumatic; no jaundice. Throat is clear. NECK: Neck is supple, no JVD, CHEST: Mildly coarse breath sounds. CARDIAC: Regular rate and rhythm with no murmur gallop or rubs. ABDOMEN: Soft, nondistended, nontender; no hepatosplenomegaly; bowel sounds are present in all four quadrants. EXTREMITIES: No clubbing, cyanosis, or edema. SKIN: Normal; no rash; no jaundice. [employer]: No focal deficits; alert and oriented times three. 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 patient is also found to have an elevated smooth muscle antibody suggesting autoimmune hepatitis and currently she is found to have hepatitis B surface antigen positive with a positive hepatitis B DNA suggesting hepatitis B this is a new development that occurred over the past year the patient reports having had IV drug use last time was about a year ago Patient is made aware of this change She reports she has a boyfriend and so she is made aware that he needs to be informed and tested At this point we'll continue with steroids it seems that she is actually responding clinically suggesting the probable autoimmune factor in her liver dysfunction We will monitor her labs and viral count and based on that make a determination as to if and when to treat for hepatitis B Continue with current supportive care Lloyd Hernadez MD Jul 23, 2017 12:08
--- NOTE | 2017-07-23 16:55 | HHI.CCPN ---
Subjective Remarks/Hospital Course This is a 47-year-old white female that was admitted 2 days ago on 07/12/2017 to [facility].Patient was in her usual state of health until about a few days ago when she began experiencing a gradual onset of worsening shortness of breath and pleuritic chest pain. This is associated with a fever of 102.3 and mild productive nonbloody cough. Patient has 3 L/m home O2 dependency . Per report , the patient had been wearing her 3 L of oxygen at home. The patient's past medical history significant for an autoimmune lung disease but does not have a specific name and cannot remember the name of her manager city in [place]. Patient states that she was supposed to be taking 30 mg of prednisone on a daily basis for some time but she herself discontinued it about 2 months ago at her own discretion because she felt that they were disrupting her sleep significantly. She also says she takes an inhaler 4 times of the day but denies apparently taking any controller medications. Patient does have a history of bipolar disorder and says she is compliant with those medications. In the emergency department she was placed on 4 L, given steroids, Rocephin and azithromycin and DuoNeb treatments and then sent to the [facility] floor. Today 07/14/17, patient was noted to have significant decompensation and respiratory status requiring a nonrebreather mask, and at risk for possible intubation. Pulmonology was consulted .Critical care medicine was consulted, patient was transferred to the ICU. Records obtained from [facility] revealed the patient has autoimmune hepatitis, and pulmonary fibrosis. Upon my evaluation the patient was noted to be 99% on nonrebreather the patient was then placed on partial nonrebreather O2 saturation 94%, respiratory rate 28. Subjective: 07/15: FiO2 continues to be 60% on a partial non-rebreather mask. Plan to transition to high flow nasal cannula this a.m.. Pulmonology consult pending. Patient continues on steroids and antibiotics, noted acute desaturation with minimal activity. Strict bed rest implemented. Attempts being made to obtain records from [facility] her last admission for pulmonary compromise. 07/16: fio2 improves. abg slightly improving 7.39/51/138. LFTs coming down slightly. patient wants to get OOB. denies other complaints. ROS negative. 07/17: remains hypoxic on NRB. did get OOB to chair yesterday. denies complaints. ROS negative. 07/18 No events overnight. Patient is on high flow oxygen 30L with 45% FIO2. Afebrile. 07/19: Remains on high flow O2 30 L/m with 35% FiO2. 07/20 Patient is lying in bed in NAD. Remains on high flow oxygen 30L with 35% FIO2. Afebrile. 07/21. Patient is lying in bed with partial nonrebreather at this time. She is no longer requiring high flow oxygen. She is holding O2 saturations. She denies any shortness of breath or dyspnea. Vital signs are with mildly low blood pressure, afebrile 07/22 Patient is on VM with 50% FIO2. Afebrile. Denies any worsening of dyspnea from baseline. Afebrile. 07/23 No events overnight, on 50% VM. Objective Vital Signs Date Time Temp Pulse Resp B/P (MAP) Pulse Ox O2 Delivery O2 Flow Rate FiO2 07/23/17 14:01 94 41 121/73 (89) 86 07/23/17 12:01 98.3 07/23/17 12:00 Venturi Mask 50 07/23/17 08:00 6.00 Intake and Output 07/23/17 07/23/17 07/24/17 08:00 16:00 00:00 Intake Total 200 ml Output Total 550 ml Balance -350 ml Result Diagram: 07/23/17 0600 07/23/17 0600 Other Results Laboratory Tests Test 07/23/17 06:00 White Blood Count 12.3 TH/MM3 Red Blood Count 3.74 MIL/MM3 Hemoglobin 10.7 GM/DL Hematocrit 33.4 % Mean Corpuscular Volume 89.4 FL Mean Corpuscular Hemoglobin 28.5 PG Mean Corpuscular Hemoglobin Concent 31.9 % Red Cell Distribution Width 16.0 % Platelet Count 163 TH/MM3 Mean Platelet Volume 9.2 FL Neutrophils (%) (Auto) 90.9 % Lymphocytes (%) (Auto) 5.6 % Monocytes (%) (Auto) 3.3 % Eosinophils (%) (Auto) 0.1 % Basophils (%) (Auto) 0.1 % Neutrophils # (Auto) 11.2 TH/MM3 Lymphocytes # (Auto) 0.7 TH/MM3 Monocytes # (Auto) 0.4 TH/MM3 Eosinophils # (Auto) 0.0 TH/MM3 Basophils # (Auto) 0.0 TH/MM3 CBC Comment AUTO DIFF Differential Comment AUTO DIFF CONFIRMED Blood Urea Nitrogen 26 MG/DL Creatinine 0.43 MG/DL Random Glucose 131 MG/DL Total Protein 5.4 GM/DL Albumin 2.0 GM/DL Calcium Level 8.0 MG/DL Alkaline Phosphatase 111 U/L Aspartate Amino Transf (AST/SGOT) 64 U/L Alanine Aminotransferase (ALT/SGPT) 274 U/L Total Bilirubin 0.8 MG/DL Sodium Level 141 MEQ/L Potassium Level 4.1 MEQ/L Chloride Level 106 MEQ/L Carbon Dioxide Level 29.1 MEQ/L Anion Gap 6 MEQ/L Estimat Glomerular Filtration Rate 159 ML/MIN Imaging Last Impressions Chest X-Ray 07/14/17 0000 Signed Impressions: Service Date/Time: Friday, July 14, 2017 17:58 - CONCLUSION: No significant interval change in diffuse interstitial pulmonary opacity bilaterally. Raffi Briggs MD CT Angiography 07/14/17 0000 Signed Impressions: Service Date/Time: Friday, July 14, 2017 10:01 - CONCLUSION: Extensive parenchymal lung disease which appears largely chronic with superimposed acute exacerbation. No evidence of pulmonary embolism.. You Mccallum MD Abdomen Ultrasound 07/14/17 0000 Signed Impressions: Service Date/Time: Friday, July 14, 2017 19:45 - CONCLUSION: Liver within normal limits. Small gallstone in the gallbladder. Nonspecific mild diffuse gallbladder wall thickening. Borderline splenomegaly. Trace right pleural effusion. Raffi Briggs MD Objective Remarks GENERAL: Well-developed, well-nourished, in no acute distress. alert and orientated HEENT: Head is normocephalic without any lesions or masses noted. Facial features are symmetric. Eyes: Extraocular muscles are intact. Conjunctivae were clear. Patient wearing partial nonrebreather NECK: Supple without any masses. Trachea midline no deviation. No JVD, CARDIAC: Regular rhythm, regular rate. S1/S2 are heard. No murmurs gallops or rubs. LUNGS: Clear to auscultation bilaterally. No wheeze, rhonchi or rales. No use of accessory muscles on inspiration or expiration. ABDOMEN: Soft, nontender. Nondistended. Bowel sounds heard in all 4 quadrants. No organomegaly or masses. Negative rebound, negative guarding EXTREMITIES: No edema, pulses are equal bilaterally. No cyanosis or clubbing NEUROLOGY: Mood and affect appear appropriate. Cranial nerves II through XII grossly intact. Moving all extremities, speech is clear A/P Assessment and Plan This is a 47-year-old female with acute on chronic hypoxemic respiratory failure and increasing O2 requirements. The patient's imaging studies and report of significant concern for chronic interstitial lung disease. Medical records from outside hospital reveal patient has a diagnosis of pulmonary fibrosis for approximately 1 year, managed in [place], [place]. The patient is at risk for possible intubation with continued respiratory compromise. remain in ICU. Plan by systems: Neurologic: Bipolar disorder Depression History of (smoking) cocaine abuse 10/2016 Neurochecks per ICU protocol Continue home meds- Abilify, Prozac Trazodone 100mg qhs UDS negative. Respiratory: Acute on chronic hypoxemic respiratory failure - persistent. Possible community-acquired pneumonia History of Tobacco use disorder Chronic interstitial lung disease-steroid dependent Pulmonary fibrosis Home O2 dependency COPD History of asthma Continue to wean oxygen to Maintain O2 sat greater than 88% Duo nebs every 4 hours scheduled and every 2 hours when necessary Continue home med Symbicort Decrease Solumederol 40mg Q8 Pulmonology is following- Dr. Stark PFTs 09/18 2016([facility]) FEV1 700 -25% of predicted, FVC 21% no lung volumes are diffusions were performed 09/07/16 CT thorax ([facility]) pulmonary fibrosis with left adrenal adenoma , however alpha 1 antitrypsin level was WNL , but positive (ASMA)anti-smooth muscle antibodies 1:640, ceruloplasmin normal Cardiovascular: Monitor HR and BP keep MAP>65mmHg 09/08/16 echo ([facility]) EF 55-60 %, Mildly elevated pulmonary pressure no major valvular abnormalities Renal: Monitor renal function, I/Os, electrolytes replacement per protocol. FEN/GI: Autoimmune hepatitis? (reported) Hepatitis B Transaminitis Hyperlipidemia GERD Mild protein calorie malnutrition Monitor LFTs: currently downtrending. 07/15 ultrasound of abdomen- gallbladder wall thickening, borderline splenomegaly , trace right pleural effusion Famotidine GI prophylaxis Zofran for nausea 09/13/16 Liver biopsy ([facility]) see medical chart for review- Patient referred to [facility] for eval for liver transplant GI is following. On Actigall. Continue monitor liver enzymes. Hep B sAg positive Heme/ID: Monitor CBC blood cultures- NGTD Legionella and pneumococcal urine antigens- negative Influenza- negative Off abx-s/p azithromycin and cefepime finished 07/22 Patient with head lice, continue permethrin as directed Endocrine: Glucose monitoring per ICU protocol. Low dose regimen -- SSI Prophylaxis: GI Prophylaxis Famotidine DVT Prophylaxis -- SCDs, add Heparin SQ Lines: Peripheral IVs 2. Dispo: remain in ICU. Level 2 Mone Lora MD Jul 23, 2017 16:55
[2017-07-23] MEDS: traZODone HCL 100 MG TAB PO SCH (20:48)
[2017-07-23] MEDS: methylPREDNISolone SOD SUCC 40 MG/1 ML VIAL IV PUSH SCH (23:33)
[2017-07-24] VITALS (61 sets, daily range): BP systolic 89–169; BP diastolic 54–102; PULSE 56–92; RESP 19–61; TEMP 97.4–98.6; O2SAT 87–100
[2017-07-24 05:38] LABS: CALCIUM 8.1 MG/DL (8.5-10.1)
[2017-07-24 05:39] LABS: BICARBONATE 29.6 MEQ/L (21.0-32.0)
[2017-07-24 05:40] LABS: AUTOMATED NEUTROPHIL # 13.4 TH/MM3 (1.8-7.7); EOSINOPHIL % 0.1 % (0.0-4.0); HEMATOCRIT 33.4 % (35.0-46.0); HEMOGLOBIN 10.5 GM/DL (11.6-15.3); LYMPH % 4.4 % (9.0-44.0); LYMPHOCYTE # 0.6 TH/MM3 (1.0-4.8); MEAN CELL VOLUME 90.9 FL (80.0-100.0); MEAN CORPUSCULAR HEMOGLOBIN 28.7 PG (27.0-34.0); MEAN CORPUSCULAR HGB CONC 31.6 % (32.0-36.0); MEAN PLATELET VOLUME 9.7 FL (7.0-11.0); MONO % 3.3 % (0.0-8.0); MONOCYTE # 0.5 TH/MM3 (0-0.9); NEUT % 92.2 % (16.0-70.0); PLATELET COUNT 165 TH/MM3 (150-450); RED BLOOD COUNT 3.67 MIL/MM3 (4.00-5.30); RED CELL DISTRIBUTION WIDTH 16.5 % (11.6-17.2); WHITE BLOOD COUNT 14.5 TH/MM3 (4.0-11.0)
[2017-07-24 05:42] LABS: CREATININE 0.5 MG/DL (0.50-1.00)
[2017-07-24] MEDS: INSULIN ASPART SUPPLEMENTAL SCALE SQ SCH ×4 (06:07→22:09)
[2017-07-24] MEDS: FAMOTIDINE 20 MG/2 ML VIAL IV PUSH SCH ×2 (06:07→17:49)
[2017-07-24] MEDS: methylPREDNISolone SOD SUCC 40 MG/1 ML VIAL IV PUSH SCH ×3 (06:07→22:08)
[2017-07-24] MEDS: RESP: ALBUTEROL 1.25 MG/3 ML NEB (PRN) NEB ×3 (07:55→19:58)
[2017-07-24] MEDS: [UNRECOGNIZED DRUG - REMARK] NEB SCH ×3 (07:56→19:58)
[2017-07-24] MEDS: URSODIOL 300 MG CAP PO SCH ×2 (08:02→22:58)
[2017-07-24] MEDS: NAPROXEN 500 MG TAB PO SCH ×2 (08:02→22:58)
[2017-07-24] MEDS: BUDESONIDE-FORMOTEROL 80/4.5 MCG INHALER INH SCH ×2 (08:03→22:09)
[2017-07-24] MEDS: ARIPiprazole 10 MG TAB PO SCH (08:03)
[2017-07-24] MEDS: FLUoxetine HCL 20 MG CAP PO SCH (08:03)
[2017-07-24] MEDS: HEPARIN SODIUM - SQ 10,000 UNITS/ML VIAL SQ SCH ×2 (08:03→22:08)
--- NOTE | 2017-07-24 08:47 | HHI.GIFU ---
Subjective Remarks Patient was laying in bed, had the mask on with the treatment for some shortness of breath, complain of minimal discomfort in her abdomen in the epigastric area and right upper quadrant, she reports that she is feeling a little bit better Objective Vitals I&O Vital Signs Date Time Temp Pulse Resp B/P (MAP) Pulse Ox O2 Delivery O2 Flow Rate FiO2 07/24/17 08:00 96 Partial Non-Rebreather 12.00 50 07/24/17 08:00 97.7 62 22 114/63 (80) 97 07/24/17 07:58 98 Partial Rebreather 15.00 07/24/17 07:00 56 20 99 07/24/17 07:00 56 07/24/17 06:15 64 28 98 07/24/17 06:07 64 26 99/65 (76) 97 07/24/17 06:01 92 61 169/102 (124) 87 07/24/17 06:00 80 07/24/17 06:00 80 44 97 07/24/17 05:45 60 23 100 07/24/17 05:30 56 19 100 07/24/17 05:15 58 21 100 07/24/17 05:01 58 19 98/55 (69) 100 07/24/17 05:00 60 19 100 07/24/17 04:45 58 23 100 07/24/17 04:30 56 20 99 07/24/17 04:15 56 20 99 07/24/17 04:01 62 21 98/64 (75) 99 07/24/17 04:00 62 07/24/17 04:00 98.2 07/24/17 04:00 100 Venturi Mask 6.00 50 07/24/17 04:00 62 22 99 07/24/17 03:45 58 26 99 07/24/17 03:30 64 22 98 07/24/17 03:15 60 19 99 07/24/17 03:01 64 22 97/71 (80) 99 07/24/17 03:00 60 20 99 07/24/17 02:45 60 25 99 07/24/17 02:30 64 22 99 07/24/17 02:15 60 20 99 07/24/17 02:01 60 20 102/63 (76) 99 07/24/17 02:00 60 20 99 07/24/17 02:00 60 1/22/18 01:45 62 21 99 07/24/17 01:30 60 29 99 07/24/17 01:15 62 33 99 07/24/17 01:01 68 26 100/62 (75) 98 07/24/17 01:00 68 29 98 07/24/17 00:45 58 37 99 07/24/17 00:30 64 39 99 07/24/17 00:15 62 30 99 07/24/17 00:01 60 33 108/72 (84) 99 07/24/17 00:00 60 32 99 07/24/17 00:00 60 07/24/17 00:00 98.4 07/24/17 00:00 99 Venturi Mask 6.00 50 07/23/17 23:45 60 24 99 07/23/17 23:30 64 28 98 07/23/17 23:15 64 25 98 07/23/17 23:01 68 27 100/72 (81) 99 07/23/17 23:00 66 25 99 07/23/17 22:45 66 30 99 07/23/17 22:30 72 34 99 07/23/17 22:15 72 33 99 07/23/17 22:01 72 36 109/74 (86) 99 07/23/17 22:00 76 07/23/17 22:00 76 40 99 07/23/17 21:45 92 40 90 07/23/17 21:30 88 40 96 07/23/17 21:15 88 38 95 07/23/17 21:01 86 38 110/69 (83) 94 07/23/17 21:00 86 41 93 07/23/17 20:45 92 34 89 18 20:30 80 36 89 07/23/17 20:15 74 45 94 07/23/17 20:15 94 Partial Rebreather 15.00 07/23/17 20:01 78 40 115/70 (85) 93 07/23/17 20:00 96 Venturi Mask 6.00 50 07/23/17 20:00 76 44 92 07/23/17 20:00 98.8 18 20:00 74 18 19:45 74 38 95 07/23/17 19:30 88 44 90 07/23/17 19:15 72 44 97 07/23/17 19:01 78 38 109/66 (80) 91 07/23/17 19:00 76 34 92 07/23/17 18:01 76 37 107/71 (83) 95 07/23/17 17:01 82 39 99/63 (75) 94 07/23/17 16:01 92 40 108/64 (79) 92 07/23/17 16:00 96 Venturi Mask 50 07/23/17 15:01 98.4 90 39 106/66 (79) 94 07/23/17 15:00 88 07/23/17 14:01 94 41 121/73 (89) 86 07/23/17 13:01 78 26 101/60 (74) 88 07/23/17 12:01 98.3 72 36 106/63 (77) 88 07/23/17 12:00 97 Venturi Mask 50 07/23/17 11:01 74 39 105/65 (78) 99 07/23/17 10:01 74 42 100/65 (77) 99 07/23/17 09:01 76 31 100/66 (77) 100 I/O 07/23/17 07/23/17 07/23/17 07/24/17 07/24/17 07/24/17 07:00 15:00 23:00 07:00 15:00 23:00 Intake Total 200 ml 960 ml 240 ml Output Total 550 ml Balance -350 ml 960 ml 240 ml Intake Oral 200 ml 960 ml 240 ml Output Urine Total 550 ml # Voids 3 Laboratory Laboratory Tests Test 07/24/17 04:45 White Blood Count 14.5 Red Blood Count 3.67 Hemoglobin 10.5 Hematocrit 33.4 Mean Corpuscular Volume 90.9 Mean Corpuscular Hemoglobin 28.7 Mean Corpuscular Hemoglobin Concent 31.6 Red Cell Distribution Width 16.5 Platelet Count 165 Mean Platelet Volume 9.7 Neutrophils (%) (Auto) 92.2 Lymphocytes (%) (Auto) 4.4 Monocytes (%) (Auto) 3.3 Eosinophils (%) (Auto) 0.1 Basophils (%) (Auto) 0.0 Neutrophils # (Auto) 13.4 Lymphocytes # (Auto) 0.6 Monocytes # (Auto) 0.5 Eosinophils # (Auto) 0.0 Basophils # (Auto) 0.0 CBC Comment DIFF FINAL Differential Comment Blood Urea Nitrogen 23 Creatinine 0.50 Random Glucose 114 Calcium Level 8.1 Sodium Level 140 Potassium Level 4.4 Chloride Level 106 Carbon Dioxide Level 29.6 Anion Gap 4 Estimat Glomerular Filtration Rate 133 Date/Time Source Procedure Growth Status 07/14/17 18:56 Blood Peripheral Aerobic Blood Culture - Final NO GROWTH IN 5 DAYS Complete 07/14/17 18:56 Blood Peripheral Anaerobic Blood Culture - Final NO GROWTH IN 5 DAYS Complete 07/12/17 16:58 Nasal Washing Influenza Types A,B Antigen (JEN) - Final NEGATIVE FOR FLU A AND B ANTIGEN.... Complete 07/14/17 10:15 Urine Clean Catch Urine Culture - Final NO GROWTH IN 48 HOURS. Complete Physical Exam HEENT: normocephalic; atraumatic; no jaundice. Throat is clear. NECK: Neck is supple, no JVD, CHEST: Mildly coarse breath sounds. CARDIAC: Regular rate and rhythm with no murmur gallop or rubs. ABDOMEN: Soft, nondistended, nontender; no hepatosplenomegaly; bowel sounds are present in all four quadrants. EXTREMITIES: No clubbing, cyanosis, or edema. SKIN: Normal; no rash; no jaundice. PLANER OFFBEARER: No focal deficits; alert and oriented times three. 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 patient is also found to have an elevated smooth muscle antibody suggesting autoimmune hepatitis and currently she is found to have hepatitis B surface antigen positive with a positive hepatitis B DNA suggesting hepatitis B this is a new development that occurred over the past year the patient reports having had IV drug use last time was about a year ago Patient is made aware of this change She reports she has a boyfriend and so she is made aware that he needs to be informed and tested At this point we'll continue with steroids it seems that she is actually responding clinically suggesting the probable autoimmune factor in her liver dysfunction We will monitor her labs and viral count and based on that make a determination as to if and when to treat for hepatitis B Continue with current supportive care 07/25/2018, no significant changes since yesterday, LFTs yesterday were mildly improved with the start of prednisone, we will continue that for few days, and start tapering after that, patient most likely will need treatment for hepatitis B because she stated that her IV drug abuse was about a year ago and if that was the reason for the hepatitis B then and most likely this will not convert , we will assess and do liver function test hepatitis and CBC tomorrow, We will repeat hepatitis B in few month and if it still positive then treatment would be required Rosendo Cervantes MD Jul 24, 2017 08:47
--- NOTE | 2017-07-24 11:29 | RADRPT ---
EXAM DATE/TIME: 07/24/2017 11:01 [place] COMPARISON: CT PULMONARY ANGIOGRAM, July 14, 2017, 10:01. CHEST SINGLE AP, November 16, 2015, 9:32. CHEST PA & LA T, November 27, 2015, 9:53. CHEST SINGLE AP, September 07, 2016, 18:04. CHEST SINGLE AP, July 14, 2017, 1 7:58. INDICATIONS : Short of breath. MEDICAL HISTORY : Gastroesophageal reflux disease. Chronic obstructive pulmonary disease.Renal calculi. Seizures. Asthm a SURGICAL HISTORY : Appendectomy. Hysterectomy. ENCOUNTER: Initial ACUITY: 2 weeks PAIN SCORE: 0/10 LOCATION: Bilateral chest FINDINGS: Extensive coarse interstitial changes are evident. There is interval development of moderate subcuta neous emphysema and mediastinal air. I don't see definite pneumothorax. CONCLUSION: Interval development of new subcutaneous emphysema bilaterally. The pneumothorax cannot be excluded Lungs may be so noncompliant they will not collapsed with a pneumothorax. Sravan Rios MD FACR on July 24, 2017 at 11:22 Board Certified Radiologist. This report was verified electronically.
--- NOTE | 2017-07-24 16:01 | HHI.CCPN ---
Subjective Remarks/Hospital Course This is a 47-year-old white female that was admitted 2 days ago on 07/12/2017 to [facility].Patient was in her usual state of health until about a few days ago when she began experiencing a gradual onset of worsening shortness of breath and pleuritic chest pain. This is associated with a fever of 102.3 and mild productive nonbloody cough. Patient has 3 L/m home O2 dependency . Per report , the patient had been wearing her 3 L of oxygen at home. 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 Patient states that she was supposed to be taking 30 mg of prednisone on a daily basis for some time but she herself discontinued it about 2 months ago at her own discretion because she felt that they were disrupting her sleep significantly. She also says she takes an inhaler 4 times of the day but denies apparently taking any controller medications. Patient does have a history of bipolar disorder and says she is compliant with those medications. In the emergency department she was placed on 4 L, given steroids, Rocephin and azithromycin and DuoNeb treatments and then sent to the [facility] floor. Today 07/14/17, patient was noted to have significant decompensation and respiratory status requiring a nonrebreather mask, and at risk for possible intubation. Pulmonology was consulted .Critical care medicine was consulted, patient was transferred to the ICU. Records obtained from [facility] revealed the patient has autoimmune hepatitis, and pulmonary fibrosis. Upon my evaluation the patient was noted to be 99% on nonrebreather the patient was then placed on partial nonrebreather O2 saturation 94%, respiratory rate 28. Subjective: 07/15: FiO2 continues to be 60% on a partial non-rebreather mask. Plan to transition to high flow nasal cannula this a.m.. Pulmonology consult pending. Patient continues on steroids and antibiotics, noted acute desaturation with minimal activity. Strict bed rest implemented. Attempts being made to obtain records from [facility] her last admission for pulmonary compromise. 07/16: fio2 improves. abg slightly improving 7.39/51/138. LFTs coming down slightly. patient wants to get OOB. denies other complaints. ROS negative. 07/17: remains hypoxic on NRB. did get OOB to chair yesterday. denies complaints. ROS negative. 07/18 No events overnight. Patient is on high flow oxygen 30L with 45% FIO2. Afebrile. 07/19: Remains on high flow O2 30 L/m with 35% FiO2. 07/20 Patient is lying in bed in NAD. Remains on high flow oxygen 30L with 35% FIO2. Afebrile. 07/21. Patient is lying in bed with partial nonrebreather at this time. She is no longer requiring high flow oxygen. She is holding O2 saturations. She denies any shortness of breath or dyspnea. Vital signs are with mildly low blood pressure, afebrile 07/22 Patient is on VM with 50% FIO2. Afebrile. Denies any worsening of dyspnea from baseline. Afebrile. 07/23 No events overnight, on 50% VM. 07/24 Patient just arrived to [facility] from [facility]. CXR earlier today showed new SubQ emphysema b/l, chronic ILD. On partial rebreather Objective Vital Signs Date Time Temp Pulse Resp B/P (MAP) Pulse Ox O2 Delivery O2 Flow Rate FiO2 07/24/17 15:01 60 07/24/17 15:01 21 99/67 (78) 95 07/24/17 13:27 Partial Rebreather 12.00 07/24/17 12:00 50 07/24/17 08:00 97.7 Intake and Output 07/24/17 07/24/17 07/25/17 08:00 16:00 00:00 Intake Total 240 ml Balance 240 ml Result Diagram: 07/24/17 0445 07/24/17 0445 Other Results Laboratory Tests Test 07/24/17 04:45 White Blood Count 14.5 TH/MM3 Red Blood Count 3.67 MIL/MM3 Hemoglobin 10.5 GM/DL Hematocrit 33.4 % Mean Corpuscular Volume 90.9 FL Mean Corpuscular Hemoglobin 28.7 PG Mean Corpuscular Hemoglobin Concent 31.6 % Red Cell Distribution Width 16.5 % Platelet Count 165 TH/MM3 Mean Platelet Volume 9.7 FL Neutrophils (%) (Auto) 92.2 % Lymphocytes (%) (Auto) 4.4 % Monocytes (%) (Auto) 3.3 % Eosinophils (%) (Auto) 0.1 % Basophils (%) (Auto) 0.0 % Neutrophils # (Auto) 13.4 TH/MM3 Lymphocytes # (Auto) 0.6 TH/MM3 Monocytes # (Auto) 0.5 TH/MM3 Eosinophils # (Auto) 0.0 TH/MM3 Basophils # (Auto) 0.0 TH/MM3 CBC Comment DIFF FINAL Differential Comment Blood Urea Nitrogen 23 MG/DL Creatinine 0.50 MG/DL Random Glucose 114 MG/DL Calcium Level 8.1 MG/DL Sodium Level 140 MEQ/L Potassium Level 4.4 MEQ/L Chloride Level 106 MEQ/L Carbon Dioxide Level 29.6 MEQ/L Anion Gap 4 MEQ/L Estimat Glomerular Filtration Rate 133 ML/MIN Imaging Last Impressions Chest X-Ray 07/24/17 0000 Signed Impressions: Service Date/Time: Monday, July 24, 2017 11:01 - CONCLUSION: Interval development of new subcutaneous emphysema bilaterally. The pneumothorax cannot be excluded Lungs may be so noncompliant they will not collapsed with a pneumothorax. Sravan Rios MD FACR CT Angiography 07/14/17 0000 Signed Impressions: Service Date/Time: Friday, July 14, 2017 10:01 - CONCLUSION: Extensive parenchymal lung disease which appears largely chronic with superimposed acute exacerbation. No evidence of pulmonary embolism.. You Mccallum MD Abdomen Ultrasound 07/14/17 0000 Signed Impressions: Service Date/Time: Friday, July 14, 2017 19:45 - CONCLUSION: Liver within normal limits. Small gallstone in the gallbladder. Nonspecific mild diffuse gallbladder wall thickening. Borderline splenomegaly. Trace right pleural effusion. Raffi Briggs MD Objective Remarks GENERAL: Well-developed, well-nourished, in no acute distress. alert and orientated HEENT: Head is normocephalic without any lesions or masses noted. Facial features are symmetric. Eyes: Extraocular muscles are intact. Conjunctivae were clear. Patient wearing partial nonrebreather NECK: Supple without any masses. Trachea midline no deviation. No JVD, CARDIAC: Regular rhythm, regular rate. S1/S2 are heard. No murmurs gallops or rubs. LUNGS: Clear to auscultation bilaterally. No wheeze, rhonchi or rales. No use of accessory muscles on inspiration or expiration. ABDOMEN: Soft, nontender. Nondistended. Bowel sounds heard in all 4 quadrants. No organomegaly or masses. Negative rebound, negative guarding EXTREMITIES: No edema, pulses are equal bilaterally. No cyanosis or clubbing NEUROLOGY: Mood and affect appear appropriate. Cranial nerves II through XII grossly intact. Moving all extremities, speech is clear A/P Assessment and Plan This is a 47-year-old female with acute on chronic hypoxemic respiratory failure and increasing O2 requirements. The patient's imaging studies and report of significant concern for chronic interstitial lung disease. Medical records from outside hospital reveal patient has a diagnosis of pulmonary fibrosis for approximately 1 year, managed in [place], [place]. The patient is at risk for possible intubation with continued respiratory compromise. remain in ICU. Plan by systems: Neurologic: Bipolar disorder Depression History of (smoking) cocaine abuse 10/2016 Neurochecks per ICU protocol Continue home meds- Abilify, Prozac Trazodone 100mg qhs UDS negative. Respiratory: Acute on chronic hypoxemic respiratory failure - persistent. Possible community-acquired pneumonia History of Tobacco use disorder Chronic interstitial lung disease-steroid dependent Pulmonary fibrosis Home O2 dependency COPD History of asthma Continue to wean oxygen to Maintain O2 sat greater than 88% Duo nebs every 4 hours scheduled and every 2 hours when necessary Continue home med Symbicort, Solumederol 40mg Q8 CXR today showed new sub Q emphysema, chronic ILD. Will get CT chest STAT. Discussed with Rad- Dr. Rios. Pulmonology is following- Dr. Stark PFTs 09/18 2016([facility]) FEV1 700 -25% of predicted, FVC 21% no lung volumes are diffusions were performed 09/07/16 CT thorax ([facility]) pulmonary fibrosis with left adrenal adenoma , however alpha 1 antitrypsin level was WNL , but positive (ASMA)anti-smooth muscle antibodies 1:640, ceruloplasmin normal Cardiovascular: Monitor HR and BP keep MAP>65mmHg 09/08/16 echo ([facility]) EF 55-60 %, Mildly elevated pulmonary pressure no major valvular abnormalities Renal: Monitor renal function, I/Os, electrolytes replacement per protocol. FEN/GI: Autoimmune hepatitis? (reported) Hepatitis B Transaminitis Hyperlipidemia GERD Mild protein calorie malnutrition Monitor LFTs: currently downtrending. 07/15 ultrasound of abdomen- gallbladder wall thickening, borderline splenomegaly , trace right pleural effusion Famotidine GI prophylaxis Zofran for nausea 09/13/16 Liver biopsy ([facility]) see medical chart for review- Patient referred to [facility] for eval for liver transplant GI is following. On Actigall. Continue monitor liver enzymes. Hep B sAg positive Heme/ID: Monitor CBC blood cultures- NGTD Legionella and pneumococcal urine antigens- negative Influenza- negative Off abx-s/p azithromycin and cefepime finished 07/22 Patient with head lice, continue permethrin as directed Endocrine: Glucose monitoring per ICU protocol. Low dose regimen -- SSI Prophylaxis: GI Prophylaxis Famotidine DVT Prophylaxis -- SCDs, add Heparin SQ Lines: Peripheral IVs 2. Dispo: remain in ICU. Level 3 Mone Lora MD Jul 24, 2017 16:01
[2017-07-24 16:25] LABS: ANA PATTERN DIFFUSE
--- NOTE | 2017-07-24 17:49 | RADRPT ---
EXAM DATE/TIME: 07/24/2017 16:41 [facility] COMPARISON: CT PULMONARY ANGIOGRAM, July 14, 2017, 10:01. CHEST SINGLE AP, July 24, 2017, 11:01. INDICATIONS : Shortness of breath,hypoxia RADIATION DOSE: 7.00 CTDIvol (mGy) MEDICAL HISTORY : Hepatitis C. Pulmonary fibrosis SURGICAL HISTORY : None. ENCOUNTER: Initial ACUITY: 1 day PAIN SCALE: 0/10 LOCATION: chest TECHNIQUE: Volumetric scanning of the chest was performed. Using automated exposure control and adjustment of t he mA and/or kV according to patient size, radiation dose was kept as low as reasonably achievable to obtain optimal diagnostic quality images. DICOM format image data is available electronically for r eview and comparison. Follow-up recommendations for detected pulmonary nodules are based at a minimum on nodule size and pa tient risk factors according to Fleischner Society Guidelines. FINDINGS: LUNGS: Extensive subcutaneous emphysema, pneumomediastinum and small bilateral pneumothoraces. Diffuse inter stitial prominence and lower lobe dominant honeycombing. Patchy diffuse glass opacities. PLEURAE: Small bilateral pleural effusions. Small anterior bilateral pneumothoraces. MEDIASTINUM: Small pericardial effusion. Heart is otherwise unremarkable by CT. No gross knee stone or hilar adeno fernando. Prominent main pulmonary artery measuring up to 4.1 cm. AXILLAE: Within normal limits. No lymphadenopathy. MUSCULOSKELETAL: Within normal limits for patient age. MISCELLANEOUS: The visualized upper abdominal organs demonstrate no acute abnormality. CONCLUSION: 1. Lower lobe predominant interstitial lung disease and pulmonary fibrosis with interval development of massive pneumomediastinum, subcutaneous emphysema and small bilateral anterior pneumothoraces. 2. Patchy diffuse groundglass opacities may reflect superimposed infection/inflammatory process. 3. Small bilateral pleural effusions. 4. Trace pericardial effusion. Wilmer Kenny MD on July 24, 2017 at 17:40 Board Certified Radiologist. This report was verified electronically.
--- NOTE | 2017-07-24 20:01 | HHI.PR ---
Subjective Remarks 47 YOWF with RF,ILD,Endstage liver problem Weaned to VM Desaturates No fever Requires PRB off and on Tr To [facility] [place] chest Pneumomediastinum and sq emphysema Objective Vital Signs Vital Signs Date Time Temp Pulse Resp B/P (MAP) Pulse Ox O2 Delivery O2 Flow Rate FiO2 07/24/17 18:00 98.6 61 30 104/65 (78) 99 07/24/17 17:00 98.1 64 31 89/57 (68) 99 07/24/17 16:00 99 Partial Non-Rebreather 12.00 50 07/24/17 16:00 97.4 62 30 113/62 (79) 99 07/24/17 15:01 60 07/24/17 15:01 60 21 99/67 (78) 95 07/24/17 15:00 64 26 89 07/24/17 15:00 64 07/24/17 14:01 68 31 101/65 (77) 98 07/24/17 14:00 70 31 98 07/24/17 13:27 97 Partial Rebreather 12.00 07/24/17 13:01 62 21 96/66 (76) 97 07/24/17 13:00 64 22 97 07/24/17 12:01 62 26 94/63 (73) 98 07/24/17 12:00 62 29 97 07/24/17 12:00 97 Partial Non-Rebreather 12.00 50 07/24/17 11:01 66 31 97/63 (74) 96 07/24/17 11:00 68 33 95 07/24/17 10:01 66 23 93/62 (72) 97 07/24/17 10:00 66 24 97 07/24/17 09:00 58 21 98 07/24/17 08:20 96 Partial Rebreather 12.00 07/24/17 08:10 87 Venturi Mask 50 07/24/17 08:00 96 Partial Non-Rebreather 12.00 50 07/24/17 08:00 97.7 62 22 114/63 (80) 97 07/24/17 07:58 98 Partial Rebreather 15.00 07/24/17 07:00 56 20 99 07/24/17 07:00 56 07/24/17 06:15 64 28 98 07/24/17 06:07 64 26 99/65 (76) 97 07/24/17 06:01 92 61 169/102 (124) 87 07/24/17 06:00 80 07/24/17 06:00 80 44 97 07/24/17 05:45 60 23 100 07/24/17 05:30 56 19 100 07/24/17 05:15 58 21 100 07/24/17 05:01 58 19 98/55 (69) 100 07/24/17 05:00 60 19 100 07/24/17 04:45 58 23 100 07/24/17 04:30 56 20 99 07/24/17 04:15 56 20 99 07/24/17 04:01 62 21 98/64 (75) 99 07/24/17 04:00 62 07/24/17 04:00 98.2 07/24/17 04:00 100 Venturi Mask 6.00 50 07/24/17 04:00 62 22 99 07/24/17 03:45 58 26 99 07/24/17 03:30 64 22 98 07/24/17 03:15 60 19 99 07/24/17 03:01 64 22 97/71 (80) 99 07/24/17 03:00 60 20 99 07/24/17 02:45 60 25 99 07/24/17 02:30 64 22 99 07/24/17 02:15 60 20 99 07/24/17 02:01 60 20 102/63 (76) 99 07/24/17 02:00 60 20 99 07/24/17 02:00 60 07/24/17 01:45 62 21 99 07/24/17 01:30 60 29 99 07/24/17 01:15 62 33 99 07/24/17 01:01 68 26 100/62 (75) 98 07/24/17 01:00 68 29 98 07/24/17 00:45 58 37 99 07/24/17 00:30 64 39 99 07/24/17 00:15 62 30 99 07/24/17 00:01 60 33 108/72 (84) 99 07/24/17 00:00 60 32 99 07/24/17 00:00 60 07/24/17 00:00 98.4 07/24/17 00:00 99 Venturi Mask 6.00 50 1/21/18 23:45 60 24 99 07/23/17 23:30 64 28 98 07/23/17 23:15 64 25 98 07/23/17 23:01 68 27 100/72 (81) 99 07/23/17 23:00 66 25 99 07/23/17 22:45 66 30 99 07/23/17 22:30 72 34 99 07/23/17 22:15 72 33 99 07/23/17 22:01 72 36 109/74 (86) 99 07/23/17 22:00 76 07/23/17 22:00 76 40 99 07/23/17 21:45 92 40 90 07/23/17 21:30 88 40 96 07/23/17 21:15 88 38 95 07/23/17 21:01 86 38 110/69 (83) 94 07/23/17 21:00 86 41 93 07/23/17 20:45 92 34 89 07/23/17 20:30 80 36 89 07/23/17 20:15 74 45 94 07/23/17 20:15 94 Partial Rebreather 15.00 07/23/17 20:01 78 40 115/70 (85) 93 07/23/17 20:00 96 Venturi Mask 6.00 50 07/23/17 20:00 76 44 92 07/23/17 20:00 98.8 07/23/17 20:00 74 I/O 07/23/17 07/23/17 07/23/17 07/24/17 07/24/17 07/24/17 07:00 15:00 23:00 07:00 15:00 23:00 Intake Total 200 ml 960 ml 240 ml 150 ml Output Total 550 ml 900 ml Balance -350 ml 960 ml 240 ml -750 ml Intake Oral 200 ml 960 ml 240 ml 150 ml Output Urine Total 550 ml 900 ml # Voids 3 1 Result Diagram: 07/24/1744407/24/17444 Objective Remarks GENERAL: MBMN WF mild sob SKIN: Warm and dry. HEAD: Normocephalic. EYES: No scleral icterus. No injection or drainage. NECK: Supple, trachea midline. No JVD or lymphadenopathy. CARDIOVASCULAR: Regular rate and rhythm without murmurs, gallops, or rubs. RESPIRATORY: Breath sounds equal bilaterally. No accessory muscle use Insp rales. GASTROINTESTINAL: Abdomen soft, non-tender, nondistended. MUSCULOSKELETAL: No cyanosis, or edema. BACK: Nontender without obvious deformity. No CVA tenderness. A/P Assessment and Plan Hypoxic RF ILD Bronchial asthma End stage liver disease Bipolar disorder Pneumomediastinum SQ Emphysema PLAN Aerosol nebs Cont Steroids Cont PRB Avoid High flow or CPAP CXR in AM Dr. Lincoln LOMBARDI in AM Robinson Akhtar MD Jul 24, 2017 20:01
[2017-07-24] MEDS: traZODone HCL 100 MG TAB PO SCH (22:08)
[2017-07-25] VITALS (21 sets, daily range): BP systolic 93–162; BP diastolic 54–71; PULSE 64–109; RESP 24–41; TEMP 97.3–99; O2SAT 91–98
[2017-07-25] MEDS: methylPREDNISolone SOD SUCC 40 MG/1 ML VIAL IV PUSH SCH ×3 (06:16→21:10)
[2017-07-25] MEDS: FAMOTIDINE 20 MG/2 ML VIAL IV PUSH SCH ×2 (06:16→18:07)
[2017-07-25 07:07] LABS: AUTOMATED NEUTROPHIL # 12.1 TH/MM3 (1.8-7.7); BASOPHIL % 0.1 % (0.0-2.0); EOSINOPHIL % 0.1 % (0.0-4.0); HEMATOCRIT 32.7 % (35.0-46.0); HEMOGLOBIN 10.9 GM/DL (11.6-15.3); LYMPH % 4.6 % (9.0-44.0); LYMPHOCYTE # 0.6 TH/MM3 (1.0-4.8); MEAN CELL VOLUME 92.8 FL (80.0-100.0); MEAN CORPUSCULAR HGB CONC 33.4 % (32.0-36.0); MEAN PLATELET VOLUME 10.2 FL (7.0-11.0); MONO % 3.8 % (0.0-8.0); MONOCYTE # 0.5 TH/MM3 (0-0.9); NEUT % 91.4 % (16.0-70.0); PLATELET COUNT 164 TH/MM3 (150-450); RED BLOOD COUNT 3.52 MIL/MM3 (4.00-5.30); RED CELL DISTRIBUTION WIDTH 17.1 % (11.6-17.2); WHITE BLOOD COUNT 13.2 TH/MM3 (4.0-11.0)
--- NOTE | 2017-07-25 07:14 | RADRPT ---
EXAM DATE/TIME: 07/25/2017 06:34 [facility] COMPARISON: CHEST SINGLE AP, July 24, 2017, 11:01. INDICATIONS : Short of breath. MEDICAL HISTORY : Gastroesophageal reflux disease. Chronic obstructive pulmonary disease.Renal calculi. Seizures. Asthm a SURGICAL HISTORY : Appendectomy. Hysterectomy. ENCOUNTER: Subsequent ACUITY: 2 weeks PAIN SCORE: 0/10 LOCATION: Bilateral chest FINDINGS: Left apical pneumothorax is present difficult to accurately measure. Extensive subcutaneous emphysema is seen bilaterally. Diffuse interstitial process in the lungs bilaterally have not changed. Focal c onsolidation is not seen. Heart and mediastinum are unremarkable for technique. CONCLUSION: Extensive subcutaneous emphysema and small left apical pneumothorax. Bilateral parenchymal process ma y represent pulmonary edema. Saranya Miguel MD on July 25, 2017 at 7:12 Board Certified Radiologist. This report was verified electronically.
[2017-07-25 07:24] LABS: ALBUMIN 2.1 GM/DL (3.4-5.0); ALT (GPT) 195 U/L (10-53); AST (GOT) 50 U/L (15-37); BICARBONATE 29.4 MEQ/L (21.0-32.0); BLOOD UREA NITROGEN 21 MG/DL (7-18); CHLORIDE 105 MEQ/L (98-107); CREATININE 0.54 MG/DL (0.50-1.00); GLOMERULAR FILTRATION RATE 122 ML/MIN (>89); GLUCOSE,RANDOM 120 MG/DL (74-106); SODIUM (NA) 140 MEQ/L (136-145)
[2017-07-25 07:26] LABS: ALKALINE PHOSPHATASE 113 U/L (45-117); TOTAL BILIRUBIN ADULT 0.7 MG/DL (0.2-1.0); TOTAL PROTEIN 5.9 GM/DL (6.4-8.2)
[2017-07-25] MEDS: [UNRECOGNIZED DRUG - REMARK] NEB SCH ×3 (08:00→20:00)
[2017-07-25] MEDS: INSULIN ASPART SUPPLEMENTAL SCALE SQ SCH ×4 (08:00→21:09)
--- NOTE | 2017-07-25 08:15 | HHI.CCPN ---
Subjective Remarks/Hospital Course This is a 47-year-old white female that was admitted 2 days ago on 07/12/2017 to [facility].Patient was in her usual state of health until about a few days ago when she began experiencing a gradual onset of worsening shortness of breath and pleuritic chest pain. This is associated with a fever of 102.3 and mild productive nonbloody cough. Patient has 3 L/m home O2 dependency . Per report , the patient had been wearing her 3 L of oxygen at home. 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 Patient states that she was supposed to be taking 30 mg of prednisone on a daily basis for some time but she herself discontinued it about 2 months ago at her own discretion because she felt that they were disrupting her sleep significantly. She also says she takes an inhaler 4 times of the day but denies apparently taking any controller medications. Patient does have a history of bipolar disorder and says she is compliant with those medications. In the emergency department she was placed on 4 L, given steroids, Rocephin and azithromycin and DuoNeb treatments and then sent to the [facility] floor. Today 07/14/17, patient was noted to have significant decompensation and respiratory status requiring a nonrebreather mask, and at risk for possible intubation. Pulmonology was consulted .Critical care medicine was consulted, patient was transferred to the ICU. Records obtained from [facility] revealed the patient has autoimmune hepatitis, and pulmonary fibrosis. Upon my evaluation the patient was noted to be 99% on nonrebreather the patient was then placed on partial nonrebreather O2 saturation 94%, respiratory rate 28. Subjective: 07/15: FiO2 continues to be 60% on a partial non-rebreather mask. Plan to transition to high flow nasal cannula this a.m.. Pulmonology consult pending. Patient continues on steroids and antibiotics, noted acute desaturation with minimal activity. Strict bed rest implemented. Attempts being made to obtain records from [facility] her last admission for pulmonary compromise. 07/16: fio2 improves. abg slightly improving 7.39/51/138. LFTs coming down slightly. patient wants to get OOB. denies other complaints. ROS negative. 07/17: remains hypoxic on NRB. did get OOB to chair yesterday. denies complaints. ROS negative. 07/18 No events overnight. Patient is on high flow oxygen 30L with 45% FIO2. Afebrile. 07/19: Remains on high flow O2 30 L/m with 35% FiO2. 07/20 Patient is lying in bed in NAD. Remains on high flow oxygen 30L with 35% FIO2. Afebrile. 07/21. Patient is lying in bed with partial nonrebreather at this time. She is no longer requiring high flow oxygen. She is holding O2 saturations. She denies any shortness of breath or dyspnea. Vital signs are with mildly low blood pressure, afebrile 07/22 Patient is on VM with 50% FIO2. Afebrile. Denies any worsening of dyspnea from baseline. Afebrile. 07/23 No events overnight, on 50% VM. 07/[address] arrived to [facility] from [place]. CXR earlier today showed new SubQ emphysema b/l, chronic ILD. On partial rebreather 07/25 No events overnight. On partial non rebreather with sats 98%. CT chest last night showed pulmonary fibrosis with interval development of pneumomediastinum, subq emphysema and small bilateral anterior pneumothoraces. Patchy diffuse ground glass opacities. Objective Vital Signs Date Time Temp Pulse Resp B/P (MAP) Pulse Ox O2 Delivery O2 Flow Rate FiO2 07/25/17 06:00 64 24 102/56 (71) 96 07/25/17 04:00 97.3 07/25/17 04:00 Partial Non-Rebreather 40.00 07/24/17 16:00 50 Intake and Output 07/25/17 07/25/17 07/26/17 08:00 16:00 00:00 Intake Total 480 ml Output Total 450 ml Balance 30 ml Result Diagram: 07/25/17 0608 07/25/17 06 Other Results Laboratory Tests Test 07/25/17 06:08 White Blood Count 13.2 TH/MM3 Red Blood Count 3.52 MIL/MM3 Hemoglobin 10.9 GM/DL Hematocrit 32.7 % Mean Corpuscular Volume 92.8 FL Mean Corpuscular Hemoglobin 31.0 PG Mean Corpuscular Hemoglobin Concent 33.4 % Red Cell Distribution Width 17.1 % Platelet Count 164 TH/MM3 Mean Platelet Volume 10.2 FL Neutrophils (%) (Auto) 91.4 % Lymphocytes (%) (Auto) 4.6 % Monocytes (%) (Auto) 3.8 % Eosinophils (%) (Auto) 0.1 % Basophils (%) (Auto) 0.1 % Neutrophils # (Auto) 12.1 TH/MM3 Lymphocytes # (Auto) 0.6 TH/MM3 Monocytes # (Auto) 0.5 TH/MM3 Eosinophils # (Auto) 0.0 TH/MM3 Basophils # (Auto) 0.0 TH/MM3 CBC Comment DIFF FINAL Differential Comment Blood Urea Nitrogen 21 MG/DL Creatinine 0.54 MG/DL Random Glucose 120 MG/DL Total Protein 5.9 GM/DL Albumin 2.1 GM/DL Calcium Level 8.0 MG/DL Alkaline Phosphatase 113 U/L Aspartate Amino Transf (AST/SGOT) 50 U/L Alanine Aminotransferase (ALT/SGPT) 195 U/L Total Bilirubin 0.7 MG/DL Sodium Level 140 MEQ/L Potassium Level 4.4 MEQ/L Chloride Level 105 MEQ/L Carbon Dioxide Level 29.4 MEQ/L Anion Gap 6 MEQ/L Estimat Glomerular Filtration Rate 122 ML/MIN Imaging Last Impressions Chest X-Ray 07/25/17 0000 Signed Impressions: Service Date/Time: Tuesday, July 25, 2017 06:34 - CONCLUSION: Extensive subcutaneous emphysema and small left apical pneumothorax. Bilateral parenchymal process may represent pulmonary edema. Saranya Miguel MD Chest CT 07/24/17 1703 Signed Impressions: Service Date/Time: Monday, July 24, 2017 16:41 - CONCLUSION: 1. Lower lobe predominant interstitial lung disease and pulmonary fibrosis with interval development of massive pneumomediastinum, subcutaneous emphysema and small bilateral anterior pneumothoraces. 2. Patchy diffuse groundglass opacities may reflect superimposed infection/inflammatory process. 3. Small bilateral pleural effusions. 4. Trace pericardial effusion. Wilmer Kenny MD CT Angiography 07/14/17 0000 Signed Impressions: Service Date/Time: Friday, July 14, 2017 10:01 - CONCLUSION: Extensive parenchymal lung disease which appears largely chronic with superimposed acute exacerbation. No evidence of pulmonary embolism.. You Mccallum MD Abdomen Ultrasound 07/14/17 0000 Signed Impressions: Service Date/Time: Friday, July 14, 2017 19:45 - CONCLUSION: Liver within normal limits. Small gallstone in the gallbladder. Nonspecific mild diffuse gallbladder wall thickening. Borderline splenomegaly. Trace right pleural effusion. Raffi Briggs MD Objective Remarks GENERAL: Well-developed, well-nourished, in no acute distress. alert and orientated HEENT: Head is normocephalic without any lesions or masses noted. Facial features are symmetric. Eyes: Extraocular muscles are intact. Conjunctivae were clear. Patient wearing partial nonrebreather NECK: Supple without any masses. Trachea midline no deviation. No JVD, CARDIAC: Regular rhythm, regular rate. S1/S2 are heard. No murmurs gallops or rubs. LUNGS: Coarse BS b/l ABDOMEN: Soft, nontender. Nondistended. Bowel sounds heard in all 4 quadrants. No organomegaly or masses. Negative rebound, negative guarding EXTREMITIES: No edema, pulses are equal bilaterally. No cyanosis or clubbing NEUROLOGY: Mood and affect appear appropriate. Cranial nerves II through XII grossly intact. Moving all extremities, speech is clear A/P Assessment and Plan This is a 47-year-old female with acute on chronic hypoxemic respiratory failure and increasing O2 requirements. The patient's imaging studies and report of significant concern for chronic interstitial lung disease. Medical records from outside hospital reveal patient has a diagnosis of pulmonary fibrosis for approximately 1 year, managed in [place], [place]. The patient is at risk for possible intubation with continued respiratory compromise. remain in ICU. Plan by systems: Neurologic: Bipolar disorder Depression History of (smoking) cocaine abuse 10/2016 Neurochecks per ICU protocol Continue home meds- Abilify, Prozac Trazodone 100mg qhs UDS negative. Respiratory: Acute on chronic hypoxemic respiratory failure - persistent. Possible community-acquired pneumonia History of Tobacco use disorder Chronic interstitial lung disease-steroid dependent Pulmonary fibrosis Home O2 dependency COPD History of asthma Continue to wean oxygen to Maintain O2 sat greater than 88% Duo nebs every 4 hours scheduled and every 2 hours when necessary Continue home med Symbicort, Solumederol 40mg Q8 CXR today: Small left apical PTX, sub Q emphysema, pulm fibrosis CT chest 07/24 : Lower lobe predominant interstitial lung disease and pulmonary fibrosis with interval development of massive pneumomediastinum, subq emphysema and small bilateral anterior pneumothoraces. Patchy diffuse groundglass opacities may reflect superimposed infection/inflammatory process. CTS -Dr. Issa consulted- spoke to Dr. Issa no acute intervention at this time will follow clinically with serial CXRs if left PTX gets bigger then place pigtail catheter placement , Pulmonology is following PFTs 09/18 2016([facility]) FEV1 700 -25% of predicted, FVC 21% no lung volumes are diffusions were performed 09/07/16 CT thorax ([facility]) pulmonary fibrosis with left adrenal adenoma , however alpha 1 antitrypsin level was WNL , but positive (ASMA)anti-smooth muscle antibodies 1:640, ceruloplasmin normal Cardiovascular: Monitor HR and BP keep MAP>65mmHg 09/08/16 echo ([facility]) EF 55-60 %, Mildly elevated pulmonary pressure no major valvular abnormalities Renal: Monitor renal function, I/Os, electrolytes replacement per protocol. FEN/GI: Autoimmune hepatitis? (reported) Hepatitis B Transaminitis Hyperlipidemia GERD Mild protein calorie malnutrition Monitor LFTs: currently downtrending. 07/15 ultrasound of abdomen- gallbladder wall thickening, borderline splenomegaly , trace right pleural effusion Famotidine GI prophylaxis Zofran for nausea 09/13/16 Liver biopsy ([facility]) see medical chart for review- Patient referred to [facility] for eval for liver transplant GI is following. On Actigall. Continue monitor liver enzymes. Hep B sAg positive Heme/ID: Monitor CBC blood cultures- NGTD Legionella and pneumococcal urine antigens- negative Influenza- negative Off abx-s/p azithromycin and cefepime finished 07/22 Patient with head lice, continue permethrin as directed Endocrine: Glucose monitoring per ICU protocol. Low dose regimen -- SSI Prophylaxis: GI Prophylaxis Famotidine DVT Prophylaxis -- SCDs, add Heparin SQ Lines: Peripheral IVs 2. Dispo: remain in ICU. Level 3 Mone Lora MD Jul 25, 2017 08:15
[2017-07-25] MEDS: FLUoxetine HCL 20 MG CAP PO SCH (09:14)
[2017-07-25] MEDS: HEPARIN SODIUM - SQ 10,000 UNITS/ML VIAL SQ SCH ×2 (09:14→20:20)
[2017-07-25] MEDS: URSODIOL 300 MG CAP PO SCH ×2 (09:43→20:20)
[2017-07-25] MEDS: ARIPiprazole 10 MG TAB PO SCH (09:44)
[2017-07-25] MEDS: BUDESONIDE-FORMOTEROL 80/4.5 MCG INHALER INH SCH ×2 (09:44→20:20)
[2017-07-25] MEDS: NAPROXEN 500 MG TAB PO SCH ×2 (09:44→20:20)
[2017-07-25] MEDS: ALPRAZolam 0.25 MG TAB PO PRN (13:51)
--- NOTE | 2017-07-25 17:57 | HHI.PR ---
Subjective Remarks alert on o2, sat 95% Objective Vital Signs Date Time Temp Pulse Resp B/P (MAP) Pulse Ox O2 Delivery O2 Flow Rate FiO2 07/25/17 17:00 73 07/25/17 16:00 99.0 72 33 96/55 (69) 95 07/25/17 16:00 92 Partial Non-Rebreather 12.00 07/25/17 15:00 81 07/25/17 13:00 83 07/25/17 12:00 94 Partial Non-Rebreather 12.00 07/25/17 12:00 98.2 79 34 103/67 (79) 94 07/25/17 11:00 71 07/25/17 10:44 31 07/25/17 09:00 68 07/25/17 08:00 93 Partial Non-Rebreather 12.00 07/25/17 08:00 97.7 77 41 106/62 (77) 93 07/25/17 07:20 98 Partial Rebreather 15.00 07/25/17 06:00 64 24 102/56 (71) 96 07/25/17 05:00 65 93/54 (67) 07/25/17 04:00 97.3 72 28 95/56 (69) 92 07/25/17 04:00 92 Partial Non-Rebreather 40.00 07/25/17 03:00 67 109/61 (77) 07/25/17 02:00 71 102/55 (71) 07/25/17 01:00 109 162/71 (101) 07/25/17 00:00 98.3 69 24 114/63 (80) 94 07/25/17 00:00 95 Partial Non-Rebreather 12.00 07/24/17 23:00 68 07/24/17 23:00 76 121/60 (80) 07/24/17 22:00 67 92/59 (70) 07/24/17 21:00 68 96/54 (68) 07/24/17 20:00 94 Partial Non-Rebreather 12.00 07/24/17 20:00 97.9 70 28 100/59 (73) 94 07/24/17 19:59 94 Partial Rebreather 12.00 07/24/17 18:00 98.6 61 30 104/65 (78) 99 I/O 07/24/17 07/24/17 07/24/17 07/25/17 07/25/17 07/25/17 07:00 15:00 23:00 07:00 15:00 23:00 Intake Total 240 ml 150 ml 480 ml Output Total 900 ml 450 ml Balance 240 ml -750 ml 30 ml Intake Oral 240 ml 150 ml 480 ml Output Urine Total 900 ml 450 ml # Voids 3 1 2 # Bowel Movements 0 Result Diagram: 07/25/17 0608 07/25/17 06 Objective Remarks GENERAL: SKIN: Warm and dry. HEAD: Atraumatic. Normocephalic. EYES: Pupils equal and round. No scleral icterus. No injection or drainage. ENT: No nasal bleeding or discharge. Mucous membranes pink and moist. NECK: Trachea midline. No JVD. CARDIOVASCULAR: Regular rate and rhythm. RESPIRATORY: No accessory muscle use. Clear to auscultation. Breath sounds equal bilaterally. GASTROINTESTINAL: Abdomen soft, non-tender, nondistended. Hepatic and splenic margins not palpable. MUSCULOSKELETAL: Extremities without clubbing, cyanosis, or edema. No obvious deformities. NEUROLOGICAL: Awake and alert. No obvious cranial nerve deficits. Motor grossly within normal limits. Five out of 5 muscle strength in the arms and legs. Normal speech. PSYCHIATRIC: Appropriate mood and affect; insight and judgment normal. Assessment and Plan Assessment and Plan pulm fibrosis respiratory failure asthma plan o2 steroids bronchodilators increase activity Lincoln Stark MD Jul 25, 2017 17:57
[2017-07-25] MEDS: traZODone HCL 100 MG TAB PO SCH (20:20)
[2017-07-25] MEDS: RESP: ALBUTEROL 1.25 MG/3 ML NEB (PRN) NEB (21:17)
[2017-07-26] VITALS (22 sets, daily range): BP systolic 100–122; BP diastolic 58–74; PULSE 55–117; RESP 18–51; TEMP 97.8–98.6; O2SAT 86–100
--- NOTE | 2017-07-26 04:28 | RADRPT ---
EXAM DATE/TIME: 07/26/2017 03:07 [facility] COMPARISON: CHEST SINGLE AP, July 24, 2017, 11:01. CT THORAX W/O CONTRAST, July 24, 2017, 16:41. CHEST SI NGLE AP, July 25, 2017, 6:34. INDICATIONS : Shortness of breath. MEDICAL HISTORY : Chronic obstructive pulmonary disease. Gastroesophageal reflux disease. Renal calculi. Hepatitis C. Pulmonary fibrosis, Seizures. Hypotension SURGICAL HISTORY : Appendectomy. Hysterectomy ENCOUNTER: Subsequent ACUITY: 2 weeks PAIN SCORE: Non-responsive. LOCATION: Bilateral chest FINDINGS: Increase in size of right apical pneumothorax, now measuring 1.5 cm. Small left apical pneumothorax is stable in size at 5 mm. Stable extensive subcutaneous emphysema about the left and right chest ex tending into the neck. Diffuse interstitial infiltrates with partial consolidation in the left lower lung similar in severity to prior. Stable appearance of the pneumomediastinum. CONCLUSION: 1. Stable severity bilateral interstitial partially consolidative infiltrates. 2. Increasing size right pneumothorax and stable left pneumothorax and pneumomediastinum. Mohan Bingham MD on July 26, 2017 at 4:23 Board Certified Radiologist. This report was verified electronically.
[2017-07-26] MEDS: FAMOTIDINE 20 MG/2 ML VIAL IV PUSH SCH (06:00)
[2017-07-26] MEDS: methylPREDNISolone SOD SUCC 40 MG/1 ML VIAL IV PUSH SCH ×3 (06:02→20:34)
[2017-07-26 07:27] LABS: AUTOMATED NEUTROPHIL # 12.1 TH/MM3 (1.8-7.7); BASOPHIL % 0.2 % (0.0-2.0); HEMATOCRIT 33.7 % (35.0-46.0); HEMOGLOBIN 11.1 GM/DL (11.6-15.3); LYMPHOCYTE # 0.5 TH/MM3 (1.0-4.8); MEAN CELL VOLUME 92.9 FL (80.0-100.0); MEAN CORPUSCULAR HEMOGLOBIN 30.6 PG (27.0-34.0); MEAN CORPUSCULAR HGB CONC 32.9 % (32.0-36.0); MEAN PLATELET VOLUME 9.7 FL (7.0-11.0); MONO % 3.6 % (0.0-8.0); MONOCYTE # 0.5 TH/MM3 (0-0.9); NEUT % 92.2 % (16.0-70.0); PLATELET COUNT 161 TH/MM3 (150-450); RED BLOOD COUNT 3.62 MIL/MM3 (4.00-5.30); WHITE BLOOD COUNT 13.1 TH/MM3 (4.0-11.0)
[2017-07-26 07:54] LABS: ALBUMIN 2.2 GM/DL (3.4-5.0); ALT (GPT) 160 U/L (10-53); AST (GOT) 41 U/L (15-37); BICARBONATE 30.6 MEQ/L (21.0-32.0); BLOOD UREA NITROGEN 19 MG/DL (7-18); CALCIUM 8.2 MG/DL (8.5-10.1); CHLORIDE 105 MEQ/L (98-107); CREATININE 0.51 MG/DL (0.50-1.00); GLOMERULAR FILTRATION RATE 130 ML/MIN (>89); GLUCOSE,RANDOM 118 MG/DL (74-106); SODIUM (NA) 141 MEQ/L (136-145)
[2017-07-26 07:56] LABS: ALKALINE PHOSPHATASE 116 U/L (45-117); TOTAL BILIRUBIN ADULT 0.7 MG/DL (0.2-1.0); TOTAL PROTEIN 6.2 GM/DL (6.4-8.2)
--- NOTE | 2017-07-26 07:59 | MB ---
cc: PALOMA ISSA DATE OF CONSULTATION 07/25/2017 HISTORY OF THE PRESENT ILLNESS A 47-year-old female chronic lung disease, somewhat of a poor historian. Apparently said she was diagnosed with pulmonary fibrosis a year ago and she saw a analysis lead in [place] but did not completely follow up. She also has a history of chronic underlying liver disease where she had a liver biopsy in the past. She was questionably considered for liver transplant. She presented to [facility] on the when she started experiencing some worsening shortness of breath, pleuritic chest pain, fever was 102, non bloody cough. At home she is on 3 liters continuous. Apparently she has some type of pulmonary fibrosis and autoimmune lung disease, cannot remember the name of her doctor in [place]. She is supposed to be on prednisone daily but she discontinued it two months ago because she thought was affecting her sleep. She uses inhalers at home. She was treated with IV antibiotics, oxygen therapy. On the she apparently decompensated and required a non-rebreather mask and had possible risk for intubation. Dr. Stark was then consulted. The records were obtained from the [facility] and revealed autoimmune hepatitis, pulmonary fibrosis but she has had no further followup. They have attempted to obtain also records from [facility] in [place] regarding her last pulmonary admission. We were consulted today because she developed a massive pneumomediastinum, some subcutaneous emphysema, small bilateral anterior pneumothoraces. She also has some patchy diffuse ground-glass opacities, small bilateral pleural effusions. Repeat chest x-ray today shows still some extensive subcu emphysema, small left apical pneumothorax. PAST MEDICAL HISTORY The patient's past medical history: 1. Autoimmune chronic lung disease. 2. Bipolar disorder. 3. Drug induced liver disease. 4. Hepatitis C with liver biopsy 2012 and 2015. 5. Seizure disorder. 6. Hyperlipidemia. 7. History of cocaine and polysubstance abuse. PAST SURGICAL HISTORY No past surgical history of FAMILY HISTORY Noncontributory. SOCIAL HISTORY Stopped smoking a year ago. ALLERGIES The patient has no known allergies. MEDICATIONS Home meds include: 1. O2 at 3 liters. 2. Ventolin inhaler. 3. Prozac. 4. Trazodone. 5. Abilify. 6. Symbicort. 7. Advair. REVIEW OF SYSTEMS As above in HPI, otherwise unremarkable. PHYSICAL EXAMINATION VITAL SIGNS: On exam blood pressure 103/60, heart rate of 80, temperature max 98.2. GENERAL: Patient is awake, very flat affect. She is alert and oriented, very poor historian HEENT: Head is normocephalic, atraumatic. She still on a partial non-rebreather at 98% sat. CHEST: She does have some subcu emphysema to the right and left chest area. NECK: The neck is supple with no masses. Trachea is midline. No deviation. CARDIOVASCULAR: Heart sounds S1-S2, regular rate and rhythm. LUNGS: Breath sounds are coarse bilaterally. No wheezes or rhonchi noted. ABDOMEN: Soft, nontender. No masses or organomegaly. EXTREMITIES: No cyanosis, clubbing or edema. NEUROLOGIC: Mood and affect appear appropriately. She is awake and alert. LABORATORY FINDINGS Shows hemoglobin 10, hematocrit of 32, white cell count 13, platelet count 164. Sodium 140, potassium 4.4, BUN of 21 with a creatinine 0.54, AST 50, ALT 195. INR 1.1. Urinalysis on the showed some moderate leuko esterase. Urine no growth in 48 hours. Blood cultures negative. She had an RADHIKA titer which was positive. IMAGING Radiological exams as above. IMPRESSION This is a female with autoimmune lung disease that apparently was seen in the past in [place] for workup which she apparently did not follow up. Dr. Issa did discuss the case with Dr. Lora. At this time no surgical intervention warranted at this time for her pneumomediastinum and small pneumothoraces. We will follow with serial x-rays. If she were to decompensate we would have to evaluate for immediate transfer to tertiary center. Further planning per Dr. Paloma Issa. DICTATED BY: ADRIANE Auguste MD ALBERTINA Mccord/ISABELA /3:58 PM /7:55 AM
[2017-07-26] MEDS: [UNRECOGNIZED DRUG - REMARK] NEB SCH ×4 (08:00→23:42)
[2017-07-26] MEDS: INSULIN ASPART SUPPLEMENTAL SCALE SQ SCH ×4 (08:00→20:34)
[2017-07-26] MEDS: URSODIOL 300 MG CAP PO SCH ×2 (08:18→20:33)
[2017-07-26] MEDS: NAPROXEN 500 MG TAB PO SCH (08:18)
[2017-07-26] MEDS: FLUoxetine HCL 20 MG CAP PO SCH (08:18)
[2017-07-26] MEDS: ARIPiprazole 10 MG TAB PO SCH (08:18)
[2017-07-26] MEDS: BUDESONIDE-FORMOTEROL 80/4.5 MCG INHALER INH SCH ×2 (08:19→20:35)
[2017-07-26] MEDS: HEPARIN SODIUM - SQ 10,000 UNITS/ML VIAL SQ SCH ×2 (08:19→20:33)
--- NOTE | 2017-07-26 10:20 | HHI.CCPN ---
Subjective Remarks/Hospital Course This is a 47-year-old white female that was admitted 2 days ago on 07/12/2017 to [facility].Patient was in her usual state of health until about a few days ago when she began experiencing a gradual onset of worsening shortness of breath and pleuritic chest pain. This is associated with a fever of 102.3 and mild productive nonbloody cough. Patient has 3 L/m home O2 dependency . Per report , the patient had been wearing her 3 L of oxygen at home. The patient's past medical history significant for an autoimmune lung disease but does not have a specific name and cannot remember the name of her speech language pathologist travel in [place]. Patient states that she was supposed to be taking 30 mg of prednisone on a daily basis for some time but she herself discontinued it about 2 months ago at her own discretion because she felt that they were disrupting her sleep significantly. She also says she takes an inhaler 4 times of the day but denies apparently taking any controller medications. Patient does have a history of bipolar disorder and says she is compliant with those medications. In the emergency department she was placed on 4 L, given steroids, Rocephin and azithromycin and DuoNeb treatments and then sent to the [facility] floor. Today 07/14/17, patient was noted to have significant decompensation and respiratory status requiring a nonrebreather mask, and at risk for possible intubation. Pulmonology was consulted .Critical care medicine was consulted, patient was transferred to the ICU. Records obtained from [facility] revealed the patient has autoimmune hepatitis, and pulmonary fibrosis. Upon my evaluation the patient was noted to be 99% on nonrebreather the patient was then placed on partial nonrebreather O2 saturation 94%, respiratory rate 28. Subjective: 07/15: FiO2 continues to be 60% on a partial non-rebreather mask. Plan to transition to high flow nasal cannula this a.m.. Pulmonology consult pending. Patient continues on steroids and antibiotics, noted acute desaturation with minimal activity. Strict bed rest implemented. Attempts being made to obtain records from [facility] her last admission for pulmonary compromise. 07/16: fio2 improves. abg slightly improving 7.39/51/138. LFTs coming down slightly. patient wants to get OOB. denies other complaints. ROS negative. 07/17: remains hypoxic on NRB. did get OOB to chair yesterday. denies complaints. ROS negative. 07/18 No events overnight. Patient is on high flow oxygen 30L with 45% FIO2. Afebrile. 07/19: Remains on high flow O2 30 L/m with 35% FiO2. 07/20 Patient is lying in bed in NAD. Remains on high flow oxygen 30L with 35% FIO2. Afebrile. 07/21. Patient is lying in bed with partial nonrebreather at this time. She is no longer requiring high flow oxygen. She is holding O2 saturations. She denies any shortness of breath or dyspnea. Vital signs are with mildly low blood pressure, afebrile 07/22 Patient is on VM with 50% FIO2. Afebrile. Denies any worsening of dyspnea from baseline. Afebrile. 07/23 No events overnight, on 50% VM. 07/24 Patient just arrived to [facility] from [place]. CXR earlier today showed new SubQ emphysema b/l, chronic ILD. On partial rebreather 07/25 No events overnight. On partial non rebreather with sats 98%. CT chest last night showed pulmonary fibrosis with interval development of pneumomediastinum, subq emphysema and small bilateral anterior pneumothoraces. Patchy diffuse ground glass opacities. Subjective 07/26: Worsening right apical pneumothorax 1.5 cm. Left pneumothorax 0.5 cm apical. Significant subcutaneous emphysema the right side. Currently on partial nonrebreather 12 L. She denies shortness of breath. Objective Vital Signs Date Time Temp Pulse Resp B/P (MAP) Pulse Ox O2 Delivery O2 Flow Rate FiO2 07/26/17 08:00 98 Non-Rebreather 12.00 100 07/26/17 05:00 57 07/26/17 04:00 97.8 21 100/66 (77) Intake and Output 07/26/17 07/26/17 07/27/17 08:00 16:00 00:00 Intake Total 120 ml Output Total 1000 ml Balance -880 ml Result Diagram: 07/26/17 0602 07/26/17 0632 Other Results Microbiology Date/Time Source Procedure Growth Status 07/14/17 18:56 Blood Peripheral Aerobic Blood Culture - Final NO GROWTH IN 5 DAYS Complete 07/14/17 18:56 Blood Peripheral Anaerobic Blood Culture - Final NO GROWTH IN 5 DAYS Complete 07/24/17 11:55 Sputum Expectorated Sputum Gram Stain - Final Complete 07/24/17 11:55 Sputum Expectorated Sputum Sputum Culture - Final HEAVY GROWTH NORMAL RESPIRATORY OLI Complete 07/14/17 10:15 Urine Clean Catch Urine Culture - Final NO GROWTH IN 48 HOURS. Complete Imaging Last Impressions Chest X-Ray 07/26/17 0000 Signed Impressions: Service Date/Time: Wednesday, July 26, 2017 03:07 - CONCLUSION: 1. Stable severity bilateral interstitial partially consolidative infiltrates. 2. Increasing size right pneumothorax and stable left pneumothorax and pneumomediastinum. Mohan Bingham MD Chest CT 07/24/17 1703 Signed Impressions: Service Date/Time: Monday, July 24, 2017 16:41 - CONCLUSION: 1. Lower lobe predominant interstitial lung disease and pulmonary fibrosis with interval development of massive pneumomediastinum, subcutaneous emphysema and small bilateral anterior pneumothoraces. 2. Patchy diffuse groundglass opacities may reflect superimposed infection/inflammatory process. 3. Small bilateral pleural effusions. 4. Trace pericardial effusion. Wilmer Kenny MD CT Angiography 07/14/17 0000 Signed Impressions: Service Date/Time: Friday, July 14, 2017 10:01 - CONCLUSION: Extensive parenchymal lung disease which appears largely chronic with superimposed acute exacerbation. No evidence of pulmonary embolism.. You Mccallum MD Abdomen Ultrasound 07/14/17 0000 Signed Impressions: Service Date/Time: Friday, July 14, 2017 19:45 - CONCLUSION: Liver within normal limits. Small gallstone in the gallbladder. Nonspecific mild diffuse gallbladder wall thickening. Borderline splenomegaly. Trace right pleural effusion. Raffi Briggs MD Objective Remarks GENERAL: 47-year-old female resting in bed in no acute distress on partial nonrebreather HEENT: Normocephalic/atraumatic pupils are equally round and reactive about 3 mm. Mucous members moist. Oropharynx without erythema or thrush NECK: Supple without any masses. Trachea midline no deviation. No JVD, CARDIAC: RRR. S1, S2. No S4. Without murmurs LUNGS: Coarse fine crackles appreciated throughout lung keller. Left thorax subcutaneous air noted ABDOMEN: Soft, nontender. Nondistended. Bowel sounds heard in all 4 quadrants. No organomegaly or masses. Negative rebound, negative guarding EXTREMITIES: No edema, pulses are equal bilaterally. No significant cyanosis NEUROLOGY: Mood and affect appear appropriate. Cranial nerves II through XII grossly intact. Moving all extremities, speech is clear A/P Assessment and Plan Neuro/Psych: Bipolar disorder Depression History of (smoking) cocaine abuse 10/2016 History of migraine headache Neurochecks per ICU protocol Continue aripiprazole 10 mg daily and fluoxetine 40 mill grams dailyhome medications for bipolar/depression Trazodone 100mg qhs UDS negative. Off sumatriptan 0.5 100 milligrams as needed for migraine headaches Currently on alprazolam 0.25 one tablet every 8 hours when necessary anxiety Respiratory: Acute on chronic hypoxemic respiratory failure - persistent. Possible community-acquired pneumonia History of Tobacco use disorder History of inhaled cocaine use Chronic interstitial lung disease-steroid dependent Pulmonary fibrosis Home O2 dependency COPD History of asthma Currently on partial nonrebreather mask 12 L Albuterol/ipratropium aerosols every 4 hours scheduled and albuterol aerosols every 2 hours when necessary Continue home med budesonide/formoterol 80/4.5 2 puffs twice a day Methylprednisolone succinate 40 mg IV 3 times a day Chest x-ray 07/26 - 1.5 cm right apical pneumothorax, 0.5 cm left apical pneumothorax. Pneumomediastinum CT chest 07/24 : Lower lobe predominant interstitial lung disease and pulmonary fibrosis with interval development of massive pneumomediastinum, subq emphysema and small bilateral anterior pneumothoraces. Patchy diffuse groundglass opacities may reflect superimposed infection/inflammatory process. CTS -Dr. Issa consulted- spoke to Dr. Issa no acute intervention at this time will follow clinically with serial CXRs if PTX gets bigger then place pigtail catheter placement , Pulmonology is following PFTs 09/18 2016([facility]) FEV1 700 -25% of predicted, FVC 21% no lung volumes are diffusions were performed 09/07/16 CT thorax ([facility]) pulmonary fibrosis with left adrenal adenoma , however alpha 1 antitrypsin level was WNL , but positive (ASMA)anti-smooth muscle antibodies 1:640, ceruloplasmin normal Dr. Hernandez - monitor [facility] - cocaine-induced lung injury versus autoimmune induced interstitial lung disease. Followed by Dr. Stark/pulmonology Cardiovascular: Monitor HR and BP keep MAP>65mmHg 09/08/16 echo ([facility]) EF 55-60 %, Mildly elevated pulmonary pressure no major valvular abnormalities Renal: Monitor renal function, I/Os, electrolytes replacement per protocol. FEN/GI: Autoimmune hepatitis? (reported) Hepatitis B surface antigen positive Transaminitis Hyperlipidemia GERD Mild protein calorie malnutrition Constipation Monitor LFTs: currently downtrending. 07/15 ultrasound of abdomen- gallbladder wall thickening, borderline splenomegaly , trace right pleural effusion Famotidine GI prophylaxis 20 mg twice a day Ondansetron for nausea 09/13/16 Liver biopsy ([facility]) see medical chart for review- Patient referred to [facility] for eval for liver transplant GI is following. On Ursodiol 300 mg twice daily monitor liver enzymes. AST/ALT remain elevated Hep B sAg positive. Will need to be rechecked in 3 months with possible systemic treatment once stable Heme/ID: Leukocytosis Normocytic anemia Herpes 6 positive Pediculosis Monitor CBC blood cultures- NGTD Legionella and pneumococcal urine antigens- negative Influenza- negative Off abx-s/p azithromycin and cefepime finished 07/22 Patient with head lice tx permethrin as directed Endocrine: TSH 0.023 - 07/19 Left Adrenal adenoma Hyperglycemia of critical illness Check free T3/T4 RADHIKA speckled Glucose monitoring per ICU protocol. Low dose regimen with Accu-Cheks before meals/at bedtime with NovoLog -- SSI Metanephrine/normetanephrine/aldosterone and renin 06/18 at [place] [place]. Results unknown at this time. Prophylaxis: GI Prophylaxis Famotidine DVT Prophylaxis -- SCDs, heparin subcutaneous Lines: Peripheral IVs 2. Dispo: remain in ICU. Level 3 follow-up Isidro Marcial MD Jul 26, 2017 10:20
[2017-07-26] MEDS ORDERED: GLYCERIN ADULT 2 GM SUPP RECTAL ONE (10:30)
[2017-07-26] MEDS ORDERED: LORazepam 2 MG/ML VIAL ONE (11:34)
[2017-07-26] MEDS ORDERED: RESP: ALBUTEROL 2.5 MG/3 ML NEB (SCH) NEB (12:00)
--- NOTE | 2017-07-26 12:28 | RADRPT ---
EXAM DATE/TIME: 07/26/2017 11:58 [facility] COMPARISON: CT THORAX W/O CONTRAST, July 24, 2017, 16:41. INDICATIONS : Evaluate bilateral pneumothoraces RADIATION DOSE: 8.11 CTDIvol (mGy) MEDICAL HISTORY : pulmonary disease SURGICAL HISTORY : None. ENCOUNTER: Subsequent ACUITY: 1 day PAIN SCALE: 4/10 LOCATION: Bilateral cranial TECHNIQUE: Volumetric scanning of the chest was performed. Using automated exposure control and adjustment of t he mA and/or kV according to patient size, radiation dose was kept as low as reasonably achievable to obtain optimal diagnostic quality images. DICOM format image data is available electronically for r eview and comparison. Follow-up recommendations for detected pulmonary nodules are based at a minimum on nodule size and pa tient risk factors according to Fleischner Society Guidelines. FINDINGS: Today's examination is compared to the prior study of 07/24/2017. There's been no significant change i n the small bilateral pneumothoraces. There has been no change in the diffuse pulmonary infiltrates o f both lung keller. There is no change in the focal consolidation in the left apex. There has been no change in the pneumomediastinum. There has been no change in the diffuse bilateral subcutaneous emph ysema along the anterior and posterior chest ramírez. There has been no change in the appearance of the bony structures. The heart size is stable. Tiny stone in the gallbladder which is stable. Compared t o the prior exam no new or significant changes are demonstrated. CONCLUSION: There has been no new or significant change with the overall appearance of the thorax compared to the prior examination. Today's exam is essentially stable compared to the prior study. Kj Diaz MD on July 26, 2017 at 12:21 Board Certified Radiologist. This report was verified electronically.
[2017-07-26 12:40] LABS: FREE T3 1.11 PG/ML (2.18-3.98); FREE T4 1.16 NG/DL (0.76-1.46)
--- NOTE | 2017-07-26 13:24 | PD.RAD ---
Post Procedure Progress Note Pre Procedure Diagnosis: (1) Pneumothorax (2) Pulmonary fibrosis determined by high resolution computed tomography (3) Acute respiratory failure with hypoxemia Post Procedure Diagnosis: (1) Pneumothorax (2) Pulmonary fibrosis determined by high resolution computed tomography (3) Acute respiratory failure with hypoxemia Procedure Date: Jul 26, 2017 Supervising Radiologist: Lorenzo Dunaway Proceduralist/Assist: Keshav Toney, RT(R), Mayr Nye, RT(R) Anesthesia: Local, Analgesia, Conscious Sedation Plan of Activity Patient to Unit: ROPU Patient Condition: Fair See PACS Report for procedural detail/treatment Drainage Procedure Procedure 1 Imaging Guidance: Fluoroscopy Side: Right Procedure Type: Chest Tube Non-Tunneled Procedure: Placement Kyrgyz: 10 Drainage: Pleurovac (40 cmH2O) Fluid Description: Lorenzo Perkins MD Jul 26, 2017 13:24
[2017-07-26] MEDS: LACTULOSE SYRUP 20 GM/30 ML CUP PO SCH ×3 (14:05→20:33)
--- NOTE | 2017-07-26 14:31 | RADRPT ---
EXAM DATE/TIME: 07/26/2017 13:45 [facility] COMPARISON: CHEST SINGLE AP, July 26, 2017, 3:07. INDICATIONS : Post chest tube placement. MEDICAL HISTORY : Seizures. Hypotension. COPD. Liver failulre. GERD. Kidney stones. Hepatitis C. Pulmonary fibrosis. Bi polar SURGICAL HISTORY : Appendectomy. Hysterectomy. ENCOUNTER: Subsequent ACUITY: 1 day PAIN SCORE: 0/10 LOCATION: Left upper chest FINDINGS: A single frontal expiratory view of the chest was performed. Bilateral pleural-parenchymal densities. Left apical chest tube identified. Small left apical pneumothorax measures 3 mm pleural separation. There is also a tiny right apical pneumothorax measuring 2 mm pleural separation. Cardiomegaly. Subcu taneous emphysema bilaterally. CONCLUSION: 1. Left-sided chest tube placement with tiny left apical pneumothorax. 2. Tiny right apical pneumothorax. Torey Burden MD on July 26, 2017 at 14:27 Board Certified Radiologist. This report was verified electronically.
--- NOTE | 2017-07-26 15:00 | PD.CAR.PN ---
CVT Progress Note Subjective/Hospital Course: 47-year-old white female that was admitted on 07/12/2017 to [facility].Patient was in her usual state of health until about a few days ago when she began experiencing a gradual onset of worsening shortness of breath and pleuritic chest pain. This is associated with a fever of 102.3 and mild productive nonbloody cough. Patient has 3 L/m home O2 dependency . Per report , the patient had been wearing her 3 L of oxygen at home. 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 Patient states that she was supposed to be taking 30 mg of prednisone on a daily basis for some time but she herself discontinued it about 2 months ago at her own discretion because she felt that they were disrupting her sleep significantly. She also says she takes an inhaler 4 times of the day but denies apparently taking any controller medications. Patient does have a history of bipolar disorder and says she is compliant with those medications. In the emergency department she was placed on 4 L, given steroids, Rocephin and azithromycin and DuoNeb treatments and then sent to the [facility] floor. Today 07/14/17, patient was noted to have significant decompensation and respiratory status requiring a nonrebreather mask, and at risk for possible intubation. Pulmonology was consulted .Critical care medicine was consulted, patient was transferred to the ICU. Records obtained from [facility] revealed the patient has autoimmune hepatitis, and pulmonary fibrosis. 07/25 pt eval / full note dictated On partial non rebreather with sats 98%. CT chest showed pulmonary fibrosis with interval development of pneumomediastinum, subq emphysema and small bilateral anterior pneumothoraces Patchy diffuse ground glass opacities 07/26 remains on partial NRB mask still has some sub emphysema left and right upper chest wall left chest tube place by IR today . Objective: GENERAL: frail appearing female, in no acute distress SKIN: Warm and dry. HEAD: Normocephalic. EYES: No scleral icterus. No injection or drainage. NECK: Supple, trachea midline. No JVD or lymphadenopathy. CARDIOVASCULAR: Regular rate and rhythm without murmurs, gallops, or rubs. RESPIRATORY: Breath sounds equal bilaterally. No accessory muscle use. diminished in bases, dry bilateral crackles in bases , chest tube in place GASTROINTESTINAL: Abdomen soft, non-tender, nondistended. MUSCULOSKELETAL: No cyanosis, or edema. BACK: Nontender without obvious deformity. No CVA tenderness. Vital Signs Date Time Temp Pulse Resp B/P (MAP) Pulse Ox O2 Delivery O2 Flow Rate FiO2 07/26/17 14:00 81 23 96 07/26/17 14:00 81 23 96 07/26/17 14:00 116 07/26/17 14:00 81 23 96 07/26/17 11:00 69 07/26/17 11:00 69 29 101/58 (72) 98 07/26/17 10:01 94 07/26/17 10:01 94 51 122/74 (90) 91 07/26/17 10:00 96 07/26/17 10:00 96 35 92 07/26/17 09:00 75 28 101/67 (78) 99 07/26/17 09:00 75 07/26/17 08:00 98 Non-Rebreather 12.00 100 07/26/17 08:00 55 18 104/67 (79) 100 07/26/17 08:00 55 07/26/17 07:26 100 Non-Rebreather 12.00 07/26/17 05:00 57 07/26/17 04:00 98 Non-Rebreather 12.00 07/26/17 04:00 97.8 71 21 100/66 (77) 100 07/26/17 03:00 61 07/26/17 01:00 69 07/26/17 00:00 98 Non-Rebreather 12.00 07/26/17 00:00 98.4 68 26 121/63 (82) 99 07/25/17 23:00 65 07/25/17 21:20 24 07/25/17 21:16 91 Non-Rebreather 15.00 100 07/25/17 21:00 71 07/25/17 20:00 98 Partial Non-Rebreather 12.00 07/25/17 20:00 98.7 70 24 97/55 (69) 98 07/25/17 19:00 83 07/25/17 17:00 73 07/25/17 16:00 99.0 72 33 96/55 (69) 95 07/25/17 16:00 92 Partial Non-Rebreather 12.00 07/25/17 15:00 81 Labs: Laboratory Tests Test 07/26/17 06:02 07/26/17 06:32 White Blood Count 13.1 TH/MM3 (4.0-11.0) Red Blood Count 3.62 MIL/MM3 (4.00-5.30) Hemoglobin 11.1 GM/DL (11.6-15.3) Hematocrit 33.7 % (35.0-46.0) Mean Corpuscular Volume 92.9 FL (80.0-100.0) Mean Corpuscular Hemoglobin 30.6 PG (27.0-34.0) Mean Corpuscular Hemoglobin Concent 32.9 % (32.0-36.0) Red Cell Distribution Width 17.0 % (11.6-17.2) Platelet Count 161 TH/MM3 (150-450) Mean Platelet Volume 9.7 FL (7.0-11.0) Neutrophils (%) (Auto) 92.2 % (16.0-70.0) Lymphocytes (%) (Auto) 4.0 % (9.0-44.0) Monocytes (%) (Auto) 3.6 % (0.0-8.0) Eosinophils (%) (Auto) 0.0 % (0.0-4.0) Basophils (%) (Auto) 0.2 % (0.0-2.0) Neutrophils # (Auto) 12.1 TH/MM3 (1.8-7.7) Lymphocytes # (Auto) 0.5 TH/MM3 (1.0-4.8) Monocytes # (Auto) 0.5 TH/MM3 (0-0.9) Eosinophils # (Auto) 0.0 TH/MM3 (0-0.4) Basophils # (Auto) 0.0 TH/MM3 (0-0.2) CBC Comment DIFF FINAL Differential Comment Blood Urea Nitrogen 19 MG/DL (7-18) Creatinine 0.51 MG/DL (0.50-1.00) Random Glucose 118 MG/DL (74-106) Total Protein 6.2 GM/DL (6.4-8.2) Albumin 2.2 GM/DL (3.4-5.0) Calcium Level 8.2 MG/DL (8.5-10.1) Alkaline Phosphatase 116 U/L (45-117) Aspartate Amino Transf (AST/SGOT) 41 U/L (15-37) Alanine Aminotransferase (ALT/SGPT) 160 U/L (10-53) Total Bilirubin 0.7 MG/DL (0.2-1.0) Sodium Level 141 MEQ/L (136-145) Potassium Level 4.5 MEQ/L (3.5-5.1) Chloride Level 105 MEQ/L (98-107) Carbon Dioxide Level 30.6 MEQ/L (21.0-32.0) Anion Gap 5 MEQ/L (5-15) Estimat Glomerular Filtration Rate 130 ML/MIN (>89) Free Thyroxine 1.16 NG/DL (0.76-1.46) Free Triiodothyronine (T3) pg/dL 1.11 PG/ML (2.18-3.98) Human Chorionic Gonadotropin, Quant 3 MIU/ML (0-5) Result Diagram: 07/26/17 0602 07/26/17 0632 Telemetry: NSR (1) Acute respiratory failure with hypoxemia (2) Pneumothorax Plan: s/p chest tube placement by IR no CVS surgery at this time would need transfer to tertiary center if worsening symptoms (3) Pulmonary fibrosis determined by high resolution computed tomography Plan: needs follow up for possible eval for lung transplant Helen Barnard Jul 26, 2017 15:00
--- NOTE | 2017-07-26 15:08 | RADRPT ---
EXAM DATE/TIME: 07/26/2017 12:23 [facility] COMPARISON: CT THORAX W/O CONTRAST, July 26, 2017, 11:58. INDICATIONS : Patient presents with chronic lung disease and left sided pneumothorax in need of left side chest tub e placement. MEDICAL HISTORY : Unspecified autoimmune chronic lung disease Bipolar disorder Drug-induced liver disease/hepatitis/hepatitis C, liver biopsy 2013 in 2016 History of seizure disorder Hyperlipidemia History of cocaine/polysubstance abuse SURGICAL HISTORY : N/A ENCOUNTER: Initial ACUITY: 3 weeks PAIN SCORE: 7/10 LOCATION: Left chest FLUORO TIME: 2.0 minutes IMAGE SERIES: 3 MEDICATION(S): 1.) 2 mg lorazepam (Ativan) IV 2.) 400 mcg fentanyl (Sublimaze) IV DEVICE(S): 1.) 10 Indonesian non-locking catheter 30CM TECH NOTE: The patient recieved no sedation during the exam.ROMIE CHENEY MR#:[id number] DOB12// Exam Dt /Desc: July 26, 2017CHEST TUBE PLACEMENT, LEFT PROCEDURE : 1. Fluoroscopically guided chest tube placement. 2. Conscious sedation with continuous EKG and oximetry monitoring. The risks, benefits and alternatives to the procedure were explained and verbal and written consent w as obtained. The site was prepped in sterile fashion. Full sterile technique was used, including ca p, mask, sterile gloves and gown and a large sterile sheet. Hand hygiene and 2% chlorhexidine and/or betadine/alcohol prep was utilized per protocol for cutaneous antisepsis. The skin and subcutaneous tissues were infiltrated with local anesthetic solution. With fluoroscopic guidance the chest was punctured just over the third anterior left rib and the pres cribed catheter was placed in the lung apex. This particular location was selected as the most recent CT scan showed prominence of the pleural space anteriorly in this location. Despite pneumothoraces b ilaterally, the stiffness of the lung prevent collapse and there was no significant pleural space ant eriorly on the right to facilitate tube placement. Wall suction was applied. Post procedure images d emonstrate satisfactory position of the tube. The catheter was sutured in place and a Percu-Stay was applied. Conscious sedation was performed with the prescribed dosages and duration as above in the presence of an independent trained radiology nurse to assist in the monitoring of the patient. EKG and oximetry remained stable throughout the procedure. The patient tolerated the procedure well and there were n o complications. The patient was sent to post anesthesia recovery in stable condition. CONCLUSION: 1. Uncomplicated left chest tube placement as above. 2. Initial order requested a right-sided chest tube. However, repeat CT scan showed no significant pl eural space anteriorly in the right hemithorax to facilitate tube placement. Lorenzo Dunaway MD on July 26, 2017 at 15:03 Board Certified Radiologist. This report was verified electronically.
[2017-07-26] MEDS: RESP: ALBUTEROL 2.5 MG/IPRATROPIUM 0.5 MG NEB (SCH) NEB ×3 (15:42→23:42)
[2017-07-26] MEDS: DOCUSATE SODIUM 50 MG/SENNA 8.6 MG TAB PO SCH (20:33)
[2017-07-26] MEDS: POLYETHYLENE GLYCOL 17 GM PKG PO SCH (20:33)
[2017-07-26] MEDS: FAMOTIDINE 20 MG TAB PO SCH (20:33)
[2017-07-26] MEDS ORDERED: DOCUSATE SODIUM 100 MG CAP PO SCH (21:00)
[2017-07-26] MEDS: traZODone HCL 100 MG TAB PO SCH (22:07)
[2017-07-27] VITALS (18 sets, daily range): BP systolic 95–107; BP diastolic 50–70; PULSE 68–96; RESP 20–40; TEMP 97.5–98.2; O2SAT 89–100
[2017-07-27] MEDS: RESP: ALBUTEROL 2.5 MG/IPRATROPIUM 0.5 MG NEB (SCH) NEB ×6 (03:53→23:05)
--- NOTE | 2017-07-27 05:01 | RADRPT ---
EXAM DATE/TIME: 07/27/2017 03:36 [facility] COMPARISON: CHEST EXPIRATION ONLY, July 26, 2017, 13:45. INDICATIONS : Shortness of breath, possible pulmonary disease. MEDICAL HISTORY : Chronic obstructive pulmonary disease. Gastroesophageal reflux disease. Renal calculi. Hep C Hypo tension SURGICAL HISTORY : Appendectomy. Hysterectomy. ENCOUNTER: Subsequent ACUITY: 2 weeks PAIN SCORE: Non-responsive. LOCATION: Bilateral chest FINDINGS: Expiratory semierect view of the chest demonstrates diffuse mixed interstitial and alveolar infiltrat es similar in severity and distribution to prior. Left chest catheter tip remains projected at left apex. Small biapical pneumothoraces measuring less than 3 mm stable in size. Subcutaneous emphysema and superior pneumomediastinum stable in appearance. CONCLUSION: Stable small apical pneumothoraces and diffuse bilateral lung infiltrates. Mohan Bingham MD on July 27, 2017 at 4:57 Board Certified Radiologist. This report was verified electronically.
[2017-07-27] MEDS: methylPREDNISolone SOD SUCC 40 MG/1 ML VIAL IV PUSH SCH ×3 (05:42→21:26)
[2017-07-27 06:31] LABS: AUTOMATED NEUTROPHIL # 13.1 TH/MM3 (1.8-7.7); BASOPHIL % 0.1 % (0.0-2.0); HEMATOCRIT 33.5 % (35.0-46.0); HEMOGLOBIN 11.2 GM/DL (11.6-15.3); LYMPH % 3.1 % (9.0-44.0); LYMPHOCYTE # 0.4 TH/MM3 (1.0-4.8); MEAN CELL VOLUME 91.9 FL (80.0-100.0); MEAN CORPUSCULAR HEMOGLOBIN 30.8 PG (27.0-34.0); MEAN CORPUSCULAR HGB CONC 33.5 % (32.0-36.0); MEAN PLATELET VOLUME 9.5 FL (7.0-11.0); MONO % 3.5 % (0.0-8.0); MONOCYTE # 0.5 TH/MM3 (0-0.9); NEUT % 93.3 % (16.0-70.0); PLATELET COUNT 161 TH/MM3 (150-450); RED BLOOD COUNT 3.65 MIL/MM3 (4.00-5.30); RED CELL DISTRIBUTION WIDTH 17.3 % (11.6-17.2)
[2017-07-27 06:57] LABS: ALBUMIN 2.3 GM/DL (3.4-5.0); AST (GOT) 36 U/L (15-37); BICARBONATE 30.3 MEQ/L (21.0-32.0); BLOOD UREA NITROGEN 23 MG/DL (7-18); CALCIUM 8.5 MG/DL (8.5-10.1); CHLORIDE 102 MEQ/L (98-107); CREATININE 0.51 MG/DL (0.50-1.00); GLOMERULAR FILTRATION RATE 130 ML/MIN (>89); GLUCOSE,RANDOM 131 MG/DL (74-106); MAGNESIUM 2.1 MG/DL (1.5-2.5); SODIUM (NA) 137 MEQ/L (136-145)
[2017-07-27 07:00] LABS: ALKALINE PHOSPHATASE 121 U/L (45-117); ALT (GPT) 140 U/L (10-53); PHOSPHORUS 3.5 MG/DL (2.5-4.9); TOTAL BILIRUBIN ADULT 0.8 MG/DL (0.2-1.0); TOTAL PROTEIN 6.5 GM/DL (6.4-8.2)
[2017-07-27] MEDS: INSULIN ASPART SUPPLEMENTAL SCALE SQ SCH ×4 (08:00→21:00)
[2017-07-27] MEDS: [UNRECOGNIZED DRUG - REMARK] NEB SCH ×2 (08:00→13:37)
[2017-07-27] MEDS: ARIPiprazole 10 MG TAB PO SCH (09:00)
[2017-07-27] MEDS: BUDESONIDE-FORMOTEROL 80/4.5 MCG INHALER INH SCH ×2 (09:00→21:27)
[2017-07-27] MEDS: FAMOTIDINE 20 MG TAB PO SCH ×2 (09:00→21:26)
[2017-07-27] MEDS: LACTULOSE SYRUP 20 GM/30 ML CUP PO SCH ×4 (09:00→21:26)
[2017-07-27] MEDS: DOCUSATE SODIUM 50 MG/SENNA 8.6 MG TAB PO SCH ×3 (09:00→21:26)
[2017-07-27] MEDS: FLUoxetine HCL 20 MG CAP PO SCH (09:00)
[2017-07-27] MEDS: URSODIOL 300 MG CAP PO SCH ×2 (09:00→21:30)
[2017-07-27] MEDS: POLYETHYLENE GLYCOL 17 GM PKG PO SCH ×2 (09:00→21:27)
[2017-07-27] MEDS: HEPARIN SODIUM - SQ 10,000 UNITS/ML VIAL SQ SCH ×2 (09:01→21:27)
[2017-07-27] MEDS ORDERED: MORPHINE SULFATE 2 MG/ML INJ IV PRN (12:15)
[2017-07-27] MEDS: MORPHINE SULFATE 2 MG/ML INJ IV PUSH PRN ×3 (12:55→21:38)
--- NOTE | 2017-07-27 15:57 | HHI.CCPN ---
Subjective Remarks/Hospital Course This is a 47-year-old white female that was admitted 2 days ago on 07/12/2017 to [facility].Patient was in her usual state of health until about a few days ago when she began experiencing a gradual onset of worsening shortness of breath and pleuritic chest pain. This is associated with a fever of 102.3 and mild productive nonbloody cough. Patient has 3 L/m home O2 dependency . Per report , the patient had been wearing her 3 L of oxygen at home. 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 Patient states that she was supposed to be taking 30 mg of prednisone on a daily basis for some time but she herself discontinued it about 2 months ago at her own discretion because she felt that they were disrupting her sleep significantly. She also says she takes an inhaler 4 times of the day but denies apparently taking any controller medications. Patient does have a history of bipolar disorder and says she is compliant with those medications. In the emergency department she was placed on 4 L, given steroids, Rocephin and azithromycin and DuoNeb treatments and then sent to the [facility] floor. Today 07/14/17, patient was noted to have significant decompensation and respiratory status requiring a nonrebreather mask, and at risk for possible intubation. Pulmonology was consulted .Critical care medicine was consulted, patient was transferred to the ICU. Records obtained from [facility] revealed the patient has autoimmune hepatitis, and pulmonary fibrosis. Upon my evaluation the patient was noted to be 99% on nonrebreather the patient was then placed on partial nonrebreather O2 saturation 94%, respiratory rate 28. Subjective: 07/15: FiO2 continues to be 60% on a partial non-rebreather mask. Plan to transition to high flow nasal cannula this a.m.. Pulmonology consult pending. Patient continues on steroids and antibiotics, noted acute desaturation with minimal activity. Strict bed rest implemented. Attempts being made to obtain records from [facility] her last admission for pulmonary compromise. 07/16: fio2 improves. abg slightly improving 7.39/51/138. LFTs coming down slightly. patient wants to get OOB. denies other complaints. ROS negative. 07/17: remains hypoxic on NRB. did get OOB to chair yesterday. denies complaints. ROS negative. 07/18 No events overnight. Patient is on high flow oxygen 30L with 45% FIO2. Afebrile. 07/19: Remains on high flow O2 30 L/m with 35% FiO2. 07/20 Patient is lying in bed in NAD. Remains on high flow oxygen 30L with 35% FIO2. Afebrile. 07/21. Patient is lying in bed with partial nonrebreather at this time. She is no longer requiring high flow oxygen. She is holding O2 saturations. She denies any shortness of breath or dyspnea. Vital signs are with mildly low blood pressure, afebrile 07/22 Patient is on VM with 50% FIO2. Afebrile. Denies any worsening of dyspnea from baseline. Afebrile. 07/23 No events overnight, on 50% VM. 07/24 Patient just arrived to [facility] from [place]. CXR earlier today showed new SubQ emphysema b/l, chronic ILD. On partial rebreather 07/25 No events overnight. On partial non rebreather with sats 98%. CT chest last night showed pulmonary fibrosis with interval development of pneumomediastinum, subq emphysema and small bilateral anterior pneumothoraces. Patchy diffuse ground glass opacities. 07/26: Worsening right apical pneumothorax 1.5 cm. Left pneumothorax 0.5 cm apical. Significant subcutaneous emphysema the right side. Currently on partial nonrebreather 12 L. She denies shortness of breath. Subjective 07/27: Currently resting in bed in no acute distress on partial nonrebreather. Left-sided chest tube placed successive. 6. Appears stabilize pneumothoraces. Has been declined by [facility]. [facility] pending. Objective Vital Signs Date Time Temp Pulse Resp B/P (MAP) Pulse Ox O2 Delivery O2 Flow Rate FiO2 07/27/17 13:01 81 35 100/50 (67) 98 07/27/17 08:46 Non-Rebreather 07/27/17 08:00 15.00 100 07/27/17 04:00 97.5 Intake and Output 07/27/17 07/27/17 07/28/17 08:00 16:00 00:00 Intake Total 100 ml Output Total 12 ml Balance 88 ml Result Diagram: 07/27/17 0615 07/27/17 0615 Other Results Microbiology Date/Time Source Procedure Growth Status 07/14/17 18:56 Blood Peripheral Aerobic Blood Culture - Final NO GROWTH IN 5 DAYS Complete 07/14/17 18:56 Blood Peripheral Anaerobic Blood Culture - Final NO GROWTH IN 5 DAYS Complete 07/24/17 11:55 Sputum Expectorated Sputum Gram Stain - Final Complete 07/24/17 11:55 Sputum Expectorated Sputum Sputum Culture - Final HEAVY GROWTH NORMAL RESPIRATORY OLI Complete 07/14/17 10:15 Urine Clean Catch Urine Culture - Final NO GROWTH IN 48 HOURS. Complete Imaging Last Impressions Chest X-Ray 07/27/17 0000 Signed Impressions: Service Date/Time: July 03:36 - CONCLUSION: Stable small apical pneumothoraces and diffuse bilateral lung infiltrates. Mohan Bingham MD Chest Tube Insertion 07/26/17 0000 Signed Impressions: Service Date/Time: Wednesday, July 26, 2017 12:23 - CONCLUSION: 1. Uncomplicated left chest tube placement as above. 2. Initial order requested a right-sided chest tube. However, repeat CT scan showed no significant pleural space anteriorly in the right hemithorax to facilitate tube placement. Lorenzo Dunaway MD Chest CT 07/26/17 0000 Signed Impressions: Service Date/Time: Wednesday, July 26, 2017 11:58 - CONCLUSION: There has been no new or significant change with the overall appearance of the thorax compared to the prior examination. Today's exam is essentially stable compared to the prior study. Kj Diaz MD CT Angiography 07/14/17 0000 Signed Impressions: Service Date/Time: Friday, July 14, 2017 10:01 - CONCLUSION: Extensive parenchymal lung disease which appears largely chronic with superimposed acute exacerbation. No evidence of pulmonary embolism.. You Mccallum MD Abdomen Ultrasound 07/14/17 0000 Signed Impressions: Service Date/Time: Friday, July 14, 2017 19:45 - CONCLUSION: Liver within normal limits. Small gallstone in the gallbladder. Nonspecific mild diffuse gallbladder wall thickening. Borderline splenomegaly. Trace right pleural effusion. Raffi Briggs MD Objective Remarks GENERAL: 47-year-old female resting in bed in no acute distress on partial nonrebreather HEENT: Normocephalic/atraumatic pupils are equally round and reactive about 3 mm. Mucous members moist. Oropharynx without erythema or thrush NECK: Supple without any masses. Trachea midline no deviation. No JVD, CARDIAC: RRR. S1, S2. No S4. Without murmurs LUNGS: Coarse fine crackles appreciated throughout lung keller. Left thorax subcutaneous air noted ABDOMEN: Soft, nontender. Nondistended. Bowel sounds heard in all 4 quadrants. No organomegaly or masses. Negative rebound, negative guarding EXTREMITIES: No edema, pulses are equal bilaterally. No significant cyanosis NEUROLOGY: Mood and affect appear appropriate. Cranial nerves II through XII grossly intact. Moving all extremities, speech is clear A/P Assessment and Plan Neuro/Psych: Bipolar disorder Depression History of (smoking) cocaine abuse 10/2016 History of migraine headache Neurochecks per ICU protocol Continue aripiprazole 10 mg daily and fluoxetine 40 mill grams dailyhome medications for bipolar/depression Trazodone 100mg qhs UDS negative. Off sumatriptan 0.5 tab 100 milligrams as needed for migraine headaches Currently on alprazolam 0.25 one tablet every 8 hours when necessary anxiety Respiratory: Acute on chronic hypoxemic respiratory failure - persistent. Possible community-acquired pneumonia History of Tobacco use disorder History of inhaled cocaine use Chronic interstitial lung disease-steroid dependent Pulmonary fibrosis Home O2 dependency COPD History of asthma Currently on partial nonrebreather mask 12 L Albuterol/ipratropium aerosols every 4 hours scheduled and albuterol aerosols every 2 hours when necessary Continue home med budesonide/formoterol 80/4.5 2 puffs twice a day Methylprednisolone succinate 40 mg IV 3 times a day Chest x-ray 07/26 - 1.5 cm right apical pneumothorax, 0.5 cm left apical pneumothorax. Pneumomediastinum CT chest 07/24 : Lower lobe predominant interstitial lung disease and pulmonary fibrosis with interval development of massive pneumomediastinum, subq emphysema and small bilateral anterior pneumothoraces. Patchy diffuse groundglass opacities may reflect superimposed infection/inflammatory process. CTS -Dr. Issa consulted- spoke to Dr. Issa no acute intervention at this time will follow clinically with serial CXRs if PTX gets bigger then place pigtail catheter placement , Pulmonology is following Left-sided pigtail placed by IR 07/26. PFTs 09/18 2016([facility]) FEV1 700 -25% of predicted, FVC 21% no lung volumes are diffusions were performed 09/07/16 CT thorax ([facility]) pulmonary fibrosis with left adrenal adenoma , however alpha 1 antitrypsin level was WNL , but positive (ASMA)anti-smooth muscle antibodies 1:640, ceruloplasmin normal Dr. Hernandez - monitor [facility] - cocaine-induced lung injury versus autoimmune induced interstitial lung disease. Followed by Dr. Stark/pulmonology Cardiovascular: Monitor HR and BP keep MAP>65mmHg 09/08/16 echo ([facility]) EF 55-60 %, Mildly elevated pulmonary pressure no major valvular abnormalities Renal: Monitor renal function, I/Os, electrolytes replacement per protocol. FEN/GI: Autoimmune hepatitis? (reported) Hepatitis B surface antigen positive Transaminitis Hyperlipidemia GERD Mild protein calorie malnutrition Constipation Monitor LFTs: currently downtrending. 07/15 ultrasound of abdomen- gallbladder wall thickening, borderline splenomegaly , trace right pleural effusion Famotidine GI prophylaxis 20 mg twice a day Ondansetron for nausea 09/13/16 Liver biopsy ([facility]) see medical chart for review- Patient referred to [facility] for eval for liver transplant GI is following. On Ursodiol 300 mg twice daily monitor liver enzymes. AST/ALT remain elevated Hep B sAg positive. Will need to be rechecked in 3 months with possible systemic treatment once stable Heme/ID: Leukocytosis Normocytic anemia Herpes 6 positive Pediculosis Monitor CBC blood cultures- NGTD Legionella and pneumococcal urine antigens- negative Influenza- negative Off abx-s/p azithromycin and cefepime finished 07/22 Patient with head lice tx permethrin as directed Endocrine: TSH 0.023 - 07/19 Left Adrenal adenoma Hyperglycemia of critical illness Check free T3/T4 RADHIKA speckled Glucose monitoring per ICU protocol. Low dose regimen with Accu-Cheks before meals/at bedtime with NovoLog -- SSI Metanephrine/normetanephrine/aldosterone and renin 06/18 at [facility] [place]. Results unknown at this time. Prophylaxis: GI Prophylaxis Famotidine DVT Prophylaxis -- SCDs, heparin subcutaneous Lines: Peripheral IVs 2. Dispo: remain in ICU. Level 3 follow-up Isidro Marcial MD Jul 27, 2017 15:57
--- NOTE | 2017-07-27 17:02 | HHI.PR ---
Subjective Remarks alert on o2, no SOB Objective Vital Signs Date Time Temp Pulse Resp B/P (MAP) Pulse Ox O2 Delivery O2 Flow Rate FiO2 07/27/17 13:01 81 35 100/50 (67) 98 07/27/17 12:00 84 39 98/61 (73) 99 07/27/17 11:00 93 32 106/70 (82) 89 07/27/17 10:00 73 22 100/56 (71) 98 07/27/17 09:00 73 25 95/59 (71) 100 07/27/17 08:46 100 Non-Rebreather 07/27/17 08:00 70 21 107/61 (76) 98 07/27/17 08:00 100 Non-Rebreather 15.00 100 07/27/17 06:00 70 07/27/17 04:00 97.5 68 20 102/58 (73) 98 07/27/17 04:00 68 07/27/17 04:00 98 Non-Rebreather 15.00 100 07/27/17 02:00 71 07/27/17 00:00 98.2 74 40 101/64 (76) 100 07/27/17 00:00 74 07/27/17 00:00 98 Non-Rebreather 15.00 100 07/26/17 21:26 94 Non-Rebreather 15.00 07/26/17 21:00 90 07/26/17 20:00 97 Non-Rebreather 15.00 100 07/26/17 20:00 98.6 84 48 115/60 (78) 86 07/26/17 19:00 87 07/26/17 18:00 102 I/O 07/26/17 07/26/17 07/26/17 07/27/17 07/27/17 07/27/17 07:00 15:00 23:00 07:00 15:00 23:00 Intake Total 120 ml 100 ml Output Total 1000 ml 864 ml 12 ml Balance -880 ml -864 ml 88 ml Intake Oral 120 ml 100 ml Output Urine Total 1000 ml 800 ml Chest Tube Drainage Total 64 ml 12 ml # Voids 4 3 # Bowel Movements 0 1 Result Diagram: 07/27/1715 07/27/17614 Objective Remarks GENERAL: SKIN: Warm and dry. HEAD: Atraumatic. Normocephalic. EYES: Pupils equal and round. No scleral icterus. No injection or drainage. ENT: No nasal bleeding or discharge. Mucous membranes pink and moist. NECK: Trachea midline. No JVD. CARDIOVASCULAR: Regular rate and rhythm. RESPIRATORY: No accessory muscle use. Clear to auscultation. Breath sounds equal bilaterally. GASTROINTESTINAL: Abdomen soft, non-tender, nondistended. Hepatic and splenic margins not palpable. MUSCULOSKELETAL: Extremities without clubbing, cyanosis, or edema. No obvious deformities. NEUROLOGICAL: Awake and alert. No obvious cranial nerve deficits. Motor grossly within normal limits. Five out of 5 muscle strength in the arms and legs. Normal speech. PSYCHIATRIC: Appropriate mood and affect; insight and judgment normal. Assessment and Plan Assessment and Plan pulm fibrosis respiratory failure asthma plan o2 steroids bronchodilators increase activity Lincoln Stark MD Jul 27, 2017 17:02
--- NOTE | 2017-07-27 18:07 | ECHRPT ---
Indication: HEART FAILURE CONCLUSIONS The left ventricular systolic function is normal with an estimated ejection fraction in the range of 60-65%. Normal left ventricular size. Wall thickness is normal. No regional wall motion abnormalities are present. There is trace tricuspid valve regurgitation. The estimated pulmonary arterial pressure is 26 mmHg. Trivial pulmonary valve regurgitation. BP: 102 / 58 HR: 68 Rhythm: Sinus Technical Quality:Good FINDINGS LEFT VENTRICLE The left ventricular systolic function is normal with an estimated ejection fraction in the range of 60-65%. Normal left ventricular size. Wall thickness is normal. No regional wall motion abnormalities are present. RIGHT VENTRICLE Normal right ventricular size and systolic function. LEFT ATRIUM The left atrial size is normal. RIGHT ATRIUM The right atrial size is normal. ATRIAL SEPTUM Normal atrial septal thickness without atrial level shunting by limited color doppler interrogation. AORTA The aortic root and proximal ascending aorta are normal in size on limited imaging. MITRAL VALVE Structurally normal mitral valve. No mitral valve stenosis or regurgitation. AORTIC VALVE Trileaflet aortic valve. No aortic valve stenosis or regurgitation. TRICUSPID VALVE Structurally normal tricuspid valve. There is trace tricuspid valve regurgitation. The estimated pulmonary arterial pressure is 26 mmHg. PULMONARY VALVE Trivial pulmonary valve regurgitation. VESSELS The inferior vena cava is normal in size. PERICARDIUM No pericardial effusion. Jameson Dalton MD (Electronically Signed) Final Date:27 July 2017 18:06
[2017-07-27] MEDS: traZODone HCL 100 MG TAB PO SCH (21:26)
[2017-07-28] VITALS (8 sets, daily range): BP systolic 92–105; BP diastolic 51–62; PULSE 64–85; RESP 15–35; TEMP 97.5–98.9; O2SAT 93–100
[2017-07-28] MEDS: RESP: ALBUTEROL 2.5 MG/IPRATROPIUM 0.5 MG NEB (SCH) NEB ×6 (02:34→23:59)
[2017-07-28] MEDS: MORPHINE SULFATE 2 MG/ML INJ IV PUSH PRN ×5 (02:56→23:22)
--- NOTE | 2017-07-28 05:25 | RADRPT ---
EXAM DATE/TIME: 07/28/2017 03:57 [facility] COMPARISON: CHEST SINGLE AP, July 26, 2017, 3:07. INDICATIONS : Evaluate for pneumothorax. MEDICAL HISTORY : Chronic obstructive pulmonary disease. Gastroesophageal reflux disease. Renal calculi. Hep C. Hypoten peter SURGICAL HISTORY : Appendectomy. Hysterectomy. ENCOUNTER: Subsequent ACUITY: 2 weeks PAIN SCORE: Non-responsive. LOCATION: chest FINDINGS: There are mild apical pneumothoraces seen bilaterally. These measure approximate 1.4 cm in thickness over the right apex and 1.2 cm in thickness over the left apex. There is a left-sided chest tube in p lace. The pneumothoraces are unchanged from the prior exam. There subcutaneous emphysema seen bilater ally being more prominent on the right. The heart size is normal. The lungs demonstrate diffuse mixed interstitial and alveolar consolidation. CONCLUSION: 1. Bilateral mild pneumothoraces which are unchanged. 2. Diffuse mixed interstitial and alveolar consolidation likely related to diffuse processes such as edema. You Weller MD on July 28, 2017 at 5:20 Board Certified Radiologist. This report was verified electronically.
[2017-07-28 07:11] LABS: AUTOMATED NEUTROPHIL # 16.8 TH/MM3 (1.8-7.7); BASOPHIL % 0.1 % (0.0-2.0); HEMOGLOBIN 10.9 GM/DL (11.6-15.3); LYMPH % 1.4 % (9.0-44.0); LYMPHOCYTE # 0.3 TH/MM3 (1.0-4.8); MEAN CELL VOLUME 92.8 FL (80.0-100.0); MEAN CORPUSCULAR HEMOGLOBIN 30.7 PG (27.0-34.0); MEAN CORPUSCULAR HGB CONC 33.1 % (32.0-36.0); MEAN PLATELET VOLUME 10.2 FL (7.0-11.0); MONO % 3.1 % (0.0-8.0); MONOCYTE # 0.6 TH/MM3 (0-0.9); NEUT % 95.4 % (16.0-70.0); PLATELET COUNT 148 TH/MM3 (150-450); RED BLOOD COUNT 3.55 MIL/MM3 (4.00-5.30); RED CELL DISTRIBUTION WIDTH 17.7 % (11.6-17.2); WHITE BLOOD COUNT 17.7 TH/MM3 (4.0-11.0)
[2017-07-28 07:26] LABS: ALT (GPT) 121 U/L (10-53); PHOSPHORUS 2.9 MG/DL (2.5-4.9)
[2017-07-28 07:28] LABS: ALKALINE PHOSPHATASE 118 U/L (45-117); TOTAL BILIRUBIN ADULT 0.7 MG/DL (0.2-1.0); TOTAL PROTEIN 6.5 GM/DL (6.4-8.2)
[2017-07-28 07:38] LABS: ALBUMIN 2.3 GM/DL (3.4-5.0); AST (GOT) 45 U/L (15-37); BICARBONATE 30.4 MEQ/L (21.0-32.0); BLOOD UREA NITROGEN 25 MG/DL (7-18); CALCIUM 8.3 MG/DL (8.5-10.1); CHLORIDE 101 MEQ/L (98-107); CREATININE 0.61 MG/DL (0.50-1.00); GLOMERULAR FILTRATION RATE 106 ML/MIN (>89); GLUCOSE,RANDOM 137 MG/DL (74-106); MAGNESIUM 2.2 MG/DL (1.5-2.5); SODIUM (NA) 136 MEQ/L (136-145)
[2017-07-28] MEDS: [UNRECOGNIZED DRUG - REMARK] NEB SCH ×2 (08:00→19:48)
--- NOTE | 2017-07-28 08:56 | HHI.CCPN ---
Subjective Remarks/Hospital Course This is a 47-year-old white female that was admitted 2 days ago on 07/12/2017 to [facility].Patient was in her usual state of health until about a few days ago when she began experiencing a gradual onset of worsening shortness of breath and pleuritic chest pain. This is associated with a fever of 102.3 and mild productive nonbloody cough. Patient has 3 L/m home O2 dependency . Per report , the patient had been wearing her 3 L of oxygen at home. 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 Patient states that she was supposed to be taking 30 mg of prednisone on a daily basis for some time but she herself discontinued it about 2 months ago at her own discretion because she felt that they were disrupting her sleep significantly. She also says she takes an inhaler 4 times of the day but denies apparently taking any controller medications. Patient does have a history of bipolar disorder and says she is compliant with those medications. In the emergency department she was placed on 4 L, given steroids, Rocephin and azithromycin and DuoNeb treatments and then sent to the [facility] floor. Today 07/14/17, patient was noted to have significant decompensation and respiratory status requiring a nonrebreather mask, and at risk for possible intubation. Pulmonology was consulted .Critical care medicine was consulted, patient was transferred to the ICU. Records obtained from [facility] revealed the patient has autoimmune hepatitis, and pulmonary fibrosis. Upon my evaluation the patient was noted to be 99% on nonrebreather the patient was then placed on partial nonrebreather O2 saturation 94%, respiratory rate 28. Subjective: 07/15: FiO2 continues to be 60% on a partial non-rebreather mask. Plan to transition to high flow nasal cannula this a.m.. Pulmonology consult pending. Patient continues on steroids and antibiotics, noted acute desaturation with minimal activity. Strict bed rest implemented. Attempts being made to obtain records from [facility] her last admission for pulmonary compromise. 07/16: fio2 improves. abg slightly improving 7.39/51/138. LFTs coming down slightly. patient wants to get OOB. denies other complaints. ROS negative. 07/17: remains hypoxic on NRB. did get OOB to chair yesterday. denies complaints. ROS negative. 07/18 No events overnight. Patient is on high flow oxygen 30L with 45% FIO2. Afebrile. 07/19: Remains on high flow O2 30 L/m with 35% FiO2. 07/20 Patient is lying in bed in NAD. Remains on high flow oxygen 30L with 35% FIO2. Afebrile. 07/21. Patient is lying in bed with partial nonrebreather at this time. She is no longer requiring high flow oxygen. She is holding O2 saturations. She denies any shortness of breath or dyspnea. Vital signs are with mildly low blood pressure, afebrile 07/22 Patient is on VM with 50% FIO2. Afebrile. Denies any worsening of dyspnea from baseline. Afebrile. 07/23 No events overnight, on 50% VM. 07/24 Patient just arrived to [facility] from [place]. CXR earlier today showed new SubQ emphysema b/l, chronic ILD. On partial rebreather 07/25 No events overnight. On partial non rebreather with sats 98%. CT chest last night showed pulmonary fibrosis with interval development of pneumomediastinum, subq emphysema and small bilateral anterior pneumothoraces. Patchy diffuse ground glass opacities. 07/26: Worsening right apical pneumothorax 1.5 cm. Left pneumothorax 0.5 cm apical. Significant subcutaneous emphysema the right side. Currently on partial nonrebreather 12 L. She denies shortness of breath. Subjective 07/27: Currently resting in bed in no acute distress on partial nonrebreather. Left-sided chest tube placed successive. 6. Appears stabilize pneumothoraces. Has been declined by [facility] and [facility]. [facility] pending. 07/28 Patient is on non rebreather with good sats. Left CT in place. Afebrile. Objective Vital Signs Date Time Temp Pulse Resp B/P (MAP) Pulse Ox O2 Delivery O2 Flow Rate FiO2 07/28/17 08:13 100 Non-Rebreather 12.00 07/28/17 04:00 97.9 73 20 95/53 (67) 07/28/17 04:00 100 Result Diagram: 07/28/17 0447 07/28/177 Other Results Laboratory Tests Test 07/28/17 04:47 White Blood Count 17.7 TH/MM3 Red Blood Count 3.55 MIL/MM3 Hemoglobin 10.9 GM/DL Hematocrit 33.0 % Mean Corpuscular Volume 92.8 FL Mean Corpuscular Hemoglobin 30.7 PG Mean Corpuscular Hemoglobin Concent 33.1 % Red Cell Distribution Width 17.7 % Platelet Count 148 TH/MM3 Mean Platelet Volume 10.2 FL Neutrophils (%) (Auto) 95.4 % Lymphocytes (%) (Auto) 1.4 % Monocytes (%) (Auto) 3.1 % Eosinophils (%) (Auto) 0.0 % Basophils (%) (Auto) 0.1 % Neutrophils # (Auto) 16.8 TH/MM3 Lymphocytes # (Auto) 0.3 TH/MM3 Monocytes # (Auto) 0.6 TH/MM3 Eosinophils # (Auto) 0.0 TH/MM3 Basophils # (Auto) 0.0 TH/MM3 CBC Comment DIFF FINAL Differential Comment Blood Urea Nitrogen 25 MG/DL Creatinine 0.61 MG/DL Random Glucose 137 MG/DL Total Protein 6.5 GM/DL Albumin 2.3 GM/DL Calcium Level 8.3 MG/DL Phosphorus Level 2.9 MG/DL Magnesium Level 2.2 MG/DL Alkaline Phosphatase 118 U/L Aspartate Amino Transf (AST/SGOT) 45 U/L Alanine Aminotransferase (ALT/SGPT) 121 U/L Total Bilirubin 0.7 MG/DL Sodium Level 136 MEQ/L Potassium Level 4.5 MEQ/L Chloride Level 101 MEQ/L Carbon Dioxide Level 30.4 MEQ/L Anion Gap 5 MEQ/L Estimat Glomerular Filtration Rate 106 ML/MIN Imaging Last Impressions Chest X-Ray 07/28/17 0600 Signed Impressions: Service Date/Time: Friday, July 28, 2017 03:57 - CONCLUSION: 1. Bilateral mild pneumothoraces which are unchanged. 2. Diffuse mixed interstitial and alveolar consolidation likely related to diffuse processes such as edema. You Weller MD Chest Tube Insertion 07/26/17 0000 Signed Impressions: Service Date/Time: Wednesday, July 26, 2017 12:23 - CONCLUSION: 1. Uncomplicated left chest tube placement as above. 2. Initial order requested a right-sided chest tube. However, repeat CT scan showed no significant pleural space anteriorly in the right hemithorax to facilitate tube placement. Lorenzo Dunaway MD Chest CT 07/26/17 0000 Signed Impressions: Service Date/Time: Wednesday, July 26, 2017 11:58 - CONCLUSION: There has been no new or significant change with the overall appearance of the thorax compared to the prior examination. Today's exam is essentially stable compared to the prior study. Kj Diaz MD CT Angiography 07/14/17 0000 Signed Impressions: Service Date/Time: Friday, July 14, 2017 10:01 - CONCLUSION: Extensive parenchymal lung disease which appears largely chronic with superimposed acute exacerbation. No evidence of pulmonary embolism.. You Mccallum MD Abdomen Ultrasound 07/14/17 0000 Signed Impressions: Service Date/Time: Friday, July 14, 2017 19:45 - CONCLUSION: Liver within normal limits. Small gallstone in the gallbladder. Nonspecific mild diffuse gallbladder wall thickening. Borderline splenomegaly. Trace right pleural effusion. Raffi Briggs MD Objective Remarks GENERAL: 47-year-old female resting in bed in no acute distress on partial nonrebreather HEENT: Normocephalic/atraumatic pupils are equally round and reactive about 3 mm. Mucous members moist. Oropharynx without erythema or thrush NECK: Supple without any masses. Trachea midline no deviation. No JVD, CARDIAC: RRR. S1, S2. No S4. Without murmurs LUNGS: Coarse fine crackles appreciated throughout lung keller. Left thorax subcutaneous air noted ABDOMEN: Soft, nontender. Nondistended. Bowel sounds heard in all 4 quadrants. No organomegaly or masses. Negative rebound, negative guarding EXTREMITIES: No edema, pulses are equal bilaterally. No significant cyanosis NEUROLOGY: Mood and affect appear appropriate. Cranial nerves II through XII grossly intact. Moving all extremities, speech is clear A/P Assessment and Plan Neuro/Psych: Bipolar disorder Depression History of (smoking) cocaine abuse 10/2016 History of migraine headache Neurochecks per ICU protocol Continue aripiprazole 10 mg daily and fluoxetine 40 mill grams daily home medications for bipolar/depression Trazodone 100mg qhs UDS negative. Off sumatriptan 0.5 tab 100 milligrams as needed for migraine headaches Currently on alprazolam 0.25 one tablet every 8 hours when necessary anxiety Respiratory: Acute on chronic hypoxemic respiratory failure - persistent. Possible community-acquired pneumonia History of Tobacco use disorder History of inhaled cocaine use Chronic interstitial lung disease-steroid dependent Pulmonary fibrosis Home O2 dependency COPD History of asthma Currently on partial nonrebreather mask 12 L, Wean down oxygen as daksha keep sat >92% Albuterol/ipratropium aerosols every 4 hours scheduled and albuterol aerosols every 2 hours when necessary Continue home med budesonide/formoterol 80/4.5 2 puffs twice a day Methylprednisolone succinate 40 mg IV [address] chest 07/24 : Lower lobe predominant interstitial lung disease and pulmonary fibrosis with interval development of massive pneumomediastinum, subq emphysema and small bilateral anterior pneumothoraces. Patchy diffuse groundglass opacities may reflect superimposed infection/inflammatory process. CTS -Dr. Issa is following Spoke with Dr. Jason Ford from [facility] and recommended to try to transfer patient to transplant center. Pulmonology is following Left-sided pigtail placed by IR 07/26. PFTs 09/18 2016([facility]) FEV1 700 -25% of predicted, FVC 21% no lung volumes are diffusions were performed 09/07/16 CT thorax ([facility]) pulmonary fibrosis with left adrenal adenoma , however alpha 1 antitrypsin level was WNL , but positive (ASMA)anti-smooth muscle antibodies 1:640, ceruloplasmin normal Dr. Hernandez - [facility] - cocaine-induced lung injury versus autoimmune induced interstitial lung disease. Followed by Dr. Stark/pulmonology Cardiovascular: Monitor HR and BP keep MAP>65mmHg 09/08/16 echo ([facility]) EF 55-60 %, Mildly elevated pulmonary pressure no major valvular abnormalities Renal: Monitor renal function, I/Os, electrolytes replacement per protocol. FEN/GI: Autoimmune hepatitis? (reported) Hepatitis B surface antigen positive Transaminitis Hyperlipidemia GERD Mild protein calorie malnutrition Constipation Monitor LFTs: currently downtrending. 07/15 ultrasound of abdomen- gallbladder wall thickening, borderline splenomegaly , trace right pleural effusion Famotidine GI prophylaxis 20 mg twice a day Ondansetron for nausea 09/13/16 Liver biopsy ([facility]) see medical chart for review- Patient referred to [facility] for eval for liver transplant GI is following. On Ursodiol 300 mg twice daily monitor liver enzymes. AST/ALT remain elevated Hep B sAg positive. Will need to be rechecked in 3 months with possible systemic treatment once stable Heme/ID: Leukocytosis Normocytic anemia Herpes 6 positive Pediculosis Monitor CBC blood cultures- NGTD Legionella and pneumococcal urine antigens- negative Influenza- negative Off abx-s/p azithromycin and cefepime finished 07/22 Patient with head lice tx permethrin as directed Endocrine: TSH 0.023 - 07/19 Left Adrenal adenoma Hyperglycemia of critical illness free T3::1.11, FT4: 1.16 RADHIKA speckled Glucose monitoring per ICU protocol. Low dose regimen with Accu-Cheks before meals/at bedtime with NovoLog -- SSI Metanephrine/normetanephrine/aldosterone and renin 06/18 at [facility]. Results unknown at this time. Prophylaxis: GI Prophylaxis Famotidine DVT Prophylaxis -- SCDs, heparin subcutaneous Lines: Peripheral IVs 2. Dispo: remain in ICU. Level 3 follow-up Mone Lora MD Jul 28, 2017 08:56
[2017-07-28] MEDS: POLYETHYLENE GLYCOL 17 GM PKG PO SCH ×2 (09:00→21:00)
[2017-07-28] MEDS: LACTULOSE SYRUP 20 GM/30 ML CUP PO SCH ×2 (09:00→13:00)
[2017-07-28] MEDS: HEPARIN SODIUM - SQ 10,000 UNITS/ML VIAL SQ SCH ×2 (09:29→23:20)
[2017-07-28] MEDS: methylPREDNISolone SOD SUCC 40 MG/1 ML VIAL IV PUSH SCH ×3 (09:29→23:21)
[2017-07-28] MEDS: DOCUSATE SODIUM 50 MG/SENNA 8.6 MG TAB PO SCH ×2 (09:29→21:00)
[2017-07-28] MEDS: ARIPiprazole 10 MG TAB PO SCH (09:30)
[2017-07-28] MEDS: FAMOTIDINE 20 MG TAB PO SCH ×2 (09:30→23:20)
[2017-07-28] MEDS: FLUoxetine HCL 20 MG CAP PO SCH (09:30)
[2017-07-28] MEDS: BUDESONIDE-FORMOTEROL 80/4.5 MCG INHALER INH SCH ×2 (09:30→23:21)
[2017-07-28] MEDS: URSODIOL 300 MG CAP PO SCH ×2 (09:30→23:20)
[2017-07-28] MEDS: INSULIN ASPART SUPPLEMENTAL SCALE SQ SCH ×4 (09:49→21:00)
--- NOTE | 2017-07-28 12:10 | PD.PN.STU ---
Subjective Remarks Ms. Roy is a 47-year-old white female with a past medical history significant for but not limited to pulmonary fibrosis, autoimmune hepatitis, asthma, GERD, seizure disorder, and bipolar disorder. She was in her usual state of health until several days prior to admission on 07/12/2017 at [facility] when she began experiencing a gradual onset of worsening shortness of breath and pleuritic chest pain. This was associated with a fever of 102.3 and mild productive nonbloody cough. Patient has 3 L/m home O2 dependency . Per friends, the patient had been wearing her 3 L of oxygen interminably at home. Per report, the patient states that she was supposed to be taking 30 mg of prednisone on a daily basis for some time but she herself discontinued it about 2 months ago because she felt that they were disrupting her sleep. Per report, she also takes an inhaler 4 times of the day but denies taking any controller medications. Per report, she is compliant with bipolar medications. In the emergency department she was placed on 4 L O2, given steroids, Rocephin, Azithromycin, and DuoNeb treatments. Significant events are as follows: 07/14: patient was noted to have significant decompensation and respiratory status requiring a nonrebreather mask, and at risk for possible intubation. Pulmonology was consulted . Critical care medicine was consulted. Patient was transferred to the ICU. 07/15: FiO2 continues to be 60% on a partial non-rebreather mask. Plan to transition to high flow nasal cannula this a.m.. Pulmonology consult pending. Patient continues on steroids and antibiotics, noted acute desaturation with minimal activity. Strict bed rest implemented. Attempts being made to obtain records from [facility] her last admission for pulmonary compromise. 07/24: Patient arrived to [facility] from [facility]. CXR showed new Subcutaneous emphysema bullae and chronic interstitial lung disease. 07/25: CT chest last showed pulmonary fibrosis with interval development of pneumomediastinum, subcutaneous emphysema, small bilateral anterior pneumothoraces, and patchy diffuse ground glass opacities. 07/26: Worsening right apical pneumothorax 1.5 cm. Left pneumothorax 0.5 cm apical. Significant subcutaneous emphysema the right side. Currently on partial nonrebreather 12 L. She denied shortness of breath. A left chest tube was placed. 07/27: Left-sided chest tube placed successfully. Stabilized pneumothoraces. Had been declined by [facility] and [facility] for transfer. [facility] pending. Functional/Cognitive Trajectory: Patient states that she has been having "difficulty functioning" the past year. She states that she has had a more difficult time completing AADL's like gardening and going to the beach. She has noticed that she becomes easily short of breath when playing with her significant other's granddaughter. She is still able to ambulate around the home. However,she states that she rarely leaves the home. She states that she has been feeling more down since her hospitalization in August. The patient's long-time significant other, Alonso, echoed these concerns. They have not lived together the past year, but he visits/talks to her on a daily basis. He states that the patient will have days where she does not get out of bed due to her depression. He states that she has not shown any signs or expressed any ideation of self-harm. He states that he did not notice any changes in Ms. Roy's health in the days leading up to her most recent admission. ROS: General: Feels down. Denies any recent manic episodes. Feels as though function has declined last year. HEENT: pt wears glasses. No nasal discharge, bleeding, congestion, Respiratory: shortness of breath at rest, pain at chest tube placement site Gastrointestinal: no diarrhea, no vomiting, regular bowel movements. Genitourinary: Pt is able to pass urine. 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 Father, Malik, in good health. Sister, Veronica, in good health. Substance Abuse: Per significant other, patient continues to smoke. Unsure of amount or frequency. Per significant other, no history of alcohol use or abuse. Patient denies illicit drug use. Psychosocial: She has lived in [place] for 25 years. She is originally from [place]. She is single, but has had a halfway partner, Alonso, for 11 years. She has no biological children, but is very close to her significant other's 4 year-old grandchild. She is on disability. She lives with her parents in a house in [place]. Per friend, patient's parents monitor and regulate her prescription medications to make sure she takes them when prescribed. Her sister lives in [place]. 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 Spiritual/Cultural Factors: She self-identifies as a very spiritual person. She worships at an [employer]. She would like to have cephalometric analyst visits while here. Living Will: None on medical record POA: None on medical record Healthcare Surrogate: Appointed sister as primary HCS. Parents designated as alternate HCS. Today's verbally stated goals: Spoke with patient to clarify palliative care's roles and purpose. Confirmed persons who may receive healthcare information about patient. Confirmed history with patient obtained per significant other. Discussed HCS and code status. . Family/friends goals: Spoke with significant other about patient's health and functional status prior to hospitalization. Shared no medical history about patient with him at this time as we had not obtained permission from Ms. Roy to do so yet. Parents and sister were not present at the time of visit. . Ethical and Legal Issues: Patient has no living will or POA. She has signed and declared a primary and alternate HCS. Objective Vitals Vital Signs Date Time Temp Pulse Resp B/P (MAP) Pulse Ox O2 Delivery O2 Flow Rate FiO2 07/28/17 10:00 98 Non-Rebreather 07/28/17 08:13 100 Non-Rebreather 12.00 07/28/17 08:00 98.9 64 15 105/62 (76) 99 07/28/17 08:00 100 Non-Rebreather 07/28/17 04:00 97.9 73 20 95/53 (67) 93 07/28/17 04:00 96 Non-Rebreather 10.00 100 07/28/17 02:00 95 Non-Rebreather 10.00 100 07/28/17 00:00 97 Non-Rebreather 10.00 100 07/28/17 00:00 98.3 80 24 99/57 (71) 94 07/27/17 23:05 97 Partial Rebreather 10.00 07/27/17 22:00 98 Non-Rebreather 10.00 100 07/27/17 20:00 97 Non-Rebreather 10.00 100 07/27/17 20:00 97.9 92 29 98/58 (71) 97 07/27/17 19:33 99 Non-Rebreather 100 07/27/17 17:00 89 30 98/53 (68) 98 07/27/17 17:00 89 07/27/17 16:00 96 38 106/57 (73) 95 07/27/17 16:00 96 07/27/17 16:00 98 Non-Rebreather 10.00 100 07/27/17 15:00 76 07/27/17 14:00 74 07/27/17 13:01 81 35 100/50 (67) 98 07/27/17 13:01 81 I/O 07/27/17 07/27/17 07/27/17 07/28/17 07/28/17 07/28/17 07:00 15:00 23:00 07:00 15:00 23:00 Intake Total 100 ml 450 ml Output Total 12 ml 10 ml Balance 88 ml 440 ml Intake Oral 100 ml 450 ml Chest Tube Drainage Total 12 ml 10 ml # Voids 3 4 # Bowel Movements 1 GENERAL: 47-year-old female resting in bed in no acute distress on partial nonrebreather. Her breathing is shallow. HEENT: Normocephalic/atraumatic pupils are equally round. Mucous members moist. NECK: Supple without any masses. Trachea midline no deviation. No JVD. No thyromegaly. CARDIAC: Regular rate and rhythm. S1 murmur. S2 clear. LUNGS: Breath sounds shallow. No crackles appreciated. No subcutaneous air appreciated. Left chest tube. Incision without discharge or erythema. ABDOMEN: Soft, nontender. Nondistended. No guarding. EXTREMITIES: No edema. No significant cyanosis. Pedal pulses present. Psychiatric: Appropriate mood and affect. Result Diagram: 07/28/177 07/28/177 Other Results Laboratory Tests Test 07/28/17 04:47 Red Blood Count 3.55 MIL/MM3 Mean Corpuscular Volume 92.8 FL Mean Corpuscular Hemoglobin 30.7 PG Mean Corpuscular Hemoglobin Concent 33.1 % Red Cell Distribution Width 17.7 % Mean Platelet Volume 10.2 FL Neutrophils (%) (Auto) 95.4 % Lymphocytes (%) (Auto) 1.4 % Monocytes (%) (Auto) 3.1 % Eosinophils (%) (Auto) 0.0 % Basophils (%) (Auto) 0.1 % Neutrophils # (Auto) 16.8 TH/MM3 Lymphocytes # (Auto) 0.3 TH/MM3 Monocytes # (Auto) 0.6 TH/MM3 Eosinophils # (Auto) 0.0 TH/MM3 Basophils # (Auto) 0.0 TH/MM3 CBC Comment DIFF FINAL Differential Comment Blood Urea Nitrogen 25 MG/DL Creatinine 0.61 MG/DL Random Glucose 137 MG/DL Total Protein 6.5 GM/DL Albumin 2.3 GM/DL Calcium Level 8.3 MG/DL Phosphorus Level 2.9 MG/DL Magnesium Level 2.2 MG/DL Alkaline Phosphatase 118 U/L Aspartate Amino Transf (AST/SGOT) 45 U/L Alanine Aminotransferase (ALT/SGPT) 121 U/L Total Bilirubin 0.7 MG/DL Sodium Level 136 MEQ/L Potassium Level 4.5 MEQ/L Chloride Level 101 MEQ/L Carbon Dioxide Level 30.4 MEQ/L Anion Gap 5 MEQ/L Estimat Glomerular Filtration Rate 106 ML/MIN Imaging Last 72 hours Impressions Chest X-Ray 07/28/17 0600 Signed Impressions: Service Date/Time: Friday, July 28, 2017 03:57 - CONCLUSION: 1. Bilateral mild pneumothoraces which are unchanged. 2. Diffuse mixed interstitial and alveolar consolidation likely related to diffuse processes such as edema. You Weller MD Chest X-Ray 07/27/17 0000 Signed Impressions: Service Date/Time: July 03:36 - CONCLUSION: Stable small apical pneumothoraces and diffuse bilateral lung infiltrates. Mohan Bingham MD Chest X-Ray 07/26/17 0000 Signed Impressions: Service Date/Time: Wednesday, July 26, 2017 13:45 - CONCLUSION: 1. Left-sided chest tube placement with tiny left apical pneumothorax. 2. Tiny right apical pneumothorax. Torey Burden MD Chest X-Ray 07/26/17 0000 Signed Impressions: Service Date/Time: Wednesday, July 26, 2017 03:07 - CONCLUSION: 1. Stable severity bilateral interstitial partially consolidative infiltrates. 2. Increasing size right pneumothorax and stable left pneumothorax and pneumomediastinum. Mohan Bingham MD Chest Tube Insertion 07/26/17 0000 Signed Impressions: Service Date/Time: Wednesday, July 26, 2017 12:23 - CONCLUSION: 1. Uncomplicated left chest tube placement as above. 2. Initial order requested a right-sided chest tube. However, repeat CT scan showed no significant pleural space anteriorly in the right hemithorax to facilitate tube placement. Lorenzo Dunaway MD Chest CT 07/26/17 0000 Signed Impressions: Service Date/Time: Wednesday, July 26, 2017 11:58 - CONCLUSION: There has been no new or significant change with the overall appearance of the thorax compared to the prior examination. Today's exam is essentially stable compared to the prior study. Kj Diaz MD Objective Remarks Current Medications Medications (Trade) Dose Ordered Sig/Romero Route Start Time Stop Time Status Last Admin (Abilify) 10 mg DAILY PO 07/13/17 09:00 07/28/17 09:30 (PROzac) 40 mg DAILY PO 07/14/17 09:00 07/28/17 09:30 (D50w (Vial) Inj) 50 ml UNSCH PRN IV PUSH 07/14/17 18:15 (Glucagon Inj) 1 mg UNSCH PRN OTHER 07/14/17 18:15 (NovoLOG SUPPLEMENTAL SCALE) 1 ACHS SLIDING SCALE SQ 07/14/17 21:00 07/28/17 09:49 Miscellaneous Information Patient in critical care unit? Ass... Q361D .XX 07/15/17 13:45 07/15/17 13:45 (Desyrel) 100 mg HS PO 07/16/17 21:00 07/27/17 21:26 Potassium Chloride 100 ml @ 50 mls/hr Q2H PRN IV 07/19/17 13:30 Potassium Chloride 100 ml @ 50 mls/hr Q2H PRN IV 07/19/17 13:30 (K-Lyte Cl Eff) 50 meq UNSCH PRN PO 07/19/17 13:30 07/19/17 14:09 Potassium Chloride 100 ml @ 25 mls/hr UNSCH PRN IV 07/19/17 13:30 Potassium Chloride 100 ml @ 50 mls/hr Q2H PRN IV 07/19/17 13:30 Magnesium Sulfate 4 gm/Sodium Chloride 100 ml @ 50 mls/hr UNSCH PRN IV 07/19/17 13:30 (Mag-Ox) 800 mg UNSCH PRN PO 07/19/17 13:30 Magnesium Sulfate 2 gm/Sodium Chloride 100 ml @ 50 mls/hr UNSCH PRN IV 07/19/17 13:30 (K-Phos) 2,000 mg Q4H PRN PO 07/19/17 13:30 Sodium Phosphate 30 mmol/Sodium Chloride 250 ml @ 42 mls/hr UNSCH PRN IV 07/19/17 13:30 (K-Phos) 2,000 mg UNSCH PRN PO/TUBE 07/19/17 13:30 Potassium Phosphate 30 mmol/ Sodium Chloride 260 ml @ 42 mls/hr UNSCH PRN IV 07/19/17 13:30 (Actigall) 300 mg Q12HR PO 07/20/17 21:00 07/28/17 09:30 Non-Formulary Medication ACETYLCYSTEIN-10%-10ML VIAL- 2ML Q6HR WHILE AWAKE NEB NEB 07/20/17 20:00 07/26/17 19:33 (Heparin Inj) 5,000 units Q12HR SQ 07/22/17 09:00 07/28/17 09:29 (Xanax) 0.25 mg Q8HR PRN PO 07/22/17 14:30 07/25/17 13:51 (SoluMEDROL INJ) 40 mg Q8HR IV PUSH 07/23/17 22:00 07/28/17 09:29 (Symbicort 80-4.5 Mcg Inh) 2 puff BID INH 07/26/17 21:00 07/28/17 09:30 (Pepcid) 20 mg BID PO 07/26/17 21:00 07/28/17 09:30 (Miralax) 17 gm BID PO 07/26/17 21:00 07/27/17 21:27 (Lactulose Liq) 30 ml QID PO 07/26/17 13:00 07/27/17 21:26 (Albuterol Neb) 2.5 mg Q2HR NEB PRN NEB 07/26/17 12:00 (Duoneb Neb) 1 ampule Q4HR NEB NEB 07/26/17 12:00 07/28/17 12:03 (Anneliese-Colace) 1 tab BID PO 07/26/17 21:00 07/28/17 09:29 (Morphine Inj) 1 mg Q3H PRN IV 07/27/17 12:15 (Morphine Inj) 2 mg Q3H PRN IV PUSH 07/27/17 12:15 07/28/17 09:34 A/P Assessment and Plan Assessment: Ms. Roy has a complicated medical and psychiatric history. She has had multiple hospitalizations within the past two years with her most recent hospitalization occurring this August. Since that hospitalization, the patient and her significant other both confirm a progressive decline in her physical health. Contacts: Veronica Stanley (sister): [phone] Alonso Turk (significant other): [phone] Pertinent Non-Medical issues: Ms. Roy is a self-identifies as a very spiritual person. She would like to have cephalometric analyst visits during her stay. Prognosis: Her prognosis to recover from this admission and return to her functional status before admission is fair. She will likely continue to have multiple hospitalizations due to her hepatic and pulmonary issues if care continues along the current trajectory. The severity and complications of these admissions will likely continue to worsen. She needs a long-term care plan in place in order to assure that her physical and mental health as well as overall functional status does not continue to decline. Palliative care will continue to visit with patient as needed for support. Will readdress code status once she has had time to talk with her family. Will readdress goals of care if condition begins to deteriorate. Code Status: Full Code Greg Ortiz Jul 28, 2017 12:10
--- NOTE | 2017-07-28 12:34 | RADRPT ---
EXAM DATE/TIME: 07/27/2017 00:00 [place] COMPARISON: CT THORAX W/O CONTRAST, July 26, 2017, 11:58. INDICATIONS : Pain in upper extremities, hypoxia TECHNIQUE: Segmental examination of the upper extremities was performed. Pulsed-cuff waveform tracings and pressures were recorded. PRESSURES (mmHg): Upper Arm: Right 98 Left 98 Lower Arm: Right 94 Left 97 DIGITS: Digit 2: Right 81 Left 76 FBI: Right 0.83 Left 0.78 PULSED CUFF WAVEFORMS: Demonstrate normal amplitude bilaterally. CONCLUSION: 1. Comparison of the upper arm pressure to the digits of each hand demonstrates a ratio of 0.83 on th e right and 0.78 on the left. This is within normal limits. It should be noted, this test would not e xclude disease within the proximal subclavian vessels. If symptoms persist, CT angiography of the upp er extremities could be performed. Sumit Rios MD on July 28, 2017 at 12:30 Board Certified Radiologist. This report was verified electronically.
--- NOTE | 2017-07-28 19:07 | PD.CONS ---
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 she would like her sister to serve as her surrogate. Ethical issues impacting care: Patient is currently capacitated to make her own health care decisions . Important Contacts * Veronica Stanley (Sister --designated health care surrogate) [phone] * Malik Roy (father ) [phone] * Alonso Turk (significant other) [phone] . Prognosis The patient's primary problem is progressively worsening lung disease. Imaging shows both emphysematous changes and pulmonary fibrosis. Though her last hospitalization was over a year ago, she has had significant decline in functional status. She is now mostly bed and chair bound. She is on continuous oxygen. It is unclear how much of this may be due to an autoimmune phenomena. Her lung disease is complicated by liver disease as well. She apparently has had diagnoses of hepatitis B and hepatitis C. There is some question of autoimmune liver disease. She has undergone several liver biopsies. 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 Complicating her care is a long history of psychiatric illness which seems to be a combination of bipolar disorder and posttraumatic stress disorder. Available records indicate she may have self medicated some of these with drugs of abuse. There may been periods of noncompliance. Her current respiratory illness is reportedly the most severe she has had. This is now complicated by pneumothoraces. It remains unclear if she will be able to improve and recover from this acute illness. If her lung disease is due primarily to progressive pulmonary fibrosis and she is not a candidate for any type of transplant, even if she survives the hospitalization she is likely to have more frequent hospitalizations in the future which will be increasingly challenging to treat. Life expectancy at this time is difficult for me to predict. We'll yield to the pulmonologists for this. . Code Status: Full Code Plan == Code Status: FULL CODE. this topic was discussed with the patient on . She wanted to think about this and discuss with her family before making a decision. She therefore remains full code by default. == Decision Making: The patient is capacitated to make her own health care decisions. Should she become incapacitated, she has chosen her sister-- Veronica [phone]-- to be her healthcare surrogate == Goals of medical treatment: At this time goals are aggressive. Patient is aware she may need a lung transplant. She would like to find out if she is a candidate for this and would want to proceed if she is. As noted above, in the meantime, she is consulting with family to decide about resuscitation status. == Symptoms * Dyspnea: The patient's dyspnea is due to a combination of her emphysematous changes, pulmonary fibrosis, infection, and pneumothoraces. Her current regimen includes oxygen therapy, nebulizer treatments, IV steroids. There are also orders for all prior to lab and morphine which would help with severe dyspnea. The patient is comfortable at rest, with oxygen, when she is not conversing. No further recommendations at this time. * Pain: Patient has no pre-hospitalization pain syndromes. Her only pain complaint is from her chest tube site. Her current medication is working effectively at bringing pain levels down from #7 to #1. No further recommendations at this time. * Depression: Patient has a long history of bipolar disorder. She feels she is more on the depressed side of that spectrum at this time. Patient is currently on her usual psychoactive medications which include fluoxetine and Abilify. We will have to watch moods carefully. She appears to be tolerating the high-dose steroids without severe agitation at this time. The level of depression she is experiencing may be appropriate for her current illness severity. Would not recommend altering psychoactive medications at this time. * Fatigue: Hopefully, this will improve if we are able to improve her pulmonary function and exercise tolerance. == Case discussed with Dr. Lora. == We will follow up on resuscitation status once patient has had a chance to speak with her family. == Palliative care will be better able to discuss goals with patient and healthcare surrogate if we get a sense of prognosis from ladle puller and whether or not this patient would be a candidate and might be helped by lung transplant. If she is not a transplant candidate and we anticipate ongoing decline in pulmonary function we would want to address this and discuss options such as hospice. == Palliative care will continue to follow to assist with symptom management and to further assess goals of medical treatment as the clinical course evolves. . Time Spent Total Floor Time (mins): 90 (Total floor time included chart review, patient examination, bedside discussion with the patient, discussion in the consultation room with the patient's partner, discussion with the bioinformatics scientist, and documentation.) Face to Face Time (mins): 25 >50% Counseling/Coord of Care: Yes Thank you for the opportunity to participate in the care of Ms. Roy. . Attestation To help prompt me to consider important information that might be impacting today's encounter and assessment, information from prior notes written by myself or my colleagues may have been "brought forward" into today's note. My signature on this note, however, is an attestation that I personally performed the exam, history, and/or decision-making noted today, and, unless otherwise indicated, the interactions with patient, family, and staff as well as the review of records all occurred today. I also attest that the listed assessment and stated plan reflect my best clinical judgment today based on the combination of historical information, prior notes, and today's exam/ interactions. When time spent is documented, it refers only to time spent today by the signer, or if indicated, combined time spent today by collaborating physician/nurse practitioner. . Rylan Hurley MD Jul 28, 2017 19:02
[2017-07-28] MEDS: traZODone HCL 100 MG TAB PO SCH (23:20)
[2017-07-29] VITALS (13 sets, daily range): BP systolic 95–104; BP diastolic 50–60; PULSE 68–109; RESP 22–39; TEMP 98–100; O2SAT 90–100
[2017-07-29] MEDS: MORPHINE SULFATE 2 MG/ML INJ IV PUSH PRN ×5 (03:35→20:56)
[2017-07-29] MEDS: methylPREDNISolone SOD SUCC 40 MG/1 ML VIAL IV PUSH SCH ×3 (03:36→21:46)
[2017-07-29] MEDS: RESP: ALBUTEROL 2.5 MG/IPRATROPIUM 0.5 MG NEB (SCH) NEB ×6 (04:08→23:45)
--- NOTE | 2017-07-29 04:29 | RADRPT ---
EXAM DATE/TIME: 07/29/2017 03:23 [facility] COMPARISON: CHEST SINGLE AP, July 28, 2017, 3:57. INDICATIONS : Shortness of breath, possible pulmonary disease. MEDICAL HISTORY : Chronic obstructive pulmonary disease. Gastroesophageal reflux disease. Renal calculi. Hep C Hypo tension SURGICAL HISTORY : Appendectomy. Hysterectomy. ENCOUNTER: Subsequent ACUITY: 2 weeks PAIN SCORE: 0/10 LOCATION: Bilateral chest FINDINGS: There is a left chest tube in place. There is a minimal left pneumothorax in the apex. The previously seen right pneumothorax is not clearly seen over the right apex on the current exam. There is some a ir seen in the medial left chest that could be related to the pneumothorax. She is emphysema seen in the right axillary region and right neck. There is diffuse mixed interstitial and alveolar consolidat ion. This appears worse. CONCLUSION: 1. Minimal persistent left pneumothorax. There is a left chest tube. 2. A right pneumothorax is not seen over the apex. There is an air lucency seen at the medial right c hest which could be related to the pneumothorax. 3. Diffuse consolidation likely related to edema which appears worse. You Weller MD on July 29, 2017 at 4:23 Board Certified Radiologist. This report was verified electronically.
[2017-07-29 04:49] LABS: AUTOMATED NEUTROPHIL # 13.7 TH/MM3 (1.8-7.7); BASOPHIL % 0.2 % (0.0-2.0); HEMOGLOBIN 10.1 GM/DL (11.6-15.3); LYMPH % 1.3 % (9.0-44.0); LYMPHOCYTE # 0.2 TH/MM3 (1.0-4.8); MEAN CELL VOLUME 92.5 FL (80.0-100.0); MEAN CORPUSCULAR HEMOGLOBIN 30.1 PG (27.0-34.0); MEAN CORPUSCULAR HGB CONC 32.6 % (32.0-36.0); MEAN PLATELET VOLUME 9.6 FL (7.0-11.0); MONOCYTE # 0.3 TH/MM3 (0-0.9); NEUT % 96.5 % (16.0-70.0); PLATELET COUNT 121 TH/MM3 (150-450); RED BLOOD COUNT 3.36 MIL/MM3 (4.00-5.30); WHITE BLOOD COUNT 14.1 TH/MM3 (4.0-11.0)
[2017-07-29 05:26] LABS: ALBUMIN 2.2 GM/DL (3.4-5.0); ALT (GPT) 96 U/L (10-53); AST (GOT) 26 U/L (15-37); BICARBONATE 32.7 MEQ/L (21.0-32.0); BLOOD UREA NITROGEN 23 MG/DL (7-18); CALCIUM 8.4 MG/DL (8.5-10.1); CHLORIDE 100 MEQ/L (98-107); CREATININE 0.48 MG/DL (0.50-1.00); GLOMERULAR FILTRATION RATE 140 ML/MIN (>89); GLUCOSE,RANDOM 123 MG/DL (74-106); SODIUM (NA) 136 MEQ/L (136-145)
[2017-07-29 05:28] LABS: ALKALINE PHOSPHATASE 112 U/L (45-117); TOTAL BILIRUBIN ADULT 0.6 MG/DL (0.2-1.0); TOTAL PROTEIN 6.3 GM/DL (6.4-8.2)
--- NOTE | 2017-07-29 07:53 | HHI.CCPN ---
Subjective Remarks/Hospital Course This is a 47-year-old white female that was admitted 2 days ago on 07/12/2017 to [facility].Patient was in her usual state of health until about a few days ago when she began experiencing a gradual onset of worsening shortness of breath and pleuritic chest pain. This is associated with a fever of 102.3 and mild productive nonbloody cough. Patient has 3 L/m home O2 dependency . Per report , the patient had been wearing her 3 L of oxygen at home. 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 Patient states that she was supposed to be taking 30 mg of prednisone on a daily basis for some time but she herself discontinued it about 2 months ago at her own discretion because she felt that they were disrupting her sleep significantly. She also says she takes an inhaler 4 times of the day but denies apparently taking any controller medications. Patient does have a history of bipolar disorder and says she is compliant with those medications. In the emergency department she was placed on 4 L, given steroids, Rocephin and azithromycin and DuoNeb treatments and then sent to the [facility] floor. Today 07/14/17, patient was noted to have significant decompensation and respiratory status requiring a nonrebreather mask, and at risk for possible intubation. Pulmonology was consulted .Critical care medicine was consulted, patient was transferred to the ICU. Records obtained from [facility] revealed the patient has autoimmune hepatitis, and pulmonary fibrosis. Upon my evaluation the patient was noted to be 99% on nonrebreather the patient was then placed on partial nonrebreather O2 saturation 94%, respiratory rate 28. Subjective: 07/15: FiO2 continues to be 60% on a partial non-rebreather mask. Plan to transition to high flow nasal cannula this a.m.. Pulmonology consult pending. Patient continues on steroids and antibiotics, noted acute desaturation with minimal activity. Strict bed rest implemented. Attempts being made to obtain records from [facility] her last admission for pulmonary compromise. 07/16: fio2 improves. abg slightly improving 7.39/51/138. LFTs coming down slightly. patient wants to get OOB. denies other complaints. ROS negative. 07/17: remains hypoxic on NRB. did get OOB to chair yesterday. denies complaints. ROS negative. 07/18 No events overnight. Patient is on high flow oxygen 30L with 45% FIO2. Afebrile. 07/19: Remains on high flow O2 30 L/m with 35% FiO2. 07/20 Patient is lying in bed in NAD. Remains on high flow oxygen 30L with 35% FIO2. Afebrile. 07/21. Patient is lying in bed with partial nonrebreather at this time. She is no longer requiring high flow oxygen. She is holding O2 saturations. She denies any shortness of breath or dyspnea. Vital signs are with mildly low blood pressure, afebrile 07/22 Patient is on VM with 50% FIO2. Afebrile. Denies any worsening of dyspnea from baseline. Afebrile. 07/23 No events overnight, on 50% VM. 07/24 [place] [facility] [place] CXR earlier today showed new SubQ emphysema b/l, chronic ILD. On partial rebreather 07/25 No events overnight. On partial non rebreather with sats 98%. CT chest last night showed pulmonary fibrosis with interval development of pneumomediastinum, subq emphysema and small bilateral anterior pneumothoraces. Patchy diffuse ground glass opacities. 07/26: Worsening right apical pneumothorax 1.5 cm. Left pneumothorax 0.5 cm apical. Significant subcutaneous emphysema the right side. Currently on partial nonrebreather 12 L. She denies shortness of breath. Subjective 07/27: Currently resting in bed in no acute distress on partial nonrebreather. Left-sided chest tube placed successive. 6. Appears stabilize pneumothoraces. Has been declined by [facility] and [facility]. [facility] pending. 07/28 Patient is on non rebreather with good sats. Left CT in place. Afebrile. 07/29 No events overnight. Afebrile, left CT in place. On partial rebreather with good sats. Objective Vital Signs Date Time Temp Pulse Resp B/P (MAP) Pulse Ox O2 Delivery O2 Flow Rate FiO2 07/29/17 07:30 100 Partial Rebreather 15.00 07/29/17 06:00 100 07/29/17 04:00 98.4 68 97/53 (68) 07/29/17 00:00 27 Intake and Output 07/29/17 07/29/17 07/30/17 08:00 16:00 00:00 Output Total 611 ml Balance -611 ml Result Diagram: 07/29/17 0409 07/29/17 0409 Other Results Laboratory Tests Test 07/29/17 04:09 White Blood Count 14.1 TH/MM3 Red Blood Count 3.36 MIL/MM3 Hemoglobin 10.1 GM/DL Hematocrit 31.0 % Mean Corpuscular Volume 92.5 FL Mean Corpuscular Hemoglobin 30.1 PG Mean Corpuscular Hemoglobin Concent 32.6 % Red Cell Distribution Width 18.0 % Platelet Count 121 TH/MM3 Mean Platelet Volume 9.6 FL Neutrophils (%) (Auto) 96.5 % Lymphocytes (%) (Auto) 1.3 % Monocytes (%) (Auto) 2.0 % Eosinophils (%) (Auto) 0.0 % Basophils (%) (Auto) 0.2 % Neutrophils # (Auto) 13.7 TH/MM3 Lymphocytes # (Auto) 0.2 TH/MM3 Monocytes # (Auto) 0.3 TH/MM3 Eosinophils # (Auto) 0.0 TH/MM3 Basophils # (Auto) 0.0 TH/MM3 CBC Comment DIFF FINAL Differential Comment Blood Urea Nitrogen 23 MG/DL Creatinine 0.48 MG/DL Random Glucose 123 MG/DL Total Protein 6.3 GM/DL Albumin 2.2 GM/DL Calcium Level 8.4 MG/DL Alkaline Phosphatase 112 U/L Aspartate Amino Transf (AST/SGOT) 26 U/L Alanine Aminotransferase (ALT/SGPT) 96 U/L Total Bilirubin 0.6 MG/DL Sodium Level 136 MEQ/L Potassium Level 4.5 MEQ/L Chloride Level 100 MEQ/L Carbon Dioxide Level 32.7 MEQ/L Anion Gap 3 MEQ/L Estimat Glomerular Filtration Rate 140 ML/MIN Imaging Last Impressions Chest X-Ray 07/29/17 0600 Signed Impressions: Service Date/Time: Saturday, July 29, 2017 03:23 - CONCLUSION: 1. Minimal persistent left pneumothorax. There is a left chest tube. 2. A right pneumothorax is not seen over the apex. There is an air lucency seen at the medial right chest which could be related to the pneumothorax. 3. Diffuse consolidation likely related to edema which appears worse. You Weller MD Chest Tube Insertion 07/26/17 0000 Signed Impressions: Service Date/Time: Wednesday, July 26, 2017 12:23 - CONCLUSION: 1. Uncomplicated left chest tube placement as above. 2. Initial order requested a right-sided chest tube. However, repeat CT scan showed no significant pleural space anteriorly in the right hemithorax to facilitate tube placement. Lorenzo Dunaway MD Chest CT 07/26/17 0000 Signed Impressions: Service Date/Time: Wednesday, July 26, 2017 11:58 - CONCLUSION: There has been no new or significant change with the overall appearance of the thorax compared to the prior examination. Today's exam is essentially stable compared to the prior study. Kj Diaz MD CT Angiography 07/14/17 0000 Signed Impressions: Service Date/Time: Friday, July 14, 2017 10:01 - CONCLUSION: Extensive parenchymal lung disease which appears largely chronic with superimposed acute exacerbation. No evidence of pulmonary embolism.. You Mccallum MD Abdomen Ultrasound 07/14/17 0000 Signed Impressions: Service Date/Time: Friday, July 14, 2017 19:45 - CONCLUSION: Liver within normal limits. Small gallstone in the gallbladder. Nonspecific mild diffuse gallbladder wall thickening. Borderline splenomegaly. Trace right pleural effusion. Raffi Briggs MD Objective Remarks GENERAL: 47-year-old female resting in bed in no acute distress on partial nonrebreather HEENT: Normocephalic/atraumatic pupils are equally round and reactive about 3 mm. Mucous members moist. Oropharynx without erythema or thrush NECK: Supple without any masses. Trachea midline no deviation. No JVD, CARDIAC: RRR. S1, S2. No S4. Without murmurs LUNGS: Coarse fine crackles appreciated throughout lung keller. Left thorax subcutaneous air noted ABDOMEN: Soft, nontender. Nondistended. Bowel sounds heard in all 4 quadrants. No organomegaly or masses. Negative rebound, negative guarding EXTREMITIES: No edema, pulses are equal bilaterally. No significant cyanosis NEUROLOGY: Mood and affect appear appropriate. Cranial nerves II through XII grossly intact. Moving all extremities, speech is clear A/P Assessment and Plan Neuro/Psych: Bipolar disorder Depression History of (smoking) cocaine abuse 10/2016 History of migraine headache Neurochecks per ICU protocol Continue aripiprazole 10 mg daily and fluoxetine 40 mill grams daily home medications for bipolar/depression Trazodone 100mg qhs UDS negative. Off sumatriptan 0.5 tab 100 milligrams as needed for migraine headaches Currently on alprazolam 0.25 one tablet every 8 hours when necessary anxiety Respiratory: Acute on chronic hypoxemic respiratory failure - persistent. Possible community-acquired pneumonia History of Tobacco use disorder History of inhaled cocaine use Chronic interstitial lung disease-steroid dependent Pulmonary fibrosis Home O2 dependency COPD History of asthma Currently on partial nonrebreather mask 12 L, Wean down oxygen as daksha keep sat >92% Albuterol/ipratropium aerosols every 4 hours scheduled and albuterol aerosols every 2 hours when necessary Continue home med budesonide/formoterol 80/4.5 2 puffs twice a day Methylprednisolone succinate 40 mg IV [address] chest 07/24 : Lower lobe predominant interstitial lung disease and pulmonary fibrosis with interval development of massive pneumomediastinum, subq emphysema and small bilateral anterior pneumothoraces. Patchy diffuse groundglass opacities may reflect superimposed infection/inflammatory process. CTS -Dr. Issa is following Spoke with Dr. Jason Ford from [facility] 07/28 and recommended to try to transfer patient to transplant center. Pulmonology is following Left-sided pigtail placed by IR 07/26. PFTs 09/18 2016([facility]) FEV1 700 -25% of predicted, FVC 21% no lung volumes are diffusions were performed 09/07/16 [facility] pulmonary fibrosis with left adrenal adenoma , however alpha 1 antitrypsin level was WNL , but positive (ASMA)anti-smooth muscle antibodies 1:640, ceruloplasmin normal Followed by Dr. Stark/pulmonology CV: Monitor HR and BP keep MAP>65mmHg 09/08/16 echo ([facility]) EF 55-60 %, Mildly elevated pulmonary pressure no major valvular abnormalities Renal: Monitor renal function, I/Os, electrolytes replacement per protocol. FEN/GI: Autoimmune hepatitis? (reported) Hepatitis B surface antigen positive Transaminitis Hyperlipidemia GERD Mild protein calorie malnutrition Constipation Monitor LFTs: currently downtrending. 07/15 ultrasound of abdomen- gallbladder wall thickening, borderline splenomegaly , trace right pleural effusion Famotidine GI prophylaxis 20 mg twice a day Ondansetron for nausea 09/13/16 Liver biopsy ([facility]) see medical chart for review- Patient referred to [facility] for eval for liver transplant GI is following. On Ursodiol 300 mg twice daily monitor liver enzymes. AST/ALT remain elevated Hep B sAg positive. Will need to be rechecked in 3 months with possible systemic treatment once stable Heme/ID: Leukocytosis Normocytic anemia Herpes 6 positive Pediculosis Monitor CBC blood cultures- NGTD Legionella and pneumococcal urine antigens- negative Influenza- negative Off abx-s/p azithromycin and cefepime finished 07/22 Patient with head lice tx permethrin as directed Endocrine: TSH 0.023 - 07/19 Left Adrenal adenoma Hyperglycemia of critical illness free T3::1.11, FT4: 1.16 RADHIKA speckled Glucose monitoring per ICU protocol. Low dose regimen with Accu-Cheks before meals/at bedtime with NovoLog -- SSI Metanephrine/normetanephrine/aldosterone and renin 06/18 at [facility] [place]. Results unknown at this time. Prophylaxis: GI Prophylaxis Famotidine DVT Prophylaxis -- SCDs, heparin subcutaneous Lines: Peripheral IVs 2. Dispo: remain in ICU. Level 3 follow-up Mone Lora MD Jul 29, 2017 07:52
[2017-07-29] MEDS: INSULIN ASPART SUPPLEMENTAL SCALE SQ SCH ×4 (07:57→20:48)
[2017-07-29] MEDS: ARIPiprazole 10 MG TAB PO SCH (07:58)
[2017-07-29] MEDS: FLUoxetine HCL 20 MG CAP PO SCH (07:58)
[2017-07-29] MEDS: URSODIOL 300 MG CAP PO SCH ×2 (07:58→20:46)
[2017-07-29] MEDS: FAMOTIDINE 20 MG TAB PO SCH ×2 (07:58→20:46)
[2017-07-29] MEDS: POLYETHYLENE GLYCOL 17 GM PKG PO SCH ×2 (07:59→20:46)
[2017-07-29] MEDS: DOCUSATE SODIUM 50 MG/SENNA 8.6 MG TAB PO SCH ×2 (07:59→20:47)
[2017-07-29] MEDS: HEPARIN SODIUM - SQ 10,000 UNITS/ML VIAL SQ SCH ×2 (07:59→20:47)
[2017-07-29] MEDS: BUDESONIDE-FORMOTEROL 80/4.5 MCG INHALER INH SCH ×2 (08:02→20:46)
--- NOTE | 2017-07-29 20:44 | HHI.PR ---
Subjective Remarks 47 YOWF with RF,ILD,Endstage liver problem Weaned to VM Desaturates No fever Requires PRB off and on Left chest tube no air leak Objective Vital Signs Vital Signs Date Time Temp Pulse Resp B/P (MAP) Pulse Ox O2 Delivery O2 Flow Rate FiO2 07/29/17 20:00 100.0 78 39 95/50 (65) 90 07/29/17 20:00 78 07/29/17 20:00 95 Partial Non-Rebreather 10.00 07/29/17 19:53 99 Partial Rebreather 15.00 07/29/17 18:00 91 07/29/17 18:00 100 Partial Non-Rebreather 10.00 07/29/17 16:00 98 07/29/17 16:00 100 Partial Non-Rebreather 10.00 07/29/17 16:00 98.8 98 22 95/52 (66) 100 07/29/17 14:00 96 07/29/17 14:00 100 Partial Non-Rebreather 10.00 07/29/17 12:00 98.9 109 22 104/60 (75) 94 07/29/17 12:00 100 Partial Non-Rebreather 10.00 07/29/17 12:00 109 07/29/17 10:00 94 07/29/17 10:00 100 Partial Non-Rebreather 10.00 07/29/17 08:00 100 Partial Non-Rebreather 10.00 07/29/17 08:00 98.1 83 22 97/53 (68) 100 07/29/17 07:30 100 Partial Rebreather 15.00 07/29/17 06:00 99 Non-Rebreather 10.00 100 07/29/17 04:10 100 Partial Rebreather 15.00 07/29/17 04:00 98.4 68 97/53 (68) 98 07/29/17 04:00 98 Non-Rebreather 10.00 100 07/29/17 02:00 96 Non-Rebreather 10.00 100 07/29/17 00:00 97 Non-Rebreather 10.00 100 07/29/17 00:00 98.0 74 27 95/54 (68) 100 07/28/17 22:00 98 Non-Rebreather 10.00 100 I/O 07/28/17 07/28/17 07/28/17 07/29/17 07/29/17 07/29/17 07:00 15:00 23:00 07:00 15:00 23:00 Intake Total 450 ml 960 ml Output Total 325 ml 336 ml 611 ml 530 ml Balance -325 ml 114 ml -611 ml 430 ml Intake Oral 450 ml 960 ml Output Urine Total 325 ml 325 ml 600 ml 500 ml Chest Tube Drainage Total 11 ml 11 ml 30 ml # Voids 3 # Bowel Movements 0 0 Result Diagram: 07/29/1740807/29/17408 Objective Remarks GENERAL: MBMN WF mild sob SKIN: Warm and dry. HEAD: Normocephalic. EYES: No scleral icterus. No injection or drainage. NECK: Supple, trachea midline. No JVD or lymphadenopathy. CARDIOVASCULAR: Regular rate and rhythm without murmurs, gallops, or rubs. RESPIRATORY: Breath sounds equal bilaterally. No accessory muscle use Insp rales. GASTROINTESTINAL: Abdomen soft, non-tender, nondistended. MUSCULOSKELETAL: No cyanosis, or edema. BACK: Nontender without obvious deformity. No CVA tenderness. A/P Assessment and Plan Hypoxic RF ILD Bronchial asthma End stage liver disease Bipolar disorder Pneumomediastinum SQ Emphysema PLAN Aerosol nebs Cont Steroids Cont PRB Avoid High flow or CPAP Chest tube to suction Robinson Akhtar MD Jul 29, 2017 20:44
[2017-07-29] MEDS: traZODone HCL 100 MG TAB PO SCH (20:46)
[2017-07-30] VITALS (14 sets, daily range): BP systolic 89–115; BP diastolic 54–71; PULSE 83–109; RESP 22–33; TEMP 98.3–99.5; O2SAT 92–97
[2017-07-30] MEDS: MORPHINE SULFATE 2 MG/ML INJ IV PUSH PRN ×6 (01:32→19:54)
[2017-07-30] MEDS: RESP: ALBUTEROL 2.5 MG/IPRATROPIUM 0.5 MG NEB (SCH) NEB ×4 (03:40→23:17)
--- NOTE | 2017-07-30 04:49 | RADRPT ---
EXAM DATE/TIME: 07/30/2017 03:51 [facility] COMPARISON: CHEST SINGLE AP, July 29, 2017, 3:23. INDICATIONS : Shortness of breath, possible pulmonary disease. MEDICAL HISTORY : Chronic obstructive pulmonary disease. Gastroesophageal reflux disease. Renal calculi. Hep C Hypo tension SURGICAL HISTORY : Appendectomy. Hysterectomy. ENCOUNTER: Subsequent ACUITY: 2 weeks PAIN SCORE: 0/10 LOCATION: Bilateral chest FINDINGS: The heart size is enlarged. There is a left sided chest tube. There is a minimal pneumothorax seen ov er the left apex. There is diffuse consolidation. CONCLUSION: 1. Left chest tube with a minimal left pneumothorax. 2. Diffuse consolidation likely related to edema. You Weller MD on July 30, 2017 at 4:45 Board Certified Radiologist. This report was verified electronically.
[2017-07-30] MEDS: methylPREDNISolone SOD SUCC 40 MG/1 ML VIAL IV PUSH SCH ×3 (05:09→21:59)
[2017-07-30 06:00] LABS: AUTOMATED NEUTROPHIL # 13.6 TH/MM3 (1.8-7.7); BASOPHIL % 0.2 % (0.0-2.0); HEMATOCRIT 31.4 % (35.0-46.0); HEMOGLOBIN 10.5 GM/DL (11.6-15.3); LYMPH % 1.7 % (9.0-44.0); LYMPHOCYTE # 0.2 TH/MM3 (1.0-4.8); MEAN CELL VOLUME 93.4 FL (80.0-100.0); MEAN CORPUSCULAR HEMOGLOBIN 31.1 PG (27.0-34.0); MEAN CORPUSCULAR HGB CONC 33.3 % (32.0-36.0); MEAN PLATELET VOLUME 9.6 FL (7.0-11.0); MONO % 1.4 % (0.0-8.0); MONOCYTE # 0.2 TH/MM3 (0-0.9); NEUT % 96.7 % (16.0-70.0); PLATELET COUNT 111 TH/MM3 (150-450); RED BLOOD COUNT 3.36 MIL/MM3 (4.00-5.30); RED CELL DISTRIBUTION WIDTH 18.6 % (11.6-17.2); WHITE BLOOD COUNT 14.1 TH/MM3 (4.0-11.0)
[2017-07-30 06:19] LABS: ALBUMIN 2.2 GM/DL (3.4-5.0); ALT (GPT) 88 U/L (10-53); AST (GOT) 28 U/L (15-37); BICARBONATE 33.1 MEQ/L (21.0-32.0); BLOOD UREA NITROGEN 20 MG/DL (7-18); CALCIUM 8.6 MG/DL (8.5-10.1); CHLORIDE 99 MEQ/L (98-107); CREATININE 0.47 MG/DL (0.50-1.00); GLOMERULAR FILTRATION RATE 143 ML/MIN (>89); GLUCOSE,RANDOM 168 MG/DL (74-106); SODIUM (NA) 136 MEQ/L (136-145)
[2017-07-30 06:20] LABS: ALKALINE PHOSPHATASE 113 U/L (45-117); TOTAL BILIRUBIN ADULT 0.7 MG/DL (0.2-1.0); TOTAL PROTEIN 6.8 GM/DL (6.4-8.2)
[2017-07-30] MEDS: DOCUSATE SODIUM 50 MG/SENNA 8.6 MG TAB PO SCH ×2 (07:54→20:25)
[2017-07-30] MEDS: FAMOTIDINE 20 MG TAB PO SCH ×2 (07:54→20:25)
[2017-07-30] MEDS: URSODIOL 300 MG CAP PO SCH ×2 (07:54→20:25)
[2017-07-30] MEDS: ARIPiprazole 10 MG TAB PO SCH (07:54)
[2017-07-30] MEDS: HEPARIN SODIUM - SQ 10,000 UNITS/ML VIAL SQ SCH ×2 (07:54→20:25)
[2017-07-30] MEDS: FLUoxetine HCL 20 MG CAP PO SCH (07:54)
[2017-07-30] MEDS: BUDESONIDE-FORMOTEROL 80/4.5 MCG INHALER INH SCH ×2 (07:55→20:25)
[2017-07-30] MEDS: INSULIN ASPART SUPPLEMENTAL SCALE SQ SCH ×4 (07:55→20:26)
[2017-07-30] MEDS: POLYETHYLENE GLYCOL 17 GM PKG PO SCH ×2 (07:56→20:25)
[2017-07-30] MEDS: ALPRAZolam 0.25 MG TAB PO PRN (10:31)
[2017-07-30] MEDS: RESP: ALBUTEROL 2.5 MG/3 ML NEB (PRN) NEB ×2 (15:05→20:03)
--- NOTE | 2017-07-30 19:16 | HHI.PR ---
Subjective Remarks 47 YOWF with RF,ILD,Endstage liver problem Weaned to VM Desaturates No fever Still on PRB Left chest tube no air leak Looks comfortable Objective Vital Signs Vital Signs Date Time Temp Pulse Resp B/P (MAP) Pulse Ox O2 Delivery O2 Flow Rate FiO2 07/30/17 18:00 105 07/30/17 18:00 96 Partial Non-Rebreather 15.00 07/30/17 16:00 104 07/30/17 16:00 96 Partial Non-Rebreather 15.00 07/30/17 16:00 99.5 104 28 96/55 (69) 96 07/30/17 14:00 96 Partial Non-Rebreather 15.00 07/30/17 14:00 97 07/30/17 12:00 98 07/30/17 12:00 96 Partial Non-Rebreather 15.00 07/30/17 12:00 98.7 98 24 103/58 (73) 97 07/30/17 10:00 98 Partial Non-Rebreather 15.00 07/30/17 10:00 97 07/30/17 08:00 93 Partial Non-Rebreather 12.00 07/30/17 08:00 109 07/30/17 08:00 98.7 109 22 115/71 (86) 93 07/30/17 07:29 92 Partial Rebreather 15.00 07/30/17 06:00 91 Partial Non-Rebreather 12.00 07/30/17 06:00 88 07/30/17 04:00 92 07/30/17 04:00 98.8 92 30 100/55 (70) 97 07/30/17 04:00 97 Partial Non-Rebreather 12.00 07/30/17 02:00 89 Partial Non-Rebreather 10.00 07/30/17 02:00 85 07/30/17 00:00 98.3 83 33 89/54 (66) 97 07/30/17 00:00 97 Partial Non-Rebreather 10.00 07/30/17 00:00 83 07/29/17 22:00 98 Partial Non-Rebreather 10.00 07/29/17 22:00 84 07/29/17 20:00 100.0 78 39 95/50 (65) 90 07/29/17 20:00 78 07/29/17 20:00 95 Partial Non-Rebreather 10.00 07/29/17 19:53 99 Partial Rebreather 15.00 I/O 07/29/17 07/29/17 07/29/17 07/30/17 07/30/17 07/30/17 07:00 15:00 23:00 07:00 15:00 23:00 Intake Total 960 ml 240 ml 960 ml Output Total 611 ml 530 ml 320 ml 712 ml Balance -611 ml 430 ml -80 ml 248 ml Intake Oral 960 ml 240 ml 960 ml Output Urine Total 600 ml 500 ml 300 ml 700 ml Chest Tube Drainage Total 11 ml 30 ml 20 ml 12 ml # Voids 3 # Bowel Movements 0 0 0 Result Diagram: 07/30/175 07/30/17 045 Objective Remarks GENERAL: MBMN WF mild sob SKIN: Warm and dry. HEAD: Normocephalic. EYES: No scleral icterus. No injection or drainage. NECK: Supple, trachea midline. No JVD or lymphadenopathy. CARDIOVASCULAR: Regular rate and rhythm without murmurs, gallops, or rubs. RESPIRATORY: Breath sounds equal bilaterally. No accessory muscle use Insp rales. GASTROINTESTINAL: Abdomen soft, non-tender, nondistended. MUSCULOSKELETAL: No cyanosis, or edema. BACK: Nontender without obvious deformity. No CVA tenderness. A/P Assessment and Plan Hypoxic RF ILD Bronchial asthma End stage liver disease Bipolar disorder Pneumomediastinum SQ Emphysema PLAN Aerosol nebs Cont Steroids Cont PRB Avoid High flow or CPAP Chest tube to suction will FU in AM Robinson Akhtar MD Jul 30, 2017 19:16
[2017-07-30] MEDS: [UNRECOGNIZED DRUG - REMARK] NEB SCH (20:00)
[2017-07-30] MEDS: traZODone HCL 100 MG TAB PO SCH (20:25)
--- NOTE | 2017-07-30 21:50 | HHI.CCPN ---
Subjective Remarks/Hospital Course This is a 47-year-old white female that was admitted 2 days ago on 07/12/2017 to [facility].Patient was in her usual state of health until about a few days ago when she began experiencing a gradual onset of worsening shortness of breath and pleuritic chest pain. This is associated with a fever of 102.3 and mild productive nonbloody cough. Patient has 3 L/m home O2 dependency . Per report , the patient had been wearing her 3 L of oxygen at home. 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 Patient states that she was supposed to be taking 30 mg of prednisone on a daily basis for some time but she herself discontinued it about 2 months ago at her own discretion because she felt that they were disrupting her sleep significantly. She also says she takes an inhaler 4 times of the day but denies apparently taking any controller medications. Patient does have a history of bipolar disorder and says she is compliant with those medications. In the emergency department she was placed on 4 L, given steroids, Rocephin and azithromycin and DuoNeb treatments and then sent to [facility] floor. Today 07/14/17, patient was noted to have significant decompensation and respiratory status requiring a nonrebreather mask, and at risk for possible intubation. Pulmonology was consulted .Critical care medicine was consulted, patient was transferred to the ICU. Records obtained from [facility] revealed the patient has autoimmune hepatitis, and pulmonary fibrosis. Upon my evaluation the patient was noted to be 99% on nonrebreather the patient was then placed on partial nonrebreather O2 saturation 94%, respiratory rate 28. Subjective: 07/15: FiO2 continues to be 60% on a partial non-rebreather mask. Plan to transition to high flow nasal cannula this a.m.. Pulmonology consult pending. Patient continues on steroids and antibiotics, noted acute desaturation with minimal activity. Strict bed rest implemented. Attempts being made to obtain records from [facility] her last admission for pulmonary compromise. 07/16: fio2 improves. abg slightly improving 7.39/51/138. LFTs coming down slightly. patient wants to get OOB. denies other complaints. ROS negative. 07/17: remains hypoxic on NRB. did get OOB to chair yesterday. denies complaints. ROS negative. 07/18 No events overnight. Patient is on high flow oxygen 30L with 45% FIO2. Afebrile. 07/19: Remains on high flow O2 30 L/m with 35% FiO2. 07/20 Patient is lying in bed in NAD. Remains on high flow oxygen 30L with 35% FIO2. Afebrile. 07/21. Patient is lying in bed with partial nonrebreather at this time. She is no longer requiring high flow oxygen. She is holding O2 saturations. She denies any shortness of breath or dyspnea. Vital signs are with mildly low blood pressure, afebrile 07/22 Patient is on VM with 50% FIO2. Afebrile. Denies any worsening of dyspnea from baseline. Afebrile. 07/23 No events overnight, on 50% VM. 07/24 Patient just arrived to [facility] [place]. CXR earlier today showed new SubQ emphysema b/l, chronic ILD. On partial rebreather 07/25 No events overnight. On partial non rebreather with sats 98%. CT chest last night showed pulmonary fibrosis with interval development of pneumomediastinum, subq emphysema and small bilateral anterior pneumothoraces. Patchy diffuse ground glass opacities. 07/26: Worsening right apical pneumothorax 1.5 cm. Left pneumothorax 0.5 cm apical. Significant subcutaneous emphysema the right side. Currently on partial nonrebreather 12 L. She denies shortness of breath. 07/27: Currently resting in bed in no acute distress on partial nonrebreather. Left-sided chest tube placed successive. 6. Appears stabilize pneumothoraces. Has been declined by [facility] and [facility]. [facility] pending. 07/28 Patient is on non rebreather with good sats. Left CT in place. Afebrile. 07/29 No events overnight. Afebrile, left CT in place. On partial rebreather with good sats. Subjective 07/30: Tmax 99.5. Remains on 15 L partial nonrebreather. Saturations 91-100%. Pneumothoraces remain stable. Left chest tube in place to suction Objective Vital Signs Date Time Temp Pulse Resp B/P (MAP) Pulse Ox O2 Delivery O2 Flow Rate FiO2 07/30/17 20:03 96 Partial Rebreather 07/30/17 20:00 98.6 91 32 103/57 (72) 07/30/17 20:00 15.00 07/29/17 06:00 100 Intake and Output 07/30/17 07/30/17 07/31/17 08:00 16:00 00:00 Intake Total 240 ml 960 ml Output Total 320 ml 712 ml Balance -80 ml 248 ml Result Diagram: 07/30/17 0455 07/30/17 0455 Other Results Microbiology Date/Time Source Procedure Growth Status 07/14/17 18:56 Blood Peripheral Aerobic Blood Culture - Final NO GROWTH IN 5 DAYS Complete 07/14/17 18:56 Blood Peripheral Anaerobic Blood Culture - Final NO GROWTH IN 5 DAYS Complete 07/24/17 11:55 Sputum Expectorated Sputum Gram Stain - Final Complete 07/24/17 11:55 Sputum Expectorated Sputum Sputum Culture - Final HEAVY GROWTH NORMAL RESPIRATORY OLI Complete 07/14/17 10:15 Urine Clean Catch Urine Culture - Final NO GROWTH IN 48 HOURS. Complete Imaging Last Impressions Chest X-Ray 07/30/17 0000 Signed Impressions: Service Date/Time: Sunday, July 30, 2017 03:51 - CONCLUSION: 1. Left chest tube with a minimal left pneumothorax. 2. Diffuse consolidation likely related to edema. You Weller MD Chest Tube Insertion 07/26/17 0000 Signed Impressions: Service Date/Time: Wednesday, July 26, 2017 12:23 - CONCLUSION: 1. Uncomplicated left chest tube placement as above. 2. Initial order requested a right-sided chest tube. However, repeat CT scan showed no significant pleural space anteriorly in the right hemithorax to facilitate tube placement. Lorenzo Dunaway MD Chest CT 07/26/17 0000 Signed Impressions: Service Date/Time: Wednesday, July 26, 2017 11:58 - CONCLUSION: There has been no new or significant change with the overall appearance of the thorax compared to the prior examination. Today's exam is essentially stable compared to the prior study. Kj Diaz MD CT Angiography 07/14/17 0000 Signed Impressions: Service Date/Time: Friday, July 14, 2017 10:01 - CONCLUSION: Extensive parenchymal lung disease which appears largely chronic with superimposed acute exacerbation. No evidence of pulmonary embolism.. You Mccallum MD Abdomen Ultrasound 07/14/17 0000 Signed Impressions: Service Date/Time: Friday, July 14, 2017 19:45 - CONCLUSION: Liver within normal limits. Small gallstone in the gallbladder. Nonspecific mild diffuse gallbladder wall thickening. Borderline splenomegaly. Trace right pleural effusion. Raffi Briggs MD Objective Remarks GENERAL: 47-year-old female resting in bed in no acute distress on partial nonrebreather HEENT: Normocephalic/atraumatic pupils are equally round and reactive about 3 mm. Mucous members moist. Oropharynx without erythema or thrush NECK: Supple without any masses. Trachea midline no deviation. No JVD, CARDIAC: RRR. S1, S2. No S4. Without murmurs LUNGS: Coarse fine crackles appreciated throughout lung keller. Left thorax subcutaneous air noted with chest tube in place ABDOMEN: Soft, nontender. Nondistended. Bowel sounds heard in all 4 quadrants. No organomegaly or masses. Negative rebound, negative guarding EXTREMITIES: No edema, pulses are equal bilaterally. No significant cyanosis NEUROLOGY: Mood and affect appear appropriate. Cranial nerves II through XII grossly intact. Moving all extremities, speech is clear A/P Assessment and Plan Neuro/Psych: Bipolar disorder Depression History of (smoking) cocaine abuse 10/2016 History of migraine headache Neurochecks per ICU protocol Continue aripiprazole 10 mg daily and fluoxetine 40 mill grams daily home medications for bipolar/depression Trazodone 100mg qhs UDS negative. Off sumatriptan 0.5 tab 100 milligrams as needed for migraine headaches Currently on alprazolam 0.25 one tablet every 8 hours when necessary anxiety Morphine sulfate 1-2 mg every 3 hours when necessary pain Respiratory: Acute on chronic hypoxemic respiratory failure - persistent. Possible community-acquired pneumonia History of Tobacco use disorder History of inhaled cocaine use Chronic interstitial lung disease-steroid dependent Pulmonary fibrosis Home O2 dependency COPD History of asthma Currently on partial nonrebreather mask 15 L, Wean down oxygen as daksha keep sat >92% Albuterol/ipratropium aerosols every 4 hours scheduled and albuterol aerosols every 2 hours when necessary Continue home med budesonide/formoterol 80/4.5 2 puffs twice a day Methylprednisolone succinate 40 mg IV [address] chest 07/24 : Lower lobe predominant interstitial lung disease and pulmonary fibrosis with interval development of massive pneumomediastinum, subq emphysema and small bilateral anterior pneumothoraces. Patchy diffuse groundglass opacities may reflect superimposed infection/inflammatory process. CTS -Dr. Issa is following Spoke with Dr. Jason Ford from [facility] 07/28 and recommended to try to transfer patient to transplant center. Pulmonology is following Left-sided pigtail placed by IR 07/26. PFTs 09/18 2016([facility]) FEV1 700 -25% of predicted, FVC 21% no lung volumes are diffusions were performed 09/07/16 CT thorax ([facility]) pulmonary fibrosis with left adrenal adenoma , however alpha 1 antitrypsin level was WNL , but positive (ASMA)anti-smooth muscle antibodies 1:640, ceruloplasmin normal Followed by Dr. Stark/pulmonology CV: Monitor HR and BP keep MAP>65mmHg 09/08/16 echo ([facility]) EF 55-60 %, Mildly elevated pulmonary pressure no major valvular abnormalities Renal: Monitor renal function, I/Os, electrolytes replacement per protocol. FEN/GI: Autoimmune hepatitis? (reported) Hepatitis B surface antigen positive Transaminitis Hyperlipidemia GERD Mild protein calorie malnutrition Constipation Monitor LFTs: currently downtrending. 07/15 ultrasound of abdomen- gallbladder wall thickening, borderline splenomegaly , trace right pleural effusion Famotidine GI prophylaxis 20 mg twice a day Ondansetron for nausea 09/13/16 Liver biopsy ([facility]) see medical chart for review- Patient referred to [facility] for eval for liver transplant GI is following. On Ursodiol 300 mg twice daily monitor liver enzymes. AST/ALT remain elevated Hep B sAg positive. Will need to be rechecked in 3 months with possible systemic treatment once stable Ursodiol 300 mg twice a day steatohepatitis Heme/ID: Leukocytosis Normocytic anemia Herpes 6 positive Pediculosis Thrombocytopenia Monitor CBC blood cultures- NGTD Legionella and pneumococcal urine antigens- negative Influenza- negative Off abx-s/p azithromycin and cefepime finished 07/22 Patient with head lice tx permethrin as directed Endocrine: TSH 0.023 - 07/19 Left Adrenal adenoma Hyperglycemia of critical illness free T3::1.11, FT4: 1.16 RADHIKA speckled Glucose monitoring per ICU protocol. Low dose regimen with Accu-Cheks before meals/at bedtime with NovoLog -- SSI Metanephrine/normetanephrine/aldosterone and renin 06/18 at [place] [facility] [place]. Results unknown at this time. Prophylaxis: GI Prophylaxis Famotidine DVT Prophylaxis -- SCDs, heparin subcutaneous Lines: Peripheral IVs 2. Dispo: remain in ICU. Level 2 follow-up Isidro Marcial MD Jul 30, 2017 21:50
[2017-07-31] VITALS (14 sets, daily range): BP systolic 97–121; BP diastolic 56–78; PULSE 78–121; RESP 25–52; TEMP 98–99.5; O2SAT 88–96
[2017-07-31] MEDS: MORPHINE SULFATE 2 MG/ML INJ IV PUSH PRN ×6 (00:59→20:47)
[2017-07-31] MEDS: RESP: ALBUTEROL 2.5 MG/IPRATROPIUM 0.5 MG NEB (SCH) NEB ×6 (03:44→23:36)
--- NOTE | 2017-07-31 04:46 | RADRPT ---
EXAM DATE/TIME: 07/31/2017 03:06 [place] COMPARISON: CHEST SINGLE AP, July 30, 2017, 3:51. INDICATIONS : Shortness of breath, possible pulmonary disease. MEDICAL HISTORY : Chronic obstructive pulmonary disease. Gastroesophageal reflux disease. Renal calculi. Hep C Hypo tension SURGICAL HISTORY : Appendectomy. Hysterectomy. ENCOUNTER: Subsequent ACUITY: 2 weeks PAIN SCORE: 0/10 LOCATION: Bilateral chest FINDINGS: A single view of the chest demonstrates small caliber left chest tube. No pneumothorax. Hazy airspace disease in both lungs slightly improved from July 30. No effusion. CONCLUSION: 1. Basilar space disease in the lungs. Small caliber left chest tube without pneumothorax. Kenney Ochoa MD on July 31, 2017 at 4:42 Board Certified Radiologist. This report was verified electronically.
[2017-07-31] MEDS: methylPREDNISolone SOD SUCC 40 MG/1 ML VIAL IV PUSH SCH ×3 (05:23→20:29)
[2017-07-31] MEDS: FLUoxetine HCL 20 MG CAP PO SCH (07:32)
[2017-07-31] MEDS: HEPARIN SODIUM - SQ 10,000 UNITS/ML VIAL SQ SCH ×2 (07:32→20:29)
[2017-07-31] MEDS: URSODIOL 300 MG CAP PO SCH ×2 (07:32→20:29)
[2017-07-31] MEDS: FAMOTIDINE 20 MG TAB PO SCH ×2 (07:32→20:29)
[2017-07-31] MEDS: DOCUSATE SODIUM 50 MG/SENNA 8.6 MG TAB PO SCH ×2 (07:32→20:29)
[2017-07-31] MEDS: ARIPiprazole 10 MG TAB PO SCH (07:33)
[2017-07-31] MEDS: BUDESONIDE-FORMOTEROL 80/4.5 MCG INHALER INH SCH ×2 (07:33→20:29)
[2017-07-31] MEDS: [UNRECOGNIZED DRUG - REMARK] NEB SCH (07:55)
[2017-07-31] MEDS: INSULIN ASPART SUPPLEMENTAL SCALE SQ SCH ×4 (08:28→20:30)
[2017-07-31] MEDS ORDERED: POLYETHYLENE GLYCOL 17 GM PKG PO SCH (09:00)
--- NOTE | 2017-07-31 12:33 | HHI.HCPN ---
Reason for visit a. To assist with evaluation and management of symptoms including: dyspnea; depression; pain; fatigue b. To assist medical decision maker(s) with: better understanding of current medical conditions; weighing benefits/burdens of medical treatment options; making medical treatment decisions. . Subjective/Interval History Pt currently is on partial non rebreather. Pneumothroaxes remain stable. She states she is breathing easier, has not eaten too much lunch. She is alert and intercative. She states she is to remain Full Code. She has not discussed peg and trach decisions with sister. She would like time to talk about it. She has some anxiety. She denies pain on my visit. Brought Forward from [facility] 07/28/17 Ms. Roy is an unfortunate 47-year-old female with a known complicated medical history that includes pulmonary fibrosis; COPD; hepatitis (records and patient's history suggests she has been diagnosed with hepatitis B, hepatitis C , and autoimmune hepatitis); asthma; bipolar disorder; seizure disorder; and history of polysubstance abuse; who presented to the [facility] Emergency Department on 07/12/2017 complaining of shortness of breath and pleuritic chest pain that had been worsening over the last several days. The patient also had a fever of 102.3 and a mildly productive, nonbloody cough. The patient had been last hospitalized for respiratory problems approximately 11 months ago. She has been on home oxygen at 3 L a minute for some time. Per her friends, she uses the oxygen at home on an intermittent basis. The patient also was supposed to be taking 30 mg of prednisone a day but she reported discontinuing this on her own approximately 2 months ago because she felt her sleep as being disrupted. She normally uses a metered-dose inhaler 4 times a day. The patient is a long-term smoker. Unclear if she still smokes occasionally. Records indicate she has imaging findings consistent with bullous emphysema. There is also mention of pulmonary fibrosis and autoimmune lung disease. She has never been on mechanical ventilation. The patient reports she has had a significant decline in functional status due to her lungs since her last hospitalization in August,. The patient is also had significant liver disease. She reports being diagnosed with hepatitis B and hepatitis C. She reports undergoing treatment for hepatitis C but cannot remember what treatment she had and when she received it. She has had liver biopsies. Records also suggest a history of autoimmune liver disease. Per Dr. Castro's note -- "She had an extensive workup in the past. She was noted to have elevation of the antismooth muscle antibody and also presence of hepatitis B surface antigen. The patient had multiple liver biopsies in the past. 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 She was followed as per her by her primary care doctor for elevation of the liver enzymes. At one point her liver enzymes normalized. She was referred to a tertiary center for possible liver transplant. She stated due to health issues and recurrent admissions to the hospital, she was unable to follow through." The patient has a long history of bipolar disorder. She stays reasonably well controlled when taking her medications on a regular basis. She will decompensate when off her medication. Currently her parents, with whom she lives, controls medications. When I asked the patient where she lies on the spectrum of her disease between more depressed, just right, and more manic, she says more depressed since she has started feeling ill again. In the emergency department on the outset of this hospitalization, the patient was placed on oxygen at 4 L a minute. She was given intravenous steroids, broad -spectrum antibiotics, and duo nebs treatments. She was initially admitted to the hospitalist service. She had significant decompensation on 07/14/17 and required a nonrebreather mask. Pulmonology and critical care were consulted. Patient was transferred to the medical intensive care unit. The medical team was able to keep her off the ventilator by using high flow oxygen at 30 L. A chest x-ray of 07/24/17 showed new subcutaneous emphysema. The patient was transferred from the [facility] intensive medical care unit to the intensive medical care unit at [facility]. CT imaging from the evening of 07/24/17 revealed pulmonary fibrosis with interval development of pneumomediastinum, subcutaneous emphysema, and small bilateral anterior pneumothoraces. There were patchy diffuse groundglass opacities. The pneumothoraces increased in size. On 07/27/17 a left-sided chest tube was placed successfully. Cardiothoracic surgery has been consulted. Cardiothoracic surgery did not see a need for surgical intervention at this time. They felt the patient would need to be transferred to a tertiary care center if symptoms worsen. They also felt the patient could probably benefit from evaluation for possible lung transplant. Efforts were made to attempt to transfer the patient to both [facility] in [place] and the [facility] in [place]. The patient was declined at both of these facilities. The medical team is still waiting to see if the patient will be accepted at [facility] in [place]. At time of my visit, patient's primary complaint is #7 pain at the site of the chest tube placement. She normally does not have pain or knee pain medications. She reports the current medication regimen will bring her pain levels down to #1. She is somewhat short of breath with conversation but when resting in bed with a nonrebreather mask in place and not conversing, she is not dyspneic. . Family/friend interactions She did not want be to speak with sister. Advance Directives Living Will: Never completed Health Care Surrogate: Copy in medical record Durable Power of Body Piercer: Never completed Advance Directive Specifics Date completed: Healthcare surrogate designation was completed on 07/28/2017. There is no known living will. . Health Care Surrogate(s): The patient is designated her sister as her health care surrogate. . Documented care wishes: The patient is no written documentation of healthcare preferences/wishes/goals. . Objective Vital Signs Date Time Temp Pulse Resp B/P (MAP) Pulse Ox O2 Delivery O2 Flow Rate FiO2 07/31/17 10:00 93 Partial Non-Rebreather 15.00 07/31/17 10:00 89 07/31/17 08:00 99.0 78 30 100/56 (71) 94 07/31/17 08:00 78 07/31/17 08:00 94 Partial Non-Rebreather 15.00 07/31/17 07:56 96 Non-Rebreather 12.00 07/31/17 06:00 84 07/31/17 06:00 97 Partial Non-Rebreather 15.00 07/31/17 04:00 98.9 103 32 97/62 (74) 95 07/31/17 04:00 95 Partial Non-Rebreather 15.00 07/31/17 04:00 103 07/31/17 02:00 99 07/31/17 02:00 97 Partial Non-Rebreather 15.00 07/31/17 00:00 98.6 98 52 102/57 (72) 94 07/31/17 00:00 98 07/31/17 00:00 94 Partial Non-Rebreather 15.00 07/30/17 22:00 105 07/30/17 22:00 96 Partial Non-Rebreather 15.00 07/30/17 20:03 96 Partial Rebreather 07/30/17 20:00 98.6 91 32 103/57 (72) 94 07/30/17 20:00 91 07/30/17 20:00 91 Partial Non-Rebreather 15.00 07/30/17 18:00 105 07/30/17 18:00 96 Partial Non-Rebreather 15.00 07/30/17 16:00 104 07/30/17 16:00 96 Partial Non-Rebreather 15.00 07/30/17 16:00 99.5 104 28 96/55 (69) 96 07/30/17 14:00 96 Partial Non-Rebreather 15.00 07/30/17 14:00 97 Intake & Output 07/31/17 07/31/17 06:59 18:59 Intake Total 300 ml Output Total 827 ml Balance -527 ml Intake Oral 300 ml Output Urine Total 800 ml Chest Tube Drainage Total 27 ml # Bowel Movements 0 Physical Exam CONSTITUTIONAL/GENERAL: This is an adequately nourished patient with nonrebreather mask in place. Patient appears comfortable at rest. Becomes breathless with conversation at times SKIN: No jaundice, rashes, or lesions. No wounds seen anteriorly. Skin temperature appropriate. Not diaphoretic. HEAD: Atraumatic. Normocephalic. EYES: Pupils equal and round and reactive. Extraocular motions intact. No scleral icterus. No injection or drainage. Fundi not examined. ENT: Hearing grossly normal. Nose without bleeding or purulent drainage. Throat without visible erythema, exudates, masses, or lesions noted difficult to assess with nonrebreather mask in place. NECK: Trachea midline. Supple, nontender. No palpable thyroid enlargement or nodularity. CARDIOVASCULAR: Regular rate and rhythm without murmurs, gallops, or rubs. No JVD. Peripheral pulses symmetric. RESPIRATORY/CHEST: Symmetric, unlabored respirations. Diminished breath sounds equal bilaterally. No wheezes. Scattered faint rhonchi. GASTROINTESTINAL: Abdomen soft, non-tender, nondistended. No hepato-splenomegaly , or palpable masses. No guarding. Bowel sounds present. GENITOURINARY: Without palpable bladder distension. MUSCULOSKELETAL: Extremities without clubbing, cyanosis, or edema. No joint tenderness or effusion noted. No calf tenderness. No mottling or clubbing. LYMPHATICS: No palpable cervical or supraclavicular adenopathy. NEUROLOGICAL: Awake and alert. Motor and sensory grossly within normal limits. Follows commands. Cognitively sharp. Moves all extremities. PSYCHIATRIC: No obvious anxiety/depression. No apparent hallucinations or other psychotic thought process. . Diagnostic Tests Laboratory Laboratory Tests Test 07/29/17 04:09 07/30/17 04:55 White Blood Count 14.1 TH/MM3 (4.0-11.0) 14.1 TH/MM3 (4.0-11.0) Red Blood Count 3.36 MIL/MM3 (4.00-5.30) 3.36 MIL/MM3 (4.00-5.30) Hemoglobin 10.1 GM/DL (11.6-15.3) 10.5 GM/DL (11.6-15.3) Hematocrit 31.0 % (35.0-46.0) 31.4 % (35.0-46.0) Mean Corpuscular Volume 92.5 FL (80.0-100.0) 93.4 FL (80.0-100.0) Mean Corpuscular Hemoglobin 30.1 PG (27.0-34.0) 31.1 PG (27.0-34.0) Mean Corpuscular Hemoglobin Concent 32.6 % (32.0-36.0) 33.3 % (32.0-36.0) Red Cell Distribution Width 18.0 % (11.6-17.2) 18.6 % (11.6-17.2) Platelet Count 121 TH/MM3 (150-450) 111 TH/MM3 (150-450) Mean Platelet Volume 9.6 FL (7.0-11.0) 9.6 FL (7.0-11.0) Neutrophils (%) (Auto) 96.5 % (16.0-70.0) 96.7 % (16.0-70.0) Lymphocytes (%) (Auto) 1.3 % (9.0-44.0) 1.7 % (9.0-44.0) Monocytes (%) (Auto) 2.0 % (0.0-8.0) 1.4 % (0.0-8.0) Eosinophils (%) (Auto) 0.0 % (0.0-4.0) 0.0 % (0.0-4.0) Basophils (%) (Auto) 0.2 % (0.0-2.0) 0.2 % (0.0-2.0) Neutrophils # (Auto) 13.7 TH/MM3 (1.8-7.7) 13.6 TH/MM3 (1.8-7.7) Lymphocytes # (Auto) 0.2 TH/MM3 (1.0-4.8) 0.2 TH/MM3 (1.0-4.8) Monocytes # (Auto) 0.3 TH/MM3 (0-0.9) 0.2 TH/MM3 (0-0.9) Eosinophils # (Auto) 0.0 TH/MM3 (0-0.4) 0.0 TH/MM3 (0-0.4) Basophils # (Auto) 0.0 TH/MM3 (0-0.2) 0.0 TH/MM3 (0-0.2) CBC Comment DIFF FINAL DIFF FINAL Differential Comment Blood Urea Nitrogen 23 MG/DL (7-18) 20 MG/DL (7-18) Creatinine 0.48 MG/DL (0.50-1.00) 0.47 MG/DL (0.50-1.00) Random Glucose 123 MG/DL (74-106) 168 MG/DL (74-106) Total Protein 6.3 GM/DL (6.4-8.2) 6.8 GM/DL (6.4-8.2) Albumin 2.2 GM/DL (3.4-5.0) 2.2 GM/DL (3.4-5.0) Calcium Level 8.4 MG/DL (8.5-10.1) 8.6 MG/DL (8.5-10.1) Alkaline Phosphatase 112 U/L (45-117) 113 U/L (45-117) Aspartate Amino Transf (AST/SGOT) 26 U/L (15-37) 28 U/L (15-37) Alanine Aminotransferase (ALT/SGPT) 96 U/L (10-53) 88 U/L (10-53) Total Bilirubin 0.6 MG/DL (0.2-1.0) 0.7 MG/DL (0.2-1.0) Sodium Level 136 MEQ/L (136-145) 136 MEQ/L (136-145) Potassium Level 4.5 MEQ/L (3.5-5.1) 4.2 MEQ/L (3.5-5.1) Chloride Level 100 MEQ/L (98-107) 99 MEQ/L (98-107) Carbon Dioxide Level 32.7 MEQ/L (21.0-32.0) 33.1 MEQ/L (21.0-32.0) Anion Gap 3 MEQ/L (5-15) 4 MEQ/L (5-15) Estimat Glomerular Filtration Rate 140 ML/MIN (>89) 143 ML/MIN (>89) Result Diagram: 07/30/17 0455 07/30/17 0455 Imaging Last Impressions Chest X-Ray 07/31/17 0600 Signed Impressions: Service Date/Time: Monday, July 31, 2017 03:06 - CONCLUSION: 1. Basilar space disease in the lungs. Small caliber left chest tube without pneumothorax. Kenney Ochoa MD Chest Tube Insertion 07/26/17 0000 Signed Impressions: Service Date/Time: Wednesday, July 26, 2017 12:23 - CONCLUSION: 1. Uncomplicated left chest tube placement as above. 2. Initial order requested a right-sided chest tube. However, repeat CT scan showed no significant pleural space anteriorly in the right hemithorax to facilitate tube placement. Lorenzo Dunaway MD Chest CT 07/26/17 0000 Signed Impressions: Service Date/Time: Wednesday, July 26, 2017 11:58 - CONCLUSION: There has been no new or significant change with the overall appearance of the thorax compared to the prior examination. Today's exam is essentially stable compared to the prior study. Kj Diaz MD CT Angiography 07/14/17 0000 Signed Impressions: Service Date/Time: Friday, July 14, 2017 10:01 - CONCLUSION: Extensive parenchymal lung disease which appears largely chronic with superimposed acute exacerbation. No evidence of pulmonary embolism.. You Mccallum MD Abdomen Ultrasound 07/14/17 0000 Signed Impressions: Service Date/Time: Friday, July 14, 2017 19:45 - CONCLUSION: Liver within normal limits. Small gallstone in the gallbladder. Nonspecific mild diffuse gallbladder wall thickening. Borderline splenomegaly. Trace right pleural effusion. Raffi Briggs MD Procedures * Chest tube placement * . Assessment and Plan Disease Oriented Problem List: (1) Acute respiratory failure with hypoxemia (2) Pneumothorax (3) Pulmonary fibrosis determined by high resolution computed tomography (4) Emphysema lung (5) Nephrolithiasis (6) Pneumonia (7) Bipolar disease, chronic (8) Hx of hepatitis C (9) Post traumatic stress disorder Symptom Scale: (1) Pain 0-10 Scale: 0 Comment: The patient has no prehospitalization pain syndromes. Her only pain complaint is the pain at the chest tube site. Though pain levels get up to #7, pain levels come down to #1 on her current pain regimen. . (2) Dyspnea 0-10 Scale: Unable to quantify Comment: Patient's dyspnea is mild while on a nonrebreather mask resting in bed and not conversing. . (3) Depression 0-10 Scale: Unable to quantify Comment: Patient has a long history of bipolar disorder. On the spectrum ranging from depression to enrique, she feels more on the depressed side at this time. . (4) Anxiety 0-10 Scale: Unable to quantify (associated with dyspnea, and psycgh history.) Pertinent Non-Medical Issues Psychosocial: Never , no biological children. Currently lives with her parents. On disability most of her adult life. Has a male partner of 11 years -- Alonso. Alonso is raising his granddaughter and patient feels very close to this child. Spiritual: Attends [employer]. Uatsdin and spirituality are important to her. She appreciates visits from the hospital compound coating machine offbearer and her own clergy. She finds comfort in "talking to God." Legal: No living will. Signed a health care surrogate designation on 07/28/17 indicating she would like her sister to serve as her surrogate. Ethical issues impacting care: Patient is currently capacitated to make her own health care decisions . Important Contacts * Veronica Stanley (Sister --designated health care surrogate) [phone] * Malik Roy (father ) [phone] * Alonso Turk (significant other) [phone] . Prognosis The patient's primary problem is progressively worsening lung disease. Imaging shows both emphysematous changes and pulmonary fibrosis. Though her last hospitalization was over a year ago, she has had significant decline in functional status. She is now mostly bed and chair bound. She is on continuous oxygen. It is unclear how much of this may be due to an autoimmune phenomena. Her lung disease is complicated by liver disease as well. She apparently has had diagnoses of hepatitis B and hepatitis C. There is some question of autoimmune liver disease. She has undergone several liver biopsies. 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 Complicating her care is a long history of psychiatric illness which seems to be a combination of bipolar disorder and posttraumatic stress disorder. Available records indicate she may have self medicated some of these with drugs of abuse. There may been periods of noncompliance. Her current respiratory illness is reportedly the most severe she has had. This is now complicated by pneumothoraces. It remains unclear if she will be able to improve and recover from this acute illness. If her lung disease is due primarily to progressive pulmonary fibrosis and she is not a candidate for any type of transplant, even if she survives the hospitalization she is likely to have more frequent hospitalizations in the future which will be increasingly challenging to treat. Life expectancy at this time is difficult for me to predict. We'll yield to the pulmonologists for this. . Code Status: Full Code Plan == Code Status: FULL CODE. this topic was discussed with the patient on . She spoke with her sister and decide on FULL CODE. She would like time to talked with sister about peg and trach. == Decision Making: The patient is capacitated to make her own health care decisions. Should she become incapacitated, she has chosen her sister-- Veronica [phone]-- to be her healthcare surrogate == Goals of medical treatment: At this time goals are aggressive. Patient is aware she may need a lung transplant. She would like to find out if she is a candidate for this and would want to proceed if she is. As noted above, in the meantime, she is consulting with family to decide about resuscitation status. == Symptoms * Dyspnea: The patient's dyspnea is due to a combination of her emphysematous changes, pulmonary fibrosis, infection, and pneumothoraces. Her current regimen includes oxygen therapy, nebulizer treatments, IV steroids. There are also orders for all prior to lab and morphine which would help with severe dyspnea. The patient is comfortable at rest, with oxygen, when she is not conversing. No further recommendations at this time. * Pain: Patient has no pre-hospitalization pain syndromes. Her only pain complaint is from her chest tube site. Her current medication is working effectively at bringing pain levels down from #7 to #1. No further recommendations at this time. * Depression: Patient has a long history of bipolar disorder. She feels she is more on the depressed side of that spectrum at this time. Patient is currently on her usual psychoactive medications which include fluoxetine and Abilify. We will have to watch moods carefully. She appears to be tolerating the high-dose steroids without severe agitation at this time. The level of depression she is experiencing may be appropriate for her current illness severity. Would not recommend altering psychoactive medications at this time. * Fatigue: Hopefully, this will improve if we are able to improve her pulmonary function and exercise tolerance. * Anxiety: associated with chronic illness, and dyspnea. On Fluoxetine. and Xanax. . == Palliative care will be better able to discuss goals with patient and healthcare surrogate if we get a sense of prognosis from burglar alarm operator and whether or not this patient would be a candidate and might be helped by lung transplant. If she is not a transplant candidate and we anticipate ongoing decline in pulmonary function we would want to address this and discuss options such as hospice. == Palliative care will continue to follow to assist with symptom management and to further assess goals of medical treatment as the clinical course evolves. . Attestation To help prompt me to consider important information that might be impacting today's encounter and assessment, information from prior notes written by myself or my colleagues may have been "brought forward" into today's note. My signature on this note, however, is an attestation that I personally performed the exam, history, and/or decision-making noted today, and, unless otherwise indicated, the interactions with patient, family, and staff as well as the review of records all occurred today. I also attest that the listed assessment and stated plan reflect my best clinical judgment today based on the combination of historical information, prior notes, and today's exam/ interactions. When time spent is documented, it refers only to time spent today by the signer, or if indicated, combined time spent today by collaborating physician/nurse practitioner. Casey Becerril MD Jul 31, 2017 12:33
--- NOTE | 2017-07-31 13:14 | HHI.CCPN ---
Subjective Remarks/Hospital Course This is a 47-year-old white female that was admitted 2 days ago on 07/12/2017 to [facility].Patient was in her usual state of health until about a few days ago when she began experiencing a gradual onset of worsening shortness of breath and pleuritic chest pain. This is associated with a fever of 102.3 and mild productive nonbloody cough. Patient has 3 L/m home O2 dependency . Per report , the patient had been wearing her 3 L of oxygen at home. 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 Patient states that she was supposed to be taking 30 mg of prednisone on a daily basis for some time but she herself discontinued it about 2 months ago at her own discretion because she felt that they were disrupting her sleep significantly. She also says she takes an inhaler 4 times of the day but denies apparently taking any controller medications. Patient does have a history of bipolar disorder and says she is compliant with those medications. In the emergency department she was placed on 4 L, given steroids, Rocephin and azithromycin and DuoNeb treatments and then sent to the [facility] floor. Today 07/14/17, patient was noted to have significant decompensation and respiratory status requiring a nonrebreather mask, and at risk for possible intubation. Pulmonology was consulted .Critical care medicine was consulted, patient was transferred to the ICU. Records obtained from [facility] revealed the patient has autoimmune hepatitis, and pulmonary fibrosis. Upon my evaluation the patient was noted to be 99% on nonrebreather the patient was then placed on partial nonrebreather O2 saturation 94%, respiratory rate 28. 07/15: FiO2 continues to be 60% on a partial non-rebreather mask. Plan to transition to high flow nasal cannula this a.m.. Pulmonology consult pending. Patient continues on steroids and antibiotics, noted acute desaturation with minimal activity. Strict bed rest implemented. Attempts being made to obtain records from [facility] her last admission for pulmonary compromise. 07/16: fio2 improves. abg slightly improving 7.39/51/138. LFTs coming down slightly. patient wants to get OOB. denies other complaints. ROS negative. 07/17: remains hypoxic on NRB. did get OOB to chair yesterday. denies complaints. ROS negative. 07/18 No events overnight. Patient is on high flow oxygen 30L with 45% FIO2. Afebrile. 07/19: Remains on high flow O2 30 L/m with 35% FiO2. 07/20 Patient is lying in bed in NAD. Remains on high flow oxygen 30L with 35% FIO2. Afebrile. 07/21. Patient is lying in bed with partial nonrebreather at this time. She is no longer requiring high flow oxygen. She is holding O2 saturations. She denies any shortness of breath or dyspnea. Vital signs are with mildly low blood pressure, afebrile 07/22 Patient is on VM with 50% FIO2. Afebrile. Denies any worsening of dyspnea from baseline. Afebrile. 07/23 No events overnight, on 50% VM. 07/24 Patient just arrived to [facility] from [place]. CXR earlier today showed new SubQ emphysema b/l, chronic ILD. On partial rebreather 07/25 No events overnight. On partial non rebreather with sats 98%. CT chest last night showed pulmonary fibrosis with interval development of pneumomediastinum, subq emphysema and small bilateral anterior pneumothoraces. Patchy diffuse ground glass opacities. 07/26: Worsening right apical pneumothorax 1.5 cm. Left pneumothorax 0.5 cm apical. Significant subcutaneous emphysema the right side. Currently on partial nonrebreather 12 L. She denies shortness of breath. 07/27: Currently resting in bed in no acute distress on partial nonrebreather. Left-sided chest tube placed successive. 6. Appears stabilize pneumothoraces. Has been declined by [facility] and [facility]. [facility] pending. 07/28 Patient is on non rebreather with good sats. Left CT in place. Afebrile. 07/29 No events overnight. Afebrile, left CT in place. On partial rebreather with good sats. 07/30: Tmax 99.5. Remains on 15 L partial nonrebreather. Saturations 91-100%. Pneumothoraces remain stable. Left chest tube in place to suction Subjective 07/31: Afebrile. Pneumothoraces appear to have resolved on chest x-ray today. Saturations are 94%. Appears stable. Awaiting [facility] reverification about transfer status. [facility] and [facility] have refused transfer Objective Vital Signs Date Time Temp Pulse Resp B/P (MAP) Pulse Ox O2 Delivery O2 Flow Rate FiO2 07/31/17 10:00 93 Partial Non-Rebreather 15.00 07/31/17 10:00 89 07/31/17 08:00 99.0 30 100/56 (71) 07/29/17 06:00 100 Intake and Output 07/31/17 07/31/17 08/01/17 08:00 16:00 00:00 Intake Total 300 ml Output Total 815 ml Balance -515 ml Result Diagram: 07/30/17 0455 07/30/17 0455 Other Results Microbiology Date/Time Source Procedure Growth Status 07/14/17 18:56 Blood Peripheral Aerobic Blood Culture - Final NO GROWTH IN 5 DAYS Complete 07/14/17 18:56 Blood Peripheral Anaerobic Blood Culture - Final NO GROWTH IN 5 DAYS Complete 07/24/17 11:55 Sputum Expectorated Sputum Gram Stain - Final Complete 07/24/17 11:55 Sputum Expectorated Sputum Sputum Culture - Final HEAVY GROWTH NORMAL RESPIRATORY OLI Complete 07/14/17 10:15 Urine Clean Catch Urine Culture - Final NO GROWTH IN 48 HOURS. Complete Imaging Last Impressions Chest X-Ray 07/31/17 0600 Signed Impressions: Service Date/Time: Monday, July 31, 2017 03:06 - CONCLUSION: 1. Basilar space disease in the lungs. Small caliber left chest tube without pneumothorax. Kenney Ochoa MD Chest Tube Insertion 07/26/17 0000 Signed Impressions: Service Date/Time: Wednesday, July 26, 2017 12:23 - CONCLUSION: 1. Uncomplicated left chest tube placement as above. 2. Initial order requested a right-sided chest tube. However, repeat CT scan showed no significant pleural space anteriorly in the right hemithorax to facilitate tube placement. Lorenzo Dunaway MD Chest CT 07/26/17 0000 Signed Impressions: Service Date/Time: Wednesday, July 26, 2017 11:58 - CONCLUSION: There has been no new or significant change with the overall appearance of the thorax compared to the prior examination. Today's exam is essentially stable compared to the prior study. Kj Diza MD CT Angiography 07/14/17 0000 Signed Impressions: Service Date/Time: Friday, July 14, 2017 10:01 - CONCLUSION: Extensive parenchymal lung disease which appears largely chronic with superimposed acute exacerbation. No evidence of pulmonary embolism.. You Mccallum MD Abdomen Ultrasound 07/14/17 0000 Signed Impressions: Service Date/Time: Friday, July 14, 2017 19:45 - CONCLUSION: Liver within normal limits. Small gallstone in the gallbladder. Nonspecific mild diffuse gallbladder wall thickening. Borderline splenomegaly. Trace right pleural effusion. Raffi Briggs MD Objective Remarks GENERAL: 47-year-old female resting in bed in no acute distress on partial nonrebreather HEENT: Normocephalic/atraumatic pupils are equally round and reactive about 3 mm. Mucous members moist. Oropharynx without erythema or thrush NECK: Supple without any masses. Trachea midline no deviation. No JVD, CARDIAC: RRR. S1, S2. No S4. Without murmurs LUNGS: Coarse fine crackles appreciated throughout lung keller. Left thorax subcutaneous air noted with chest tube in place ABDOMEN: Soft, nontender. Nondistended. Bowel sounds heard in all 4 quadrants. No organomegaly or masses. Negative rebound, negative guarding EXTREMITIES: No edema, pulses are equal bilaterally. No significant cyanosis NEUROLOGY: Mood and affect appear appropriate. Cranial nerves II through XII grossly intact. Moving all extremities, speech is clear A/P Assessment and Plan Neuro/Psych: Bipolar disorder Depression History of (smoking) cocaine abuse 10/2016 History of migraine headache Neurochecks per ICU protocol Continue aripiprazole 10 mg daily and fluoxetine 40 mill grams daily home medications for bipolar/depression Trazodone 100mg qhs UDS negative. Off sumatriptan 0.5 tab 100 milligrams as needed for migraine headaches Currently on alprazolam 0.25 one tablet every 8 hours when necessary anxiety Morphine sulfate 1-2 mg every 3 hours when necessary pain Respiratory: Acute on chronic hypoxemic respiratory failure - persistent. Possible community-acquired pneumonia History of Tobacco use disorder History of inhaled cocaine use Chronic interstitial lung disease-steroid dependent Pulmonary fibrosis Home O2 dependency COPD History of asthma Currently on partial nonrebreather mask 15 L, Wean down oxygen as daksha keep sat >92% Albuterol/ipratropium aerosols every 4 hours scheduled and albuterol aerosols every 2 hours when necessary Continue home med budesonide/formoterol 80/4.5 2 puffs twice a day Methylprednisolone succinate 40 mg IV [address] chest 07/24 : Lower lobe predominant interstitial lung disease and pulmonary fibrosis with interval development of massive pneumomediastinum, subq emphysema and small bilateral anterior pneumothoraces. Patchy diffuse groundglass opacities may reflect superimposed infection/inflammatory process. CTS -Dr. Issa is following Spoke with Dr. Jason Ford from [facility] 07/28 and recommended to try to transfer patient to transplant center. Pulmonology is following Left-sided pigtail placed by IR 07/26. PFTs 09/18 2016([facility]) FEV1 700 -25% of predicted, FVC 21% no lung volumes are diffusions were performed 09/07/16 CT thorax ([facility]) pulmonary fibrosis with left adrenal adenoma , however alpha 1 antitrypsin level was WNL , but positive (ASMA)anti-smooth muscle antibodies 1:640, ceruloplasmin normal Followed by Dr. Stark/pulmonology CV: Monitor HR and BP keep MAP>65mmHg 09/08/16 echo ([facility]) EF 55-60 %, Mildly elevated pulmonary pressure no major valvular abnormalities Renal: Monitor renal function, I/Os, electrolytes replacement per protocol. FEN/GI: Autoimmune hepatitis? (reported) Hepatitis B surface antigen positive Transaminitis Hyperlipidemia GERD Mild protein calorie malnutrition Constipation Monitor LFTs: currently downtrending. 07/15 ultrasound of abdomen- gallbladder wall thickening, borderline splenomegaly , trace right pleural effusion Famotidine GI prophylaxis 20 mg twice a day Ondansetron for nausea 09/13/16 Liver biopsy ([facility]) see medical chart for review- Patient referred to [facility] for eval for liver transplant GI is following. On Ursodiol 300 mg twice daily monitor liver enzymes. AST/ALT remain elevated Hep B sAg positive. Will need to be rechecked in 3 months with possible systemic treatment once stable Ursodiol 300 mg twice a day steatohepatitis Heme/ID: Leukocytosis Normocytic anemia Herpes 6 positive Pediculosis Thrombocytopenia Monitor CBC blood cultures- NGTD Legionella and pneumococcal urine antigens- negative Influenza- negative Off abx-s/p azithromycin and cefepime finished 07/22 Patient with head lice tx permethrin as directed Endocrine: TSH 0.023 - 07/19 Left Adrenal adenoma Hyperglycemia of critical illness free T3::1.11, FT4: 1.16 RADHIKA 160 speckled Glucose monitoring per ICU protocol. Low dose regimen with Accu-Cheks before meals/at bedtime with NovoLog -- SSI Metanephrine/normetanephrine/aldosterone and renin 06/18 at [place]/ [place]. Results unknown at this time. Prophylaxis: GI Prophylaxis Famotidine DVT Prophylaxis -- SCDs, heparin subcutaneous Lines: Peripheral IVs 2. Dispo: remain in ICU. Level 2 follow-up Isidro Marcial MD Jul 31, 2017 13:14
[2017-07-31] MEDS ORDERED: GLYCERIN ADULT 2 GM SUPP RECTAL ONE (13:30)
[2017-07-31] MEDS ORDERED: LACTULOSE SYRUP 20 GM/30 ML CUP PO ONE (13:30)
[2017-07-31] MEDS: ALPRAZolam 0.25 MG TAB PO PRN (14:48)
--- NOTE | 2017-07-31 16:39 | HHI.PR ---
Subjective Remarks alert on o2, no SOBleft chest tube in place Objective Vital Signs Date Time Temp Pulse Resp B/P (MAP) Pulse Ox O2 Delivery O2 Flow Rate FiO2 07/31/17 10:00 93 Partial Non-Rebreather 15.00 07/31/17 10:00 89 07/31/17 08:00 99.0 78 30 100/56 (71) 94 07/31/17 08:00 78 07/31/17 08:00 94 Partial Non-Rebreather 15.00 07/31/17 07:56 96 Non-Rebreather 12.00 07/31/17 06:00 84 07/31/17 06:00 97 Partial Non-Rebreather 15.00 07/31/17 04:00 98.9 103 32 97/62 (74) 95 07/31/17 04:00 95 Partial Non-Rebreather 15.00 07/31/17 04:00 103 07/31/17 02:00 99 07/31/17 02:00 97 Partial Non-Rebreather 15.00 07/31/17 00:00 98.6 98 52 102/57 (72) 94 07/31/17 00:00 98 07/31/17 00:00 94 Partial Non-Rebreather 15.00 07/30/17 22:00 105 07/30/17 22:00 96 Partial Non-Rebreather 15.00 07/30/17 20:03 96 Partial Rebreather 07/30/17 20:00 98.6 91 32 103/57 (72) 94 07/30/17 20:00 91 07/30/17 20:00 91 Partial Non-Rebreather 15.00 07/30/17 18:00 105 07/30/17 18:00 96 Partial Non-Rebreather 15.00 I/O 07/30/17 07/30/17 07/30/17 07/31/17 07/31/17 07/31/17 07:00 15:00 23:00 07:00 15:00 23:00 Intake Total 240 ml 960 ml 300 ml Output Total 320 ml 712 ml 815 ml Balance -80 ml 248 ml -515 ml Intake Oral 240 ml 960 ml 300 ml Output Urine Total 300 ml 700 ml 800 ml Chest Tube Drainage Total 20 ml 12 ml 15 ml # Bowel Movements 0 0 Result Diagram: 07/30/1745407/30/17454 Objective Remarks GENERAL: SKIN: Warm and dry. HEAD: Atraumatic. Normocephalic. EYES: Pupils equal and round. No scleral icterus. No injection or drainage. ENT: No nasal bleeding or discharge. Mucous membranes pink and moist. NECK: Trachea midline. No JVD. CARDIOVASCULAR: Regular rate and rhythm. RESPIRATORY: No accessory muscle use. Clear to auscultation. Breath sounds equal bilaterally. GASTROINTESTINAL: Abdomen soft, non-tender, nondistended. Hepatic and splenic margins not palpable. MUSCULOSKELETAL: Extremities without clubbing, cyanosis, or edema. No obvious deformities. NEUROLOGICAL: Awake and alert. No obvious cranial nerve deficits. Motor grossly within normal limits. Five out of 5 muscle strength in the arms and legs. Normal speech. PSYCHIATRIC: Appropriate mood and affect; insight and judgment normal. Assessment and Plan Assessment and Plan pulm fibrosis respiratory failure asthma pneumothorax plan o2 steroids bronchodilators increase activity Lincoln Stark MD Jul 31, 2017 16:39
[2017-07-31] MEDS: POLYETHYLENE GLYCOL 17 GM PKG PO SCH (20:29)
[2017-07-31] MEDS: traZODone HCL 100 MG TAB PO SCH (20:29)
[2017-08-01] VITALS: BP 125/80; PULSE 110; RESP 34; TEMP 99.1; O2SAT 85; O2SAT 89
[2017-08-01] MEDS: MORPHINE SULFATE 2 MG/ML INJ IV PUSH PRN ×2 (00:34→08:03)
[2017-08-01] MEDS: ALPRAZolam 0.25 MG TAB PO PRN (00:34)
[2017-08-01 02:00] VITALS: PULSE 100
--- NOTE | 2017-08-01 03:42 | RADRPT ---
EXAM DATE/TIME: 08/01/2017 01:52 [place] COMPARISON: CHEST SINGLE AP, July 31, 2017, 3:06. INDICATIONS : Short of breath. MEDICAL HISTORY : Hepatitis C. Renal calculi. Chronic obstructive pulmonary disease. Gastroesophageal reflux disea se. SURGICAL HISTORY : Appendectomy. Hysterectomy. ENCOUNTER: Subsequent ACUITY: 2 weeks PAIN SCORE: 0/10 LOCATION: Bilateral chest FINDINGS: A single view of the chest demonstrates small caliber left chest tube with tiny left pneumothorax. Ag ain seen is pulmonary fibrosis and interstitial lung disease as well as subsegmental basilar airspace disease similar to July 31. Pneumomediastinum present with air dissecting into the soft tissues o f the neck. CONCLUSION: 1. Left chest tube with tiny left pneumothorax. Pneumomediastinum has developed. Underlying pulmonary fibrosis and mild basilar subsegmental air space disease. Kenney Ochoa MD on August 01, 2017 at 3:37 Board Certified Radiologist. This report was verified electronically.
[2017-08-01 04:00] VITALS: BP 101/58; PULSE 84; PULSE 86; RESP 27; TEMP 99.2; O2SAT 89
[2017-08-01] MEDS: RESP: ALBUTEROL 2.5 MG/IPRATROPIUM 0.5 MG NEB (SCH) NEB ×2 (04:30→07:48)
[2017-08-01 05:41] LABS: AUTOMATED NEUTROPHIL # 17.5 TH/MM3 (1.8-7.7); BASOPHIL % 0.1 % (0.0-2.0); HEMATOCRIT 32.5 % (35.0-46.0); HEMOGLOBIN 11.1 GM/DL (11.6-15.3); LYMPH % 1.7 % (9.0-44.0); LYMPHOCYTE # 0.3 TH/MM3 (1.0-4.8); MEAN CELL VOLUME 94.5 FL (80.0-100.0); MEAN CORPUSCULAR HEMOGLOBIN 32.3 PG (27.0-34.0); MEAN CORPUSCULAR HGB CONC 34.2 % (32.0-36.0); MEAN PLATELET VOLUME 9.9 FL (7.0-11.0); MONO % 1.7 % (0.0-8.0); MONOCYTE # 0.3 TH/MM3 (0-0.9); NEUT % 96.5 % (16.0-70.0); PLATELET COUNT 133 TH/MM3 (150-450); RED BLOOD COUNT 3.44 MIL/MM3 (4.00-5.30); RED CELL DISTRIBUTION WIDTH 19.2 % (11.6-17.2); WHITE BLOOD COUNT 18.2 TH/MM3 (4.0-11.0)
[2017-08-01] MEDS: methylPREDNISolone SOD SUCC 40 MG/1 ML VIAL IV PUSH SCH (05:52)
[2017-08-01 06:00] VITALS: PULSE 82
[2017-08-01 06:10] LABS: ALBUMIN 2.4 GM/DL (3.4-5.0); AST (GOT) 30 U/L (15-37); BICARBONATE 30.2 MEQ/L (21.0-32.0); BLOOD UREA NITROGEN 23 MG/DL (7-18); CHLORIDE 99 MEQ/L (98-107); CREATININE 0.51 MG/DL (0.50-1.00); GLOMERULAR FILTRATION RATE 130 ML/MIN (>89); GLUCOSE,RANDOM 123 MG/DL (74-106); MAGNESIUM 2.1 MG/DL (1.5-2.5); SODIUM (NA) 135 MEQ/L (136-145)
[2017-08-01 06:11] LABS: ALT (GPT) 62 U/L (10-53); PHOSPHORUS 4.3 MG/DL (2.5-4.9)
[2017-08-01 06:13] LABS: ALKALINE PHOSPHATASE 141 U/L (45-117); TOTAL BILIRUBIN ADULT 0.9 MG/DL (0.2-1.0)
--- NOTE | 2017-08-01 06:57 | HHI.CCPN ---
Subjective Remarks/Hospital Course This is a 47-year-old white female that was admitted 2 days ago on 07/12/2017 to [facility].Patient was in her usual state of health until about a few days ago when she began experiencing a gradual onset of worsening shortness of breath and pleuritic chest pain. This is associated with a fever of 102.3 and mild productive nonbloody cough. Patient has 3 L/m home O2 dependency . Per report , the patient had been wearing her 3 L of oxygen at home. 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 Patient states that she was supposed to be taking 30 mg of prednisone on a daily basis for some time but she herself discontinued it about 2 months ago at her own discretion because she felt that they were disrupting her sleep significantly. She also says she takes an inhaler 4 times of the day but denies apparently taking any controller medications. Patient does have a history of bipolar disorder and says she is compliant with those medications. In the emergency department she was placed on 4 L, given steroids, Rocephin and azithromycin and DuoNeb treatments and then sent to the [facility] floor. Today 07/14/17, patient was noted to have significant decompensation and respiratory status requiring a nonrebreather mask, and at risk for possible intubation. Pulmonology was consulted .Critical care medicine was consulted, patient was transferred to the ICU. Records obtained from [facility] revealed the patient has autoimmune hepatitis, and pulmonary fibrosis. Upon my evaluation the patient was noted to be 99% on nonrebreather the patient was then placed on partial nonrebreather O2 saturation 94%, respiratory rate 28. 07/15: FiO2 continues to be 60% on a partial non-rebreather mask. Plan to transition to high flow nasal cannula this a.m.. Pulmonology consult pending. Patient continues on steroids and antibiotics, noted acute desaturation with minimal activity. Strict bed rest implemented. Attempts being made to obtain records from [facility] her last admission for pulmonary compromise. 07/16: fio2 improves. abg slightly improving 7.39/51/138. LFTs coming down slightly. patient wants to get OOB. denies other complaints. ROS negative. 07/17: remains hypoxic on NRB. did get OOB to chair yesterday. denies complaints. ROS negative. 07/18 No events overnight. Patient is on high flow oxygen 30L with 45% FIO2. Afebrile. 07/19: Remains on high flow O2 30 L/m with 35% FiO2. 07/20 Patient is lying in bed in NAD. Remains on high flow oxygen 30L with 35% FIO2. Afebrile. 07/21. Patient is lying in bed with partial nonrebreather at this time. She is no longer requiring high flow oxygen. She is holding O2 saturations. She denies any shortness of breath or dyspnea. Vital signs are with mildly low blood pressure, afebrile 07/22 Patient is on VM with 50% FIO2. Afebrile. Denies any worsening of dyspnea from baseline. Afebrile. 07/23 No events overnight, on 50% VM. 07/24 Patient just arrived to [facility] from [place]. CXR earlier today showed new SubQ emphysema b/l, chronic ILD. On partial rebreather 07/25 No events overnight. On partial non rebreather with sats 98%. CT chest last night showed pulmonary fibrosis with interval development of pneumomediastinum, subq emphysema and small bilateral anterior pneumothoraces. Patchy diffuse ground glass opacities. 07/26: Worsening right apical pneumothorax 1.5 cm. Left pneumothorax 0.5 cm apical. Significant subcutaneous emphysema the right side. Currently on partial nonrebreather 12 L. She denies shortness of breath. 07/27: Currently resting in bed in no acute distress on partial nonrebreather. Left-sided chest tube placed successive. 6. Appears stabilize pneumothoraces. Has been declined by [facility]. [facility] pending. 07/28 Patient is on non rebreather with good sats. Left CT in place. Afebrile. 07/29 No events overnight. Afebrile, left CT in place. On partial rebreather with good sats. 07/30: Tmax 99.5. Remains on 15 L partial nonrebreather. Saturations 91-100%. Pneumothoraces remain stable. Left chest tube in place to suction Subjective 07/31: Afebrile. Pneumothoraces appear to have resolved on chest x-ray today. Saturations are 94%. Appears stable. Awaiting [facility] revivification about transfer status. [facility] and [facility] have refused transfer 08/01 No events overbright. Remains on partial non rebreather. Awake and alert Objective Vital Signs Date Time Temp Pulse Resp B/P (MAP) Pulse Ox O2 Delivery O2 Flow Rate FiO2 08/01/17 06:00 82 08/01/17 06:00 89 Partial Non-Rebreather 12.00 08/01/17 04:00 99.2 27 101/58 (72) 07/29/17 06:00 100 Intake and Output 08/01/17 08/01/17 08/02/17 08:00 16:00 00:00 Intake Total 240 ml Output Total 10 ml Balance 230 ml Result Diagram: 08/01/17 0433 08/01/17 0433 Other Results Laboratory Tests Test 08/01/17 04:33 White Blood Count 18.2 TH/MM3 Red Blood Count 3.44 MIL/MM3 Hemoglobin 11.1 GM/DL Hematocrit 32.5 % Mean Corpuscular Volume 94.5 FL Mean Corpuscular Hemoglobin 32.3 PG Mean Corpuscular Hemoglobin Concent 34.2 % Red Cell Distribution Width 19.2 % Platelet Count 133 TH/MM3 Mean Platelet Volume 9.9 FL Neutrophils (%) (Auto) 96.5 % Lymphocytes (%) (Auto) 1.7 % Monocytes (%) (Auto) 1.7 % Eosinophils (%) (Auto) 0.0 % Basophils (%) (Auto) 0.1 % Neutrophils # (Auto) 17.5 TH/MM3 Lymphocytes # (Auto) 0.3 TH/MM3 Monocytes # (Auto) 0.3 TH/MM3 Eosinophils # (Auto) 0.0 TH/MM3 Basophils # (Auto) 0.0 TH/MM3 CBC Comment DIFF FINAL Differential Comment Blood Urea Nitrogen 23 MG/DL Creatinine 0.51 MG/DL Random Glucose 123 MG/DL Total Protein 7.0 GM/DL Albumin 2.4 GM/DL Calcium Level 9.0 MG/DL Phosphorus Level 4.3 MG/DL Magnesium Level 2.1 MG/DL Alkaline Phosphatase 141 U/L Aspartate Amino Transf (AST/SGOT) 30 U/L Alanine Aminotransferase (ALT/SGPT) 62 U/L Total Bilirubin 0.9 MG/DL Sodium Level 135 MEQ/L Potassium Level 4.5 MEQ/L Chloride Level 99 MEQ/L Carbon Dioxide Level 30.2 MEQ/L Anion Gap 6 MEQ/L Estimat Glomerular Filtration Rate 130 ML/MIN Imaging Last Impressions Chest X-Ray 08/01/17 0600 Signed Impressions: Service Date/Time: Tuesday, August 01, 2017 01:52 - CONCLUSION: 1. Left chest tube with tiny left pneumothorax. Pneumomediastinum has developed. Underlying pulmonary fibrosis and mild basilar subsegmental air space disease. Kenney Ochoa MD Chest Tube Insertion 07/26/17 0000 Signed Impressions: Service Date/Time: Wednesday, July 26, 2017 12:23 - CONCLUSION: 1. Uncomplicated left chest tube placement as above. 2. Initial order requested a right-sided chest tube. However, repeat CT scan showed no significant pleural space anteriorly in the right hemithorax to facilitate tube placement. Lorenzo Dunaway MD Chest CT 07/26/17 0000 Signed Impressions: Service Date/Time: Wednesday, July 26, 2017 11:58 - CONCLUSION: There has been no new or significant change with the overall appearance of the thorax compared to the prior examination. Today's exam is essentially stable compared to the prior study. Kj Diaz MD CT Angiography 07/14/17 0000 Signed Impressions: Service Date/Time: Friday, July 14, 2017 10:01 - CONCLUSION: Extensive parenchymal lung disease which appears largely chronic with superimposed acute exacerbation. No evidence of pulmonary embolism.. You Mccallum MD Abdomen Ultrasound 07/14/17 0000 Signed Impressions: Service Date/Time: Friday, July 14, 2017 19:45 - CONCLUSION: Liver within normal limits. Small gallstone in the gallbladder. Nonspecific mild diffuse gallbladder wall thickening. Borderline splenomegaly. Trace right pleural effusion. Raffi Briggs MD Objective Remarks GENERAL: 47-year-old female resting in bed in no acute distress on partial nonrebreather HEENT: Normocephalic/atraumatic pupils are equally round and reactive about 3 mm. Mucous members moist. Oropharynx without erythema or thrush NECK: Supple without any masses. Trachea midline no deviation. No JVD, CARDIAC: RRR. S1, S2. No S4. Without murmurs LUNGS: Coarse fine crackles appreciated throughout lung keller. Left thorax subcutaneous air noted with chest tube in place ABDOMEN: Soft, nontender. Nondistended. Bowel sounds heard in all 4 quadrants. No organomegaly or masses. Negative rebound, negative guarding EXTREMITIES: No edema, pulses are equal bilaterally. No significant cyanosis NEUROLOGY: Mood and affect appear appropriate. Cranial nerves II through XII grossly intact. Moving all extremities, speech is clear A/P Assessment and Plan Neuro/Psych: Bipolar disorder Depression History of (smoking) cocaine abuse 10/2016 History of migraine headache Neurochecks per ICU protocol Continue aripiprazole 10 mg daily and fluoxetine 40 mill grams daily home medications for bipolar/depression Trazodone 100mg qhs UDS negative. Currently on alprazolam 0.25 one tablet every 8 hours when necessary anxiety Morphine sulfate 1-2 mg every 3 hours when necessary pain Respiratory: Acute on chronic hypoxemic respiratory failure - persistent. Possible community-acquired pneumonia History of Tobacco use disorder History of inhaled cocaine use Chronic interstitial lung disease-steroid dependent Pulmonary fibrosis Home O2 dependency COPD History of asthma Currently on partial nonrebreather mask 12 L, Wean down oxygen as daksha keep sat >92% Albuterol/ipratropium aerosols every 4 hours scheduled and albuterol aerosols every 2 hours when necessary Continue home med budesonide/formoterol 80/4.5 2 puffs twice a day Methylprednisolone succinate [address] chest 07/24 : Lower lobe predominant interstitial lung disease and pulmonary fibrosis with interval development of massive pneumomediastinum, subq emphysema and small bilateral anterior pneumothoraces. Patchy diffuse groundglass opacities may reflect superimposed infection/inflammatory process. CTS -Dr. Issa is following Spoke with Dr. Jason Ford from [facility] 07/28 and recommended to try to transfer patient to transplant center. Pulmonology is following Left-sided pigtail placed by IR 07/26. PFTs 09/18 2016([facility]) FEV1 700 -25% of predicted, FVC 21% no lung volumes are diffusions were performed 09/07/16 CT thorax ([facility]) pulmonary fibrosis with left adrenal adenoma , however alpha 1 antitrypsin level was WNL , but positive (ASMA)anti-smooth muscle antibodies 1:640, ceruloplasmin normal Followed by Dr. Stark/pulmonology CV: Monitor HR and BP keep MAP>65mmHg 09/08/16 echo ([facility]) EF 55-60 %, Mildly elevated pulmonary pressure no major valvular abnormalities Renal: Monitor renal function, I/Os, electrolytes replacement per protocol. FEN/GI: Autoimmune hepatitis? (reported) Hepatitis B surface antigen positive Transaminitis Hyperlipidemia GERD Mild protein calorie malnutrition Constipation Monitor LFTs: currently downtrending. 07/15 ultrasound of abdomen- gallbladder wall thickening, borderline splenomegaly , trace right pleural effusion Famotidine GI prophylaxis 20 mg twice a day Ondansetron for nausea 09/13/16 Liver biopsy ([facility]) see medical chart for review- Patient referred to [facility] for eval for liver transplant GI is following. On Ursodiol 300 mg twice daily monitor liver enzymes. AST/ALT remain elevated Hep B sAg positive. Will need to be rechecked in 3 months with possible systemic treatment once stable Ursodiol 300 mg twice a day steatohepatitis Heme/ID: Leukocytosis Normocytic anemia Herpes 6 positive Pediculosis Thrombocytopenia Monitor CBC blood cultures- NGTD Legionella and pneumococcal urine antigens- negative Influenza- negative Off abx-s/p azithromycin and cefepime finished 07/22 Patient with head lice tx permethrin as directed Endocrine: TSH 0.023 - 07/19 Left Adrenal adenoma Hyperglycemia of critical illness free T3::1.11, FT4: 1.16 RADHIKA speckled Glucose monitoring per ICU protocol. Low dose regimen with Accu-Cheks before meals/at bedtime with NovoLog Metanephrine/normetanephrine/aldosterone and renin 06/[address] [facility]. Results unknown at this time. Prophylaxis: GI Prophylaxis Famotidine DVT Prophylaxis -- SCDs, heparin subcutaneous Lines: Peripheral IVs 2. Dispo: remain in ICU. Addendum: Code blue was called patient as patient was found in asystole ACLS protocol was initiated and was given Epi, Bicarb and calcium. Spoke to patient' s sister Veronica Stanley who is healthcare proxy and her mom Shanna Roy Both agreed to make her no code DNR and transition her to comfort care. They do not want any additional cardiac resuscitation/CPR in case if she codes again. Patient is currently intubated and on Levophed. Will transition to comfort care as requested by family. CCT 30 mins Mone Lora MD Aug 01, 2017 06:57
[2017-08-01] MEDS: FLUoxetine HCL 20 MG CAP PO SCH (07:26)
[2017-08-01] MEDS: HEPARIN SODIUM - SQ 10,000 UNITS/ML VIAL SQ SCH (07:26)
[2017-08-01] MEDS: DOCUSATE SODIUM 50 MG/SENNA 8.6 MG TAB PO SCH (07:26)
[2017-08-01] MEDS: ARIPiprazole 10 MG TAB PO SCH (07:26)
[2017-08-01] MEDS: URSODIOL 300 MG CAP PO SCH (07:27)
[2017-08-01] MEDS: POLYETHYLENE GLYCOL 17 GM PKG PO SCH (07:27)
[2017-08-01] MEDS: INSULIN ASPART SUPPLEMENTAL SCALE SQ SCH (07:27)
[2017-08-01] MEDS: FAMOTIDINE 20 MG TAB PO SCH (07:27)
[2017-08-01] MEDS: BUDESONIDE-FORMOTEROL 80/4.5 MCG INHALER INH SCH (07:27)
[2017-08-01 08:00] VITALS: BP 105/69; PULSE 90; RESP 35; TEMP 98; O2SAT 92
[2017-08-01] MEDS ORDERED: LACTULOSE SYRUP 20 GM/30 ML CUP PO SCH (09:00)
[2017-08-01 10:00] VITALS: PULSE 77
== END 2017-08-01 11:47 | disposition expired | DRG 193 ==
LOC: PHED 16:13 → PHEDA 18:54 → PH3A 22:58 → PHICU 07-14 15:30 → HIMN 07-24 15:31
PROVIDERS: ADMIT Anesthesiology; ATTEND Anesthesiology
PROC: 0W9B30Z Drainage of Left Pleural Cavity with Drainage Device, Percutaneous Approach (ICD-10-PCS; principal; 2017-07-26)
PROC: 0BH17EZ Insertion of Endotracheal Airway into Trachea, Via Natural or Artificial Opening (ICD-10-PCS; 2017-07-26)
DX: J18.9 Pneumonia, unspecified organism (principal); J96.21 Acute and chronic respiratory failure with hypoxia; D69.6 Thrombocytopenia, unspecified; J84.10 Pulmonary fibrosis, unspecified; K75.4 Autoimmune hepatitis; B19.10 Unspecified viral hepatitis B without hepatic coma; E44.1 Mild protein-calorie malnutrition; K71.9 Toxic liver disease, unspecified; J93.9 Pneumothorax, unspecified; Z99.81 Dependence on supplemental oxygen; F31.9 Bipolar disorder, unspecified; E78.5 Hyperlipidemia, unspecified; G40.909 Epilepsy, unspecified, not intractable, without status epilepticus; J98.4 Other disorders of lung; F43.10 Post-traumatic stress disorder, unspecified; K21.9 Gastro-esophageal reflux disease without esophagitis; M19.90 Unspecified osteoarthritis, unspecified site; J45.909 Unspecified asthma, uncomplicated; B85.0 Pediculosis due to Pediculus humanus capitis; B00.9 Herpesviral infection, unspecified; K72.90 Hepatic failure, unspecified without coma; N20.0 Calculus of kidney; D35.02 Benign neoplasm of left adrenal gland; R73.9 Hyperglycemia, unspecified; R74.0 Nonspecific elevation of levels of transaminase and lactic acid dehydrogenase [LDH]; F14.11 Cocaine abuse, in remission; K59.00 Constipation, unspecified; D64.9 Anemia, unspecified; Z51.5 Encounter for palliative care; Z68.21 Body mass index [BMI] 21.0-21.9, adult; Z87.891 Personal history of nicotine dependence; Z79.52 Long term (current) use of systemic steroids; Z87.442 Personal history of urinary calculi; Z91.410 Personal history of adult physical and sexual abuse; Z90.710 Acquired absence of both cervix and uterus
CPT/HCPCS: 31500; 32557; 36600; 71045; 71250; 71275; 76700; 76937; 80048; 80053; 80061; 80074; 80076; 80202; 80307; 81001; 82140; 82550; 82728; 82784; 82805; 82948; 83516; 83520; 83540; 83550; 83735; 84100; 84439; 84443; 84481; 84702; 85025; 85027; 85610; 85652; 85730; 86038; 86039; 86255; 86376; 86430; 86631; 86632; 87040; 87070; 87086; 87205; 87449; 87517; 87522; 87641; 87804; 93306; 93923; 94150; 94640; 94664; 96365; 96375; C1729; C1769; J0456; J0692; J0696; J1644; J1815; J1940; J2060; J2270; J2920; J2930; J3010; J3370; J7030; J7050; J7608; J7613; Q9967